=== PATIENT | male | born 1950 | race Caucasian/White ===

== ENCOUNTER → 2017-06-08 15:58 | Outpatient (CLI) | payer MEDICARE, OTHER, SELFPAY ==
[2017-06-08 17:13] LABS: Anion Gap 9 (5-15); BUN 46 mg/dL (7-18); BUN/Creat Ratio 21.8 RATIO (10-20); Calcium,Total 8.8 mg/dL (8.5-10.1); Chloride 110 mmol/L (98-107); Creatinine, Serum 2.11 mg/dL (0.70-1.30); EST Glomerular Filtration Rate 33 mL/min (>60); Est Glom Filt Rate - Afr Amer 40 mL/min (>60); Glucose 95 mg/dL (74-106); Potassium 5.2 mmol/L (3.5-5.1); Sodium Level 141 mmol/L (136-145)
== END ==
PROVIDERS: Family Provider Internal Medicine; PCP Internal Medicine; Visit Provider Internal Medicine Nephrology
DX: N18.3 Chronic kidney disease, stage 3 (moderate) (principal)
CPT/HCPCS: 36415; 80048

== ENCOUNTER → 2017-06-14 10:50 | Outpatient (CLI) | payer MEDICARE, OTHER, SELFPAY ==
[2017-06-14 12:52] LABS: Anion Gap 6 (5-15); BUN 35 mg/dL (7-18); BUN/Creat Ratio 16.4 RATIO (10-20); Chloride 105 mmol/L (98-107); Cholesterol 157 mg/dL (200); Creatinine, Serum 2.14 mg/dL (0.70-1.30); EST Glomerular Filtration Rate 33 mL/min (>60); Est Glom Filt Rate - Afr Amer 40 mL/min (>60); Glucose 94 mg/dL (74-106); High Density Lipoprotein 38 mg/dL; Potassium 4.6 mmol/L (3.5-5.1); Sodium Level 138 mmol/L (136-145); Thyroid Stim Hormone (TSH) 4.97 uIU/mL (0.358-3.74); Triglycerides 249 mg/dL; Very Low Density Lipoprotein 50 mg/dL (5-40)
== END ==
PROVIDERS: Family Provider Internal Medicine; PCP Internal Medicine; Visit Provider Internal Medicine
DX: I11.9 Hypertensive heart disease without heart failure (principal); R94.6 Abnormal results of thyroid function studies
CPT/HCPCS: 36415; 80048; 80061; 84443

== ENCOUNTER → 2017-07-04 10:41 | Outpatient (CLI) | payer MEDICARE, OTHER, SELFPAY ==
[2017-07-04 11:57] LABS: PSA,Total- Diagnostic 3.77 ng/mL (0.0-4.0)
== END ==
PROVIDERS: Family Provider Internal Medicine; PCP Internal Medicine; Visit Provider Urology
DX: C61 Malignant neoplasm of prostate (principal)
CPT/HCPCS: 36415; 84153

== ENCOUNTER → 2017-08-19 16:20 | Outpatient (CLI) | payer MEDICARE, OTHER, SELFPAY ==
[2017-08-19 17:28] LABS: Hematocrit 37.4 % (40-54); Hemoglobin 12.8 g/dl (13.0-16.5); Mean Corp Hgb Conc 34.2 g/gl (32-36); Mean Corpuscular Volume 93.5 fL (80-94); Mean Platelet Vol. 10.6 fl (6.2-12.0); Platelet Count 219 K/mm3 (150-450); RBC Distribution Width CV 12.8 % (11.6-14.6); RBC Distribution Width SD 42.3 fl (35.1-43.9); White Blood Count 7.9 K/mm3 (4.4-11.0)
[2017-08-19 17:32] LABS: Scan Indicated on CBC? Y/N NO
[2017-08-19 17:36] LABS: Albumin, Serum 3.8 g/dL (3.2-5.0); BUN 46 mg/dL (7-18); BUN/Creat Ratio 19.1 RATIO (10-20); Calcium,Total 8.5 mg/dL (8.5-10.1); Chloride 108 mmol/L (98-107); Creatinine, Serum 2.41 mg/dL (0.70-1.30); EST Glomerular Filtration Rate 29 mL/min (>60); Est Glom Filt Rate - Afr Amer 35 mL/min (>60); Glucose 94 mg/dL (74-106); Potassium 4.7 mmol/L (3.5-5.1); Sodium Level 138 mmol/L (136-145)
[2017-08-19 17:44] LABS: Protein, Urine (Random) 75.9 mg/dL (<11.9); Protein:Creat Ratio 1698 mg/g CRE (0-200)
[2017-08-19 17:46] LABS: Vitamin D,25 Hydroxy 47.6 ng/mL (29.95-100.01)
[2017-08-19 17:53] LABS: PTHIN 112.6 pg/mL (18.4-80.1)
== END ==
PROVIDERS: Family Provider Internal Medicine; PCP Internal Medicine; Visit Provider Internal Medicine Nephrology
DX: N18.3 Chronic kidney disease, stage 3 (moderate) (principal)
CPT/HCPCS: 36415; 80069; 82306; 82570; 83970; 84156; 85027

== ENCOUNTER → 2017-12-01 10:52 | Outpatient (CLI) | payer MEDICARE, OTHER, SELFPAY ==
[2017-12-01 12:34] LABS: Hemoglobin A1c 5.7 % (4.2-6.3)
[2017-12-01 12:55] LABS: ALB/GLOB Ratio 1.1 RATIO (0.9-2.4); AST(SGOT) 20 U/L (15-37); Alanine Aminotransfer ALT/SGPT 38 U/L (16-61); Albumin, Serum 3.7 g/dL (3.2-5.0); Alkaline Phosphatase 77 U/L (45-117); Anion Gap 12 (5-15); BUN 46 mg/dL (7-18); BUN/Creat Ratio 18.5 RATIO (10-20); Chloride 110 mmol/L (98-107); Cholesterol 126 mg/dL (200); Creatinine, Serum 2.48 mg/dL (0.70-1.30); EST Glomerular Filtration Rate 28 mL/min (>60); Est Glom Filt Rate - Afr Amer 33 mL/min (>60); Globulin 3.3 g/dL (2.2-4.2); Glucose 93 mg/dL (74-106); High Density Lipoprotein 32 mg/dL; Potassium 4.7 mmol/L (3.5-5.1); Sodium Level 142 mmol/L (136-145); Thyroid Stim Hormone (TSH) 0.01 uIU/mL (0.358-3.74); Triglycerides 209 mg/dL; Very Low Density Lipoprotein 42 mg/dL (5-40)
== END ==
PROVIDERS: Family Provider Internal Medicine; PCP Internal Medicine; Visit Provider Internal Medicine
DX: I11.9 Hypertensive heart disease without heart failure (principal); E78.00 Pure hypercholesterolemia, unspecified; R73.01 Impaired fasting glucose; E03.9 Hypothyroidism, unspecified
CPT/HCPCS: 36415; 80053; 80061; 83036; 84443

== ENCOUNTER → 2017-12-21 16:03 | Outpatient (CLI) | payer MEDICARE, OTHER, SELFPAY ==
[2017-12-21 17:58] LABS: Anion Gap 8 (5-15); BUN 42 mg/dL (7-18); BUN/Creat Ratio 14.7 RATIO (10-20); Calcium,Total 8.9 mg/dL (8.5-10.1); Chloride 108 mmol/L (98-107); Creatinine, Serum 2.85 mg/dL (0.70-1.30); EST Glomerular Filtration Rate 24 mL/min (>60); Est Glom Filt Rate - Afr Amer 29 mL/min (>60); Glucose 124 mg/dL (74-106); Potassium 5.2 mmol/L (3.5-5.1); Sodium Level 138 mmol/L (136-145)
== END ==
PROVIDERS: Family Provider Internal Medicine; PCP Internal Medicine; Visit Provider Internal Medicine Nephrology
DX: N18.3 Chronic kidney disease, stage 3 (moderate) (principal)
CPT/HCPCS: 36415; 80048

== ENCOUNTER → 2018-01-07 11:31 | Outpatient (CLI) | payer MEDICARE, OTHER, SELFPAY ==
[2018-01-07 12:31] LABS: PSA,Total- Diagnostic 4.41 ng/mL (0.0-4.0)
== END ==
PROVIDERS: Family Provider Internal Medicine; PCP Internal Medicine; Visit Provider Urology
DX: R97.20 Elevated prostate specific antigen [PSA] (principal)
CPT/HCPCS: 36415; 84153

== ENCOUNTER → 2018-01-27 07:44 | Outpatient (CLI) | payer MEDICARE, OTHER, SELFPAY ==
[2018-01-27 10:10] LABS: Anion Gap 11 (5-15); BUN 47 mg/dL (7-18); BUN/Creat Ratio 16.2 RATIO (10-20); Calcium,Total 9.4 mg/dL (8.5-10.1); Chloride 108 mmol/L (98-107); EST Glomerular Filtration Rate 23 mL/min (>60); Est Glom Filt Rate - Afr Amer 28 mL/min (>60); Glucose 152 mg/dL (74-106); Potassium 4.9 mmol/L (3.5-5.1); Sodium Level 140 mmol/L (136-145)
== END ==
PROVIDERS: Family Provider Internal Medicine; PCP Internal Medicine; Referring Provider Internal Medicine Nephrology; Visit Provider Internal Medicine Nephrology
DX: N18.4 Chronic kidney disease, stage 4 (severe) (principal)
CPT/HCPCS: 36415; 80048

== ENCOUNTER 2018-02-01 22:37 | Emergency (ER) | payer MEDICARE, OTHER, SELFPAY ==
[2018-02-01 22:38] VITALS: BP 143/83; PULSE 70; RESP 18; TEMP 36.8; O2SAT 99; BMI 30.2
--- NOTE | 2018-02-01 23:00 | ED.DCSUM_ITS ---
- ER Visit Summary Date of Service: 02/01/18 Chief Complaint: Chemical exposure to eyes History of Present Illness: The patient is a 68 M who presents 6 hours after chemical exposure to the eyes. Patient was using [employer] to clean the siding on his house. It is a caustic substance and he was using it in a pressure hose. It splashed off the house and into his eyes. Patient flushed his eyes for about 5 minutes. He is still having pain and redness in his eyes. He also got it on the skin around his face but is having no complaints at that time. He wears glasses but no contacts. Patient has history of bilateral cataract surgery. He denies any current vision changes, blurry vision, double v ision, or any other complaints other than the eye pain and redness. Physical Examination: Patient is well-nourished and well-developed sitting in bed with the lights on. Patient has diffuse conjunctival injection bilaterally and increased lacrimation. Periorbital region shows no erythema, lesions, tenderness. Pupils are equal round and reactive to light. No clouding of the corneas. Extraocular movement is intact without pain. PH of the eyes is 7.2. Visual acuity is 20/40 OD, 20/40 OS, 20/50 OU Test Results: [] Emergency Department Course and Treatment: Tetracaine was instilled to both eyes, with relief of patient's pain. Patient's eyes were irrigated copiously with sterile saline, 1 L each eye. Patient had diffuse uptake of floor seen on bilateral corneas. There was no evidence of ulceration, Ashley sign, dendritic lesions. Patient was placed on erythromycin antibiotic ointment and instructed to follow-up tomorrow with his eye doctor for another evaluation. Patient agreed and will return if any worsening of his condition. Treatment Plan: [] Disposition: [] Impression: Bilateral chemical conjunctivitis, bilateral corneal injury secondary to chemical exposure This note was generated with [facility] dictation software. It may contain incorrect words, spelling, and punctuation that were not noted in review of the chart prior to signing ED Disposition - Plan for ED Patient: Disposition: Home or Assisted Living Chief Complaint: Eye Problem Instructions: ED Eye Injury Corneal Abrasion, ED Chemical Conjunctivitis Referrals: Toño Gottlieb MD [STAFF PHYSICIAN] - 1 Day for another exam Fast,Angie, DO [Primary Care Provider] - Additional Instructions: Your eyes show some damage from the chemical you got in it. Use the antibiotic ointment as prescribed. Follow-up with your eye doctor tomorrow for another evaluation. Use [id number] pain medication as needed for pain. You were given a few of the numbing eyedrops to use for severe pain. If your pain becomes severely worse or your vision becomes blurry or changes in any way, return immediately to the emergency department for another evaluation. If you have any worsening of your condition or any new concerning symptoms, please return immediately to the emergency department for another evaluation.
--- NOTE | 2018-02-01 23:43 | ED.DEP ---
ED Disposition - Plan for ED Patient: Disposition: Home or Assisted Living Chief Complaint: Eye Problem Instructions: ED Eye Injury Corneal Abrasion, ED Chemical Conjunctivitis Referrals: Angie Ivan DO [Primary Care Provider] - Toño Gottlieb MD [STAFF PHYSICIAN] - 1 Day for another exam Additional Instructions: Your eyes show some damage from the chemical you got in it. Use the antibiotic ointment as prescribed. Follow-up with your eye doctor tomorrow for another evaluation. Use [id number] pain medication as needed for pain. You were given a few of the numbing eyedrops to use for severe pain. If your pain becomes severely worse or your vision becomes blurry or changes in any way, return immediately to the emergency department for another evaluation. If you have any worsening of your condition or any new concerning symptoms, please return immediately to the emergency department for another evaluation.
--- NOTE | 2018-02-01 23:46 | DCINST.ED_ITS ---
ED Disposition - Plan for ED Patient: Disposition: Home or Assisted Living Chief Complaint: Eye Problem Instructions: ED Eye Injury Corneal Abrasion, ED Chemical Conjunctivitis Referrals: Angie Ivan DO [Primary Care Provider] - Toño Gottlieb MD [STAFF PHYSICIAN] - 1 Day for another exam Additional Instructions: Your eyes show some damage from the chemical you got in it. Use the antibiotic ointment as prescribed. Follow-up with your eye doctor tomorrow for another evaluation. Use hsbe-yhy-nitvbvm pain medication as needed for pain. You were given a few of the numbing eyedrops to use for severe pain. If your pain becomes severely worse or your vision becomes blurry or changes in any way, return immediately to the emergency department for another evaluation. If you have any worsening of your condition or any new concerning symptoms, please return immediately to the emergency department for another evaluation.
[2018-02-01 23:57] VITALS: BP 138/89; PULSE 92; RESP 16; O2SAT 98
[2018-02-02 00:04] VITALS: BP 138/89; PULSE 92; RESP 16; O2SAT 98
[2018-02-02] MEDS: Tetracaine 0.5% Ophthalmic Bottle 1 DRP EACH EYE (00:05)
[2018-02-02] MEDS: Fluorescein 1 MG STRIP 1 STRIP EACH EYE (00:05)
[2018-02-02] MEDS: Erythromycin Base 1 OPTH.TUBE 1 APPLIC EACH EYE (00:06)
--- NOTE | 2018-02-02 00:06 | ED.RN ---
MEDICATIONS GIVEN BY DR. RODRIGUEZ PRIOR TO SCANNING.
== END 2018-02-02 00:07 | disposition home or self-care (01) ==
PROVIDERS: Emergency Provider Emergency Medicine; Family Provider Internal Medicine; PCP Internal Medicine
DX: H10.213 Acute toxic conjunctivitis, bilateral (principal); S05.8X2A Other injuries of left eye and orbit, initial encounter; S05.8X1A Other injuries of right eye and orbit, initial encounter; X58.XXXA Exposure to other specified factors, initial encounter; Y93.9 Activity, unspecified; Y92.9 Unspecified place or not applicable
CPT/HCPCS: 99284; J7030

== ENCOUNTER → 2018-03-09 09:04 | Outpatient (CLI) | payer MEDICARE, OTHER, SELFPAY ==
[2018-03-09 10:56] LABS: Vitamin D,25 Hydroxy 55.2 ng/mL (29.95-100.01)
[2018-03-09 11:12] LABS: ALB/GLOB Ratio 1.1 RATIO (0.9-2.4); AST(SGOT) 22 U/L (15-37); Alanine Aminotransfer ALT/SGPT 36 U/L (16-61); Albumin, Serum 3.5 g/dL (3.2-5.0); Alkaline Phosphatase 70 U/L (45-117); Anion Gap 11 (5-15); BUN 49 mg/dL (7-18); BUN/Creat Ratio 18.4 RATIO (10-20); Chloride 109 mmol/L (98-107); Cholesterol 142 mg/dL (200); Creatinine, Serum 2.66 mg/dL (0.70-1.30); EST Glomerular Filtration Rate 25 mL/min (>60); Est Glom Filt Rate - Afr Amer 31 mL/min (>60); Globulin 3.3 g/dL (2.2-4.2); Glucose 91 mg/dL (74-106); High Density Lipoprotein 35 mg/dL; Potassium 5.2 mmol/L (3.5-5.1); Protein, Total 6.8 g/dL (6.4-8.2); Sodium Level 140 mmol/L (136-145); Thyroid Stim Hormone (TSH) 0.04 uIU/mL (0.358-3.74); Triglycerides 284 mg/dL; Very Low Density Lipoprotein 57 mg/dL (5-40)
== END ==
PROVIDERS: Family Provider Internal Medicine; PCP Internal Medicine; Referring Provider Internal Medicine; Visit Provider Internal Medicine
DX: E78.00 Pure hypercholesterolemia, unspecified (principal); E55.9 Vitamin D deficiency, unspecified; Q61.2 Polycystic kidney, adult type; R73.01 Impaired fasting glucose; E03.9 Hypothyroidism, unspecified
CPT/HCPCS: 36415; 80053; 80061; 82306; 83036; 84443

== ENCOUNTER → 2018-03-24 10:44 | Outpatient (CLI) | payer MEDICARE, OTHER, SELFPAY ==
[2018-03-24 12:15] LABS: Anion Gap 8 (5-15); BUN 45 mg/dL (7-18); Calcium,Total 8.8 mg/dL (8.5-10.1); Chloride 109 mmol/L (98-107); Creatinine, Serum 2.64 mg/dL (0.70-1.30); EST Glomerular Filtration Rate 26 mL/min (>60); Est Glom Filt Rate - Afr Amer 31 mL/min (>60); Glucose 61 mg/dL (74-106); Potassium 4.6 mmol/L (3.5-5.1); Sodium Level 138 mmol/L (136-145)
== END ==
PROVIDERS: Family Provider Internal Medicine; PCP Internal Medicine; Referring Provider Internal Medicine; Visit Provider Internal Medicine
DX: E87.5 Hyperkalemia (principal)
CPT/HCPCS: 36415; 80048

== ENCOUNTER → 2018-06-13 10:34 | Outpatient (CLI) | payer MEDICARE, OTHER, SELFPAY ==
[2018-04-06 13:11] VITALS: BMI 31.0
[2018-06-13 11:04] LABS: Absolute Lymphocyte Count 1.47 X10^3/ul (0.83-4.51); Absolute Neutrophil Count 3.9 X10^3/uL (2.0-7.7); Basophil# 0.04 X10^3/uL; Basophil% 0.6 % (0-1); Eosinophil# 0.22 X10^3/uL; Eosinophils% 3.4 % (0-5); Hematocrit 40.3 % (40-54); Hemoglobin 13.3 g/dl (13.0-16.5); Lymphocyte # 1.47 X10^3/ul (4.0); Mean Corpuscular Volume 96.9 fL (80-94); Mean Platelet Vol. 10.4 fl (6.2-12.0); Monocyte# 0.74 X10^3/uL; Monocyte% 11.6 % (0-10); Neutrophil # 3.91 X10^3/uL (2.7-7.7); Neutrophil % 61.4 % (47-70); Platelet Count 214 K/mm3 (150-450); RBC Distribution Width CV 11.7 % (11.6-14.6); RBC Distribution Width SD 40.3 fl (35.1-43.9); Red Blood Count 4.16 M/mm3 (4.6-6.2); White Blood Count 6.4 K/mm3 (4.4-11.0)
[2018-06-13 11:09] LABS: POSITIVE COUNT NO; POSITIVE DIFFERENTIAL NO; POSITIVE MORPHOLOGY NO
[2018-06-13 11:32] LABS: 24 Hour Urine Protein 1528.3 mg/24HR (<150 MG/24HR); 24HR. UA Prot. Total Volume 2900 mL; Urine Protein (24 Hour) 52.7 mg/dL (<11.9)
[2018-06-13 11:33] LABS: Creat.Clear Total Volume 2900 mL; Creatinine Clearance 29 ml/min (100-200); Creatinine Serum Creat 2.3 mg/dL (0.8-1.3); Creatinine Urine 32.9 mg/dL (NO RANGE EST.); EST Glomerular Filtration Rate 30 mL/min (>60); Est Glom Filt Rate - Afr Amer 36 mL/min (>60)
[2018-06-13 11:41] LABS: ALB/GLOB Ratio 1.1 RATIO (0.9-2.4); AST(SGOT) 29 U/L (15-37); Alanine Aminotransfer ALT/SGPT 42 U/L (16-61); Albumin, Serum 3.6 g/dL (3.2-5.0); Alkaline Phosphatase 79 U/L (45-117); Anion Gap 10 (5-15); BUN 33 mg/dL (7-18); BUN/Creat Ratio 14.2 RATIO (10-20); Calcium,Total 8.6 mg/dL (8.5-10.1); Chloride 110 mmol/L (98-107); Cholesterol 145 mg/dL (200); Creatinine, Serum 2.32 mg/dL (0.70-1.30); EST Glomerular Filtration Rate 30 mL/min (>60); Est Glom Filt Rate - Afr Amer 36 mL/min (>60); Globulin 3.3 g/dL (2.2-4.2); Glucose 88 mg/dL (74-106); High Density Lipoprotein 33 mg/dL; Potassium 4.6 mmol/L (3.5-5.1); Protein, Total 6.9 g/dL (6.4-8.2); Sodium Level 139 mmol/L (136-145); Thyroid Stim Hormone (TSH) 1.51 uIU/mL (0.358-3.74); Triglycerides 236 mg/dL; Very Low Density Lipoprotein 47 mg/dL (5-40)
[2018-06-13 11:43] LABS: Hemoglobin A1c 6.1 % (4.2-6.3)
== END ==
PROVIDERS: Family Provider Internal Medicine; PCP Internal Medicine; Referring Provider Internal Medicine; Visit Provider Internal Medicine
DX: R73.01 Impaired fasting glucose (principal); E03.9 Hypothyroidism, unspecified; N18.4 Chronic kidney disease, stage 4 (severe); E78.00 Pure hypercholesterolemia, unspecified
CPT/HCPCS: 36415; 80053; 80061; 82575; 83036; 84156; 84443; 85025

== ENCOUNTER → 2018-06-23 15:13 | Outpatient (CLI) | payer MEDICARE, OTHER, SELFPAY ==
[2018-04-06 13:11] VITALS: BMI 31.0
--- NOTE | 2018-06-23 15:16 | CT_ITS ---
STUDY: CT ABDOMEN AND PELVIS WITHOUT CONTRAST REASON FOR EXAM: Male, 68 years old. Right flank pain. History of prostate carcinoma. RADIATION DOSAGE (If Supplied By Facility): CTDIvol = ( 14.14 ) mGy, DLP = ( 693.70 ) mGycm TECHNIQUE: Transaxial images were obtained from the dome of the diaphragm to the symphysis pubis without oral contrast, and without intravenous contrast. Sagittal and coronal images were reconstructed. Individualized dose optimization techniques were used for this CT. COMPARISON: Comparison is made with prior study dated June 22, 2015. FINDINGS: Minimal increased markings at the lung bases suggestive of scarring. The visualized portions of the heart are within normal limits. Once again, multiple cysts are seen scattered throughout the liver. These are essentially unchanged. Mild hepatomegaly. Normal gallbladder and extrahepatic biliary system. Normal spleen. Normal pancreas. Normal bilateral adrenal glands. There is enlargement of both kidneys. Innumerable cysts are seen in both kidneys. No significant renal tissue is seen suggestive of multicystic kidney disease. Tiny calcifications are seen in the left kidney suggestive of a renal cystic calcification. Several cysts in the lower pole of the left kidney are hyperdense suggestive of proteinaceous material. There has been essentially no change. Normal visualized stomach. Normal small intestine. There are multiple colonic diverticula consistent with diverticulosis. The appendix is visualized and appears normal. There is diffuse atherosclerotic calcification of the abdominal aorta, without a demonstrated aneurysm. Normal inferior vena cava. Normal retroperitoneum. Normal urinary bladder. There is enlargement of the prostate gland. The prostate measures 4.1 cm x 5.2 cm. Small bilateral renal hernias containing fat. Degenerative changes in the lower lumbar spine. CT/Abdomen/Pelvis without Cont IMPRESSION: Findings in keeping with polycystic kidney disease. Multiple hepatic cysts. These are unchanged. Sigmoid diverticulosis without evidence of acute diverticulitis. Electronically Signed: Noel Cornejo MD at 15:57 EST , Service support ,
[2018-06-23 16:07] LABS: ALB/GLOB Ratio 1.3 RATIO (0.9-2.4); AST(SGOT) 26 U/L (15-37); Alanine Aminotransfer ALT/SGPT 34 U/L (16-61); Albumin, Serum 3.7 g/dL (3.2-5.0); Alkaline Phosphatase 82 U/L (45-117); Anion Gap 9 (5-15); BUN 48 mg/dL (7-18); BUN/Creat Ratio 17.8 RATIO (10-20); Calcium,Total 8.8 mg/dL (8.5-10.1); Chloride 109 mmol/L (98-107); EST Glomerular Filtration Rate 25 mL/min (>60); Est Glom Filt Rate - Afr Amer 30 mL/min (>60); Globulin 2.9 g/dL (2.2-4.2); Glucose 131 mg/dL (74-106); Potassium 4.7 mmol/L (3.5-5.1); Protein, Total 6.6 g/dL (6.4-8.2); Sodium Level 138 mmol/L (136-145)
[2018-06-23 16:09] LABS: Absolute Lymphocyte Count 1.44 X10^3/ul (0.83-4.51); Absolute Neutrophil Count 5.5 X10^3/uL (2.0-7.7); Basophil# 0.03 X10^3/uL; Basophil% 0.4 % (0-1); Eosinophils% 2.5 % (0-5); Hematocrit 38.4 % (40-54); Hemoglobin 12.5 g/dl (13.0-16.5); Lymphocyte # 1.44 X10^3/ul (4.0); Lymphocyte % 18.2 % (19-41); Mean Corp Hgb Conc 32.6 g/gl (32-36); Mean Corpuscular Hgb 31.3 pg (27.0-32.0); Mean Platelet Vol. 10.8 fl (6.2-12.0); Monocyte# 0.71 X10^3/uL; Neutrophil # 5.53 X10^3/uL (2.7-7.7); Neutrophil % 69.8 % (47-70); Platelet Count 214 K/mm3 (150-450); RBC Distribution Width SD 41.8 fl (35.1-43.9); White Blood Count 7.9 K/mm3 (4.4-11.0)
[2018-06-23 16:10] LABS: POSITIVE COUNT NO; POSITIVE DIFFERENTIAL NO; POSITIVE MORPHOLOGY NO
== END ==
PROVIDERS: Family Provider Internal Medicine; PCP Internal Medicine; Referring Provider Internal Medicine; Visit Provider Internal Medicine
DX: R10.9 Unspecified abdominal pain (principal)
CPT/HCPCS: 74176; 80053; 85025

== ENCOUNTER 2018-07-10 15:21 | Outpatient (RCR) | payer MEDICARE, OTHER, SELFPAY ==
[2018-04-06 13:11] VITALS: BMI 31.0
== END 2018-07-30 23:59 ==
LOC: NS 15:21
PROVIDERS: Family Provider Internal Medicine; PCP Internal Medicine; Visit Provider Internal Medicine
DX: N18.4 Chronic kidney disease, stage 4 (severe) (principal); Z71.3 Dietary counseling and surveillance
CPT/HCPCS: 97802

== ENCOUNTER → 2018-07-10 16:59 | Outpatient (CLI) | payer MEDICARE, OTHER, SELFPAY ==
[2018-04-06 13:11] VITALS: BMI 31.0
[2018-07-14 10:44] LABS: PSA,Total- Diagnostic 4.88 ng/mL (0.0-4.0)
== END ==
PROVIDERS: Family Provider Internal Medicine; PCP Internal Medicine; Referring Provider Urology; Visit Provider Urology
DX: C61 Malignant neoplasm of prostate (principal); R97.20 Elevated prostate specific antigen [PSA]
CPT/HCPCS: 36415; 84153; G0103

== ENCOUNTER → 2018-07-28 10:40 | Outpatient (CLI) | payer MEDICARE, OTHER, SELFPAY ==
[2018-04-06 13:11] VITALS: BMI 31.0
[2018-07-28 12:36] LABS: Absolute Lymphocyte Count 1.73 X10^3/ul (0.83-4.51); Absolute Neutrophil Count 3.4 X10^3/uL (2.0-7.7); Basophil# 0.03 X10^3/uL; Basophil% 0.5 % (0-1); Eosinophil# 0.24 X10^3/uL; Eosinophils% 3.9 % (0-5); Hematocrit 36.7 % (40-54); Hemoglobin 12.2 g/dl (13.0-16.5); Lymphocyte # 1.73 X10^3/ul (4.0); Lymphocyte % 28.3 % (19-41); Mean Corp Hgb Conc 33.2 g/gl (32-36); Mean Corpuscular Hgb 31.3 pg (27.0-32.0); Mean Corpuscular Volume 94.1 fL (80-94); Mean Platelet Vol. 10.7 fl (6.2-12.0); Monocyte# 0.73 X10^3/uL; Monocyte% 11.9 % (0-10); Neutrophil # 3.37 X10^3/uL (2.7-7.7); Neutrophil % 55.2 % (47-70); POSITIVE COUNT NO; POSITIVE DIFFERENTIAL NO; POSITIVE MORPHOLOGY NO; Platelet Count 203 K/mm3 (150-450); RBC Distribution Width CV 12.4 % (11.6-14.6); RBC Distribution Width SD 41.8 fl (35.1-43.9); White Blood Count 6.1 K/mm3 (4.4-11.0)
[2018-07-28 12:46] LABS: Protein, Urine (Random) 80.5 mg/dL (<11.9); Protein:Creat Ratio 1963 mg/g CRE (0-200)
[2018-07-28 13:14] LABS: Vitamin D,25 Hydroxy 64.4 ng/mL (29.95-100.01)
[2018-07-28 13:16] LABS: PTHIN 49.6 pg/mL (18.4-80.1)
[2018-07-28 13:17] LABS: Albumin, Serum 3.8 g/dL (3.2-5.0); BUN 45 mg/dL (7-18); BUN/Creat Ratio 16.7 RATIO (10-20); Calcium,Total 8.8 mg/dL (8.5-10.1); Chloride 109 mmol/L (98-107); EST Glomerular Filtration Rate 25 mL/min (>60); Est Glom Filt Rate - Afr Amer 30 mL/min (>60); Glucose 85 mg/dL (74-106); Phosphorus 3.8 mg/dL (2.5-4.9); Potassium 4.8 mmol/L (3.5-5.1); Sodium Level 138 mmol/L (136-145)
== END ==
PROVIDERS: Family Provider Internal Medicine; PCP Internal Medicine; Referring Provider Internal Medicine Nephrology; Visit Provider Internal Medicine Nephrology
DX: N18.3 Chronic kidney disease, stage 3 (moderate) (principal)
CPT/HCPCS: 36415; 80069; 82306; 82570; 83970; 84156; 85025

== ENCOUNTER → 2018-08-07 | Outpatient (CLI) | payer MEDICARE, OTHER, SELFPAY ==
[2018-04-06 13:11] VITALS: BMI 31.0
--- NOTE | 2018-08-07 09:52 | RAD_ITS ---
STUDY: X-RAY CHEST REASON FOR EXAM: Male, 68 years old. Cough. TECHNIQUE: PA and lateral views of the chest. COMPARISON: Comparison is made with prior study dated February 15, 2017. FINDINGS: The lungs are clear and expanded. Hyperinflation. There is no demonstrated pleural abnormality. Sternal cerclage wires are present from a prior sternotomy. Normal mediastinum and emery. Normal visualized pulmonary arteries. Normal visualized aortic arch and descending thoracic aorta. Normal visualized thoracic spine. Normal visualized ribs, clavicles, and shoulders. There is no demonstrated abnormality of the visualized soft tissue structures of the upper abdomen. RAD/Chest PA and Lateral IMPRESSION: Normal x-ray examination of the chest. Electronically Signed: Noel Cornejo, at 10:27 EDT , Service support ,
== END | disposition home or self-care (01) ==
LOC: HPRAD 09:49
PROVIDERS: Family Provider Internal Medicine; PCP Internal Medicine; Referring Provider Nurse Practitioner Gerontology; Visit Provider Nurse Practitioner Gerontology
DX: R05 Cough (principal)
CPT/HCPCS: 71046

== ENCOUNTER 2018-08-15 14:51 | Outpatient (RCR) | payer MEDICARE, OTHER, SELFPAY ==
[2018-04-06 13:11] VITALS: BMI 31.0
== END 2018-08-29 23:59 ==
LOC: NS 14:51
PROVIDERS: Family Provider Internal Medicine; PCP Internal Medicine; Visit Provider Internal Medicine
DX: N18.4 Chronic kidney disease, stage 4 (severe) (principal)
CPT/HCPCS: 97803

== ENCOUNTER 2018-09-19 13:02 | Outpatient (RCR) | payer MEDICARE, OTHER, SELFPAY ==
[2018-04-06 13:11] VITALS: BMI 31.0
== END 2018-09-29 23:59 ==
LOC: NS 13:02
PROVIDERS: Family Provider Internal Medicine; PCP Internal Medicine; Visit Provider Internal Medicine
DX: N18.4 Chronic kidney disease, stage 4 (severe) (principal); Z71.3 Dietary counseling and surveillance
CPT/HCPCS: 97803

== ENCOUNTER 2018-10-11 01:21 | Emergency (ER) | payer MEDICARE, OTHER, SELFPAY ==
[2018-04-06 13:11] VITALS: BMI 31.0
[2018-10-11] VITALS (8 sets, daily range): BP systolic 124–145; BP diastolic 72–85; PULSE 89–95; RESP 15–23; TEMP 36.2–37; O2SAT 94–96; BMI 30.8
--- NOTE | 2018-10-11 01:39 | EKG12_ITS ---
Test Reason : SOB Blood Pressure : / mmHG Vent. Rate : 093 BPM Atrial Rate : 093 BPM P-R Int : 144 ms QRS Dur : 104 ms QT Int : 354 ms P-R-T Axes : 005 -06 036 degrees QTc Int : 440 ms Normal sinus rhythm Normal ECG Confirmed by KASEY NORMAN, ANNALEE ([id number]), marketing editor CHRISTOPH LEON ([id number]) on 10/13/2018 9:06:40 AM Referred By: MARILYN Confirmed By:ANNALEE PARKS MD
--- NOTE | 2018-10-11 01:39 | RAD_ITS ---
HISTORY: INCREASING SOB, COUGH, CONGESTION EXAMINATION/TECHNIQUE: XR Chest 2 Views: COMPARISON: None FINDINGS: EKG leads in place. No significant change. Normal heart size. No vascular congestion, pleural effusion, or acute pulmonary infiltration. No pneumothorax. Previous median sternotomy. RAD/Chest PA and Lateral IMPRESSION: 1. No acute cardiopulmonary disease. No significant interval change. 2. Previous median sternotomy. at 0231 Reported and signed by: Ang Luciano MD Electronically Signed: Ang Luciano, at 2:30 EDT Tel , Service support ,
[2018-10-11] MEDS: Ipratropium/Albuterol Sulfate 3 ML AMPUL.NEB INHALATION (01:42)
[2018-10-11 01:57] LABS: Absolute Lymphocyte Count 1.22 X10^3/ul (0.83-4.51); Absolute Neutrophil Count 7.6 X10^3/uL (2.0-7.7); Basophil# 0.03 X10^3/uL; Basophil% 0.3 % (0-1); Eosinophil# 0.36 X10^3/uL; Eosinophils% 3.5 % (0-5); Hemoglobin 12.3 g/dl (13.0-16.5); Lymphocyte # 1.22 X10^3/ul (4.0); Lymphocyte % 11.8 % (19-41); Mean Corp Hgb Conc 34.2 g/gl (32-36); Mean Corpuscular Hgb 32.2 pg (27.0-32.0); Mean Corpuscular Volume 94.2 fL (80-94); Mean Platelet Vol. 10.5 fl (6.2-12.0); Monocyte# 1.09 X10^3/uL; Monocyte% 10.6 % (0-10); Neutrophil # 7.61 X10^3/uL (2.7-7.7); Neutrophil % 73.6 % (47-70); Platelet Count 209 K/mm3 (150-450); RBC Distribution Width CV 12.4 % (11.6-14.6); RBC Distribution Width SD 41.9 fl (35.1-43.9); Red Blood Count 3.82 M/mm3 (4.6-6.2); White Blood Count 10.3 K/mm3 (4.4-11.0)
[2018-10-11 01:58] LABS: POSITIVE COUNT NO; POSITIVE DIFFERENTIAL NO; POSITIVE MORPHOLOGY NO
[2018-10-11] MEDS: 0.9% Normal Saline 1,000 ML 150 ML IV (02:06)
[2018-10-11 02:09] LABS: Anion Gap 7 (5-15); BUN 50 mg/dL (7-18); BUN/Creat Ratio 18.3 RATIO (10-20); Calcium,Total 8.7 mg/dL (8.5-10.1); Chloride 107 mmol/L (98-107); Creatinine, Serum 2.73 mg/dL (0.70-1.30); EST Glomerular Filtration Rate 25 mL/min (>60); Est Glom Filt Rate - Afr Amer 30 mL/min (>60); Estimated Creatinine Clearance 24.71 ml/min; Glucose 111 mg/dL (74-106); Potassium 4.4 mmol/L (3.5-5.1); Sodium Level 134 mmol/L (136-145)
[2018-10-11] MEDS: Albuterol 2.5 MG/3 ML VIAL.NEB. INHALATION (03:05)
--- NOTE | 2018-10-11 03:53 | ED.VISSUMM ---
- ER Visit Summary Date of Service: 10/11/18 Chief Complaint: Short of breath, cough, congestion History of Present Illness: The patient is a 68 M with a 2-day history of sore throat, cough with mucus congestion. He states he feels the mucus gets caught in his throat as he coughs. He denies chills. He has been using Mucinex today without much improvement. Patient denies history of asthma or COPD. He does have sleep apnea and uses a CPAP machine. Physical Examination: Vital signs unremarkable. Patient sitting upright at the side of the bed. He is in no acute distress. Head and neck examination unremarkable. Heart is regular rate and rhythm. Lung sounds with very mild expiratory wheeze. He has mild rales noted of the left base. Abdomen is soft nontender. Test Results: EKG is sinus at 93 with no acute ischemia. Two-view chest x-ray reveals no acute disease. CBC was normal white count. Hemoglobin is 12.3. Chemistry studies significant for BUN of 50 and creatinine 2.73. This is consistent with his prior values. Emergency Department Course and Treatment: Patient received a DuoNeb treatment. On repeat evaluation O2 sat was 89% on room air, but with deep breath as I listen to his lungs his sat increased to 95%. Patient does have improved air movement and does feel better after the DuoNeb treatment. He is given an additional albuterol. He is ambulated in the hallway on room air. O2 sat ranges between 90 to 95%. Patient be given albuterol inhaler for home along with Zithromax for bronchitis. Treatment Plan: [] Disposition: Discharge Impression: Bronchitis This note was generated with [employer] dictation software. It may contain incorrect words, spelling, and punctuation that were not noted in review of the chart prior to signing ED Disposition - Plan for ED Patient: Disposition: Home or Assisted Living Instructions: ED Upper Resp Infec Abx Tx Prescriptions: Albuterol Inhaler [Ventolin Hfa] 1 - 2 puff INHALATION Q4H PRN PRN #1 inhaler PRN Reason: Wheezing Azithromycin [Zithromax] 250 mg PO DAILY #4 tablet Referrals: Angie Ivan DO [Primary Care Provider] - 1 Week
[2018-10-11] MEDS: Azithromycin 250 MG Tablet 500 MG PO (04:16)
== END 2018-10-11 04:24 | disposition home or self-care (01) ==
PROVIDERS: Emergency Provider Emergency Medicine; Family Provider Internal Medicine; PCP Internal Medicine
DX: J40 Bronchitis, not specified as acute or chronic (principal); G47.30 Sleep apnea, unspecified; K21.9 Gastro-esophageal reflux disease without esophagitis; I12.9 Hypertensive chronic kidney disease with stage 1 through stage 4 chronic kidney disease, or unspecified chronic kidney disease; N18.9 Chronic kidney disease, unspecified; Z85.46 Personal history of malignant neoplasm of prostate; Z86.73 Personal history of transient ischemic attack (TIA), and cerebral infarction without residual deficits
CPT/HCPCS: 71046; 80048; 85025; 93005; 94640; 96360; 96361; 99285; J7030; A4216

== ENCOUNTER → 2018-12-06 15:49 | Outpatient (CLI) | payer MEDICARE, OTHER, SELFPAY ==
[2018-10-11 01:22] VITALS: BMI 30.8
[2018-12-06 17:30] LABS: Hematocrit 33.5 % (40-54); Hemoglobin 11.2 g/dL (13.0-16.5); Mean Corp Hgb Conc 33.4 g/dL (32-36); Mean Corpuscular Hgb 32.3 pg (27.0-32.0); Mean Corpuscular Volume 96.5 fL (80-94); Mean Platelet Vol. 11.1 fl (6.2-12.0); Platelet Count 188 K/mm3 (150-450); RBC Distribution Width CV 12.2 % (11.6-14.6); RBC Distribution Width SD 42.5 fl (35.1-43.9); Red Blood Count 3.47 M/mm3 (4.6-6.2); White Blood Count 6.7 K/mm3 (4.4-11.0)
[2018-12-06 17:37] LABS: Albumin, Serum 3.4 g/dL (3.2-5.0); BUN 38 mg/dL (7-18); BUN/Creat Ratio 15.3 RATIO (10-20); Calcium,Total 8.4 mg/dL (8.5-10.1); Chloride 111 mmol/L (98-107); Creatinine, Serum 2.49 mg/dL (0.70-1.30); EST Glomerular Filtration Rate 27 mL/min (>60); Est Glom Filt Rate - Afr Amer 33 mL/min (>60); Glucose 89 mg/dL (74-106); Phosphorus 2.9 mg/dL (2.5-4.9); Potassium 4.9 mmol/L (3.5-5.1); Sodium Level 141 mmol/L (136-145)
[2018-12-06 17:50] LABS: PTHIN 120.8 pg/mL (18.4-80.1); Vitamin D,25 Hydroxy 52.3 ng/mL (29.95-100.01)
[2018-12-06 18:26] LABS: Microalbumin:Creatinine Ratio 949.8 mg/g CRE (<30 mg/g CRE)
== END ==
PROVIDERS: Family Provider Internal Medicine; PCP Internal Medicine; Referring Provider Internal Medicine Nephrology; Visit Provider Internal Medicine Nephrology
DX: N25.81 Secondary hyperparathyroidism of renal origin (principal); R80.9 Proteinuria, unspecified; N18.4 Chronic kidney disease, stage 4 (severe)
CPT/HCPCS: 36415; 80069; 82043; 82306; 82570; 83735; 83970; 85027

== ENCOUNTER → 2018-12-26 | Outpatient (CLI) | payer MEDICARE, OTHER, SELFPAY ==
[2018-10-11 01:22] VITALS: BMI 30.8
[2018-12-26 12:15] LABS: Absolute Lymphocyte Count 1.38 X10^3/uL (0.83-4.51); Absolute Neutrophil Count 4.2 X10^3/uL (2.0-7.7); Basophil# 0.06 X10^3/uL; Basophil% 0.9 % (0-1); Eosinophil# 0.18 X10^3/uL; Eosinophils% 2.7 % (0-5); Hematocrit 37.8 % (40-54); Hemoglobin 12.5 g/dL (13.0-16.5); Lymphocyte # 1.38 X10^3/ul (4.0); Lymphocyte % 20.8 % (19-41); Mean Corp Hgb Conc 33.1 g/dL (32-36); Mean Corpuscular Hgb 31.7 pg (27.0-32.0); Mean Corpuscular Volume 95.9 fL (80-94); Mean Platelet Vol. 10.5 fl (6.2-12.0); Monocyte# 0.75 X10^3/uL; Monocyte% 11.3 % (0-10); NRBC Flagged by Analyzer 0 % (0-5); Neutrophil # 4.24 X10^3/uL (2.7-7.7); Platelet Count 219 K/mm3 (150-450); RBC Distribution Width SD 42.2 fl (35.1-43.9); Red Blood Count 3.94 M/mm3 (4.6-6.2); White Blood Count 6.6 K/mm3 (4.4-11.0)
[2018-12-26 12:51] LABS: ALB/GLOB Ratio 1.2 RATIO (0.9-2.4); AST(SGOT) 19 U/L (15-37); Alanine Aminotransfer ALT/SGPT 30 U/L (16-61); Albumin, Serum 3.7 g/dL (3.2-5.0); Alkaline Phosphatase 73 U/L (45-117); Anion Gap 7 (5-15); BUN 50 mg/dL (7-18); BUN/Creat Ratio 19.6 RATIO (10-20); Calcium,Total 9.2 mg/dL (8.5-10.1); Chloride 111 mmol/L (98-107); Cholesterol 135 mg/dL (200); Creatinine, Serum 2.55 mg/dL (0.70-1.30); EST Glomerular Filtration Rate 27 mL/min (>60); Est Glom Filt Rate - Afr Amer 32 mL/min (>60); Globulin 3.2 g/dL (2.2-4.2); Glucose 93 mg/dL (74-106); Hemoglobin A1c 5.7 % (4.2-6.3); High Density Lipoprotein 34 mg/dL; Potassium 4.6 mmol/L (3.5-5.1); Protein, Total 6.9 g/dL (6.4-8.2); Sodium Level 138 mmol/L (136-145); Triglycerides 208 mg/dL; Very Low Density Lipoprotein 42 mg/dL (5-40)
== END | disposition home or self-care (01) ==
LOC: MTLAB 10:05
PROVIDERS: Family Provider Internal Medicine; PCP Internal Medicine; Referring Provider Internal Medicine; Visit Provider Internal Medicine
DX: I11.9 Hypertensive heart disease without heart failure (principal); E78.00 Pure hypercholesterolemia, unspecified; R73.01 Impaired fasting glucose
CPT/HCPCS: 36415; 80053; 80061; 83036; 85025

== ENCOUNTER → 2019-01-02 | Outpatient (CLI) | payer MEDICARE, OTHER, SELFPAY ==
[2018-10-11 01:22] VITALS: BMI 30.8
--- NOTE | 2019-01-02 09:12 | RAD_ITS ---
STUDY: X-RAY - RIGHT SHOULDER REASON FOR EXAM: Male, 69 years old. Right arm stiffness TECHNIQUE: 4 view(s) of the shoulder. COMPARISON: None. FINDINGS: There is no evidence of fracture or dislocation. There are mild degenerative changes noted. There are no radiodense foreign bodies. RAD/Shoulder min 2 Views IMPRESSION: No fracture or dislocation in the right shoulder. Mild degenerative change. Electronically Signed: Rashawn Morse, at 18:49 EDT Tel , Service support ,
--- NOTE | 2019-01-02 09:12 | RAD_ITS ---
STUDY: X-RAY - CERVICAL SPINE REASON FOR EXAM: Male, 69 years old. Neck and arm pain TECHNIQUE: 6 view(s) of the cervical spine were obtained. COMPARISON: None FINDINGS: There is no evidence of fracture or dislocation in the cervical spine. The dens is intact. The vertebral body heights are well-maintained. There are moderate degenerative changes in the mid to lower cervical spine with disc space narrowing and osteophytes at C4/C5, C5/C6 and C6/C7. The prevertebral soft tissues are unremarkable. There is no radiodense foreign body. RAD/Cerv Spine 4 or 5 Views IMPRESSION: No fracture or dislocation in the cervical spine. Moderate degenerative changes in the mid to lower cervical spine. Electronically Signed: Rashawn Morse, at 17:46 EDT Tel , Service support ,
== END | disposition home or self-care (01) ==
LOC: HPRAD 09:06
PROVIDERS: Family Provider Internal Medicine; PCP Internal Medicine; Referring Provider Internal Medicine; Visit Provider Internal Medicine
DX: M54.12 Radiculopathy, cervical region (principal)
CPT/HCPCS: 72050; 73030

== ENCOUNTER → 2019-01-04 | Outpatient (CLI) | payer MEDICARE, OTHER, SELFPAY ==
[2018-10-11 01:22] VITALS: BMI 30.8
[2019-01-04 17:59] LABS: PSA,Total- Diagnostic 5.14 ng/mL (0.0-4.0)
== END | disposition home or self-care (01) ==
LOC: MTLAB 16:38
PROVIDERS: Family Provider Internal Medicine; PCP Internal Medicine; Referring Provider Urology; Visit Provider Urology
DX: R97.20 Elevated prostate specific antigen [PSA] (principal)
CPT/HCPCS: 36415; 84153

== ENCOUNTER → 2019-01-25 | Outpatient (CLI) | payer MEDICARE, OTHER, SELFPAY ==
[2018-10-11 01:22] VITALS: BMI 30.8
--- NOTE | 2019-01-25 08:00 | PROSBIL_PTH ---
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 Juan Hernandez MD : 1950 BED: DIS: 01/25/2019 SPEC #: [id number] RECD: 01/25/19 17:18 STATUS: ISABEL REJanuary #: [id number] NICHELLE: 01/25/19 08:[address]: Juan Hernandez DEPT: SURGICAL PATHOLOGY RECD BY: Jamshid Davis ENTERED: 01/26/19 09:12 SP TYPE: PROST BX JAMIE DR: Dr. Angie Ivan DO Tissues: A - PROSTATE RIGHT B - PROSTATE RIGHT C - PROSTATE RIGHT D - PROSTATE LEFT E - PROSTATE LEFT F - PROSTATE LEFT Procedures: PROSTATE BX HEADER OPERATION: Prostate biopsy PRE-OP DIAGNOSIS: Elevated PSA TISSUE SUBMITTED: A - Right apex, B - Right mid, C - Right base, D - Left apex, E - Left mid, F - Left base MICROSCOPIC DIAGNOSIS A. Right prostate, apex, core biopsy: Prostatic tissue, negative for malignancy. B. Right prostate, mid, core biopsy: Focal high-grade prostatic intraepithelial neoplasia (HGPIN). C. Right prostate, base, core biopsy: Prostatic tissue, negative for malignancy. D. Left prostate, apex, core biopsy: Predominantly prostatic stromal tissue, negative for malignancy. E. Left prostate, mid, core biopsy: Prostatic adenocarcinoma: [place] grade: 3+3=6 Number of cores involved: 1/2 Proportion of tissue involved: ~15-20% Perineural invasion: Suspected. Greatest tumor length: 0.2 cm Focal high-grade prostatic intraepithelial neoplasia (HGPIN). F. Left prostate, base, core biopsy: Focal minimal high-grade prostatic intraepithelial neoplasia (HGPIN). SJ:jodie 01/29/19 COMMENT Please make reference to previous specimen ([id number]) right prostate, apex, mid and base and left prostate, mid and base core biopsy with diagnosis of focal high-grade prostatic intraepithelial neoplasia and left prostate, apex with diagnosis with prostatic adenocarcinoma. Case has been reviewed in consultation with Dr. Quintanilla who concurs with the above diagnosis. IDC:AM MICROSCOPIC DESCRIPTION Slides are reviewed. GROSS DESCRIPTION A - Received is one container designated prostate, right apex. The specimen consists of two elongated fragments of light norman-white soft tissue each measuring 0.8 cm in length and 0.1 cm in diameter. The specimen is totally submitted in one cassette. B - Received is one container designated prostate, right mid. The specimen consists of two elongated fragments of light norman-white soft tissue each measuring 1 cm in length and 0.1 cm in diameter. The specimen is totally submitted in one cassette. C - Received is one container designated prostate, right base. The specimen consists of two elongated fragments of light norman-white soft tissue each measuring 0.8 cm in length and 0.1 cm in diameter. The specimen is totally submitted in one cassette. D - Received is one container designated prostate, left apex. The specimen consists of two elongated fragments of light norman-white soft tissue each measuring 0.5 cm in length and 0.1 cm in diameter. The specimen is totally submitted in one cassette. E - Received is one container designated prostate, left mid. The specimen consists of two elongated fragments of light norman-white soft tissue each measuring 0.8 cm in length and 0.1 cm in diameter. The specimen is totally submitted in one cassette. F - Received is one container designated prostate, left base. The specimen consists of two elongated fragments of light norman-white soft tissue each measuring 0.8 cm in length and 0.1 cm in diameter. The specimen is totally submitted in one cassette. / AM:jodie 01/26/19 TC:0 CPT: G0146 ADDENDUM ADDENDUM ADDENDUM ADDENDUM ADDENDUM ADDENDUM ADDENDUM ADDENDUM 02/22/2019 13:18 ADDENDUM 02/22/2019 13:18 ADDENDUM 02/22/2019 13:18 ADDENDUM 02/22/2019 13:18 ADDENDUM 02/22/2019 13:18 An order for Oncotype testing was received from Dr. Hernandez. This necessitated case review, block and slide selection by pathologist at [facility]. Genomic Prostate Score = 67 Results of the complete Oncotype testing ([facility] report) are viewable in EMR under: Reports - Pathology - Lab Pathology Report, Scanned.
== END | disposition home or self-care (01) ==
LOC: LABSPEC 01-26 08:21
PROVIDERS: Family Provider Internal Medicine; PCP Internal Medicine; Referring Provider Urology; Visit Provider Urology
DX: R97.20 Elevated prostate specific antigen [PSA] (principal)
CPT/HCPCS: 88305; G0416

== ENCOUNTER → 2019-02-01 | Outpatient (CLI) | payer MEDICARE, OTHER, SELFPAY ==
[2018-10-11 01:22] VITALS: BMI 30.8
--- NOTE | 2019-02-01 18:03 | MRI_ITS ---
STUDY: MRA OF THE HEAD WITHOUT CONTRAST REASON FOR EXAM: Male, 69 years old. Polycystic kidney disease possible aneurysm TECHNIQUE: 3-D [id number] (TOF) imaging was performed with MIPs. The study was performed unenhanced. COMPARISON: None. FINDINGS: Normal bilateral petrous carotid arteries. Normal right cavernous carotid artery with a normal supraclinoid bifurcation. Normal left cavernous carotid artery with a normal supraclinoid bifurcation. Normal right A1 segments of the anterior cerebral artery. Normal left A1 segments of the anterior cerebral artery. Normal intact anterior communicating artery (ACOM). Normal bilateral A2 segments of the anterior cerebral arteries. Normal right M1 and M2 segments of the middle cerebral arteries, with a normal M1 bifurcation. Normal left M1 and M2 segments of the middle cerebral arteries, with a normal M1 bifurcation. Normal right posterior communicating artery (PCOM). Normal left posterior communicating artery (PCOM). Normal bilateral vertebral arteries. Normal basilar artery with a normal basilar bifurcation. The visualized bilateral superior cerebellar (SCA) arteries are normal. Normal bilateral P1, P2 and visualized P3 segments of the posterior cerebral arteries. There is no demonstrated aneurysm of the [place]. There is no major vessel occlusion or hemodynamically significant stenosis. There is no demonstrated abnormality of the visualized brain. MRI/MRA Head ONLY without Contrast IMPRESSION: Normal MRA of the head Electronically Signed: Jeremiah Hoffman MD at 18:53 EDT , Service support ,
== END | disposition home or self-care (01) ==
LOC: MRI 17:40
PROVIDERS: Family Provider Internal Medicine; PCP Internal Medicine; Referring Provider Internal Medicine; Visit Provider Internal Medicine
DX: Q61.3 Polycystic kidney, unspecified (principal); M54.12 Radiculopathy, cervical region
CPT/HCPCS: 70544; 97110

== ENCOUNTER 2019-03-01 11:30 | Outpatient (RCR) | payer MEDICARE, OTHER, SELFPAY ==
[2018-10-11 01:22] VITALS: BMI 30.8
--- NOTE | 2019-01-23 10:48 | HP.PTEVAL ---
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 Date of Evaluation: 01/23/19 Physical Therapist: Nacho Capellan, [place], OCS, CSCS - Visit Plan Frequency: 3x /Week Duration: 2-4 Weeks Plan: 2-3x/week for x2-4 weeks: 1. cervical Aditi ROM L rotation adn ret/ext with manual as needed. 2. manual to mechanical traction. 3. postural focus and strength of posture and neck and R RC. 4. may use STM and MH if needed. - Subjective Findings: x rays of neck and has DDD. Has neck pain and R shoulder pain. Feels strong but it hurts. Pain has been there a month and started insidiously. Worsening adn mentioned it to doctor at visit. Pain is most of time to constant and is 7/10. Sitting or lying can make it worse. This was not there 6 months ago. Sleep is interrupted and needs tylenol some nights. Is retired. Enjoys going to [employer] and this does nto bother him. R arm weak with lifting. No numbness or tingling. Activities pretty normal. Dressing adn bathroom are normal. Spends day working in yard. which doesn't bother him. Sitting makes him worse. Neckk doesn't move like it used to and feels like it is kinked. - Pain neck adn R shoulder Pain Intensity (Out of 10): 6 Pain Intensity Range: 5, 8 - Objective c/s AROM 50 rotation with Rtightness, 60 R rotation, 45 ext with R sided discomfort. UE AROM WNL adn symmetrical. reflexes 2/3 bi and tri. Sensation UE WNL to gross light touch. Strength UE 4/5 bi, tri, shoulder er, ir, abd, flexion with out myotomal differences or asymmetries. - HK, - neer, - ext erotation lag test. + c/s compression R. repeated motions. Protrusion, causes fatigue in neck, W ext adn L rotation. repeated retraction x 20: slight discomfort during, B after, no change ROM. repeated ret /ext: x10: PDM, comfortabe afterwards, NE ROM(slight better ext). repeated L rotation: PDM, - Goals Goal 1:: Full cervical ROM without pain and 90% decrease in neck pain to 1/10 at worst. Goal Time Frame: 2-4 Weeks Goal 2:: No R shoulder pain with ext rotation resisted. Goal Time Frame: 2-4 Weeks Goal 3:: Patient score <10% on neck oswestry Goal Time Frame: 2-4 Weeks Goal 4:: I approp HEP to minimize future problems. Goal Time Frame: 2-4 Weeks - Rehabilitation Potential Physical Therapy Diagnosis: cervical radiculopathy Rehabilitation Potential: Fair - Anticipated Interventions Patient/Client Instruction: Educate patient on: Condition, Plan of Care For the Purpose of:: To decrease pain, To increase ROM, To improve muscle performance and motor function, To improve ability of physical actions for home/community/work/leisure Therapeutic Exercise to Include: Strength training, Postural training, Passive ROM, Active ROM, Aditi Exercises For the Purpose of:: To decrease pain, To increase ROM, To increase tolerance to activity/condition/position, To improve ability of physical actions for home/community/work/leisure Manual Therapy Techniques to Include: Soft tissue mobilization For the Purpose of:: To decrease pain Thermo therapy (hot pack): Yes Intermittent cervical traction: Yes For the Purpose of:: To decrease pain, To increase ROM Thank you for the opportunity to evaluate your patient. For Medicare and Medicare HMO plans, please review the plan of care and approve it. It will need to be FAXED BACK to us at [phone] for Medicare purposes. For Medicare only, by signing this I certify the plan of care. Please let me know if there are questions or concerns regarding this plan of care. Physician Signature: Date:
--- NOTE | 2019-02-13 13:23 | HP.PTREVAL_ITS ---
Angie Ivan, DO, It has been my pleasure to treat ARBEN PORTER over the last 6 visits for cervical radiculopathy. Please see the progress note below for an update on the physical therapy plan of care! Subjective: Seems to be getting better. Less pain. Turning head better L roation with less pain. Pt feels like he needs a little more therapy. Still has L neck pain turning to the right. Nothing scheduled with doctor soon. Sleep is OK. Objective/Function: 68 L rotation with contra discomfort adn 70 degrees R rotati on. ext is 60 degrees with some mild discomfort. IMPROVING AND ON THE RIGHT TRACK. Plan Plan: Continue 2x/week for 2 weeks with ex progression for shoulder adn postural strength and mechanical traction. Goals Goal 1:: Full cervical ROM without pain and 90% decrease in neck pain to 1/10 at worst. Goal Time Frame: 2-4 Weeks Goal Progress: Progressing Goal 2:: No R shoulder pain with ext rotation resisted. Goal Time Frame: 2-4 Weeks Goal Progress: Goal Met Goal 3:: Patient score <10% on neck oswestry Goal Time Frame: 2-4 Weeks Goal Progress: Progressing Goal 4:: I approp HEP to minimize future problems. Goal Time Frame: 2-4 Weeks Goal Progress: Goal Met Anticipated Interventions Patient/Client Instruction: Educate patient on: Condition, Plan of Care For the Purpose of:: To decrease pain, To increase ROM, To improve muscle performance and motor function, To improve ability of physical actions for home/community/work/leisure Therapeutic Exercise to Include: Strength training, Postural training, Passive ROM, Active ROM, Laurie Exercises For the Purpose of:: To decrease pain, To increase ROM, To increase tolerance to activity/condition/position, To improve ability of physical actions for home/community/work/leisure Manual Therapy Techniques to Include: Soft tissue mobilization For the Purpose of:: To decrease pain Thermo therapy (hot pack): Yes Intermittent cervical traction: Yes For the Purpose of:: To decrease pain, To increase ROM Please do not hesitate to contact me at [phone] by phone or if you have questions or concerns regarding this new plan of care! Sincerely, Nacho Capellan, DPT, OCS, CSCS
--- NOTE | 2019-03-01 11:56 | HP.PTDCSUM ---
HP - PT D/C Summary It has been my pleasure to treat ARBEN PORTER under orders from Angie Ivan DO for the diagnosis of cervical radiculopathy for a total of 10 visit(s). Discharge Date: 03/01/19 Please see the following information for a summary of their discharge status. - Subjective Subjective: Forgot about earlier appointment. Doing well, no pain in a number of days only somem morning stiffness . Some soreness when weather changes but much better overall. - Pain neck adn R shoulder Pain Intensity (Out of 10): 0 - Overall Improvement % Improvement: 80 - Objective Objective/Function: 75 B c/s rotation with only slight transient end range pinching to the left. 60 ext without pain. Decent posture without cues today. Full strength 4+ in UE without myotomal abnormalities. - Goals Goal 1:: Full cervical ROM without pain and 90% decrease in neck pain to 1/10 at worst. Goal Progress: Progressing Goal 2:: No R shoulder pain with ext rotation resisted. Goal Progress: Goal Met Goal 3:: Patient score <10% on neck oswestry Goal Progress: Goal Met Goal 4:: I approp HEP to minimize future problems. Goal Progress: Goal Met - Plan Plan: d/c to HEP - D/C Information Discharge Comments: Will continue via HEP and contact doctor if pain returns. F/U with doctor in April otherwise. If there are questions or concerns regarding this patient's physical therapy, please feel free to call me at [phone]. Thank you for the referral of this patient. Sincerely, Nacho Capellan, DPT, OCS, CSCS
== END 2019-03-01 19:00 | disposition home or self-care (01) ==
LOC: PT 11:30
PROVIDERS: Family Provider Internal Medicine; PCP Internal Medicine; Visit Provider Internal Medicine
DX: M54.12 Radiculopathy, cervical region (principal)
CPT/HCPCS: 97012; 97110; 97162; 97530

== ENCOUNTER 2019-03-31 15:50 | Inpatient (IN) | payer MEDICARE, OTHER, SELFPAY ==
[2018-10-11 01:22] VITALS: BMI 30.8
[2019-03-12 15:05] VITALS: BMI 32.4
[2019-03-20 08:28] VITALS: BP 143/81; PULSE 72; RESP 16; TEMP 36.8; O2SAT 94; BMI 31.4
[2019-03-20 09:36] LABS: Hematocrit 34.7 % (40-54); Hemoglobin 11.6 g/dL (13.0-16.5); Mean Corp Hgb Conc 33.4 g/dL (32-36); Mean Corpuscular Hgb 32.2 pg (27.0-32.0); Mean Corpuscular Volume 96.4 fL (80-94); Mean Platelet Vol. 10.5 fl (6.2-12.0); Platelet Count 200 K/mm3 (150-450); RBC Distribution Width CV 12.3 % (11.6-14.6); RBC Distribution Width SD 43.5 fl (35.1-43.9); White Blood Count 6.3 K/mm3 (4.4-11.0)
[2019-03-20 10:02] LABS: Anion Gap 6 (5-15); BUN 56 mg/dL (7-18); BUN/Creat Ratio 20.9 RATIO (10-20); Chloride 113 mmol/L (98-107); Creatinine, Serum 2.68 mg/dL (0.70-1.30); EST Glomerular Filtration Rate 25 mL/min (>60); Est Glom Filt Rate - Afr Amer 30 mL/min (>60); Estimated Creatinine Clearance 24.81 ml/min; Glucose 92 mg/dL (74-106); Sodium Level 139 mmol/L (136-145); Thyroid Stim Hormone (TSH) 1.43 uIU/mL (0.358-3.74)
[2019-03-30] VITALS (14 sets, daily range): BP systolic 87–154; BP diastolic 52–85; PULSE 60–87; RESP 15–18; TEMP 36.2–36.9; O2SAT 92–98; BMI 31.4
--- NOTE | 2019-03-30 | IMM_PTH ---
PATIENT: ARBEN PORTER LOC: [facility] U#:[id number] AGE/SX: 69/M ROOM: [facility] RE03/31/[address]: Dr. Juan Hernandez MD : 1950 BED: 1 DIS: 04/01/2019 SPEC #: [id number] RECD: 04/03/19 12:09 STATUS: SOUGeorgina REQ #: [id number] NICHELLE: 03/30/19 00:[address]: Juan Hernandez DEPT: IMMUNOHISTOCHEMISTRY RECD BY: Rosa M Sheridan ENTERED: 04/03/19 12:10 SP TYPE: IMMUNO OTHR DR: Dr. Angie Ivan, DO Tissues: D - Prostate, NOS Procedures: 34BE12 (add) P40 (add) PSAP (add) 34BE12 (initial) PHYSICIAN & INSTITUTION [place] [id number] SPECIMEN INFORMATION: Tissue Source: D - Prostate Clinical Info: Elevated PSA, malignant neoplasm Specimen Number: [id number] D17 & D19 CPT code: 21120, 43589 x5 METHODOLOGY: Deparaffinized sections of prefer/formalin-fixed tissue or PAP/DQ stained slides are incubated with monoclonal/polyclonal antibodies/oligonucleotide probes. Localization is made via biotin free immunoperoxidase method. Appropriate controls are performed and reacted as expected. Results on target cell population are indicated in the following table: RESULTS: ANTIBODY / CLONE RESULT Block D17 PSAP (PASE/4LJ) positive 34BE12 (34BE12) negative P40 (BC28) negative Block D19 PSAP (PASE/4LJ) positive 34BE12 (34BE12) negative P40 (BC28) negative These tests were developed and their performance characteristics determined by [facility]. They may not have been cleared or approved by the U.S. Food and Drug Administration. The FDA has determined that such clearance or approval is not necessary. The above immunohistochemical/dualISH markers are ordered and reviewed by the Pathologist. INTERPRETATION: Robinson Prostate, radical prostatectomy: Consistent with focus of adenocarcinoma. AM:jodie 04/04/19
--- NOTE | 2019-03-30 | PROST_PTH ---
PATIENT: ARBEN PORTER LOC: [facility]3 U#:[id number] AGE/SX: 69/M ROOM: [facility] RE[place]/31/[address]: Dr. Juan Hernandez MD : 1950 BED: 1 DIS: 04/01/2019 SPEC #: [id number] RECD: 03/30/19 13:03 STATUS: ISABLE REJanuary #: [id number] NICHELLE: 03/30/19 00:[address]: Juan Hernandez DEPT: SURGICAL PATHOLOGY RECD BY: Grey Prasad ENTERED: 03/30/19 13:05 SP TYPE: PROSTATE OTHR DR: Dr. Angie Ivan, DO Tissues: A - Adipose tissue B - Lymph node of pelvis, NOS C - Lymph node of pelvis, NOS D - Prostate, NOS E - Prostate, NOS Procedures: Surgery Specimen Level IV Surgery Specimen Level V HEADER OPERATION: Laparoscopic robotic radical prostatectomy PRE-OP DIAGNOSIS: Elevated PSA and malignant neoplasm of prostate TISSUE SUBMITTED: A - Fat over prostate, B - Left lymph node, C - Right lymph node, D - Prostate, E?- Right posterior lateral margin of prostate MICROSCOPIC DIAGNOSIS A. Fat over prostate, excision: Benign mature adipose tissue One out of one lymph node, negative for carcinoma. B. Left pelvic lymph node, regional lymphadenectomy: One out of one lymph node negative for carcinoma. C. Right pelvic lymph nodes, regional lymphadenectomy: Two out of two lymph nodes negative for carcinoma. D. Prostate, radical prostatectomy: Adenocarcinoma. See comment. E. Right posterior lateral margin of prostate, biopsy: Benign fibrovascular tissue. No evidence of malignancy. AM:jodie 04/03/19 COMMENT PROSTATE CANCER (RADICAL) SUMMARY: (Specimen D) Procedure: Radical Prostatectomy Prostate Size: Weight: 61 gm Size: 5 x 4 x 4 cm Histologic type: Adenocarcinoma Histologic grade: Group 2 ([place] score 3+4=7) Percent of Pattern 4: 30% Intraductal Carcinoma: Not identified Tumor Quantitation: 1.5 x 1 x 0.5 cm Extraprostatic Extension: Not identified Urinary Bladder Neck Invasion: Not identified Seminal Vesicle Invasion: Not identified Lymphovascular Invasion: Not identified Perineural Invasion: Present, focal Margins: Free of carcinoma Regional Lymph Nodes: See specimens A, B & C Number of lymph nodes involved by carcinoma: 0 Total Number of Lymph Nodes Examined: 4 Treatment Effect: Unknown Additional Pathologic Findings: Atypical hyperplasia (high-grade prostatic intraepithelial neoplasia), benign nodular hyperplasia. PATHOLOGIC STAGE: T2 N0 Mx The above summary is in compliance with [employer] [place] [employer] (CAP) Cancer Protocols Checklist and [place] Joint Committee on Cancer (AJCC), Staging Manual, 8th Ed. D. Immunohistochemistry ([id number]) supports the above diagnosis. Reference is made to the patient's left prostate, mid, needle core biopsy ([id number]) in which prostatic adenocarcinoma, Rafal grade 6 (3+3) was identified. Case has been reviewed in consultation with Dr. Zimmerman who concurs with the above diagnosis. IDC:SJ MICROSCOPIC DESCRIPTION Slides are reviewed. GROSS DESCRIPTION A - Received in fixative is one container labeled with the patient's name and designated fat over prostate. The specimen consists of an irregular piece of yellow adipose tissue measuring 5 x 3.5 x 0.5 cm. No mass lesion is identified. The entire specimen is submitted in three cassettes. / :rg 03/30/19 B - Received in fixative is one container labeled with the patient's name and designated left lymph node of prostate. The specimen consists of a piece of yellow adipose tissue measuring 2.8 x 1 x 0.8 cm. The specimen is bisected and submitted entirely in one cassette. / :rg 03/30/19 C - Received in fixative is one container labeled with the patient's name and designated right lymph node of prostate. The specimen consists of a piece of yellow adipose tissue measuring 2.5 x 2 x 0.5 cm. The entire specimen is submitted in one cassette. / :rg 03/30/19 D - Received in fixative is one container labeled with the patient's name and designated prostate. The specimen consists of a radical prostatectomy specimen consisting of prostate with bilateral seminal vesicles and vas deferens. The specimen weighs 61 gm. The prostate measures 4 cm craniocaudally, 5 cm transversely and 4 cm anterior-posteriorly. The right seminal vesicle measures 3 x 1.5 x 1 cm and right vas deferens measures 3.5 cm in length and 0.6 cm in diameter. The left seminal vesicle measures 3 x 1.5 x 1 cm and left vas deferens measures 3 cm in length and 0.5 cm in diameter. The prostate is inked as follows: anterior surface - yellow, posterior surface - black, right lateral surface - blue, left lateral surface - green. Bilateral seminal vesicles and vas deferens are inked as follows: posterior surface - black, anterior surface right seminal vesicle and vas deferens - blue, anterior surface left seminal vesicle and vas deferens - green. Sections of the prostate reveal norman-white lesions with brownish cut surfaces. No other mass lesion is identified. [place] [employer] sections are submitted in 20 cassettes as follows: 1 - right seminal vesicle, 2 - left seminal vesicle, 3 - apical, distal urethral margin, enface, 4 - bladder base margin, enface, 5 - most basal portion of the prostate, 6-10 - apical portion prostate, 11-14 - middle portion prostate, 15-20 - basal portion prostate. / KYRA:jodie 04/02/19 E - Received in fixative is one container labeled with the patient's name and designated right posterior lateral margin of prostate. The specimen consists of a piece of norman-pink soft tissue measuring 0.5 x 0.3 x 0.1 cm. The specimen is totally submitted in one cassette. / KYRA:jodie 03/30/19 TC:0 CPT: 21076 x3, 60070 x2
[2019-03-30] MEDS: Lactated Ringers 1,000 ML 100 ML IV ×2 (06:36→07:08)
[2019-03-30] MEDS: Cefazolin 2 GM in 0.9% Normal Saline 100 ML IV (07:27)
--- NOTE | 2019-03-30 07:29 | PCM.DC.URO ---
Discharge Diet: Light diet - advance as tolerated Discharge Activity: May not drive while taking narcotic pain medications., May Shower Return to work on:: 05/04/19 May shower in (days): 1 Call your doctor if your incision/area has: Continuous Slow Oozing, Sudden Increased Bleeding, Increased Pain/ Swelling, Increased Redness, Foul Smelling Discharge, Swelling at the incision site Call your doctor if you observe: Fever of 101 or Higher, Inability to have a bowel movement, Uncontrolled pain Suture Line Care: Avoid Pulling/Pushing, Avoid Pinching/Bending Catheter: Lainez to leg bag Drain: [place] Instructions: Radical Prostatectomy Allergies/Adverse Reactions: Allergies cashew nut Allergy (Intermediate, Verified 03/20/19 08:19) itching Medications to take at Discharge Amlodipine [Norvasc] 5 mg PO BID 06/22/15 Omeprazole [Prilosec] 40 mg PO DAILY 06/22/15 aspirin 81 mg tablet,delayed release 81 mg PO DAILY 04/06/18 hcilvnvt-ydh-peaud acid 300 mcg-lycopene 600 mcg-lutein 300 mcg tablet 1 tab PO DAILY 04/06/18 olmesartan 40 mg tablet 40 mg PO DAILY 04/06/18 duloxetine 30 mg capsule,delayed release 30 mg PO DAILY 03/12/19 hydralazine 50 mg tablet 50 mg PO TID 03/12/19 levothyroxine 100 mcg capsule 100 mcg PO DAILY 03/12/19 rosuvastatin 5 mg tablet 5 mg PO DAILY 03/12/19 spironolactone 50 mg tablet 50 mg PO DAILY 03/12/19 Cholecalciferol (Vitamin D3) [Vitamin D3] 2,000 unit PO BID 03/20/19 Co Q10 200 [Co Q-10] 100 mg PO DAILY 03/20/19 Fluticasone 0.05% [Flonase Nasal [place]] 2 spray NASAL DAILY 03/20/19 Melatonin 10 mg PO QHS 03/20/19 Pramipexole Di-HCl [Pramipexole Dihydrochloride] 0.25 mg PO DAILY 03/20/19 Psyllium Husk [Fiber] 0.52 gm PO DAILY 03/20/19 Ciprofloxacin [Cipro] 500 mg PO BID #14 tab 03/30/19 Docusate Sodium [Colace] 100 mg PO BID #20 cap 03/30/19 Hydrocodone/Acetaminophen [[place] 5-325 Tablet] 1 ea PO Q4H PRN PRN 5 Days tab 03/30/19 The following prescriptions were given: Ciprofloxacin [Cipro] 500 mg PO BID #14 tab Prescription Printed Docusate Sodium [Colace] 100 mg PO BID #20 cap Prescription Printed Hydrocodone/Acetaminophen [[place] 5-325 Tablet] 1 ea PO Q4H PRN PRN 5 Days tab PRN Reason: Pain Score 1-10/10 Prescription Printed Primary Care Physician: Angie Ivan DO [Primary Care Provider] - Test Results: Test results from this visit will be discussed in further detail at your follow-up appointment, if applicable. Please Follow Up With: Juan Hernandez MD When: please call to make an appointment- 10 days Proposed Discharge Date: 03/31/19
[2019-03-30] MEDS: Bupivacaine Mpf 0.5% 30 ML VIAL (11:17)
--- NOTE | 2019-03-30 11:24 | PCM.OPRPT ---
Report of Operation Date of Procedure: 03/30/19 Pre-Operative Diagnosis: Prostate cancer Post-Operative Diagnosis: Same Surgery/Procedure Performed:: Robotic assisted laparoscopic radical prostatectomy and bilateral lymph node dissection Description of Surgical Findings:: 69-year-old male was taken back to the operating room at the smooth induction of anesthesia he was placed in dorsolithotomy position the penis and testicles were prepped and draped in usual fashion he was position for a robotic prostatectomy, the abdomen was shaved prepped and draped in usual sterile fashion, I used a lidocaine to infiltrate the the abdomen and made a small incision in the abdomen advanced the Veress needle into the peritoneal cavity and filled the peritoneal cavity with CO2 gas and then placed the camera trocar the right arm trocar and the 2 left trochars for the robot the automobile mechanic assistant trocar and air seal port with Dr. quinonez I first mobilized the sigmoid colon and then I was able to retract the side of the pelvis patient was fairly obese I then dissected behind the bladder into the deep pelvis opening of the peritoneum over the seminal vesicles and vas deferens I dissected out the right vas deferens I then dissected dissected out the left vas deferens I then pulled out the pelvis we then incised the lateral ligaments and then drop the bladder transected to the medial and middle ligaments and then pulled the bladder on traction and then created the space of Retzius I then went to the pelvic lymph node dissection on the left side dissected out the left pelvic lymph nodes using clips as I dissected it the trimmer operator three knife nerve was identified and spared I then went to the left side and performed the lymph node dissection in the left pelvic lymph nodes of the course the boundaries were the same as the right side which was the trimmer operator three knife nerve the lateral pelvic sidewall and the note of [place] we then went to the prostate we incised the prostate fascia dissected this free off the prostate dissected up to the apex dissected the apex and dorsal vein complex place a stitch in the dorsal vein complex then came back between the junction of the bladder and the prostate dissected down between the bladder and the prostate down to the catheter deflated the balloon pulled the catheter back up and then dissected between the prostate and the bladder until we the bladder off the prostate and all the muscle from the bladder was off the prostate I then incised the fascia of the prostate sweeping the neurovascular bundles of the right side then came to the pedicle on the right side with clips and then swept the neurovascular bundle off the posterior aspect of the prostate on the right side the few sticky sticky points as the neurovascular bundle was coming off but it is very nice sparing on the right side I then went to the left side again incised the endopelvic fascia over the prostate and the left side dissected down onto the prostatic fascia and then swept the neurovascular bundle off the left side all the way up to the apex coming back to the pedicle and then we transected to the pedicle with clips and then swept more the neurovascular bundle all the way up to the apex and the left side. We then dissected and transected through the dorsal vein complex dissected to the urethra circumferentially and then transected between the urethra and the prostate the prostate but in the proximal Endo Catch bag I then performed the anastomosis between the bladder neck and the ureter using V lock stitches with a running stitch of the V lock starting the 6 o'clock position working our way to the 12 o'clock position in a meticulous tight fashion at the anastomosis with a catheter and irrigated the bladder there was no leakage potentially sees in the in the balloon and pulled back on traction the catheter we then closed our Magdaleno Carey we then closed our air seal port with a Magdaleno Carey stitch we extracted the prostate we closed the extraction site with interrupted 0 Vicryls we did 3 [id number] stitches and then we closed all incisions with subcuticular stitches patient anesthetic is currently being reversed very minimal blood loss all the instruments were accounted for specimen with the prostate, fat of the prostate, lymph nodes. When spoke to the family afterwards. Type of Anesthesia:: General Drains: crowley - Admit VTE Documentation VTE Present on Admission: No VTE Mechan Device Prophylaxis: SCD's
[2019-03-30] MEDS: 0.9% Normal Saline 1,000 ML 100 ML IV (12:03)
[2019-03-30 12:40] LABS: Hematocrit 32.5 % (40-54); Hemoglobin 10.7 g/dL (13.0-16.5); Mean Corp Hgb Conc 32.9 g/dL (32-36); Mean Corpuscular Hgb 31.8 pg (27.0-32.0); Mean Corpuscular Volume 96.7 fL (80-94); Mean Platelet Vol. 10.4 fl (6.2-12.0); Platelet Count 202 K/mm3 (150-450); RBC Distribution Width CV 12.2 % (11.6-14.6); RBC Distribution Width SD 43.3 fl (35.1-43.9); Red Blood Count 3.36 M/mm3 (4.6-6.2); White Blood Count 15.7 K/mm3 (4.4-11.0)
[2019-03-30 12:49] LABS: Anion Gap 10 (5-15); BUN 36 mg/dL (7-18); BUN/Creat Ratio 12.5 RATIO (10-20); Calcium,Total 7.9 mg/dL (8.5-10.1); Chloride 111 mmol/L (98-107); Creatinine, Serum 2.87 mg/dL (0.70-1.30); EST Glomerular Filtration Rate 23 mL/min (>60); Est Glom Filt Rate - Afr Amer 28 mL/min (>60); Estimated Creatinine Clearance 23.17 ml/min; Glucose 166 mg/dL (74-106); Potassium 4.1 mmol/L (3.5-5.1); Sodium Level 141 mmol/L (136-145)
[2019-03-30] MEDS: 0.45% Normal Saline 1,000 ML 125 ML IV ×2 (13:53→21:45)
[2019-03-30] MEDS: Ketorolac 15 MG/ML Vial IV ×2 (14:08→20:06)
[2019-03-30] MEDS: Ciprofloxacin 500 MG Tablet PO ×2 (16:02→22:41)
[2019-03-30] MEDS: hydrALAZINE 50 MG Tablet PO ×2 (16:02→22:40)
[2019-03-30] MEDS: Magnesium Hydroxide 30 ML UDC 15 ML PO (16:02)
[2019-03-30] MEDS: Docusate Sodium 100 MG Capsule PO ×2 (16:02→22:41)
[2019-03-30] MEDS: amLODIPine 5 MG Tablet PO (22:40)
[2019-03-30] MEDS: MELATONIN 10 MG TABLET PO (22:41)
[2019-03-31] VITALS (14 sets, daily range): BP systolic 105–142; BP diastolic 56–78; PULSE 60–69; RESP 15–18; TEMP 36.6–37; O2SAT 84–96
[2019-03-31] MEDS: Acetaminophen 500 MG Tablet PO (00:20)
--- NOTE | 2019-03-31 01:01 | NURSING ---
CONTINUOUS PULSE OX ALARMING AT 81% ON RA. ASSESSED PT AND DENIES C/O SOB. PLACED ON 2L N/C PER PROTOCOL PT REPORTS HE WEARS CPAP @ [facility]. WILL CONTINUE TO MONITOR
[2019-03-31] MEDS: Ketorolac 15 MG/ML Vial IV ×2 (02:11→08:59)
[2019-03-31] MEDS: 0.45% Normal Saline 1,000 ML 125 ML IV (05:53)
[2019-03-31] MEDS: Enoxaparin 30 MG/0.3 ML Syringe SC (05:59)
[2019-03-31] MEDS: Levothyroxine 100 MCG Tablet PO (05:59)
[2019-03-31] MEDS: hydrALAZINE 50 MG Tablet PO ×3 (05:59→21:14)
[2019-03-31 06:46] LABS: Hematocrit 24.9 % (40-54); Hemoglobin 8.3 g/dL (13.0-16.5); Mean Corp Hgb Conc 33.3 g/dL (32-36); Mean Corpuscular Hgb 32.2 pg (27.0-32.0); Mean Corpuscular Volume 96.5 fL (80-94); Mean Platelet Vol. 10.5 fl (6.2-12.0); Platelet Count 160 K/mm3 (150-450); RBC Distribution Width CV 12.2 % (11.6-14.6); RBC Distribution Width SD 42.8 fl (35.1-43.9); Red Blood Count 2.58 M/mm3 (4.6-6.2); White Blood Count 14.1 K/mm3 (4.4-11.0)
[2019-03-31 07:06] LABS: Anion Gap 10 (5-15); BUN 40 mg/dL (7-18); BUN/Creat Ratio 14.3 RATIO (10-20); Calcium,Total 7.4 mg/dL (8.5-10.1); Chloride 108 mmol/L (98-107); Creatinine, Serum 2.79 mg/dL (0.70-1.30); EST Glomerular Filtration Rate 24 mL/min (>60); Est Glom Filt Rate - Afr Amer 29 mL/min (>60); Estimated Creatinine Clearance 23.84 ml/min; Glucose 126 mg/dL (74-106); Potassium 4.1 mmol/L (3.5-5.1); Sodium Level 138 mmol/L (136-145)
[2019-03-31] MEDS: Multivitamins,Ther W-Minerals Tablet 1 TABLET PO (08:59)
[2019-03-31] MEDS: Losartan Potassium 100 MG Tablet PO (09:02)
[2019-03-31] MEDS: Ciprofloxacin 500 MG Tablet PO ×2 (09:02→21:14)
[2019-03-31] MEDS: Pantoprazole Sodium 20 MG Tablet PO (09:02)
[2019-03-31] MEDS: Docusate Sodium 100 MG Capsule PO ×2 (09:03→21:14)
[2019-03-31] MEDS: DULoxetine Hcl 30 MG Capsule PO (09:03)
[2019-03-31] MEDS: Spironolactone 50 MG Tablet PO (09:03)
[2019-03-31] MEDS: Fluticasone 0.05% 1 SPRAY NASAL.SRY 2 SPRAY NASAL (09:03)
[2019-03-31] MEDS: amLODIPine 5 MG Tablet PO ×2 (09:04→21:14)
[2019-03-31] MEDS: Magnesium Hydroxide 30 ML UDC 15 ML PO (09:12)
--- NOTE | 2019-03-31 10:05 | PN_ITS ---
Subjective: Status post radical prostatectomy, abdomen soft slightly distended this morning but is comfortable states he is passing gas his hemoglobin is down to 8.3, down from his PACU level. - Physical Exam Vitals/I&O's: Vital Signs Temp Pulse Resp BP Pulse Ox 98.1 F 66 18 105/58 L 94 03/31/19 09:20 03/31/19 09:20 03/31/19 09:20 03/31/19 09:20 03/31/19 09:20 Oxygen Flow Rate (L/min) 2 Oxygen Delivery Method Room Air Weight: 93.7 kg Body Mass Index (BMI) 31.4 Intake and Output for Last 24 Hours 03/29/19 03/30/19 03/31/19 23:59 23:59 23:59 Intake Total 3376.66 / 3876.66 1700 / 1700 Output Total 350 / 800 1200 / 1200 Balance 3026.66 / 3076.66 500 / 500 General: Alert, Oriented x3, Cooperative HEENT: Atraumatic, PERRLA, EOMI, Normocephalic Neck: Supple, No JVD, Negative Carotid Bruits Lungs: Clear to auscultation, Normal air movement Cardiovascular: Regular rate, No murmurs Abdomen: Bowel Sounds Present, Soft, Non Tender Extremities: No edema, Capillary Refill Less than 3 Seconds Skin: No rashes, No breakdown Musculoskeletal: No Tenderness to Palpation of Joints or Extremities Neurological: Cranial nerves II-XII grossly intact Psych/Mental Status: Normal Affect, Appropriate Laboratory Results 03/30/19 12:20: WBC 15.7 H, RBC 3.36 L, Hgb 10.7 L, Hct 32.5 L, MCV 96.7 H, MCH 31.8, MCHC 32.9, RDW Std Deviation 43.3, RDW Coeff of David 12.2, Plt Count 202, MPV 10.4 03/30/19 12:20: Sodium 141, Potassium 4.1, Chloride 111 H, Carbon Dioxide 20.0 L , Anion Gap 10, BUN 36 H, Creatinine 2.87 H, Estim Creat Clear Calc 23.17, Est GFR (MDRD) Af Amer 28 L, Est GFR (MDRD) Non-Af 23 L, BUN/Creatinine Ratio 12.5, Glucose 166 H, Calcium 7.9 L 03/31/19 06:16: WBC 14.1 H, RBC 2.58 L, Hgb 8.3 L, Hct 24.9 L, MCV 96.5 H, MCH 32.2 H, MCHC 33.3, RDW Std Deviation 42.8, RDW Coeff of David 12.2, Plt Count 160, MPV 10.5 03/31/19 06:16: Sodium 138, Potassium 4.1, Chloride 108 H, Carbon Dioxide 20.0 L , Anion Gap 10, BUN 40 H, Creatinine 2.79 H, Estim Creat Clear Calc 23.84, Est GFR (MDRD) Af Amer 29 L, Est GFR (MDRD) Non-Af 24 L, BUN/Creatinine Ratio 14.3, Glucose 126 H, Calcium 7.4 L Current Medications Acetaminophen (Tylenol) 500 mg PO Q4H PRN PRN PRN Reason: Pain Score 1-10/10 /Headache Last Admin: 03/31/19 00:20 Dose: 500 mg Documented by: Amlodipine Besylate (Norvasc) 5 mg PO BID [facility] Last Admin: 03/31/19 09:04 Dose: 5 mg Documented by: Belladonna Alkaloids/Opium (B & O) 60 mg RECTAL Q6H PRN PRN PRN Reason: Spasm Cholecalciferol (Vitamin D) 2,000 unit PO BID [facility] Last Admin: 03/31/19 09:02 Dose: 2,000 unit Documented by: Ciprofloxacin HCl (Cipro) 500 mg PO BID [facility] Last Admin: 03/31/19 09:02 Dose: 500 mg Documented by: Docusate Sodium (Colace) 100 mg PO BID [facility] Last Admin: 03/31/19 09:03 Dose: 100 mg Documented by: Duloxetine HCl (Cymbalta) 30 mg PO DAILY [facility] Last Admin: 03/31/19 09:03 Dose: 30 mg Documented by: Enoxaparin Sodium (Lovenox) 30 mg SC DAILY@0600 [facility] Last Admin: 03/31/19 05:59 Dose: 30 mg Documented by: Fluticasone Propionate (Flonase Nasal [place]) 2 spray NASAL DAILY [facility] Last Admin: 03/31/19 09:03 Dose: 2 spray Documented by: Hydralazine HCl (Apresoline) 50 mg PO TID [facility] Last Admin: 03/31/19 05:59 Dose: 50 mg Documented by: Sodium Chloride () 1,000 mls @ 125 mls/hr IV .Q8H [facility] Last Admin: 03/31/19 05:53 Dose: 125 mls/hr Documented by: Sodium Chloride () 1,000 mls @ 100 mls/hr IV .Q10H [facility] Last Admin: 03/31/19 01:24 Dose: Not Given Documented by: Ketorolac Tromethamine (Toradol) 15 mg IV Q6H [facility] Stop: 04/04/19 20:01 Last Admin: 03/31/19 08:59 Dose: 15 mg Documented by: Levothyroxine Sodium (Synthroid) 100 mcg PO DAILY@0600 [facility] Last Admin: 03/31/19 05:59 Dose: 100 mcg Documented by: Losartan Potassium (Cozaar) 100 mg PO DAILY [facility] Last Admin: 03/31/19 09:02 Dose: 100 mg Documented by: Magnesium Hydroxide (Milk Of Magnesia) 15 ml PO DAILY [facility] Last Admin: 03/31/19 09:12 Dose: 15 ml Documented by: Melatonin (Melatonin) 10 mg PO QHS [facility] Last Admin: 03/30/19 22:41 Dose: 10 mg Documented by: Metoclopramide HCl (Reglan) 10 mg IV Q8H PRN PRN PRN Reason: Nausea/vomiting Multivitamins/Minerals (Multivitamin With Minerals) 1 tablet PO DAILY@0800 [facility] Last Admin: 03/31/19 08:59 Dose: 1 tablet Documented by: Nutritional Formula (Lactose Free) (Ensure Enlive) 120 ml PO 4X/DAY [facility] Last Admin: 03/31/19 09:18 Dose: Not Given Documented by: Ondansetron HCl (Zofran) 4 mg IV Q6H PRN PRN PRN Reason: Nausea Oxycodone HCl (Oxyir) 5 mg PO Q4H PRN PRN PRN Reason: Pain Score 1-10/10 Pantoprazole Sodium (Protonix) 20 mg PO DAILY [facility] Last Admin: 03/31/19 09:02 Dose: 20 mg Documented by: Sodium Chloride () 10 - 40 ml IV UD PRN PRN Reason: SALINE FLUSH Spironolactone (Aldactone) 50 mg PO DAILY [facility] Last Admin: 03/31/19 09:03 Dose: 50 mg Documented by: Tolterodine Tartrate (Detrol La) 4 mg PO DAILY PRN PRN PRN Reason: Spasms Medical Necessity - Tobacco Use Smoking Status: Former smoker Tobacco Use: Non-smoker Assessment/Plan All Active Problems (Last Reviewed 03/12/19 @ 15:35 by STACEY Magana) Status post patent foramen ovale closure (Resolved ~1999) 69-year-old male status post radical prostatectomy hemoglobin little bit low this morning abdomen slightly distended but now nausea vomiting will maintain on a liquid diet for now.
[2019-03-31] MEDS: 0.45% Normal Saline 1,000 ML 50 ML IV (17:23)
[2019-03-31] MEDS: MELATONIN 10 MG TABLET PO (21:14)
[2019-04-01] MEDS: Acetaminophen 500 MG Tablet PO (03:14)
[2019-04-01 03:18] VITALS: BP 120/68; PULSE 68; RESP 16; TEMP 36.6; O2SAT 94
[2019-04-01] MEDS: Levothyroxine 100 MCG Tablet PO (05:10)
[2019-04-01 05:11] VITALS: PULSE 65
[2019-04-01] MEDS: hydrALAZINE 50 MG Tablet PO (05:11)
[2019-04-01 06:19] LABS: Hematocrit 27.8 % (40-54); Hemoglobin 9.2 g/dL (13.0-16.5); Mean Corp Hgb Conc 33.1 g/dL (32-36); Mean Corpuscular Hgb 31.9 pg (27.0-32.0); Mean Corpuscular Volume 96.5 fL (80-94); Mean Platelet Vol. 10.7 fl (6.2-12.0); Platelet Count 183 K/mm3 (150-450); RBC Distribution Width CV 12.1 % (11.6-14.6); RBC Distribution Width SD 42.2 fl (35.1-43.9); Red Blood Count 2.88 M/mm3 (4.6-6.2); White Blood Count 10.9 K/mm3 (4.4-11.0)
[2019-04-01 06:45] LABS: Anion Gap 6 (5-15); BUN 33 mg/dL (7-18); BUN/Creat Ratio 12.4 RATIO (10-20); Calcium,Total 8.1 mg/dL (8.5-10.1); Chloride 113 mmol/L (98-107); Creatinine, Serum 2.66 mg/dL (0.70-1.30); EST Glomerular Filtration Rate 25 mL/min (>60); Est Glom Filt Rate - Afr Amer 31 mL/min (>60); Glucose 83 mg/dL (74-106); Potassium 4.5 mmol/L (3.5-5.1); Sodium Level 141 mmol/L (136-145)
[2019-04-01 09:05] VITALS: BP 129/68; PULSE 80; RESP 16; TEMP 36.9; O2SAT 95
[2019-04-01] MEDS: DULoxetine Hcl 30 MG Capsule PO (09:14)
[2019-04-01] MEDS: amLODIPine 5 MG Tablet PO (09:14)
[2019-04-01] MEDS: Ciprofloxacin 500 MG Tablet PO (09:14)
[2019-04-01] MEDS: Multivitamins,Ther W-Minerals Tablet 1 TABLET PO (09:14)
[2019-04-01] MEDS: Spironolactone 50 MG Tablet PO (09:14)
[2019-04-01] MEDS: Pantoprazole Sodium 20 MG Tablet PO (09:14)
[2019-04-01] MEDS: Docusate Sodium 100 MG Capsule PO (09:14)
[2019-04-01] MEDS: Losartan Potassium 100 MG Tablet PO (09:14)
[2019-04-01] MEDS: Fluticasone 0.05% 1 SPRAY NASAL.SRY 2 SPRAY NASAL (09:16)
--- NOTE | 2019-04-01 09:16 | PN_ITS ---
Subjective: Postop day #2 status post radical prostatectomy, patient is doing well, tolerating regular diet, passing gas, had bowel movement, hemoglobin is stable. - Physical Exam Vitals/I&O's: Vital Signs Temp Pulse Resp BP Pulse Ox 98.4 F 80 16 129/68 H 95 04/01/19 09:05 04/01/19 09:05 04/01/19 09:05 04/01/19 09:05 04/01/19 09:05 Oxygen Flow Rate (L/min) 2 Oxygen Delivery Method Room Air Weight: 93.7 kg Body Mass Index (BMI) 31.4 Intake and Output for Last 24 Hours 03/30/19 03/31/19 04/01/19 23:59 23:59 23:59 Intake Total 3376.66 / 3876.66 3737.50 / 3737.50 1200 / 1200 Output Total 350 / 800 3000 / 3000 4350 / 4350 Balance 3026.66 / 3076.66 737.50 / 737.50 -3150 / -3150 General: Alert, Oriented x3, Cooperative HEENT: Atraumatic, PERRLA, EOMI, Normocephalic Neck: Supple, No JVD, Negative Carotid Bruits Lungs: Clear to auscultation, Normal air movement Cardiovascular: Regular rate, No murmurs Abdomen: Bowel Sounds Present, Soft, Non Tender Extremities: No edema, Capillary Refill Less than 3 Seconds Skin: No rashes, No breakdown Musculoskeletal: No Tenderness to Palpation of Joints or Extremities Neurological: Cranial nerves II-XII grossly intact Psych/Mental Status: Normal Affect, Appropriate Laboratory Results 04/01/19 05:30: WBC 10.9, RBC 2.88 L, Hgb 9.2 L, Hct 27.8 L, MCV 96.5 H, MCH 31.9, MCHC 33.1, RDW Std Deviation 42.2, RDW Coeff of David 12.1, Plt Count 183, MPV 10.7 04/01/19 05:30: Sodium 141, Potassium 4.5, Chloride 113 H, Carbon Dioxide 22.0, Anion Gap 6, BUN 33 H, Creatinine 2.66 H, Estim Creat Clear Calc 25.00, Est GFR (MDRD) Af Amer 31 L, Est GFR (MDRD) Non-Af 25 L, BUN/Creatinine Ratio 12.4, Glucose 83, Calcium 8.1 L Current Medications Acetaminophen (Tylenol) 500 mg PO Q4H PRN PRN PRN Reason: Pain Score 1-1010 /Headache Last Admin: 04/01/19 03:14 Dose: 500 mg Documented by: Amlodipine Besylate (Norvasc) 5 mg PO BID [facility] Last Admin: 03/31/19 21:14 Dose: 5 mg Documented by: Cholecalciferol (Vitamin D) 2,000 unit PO BID [facility] Last Admin: 03/31/19 21:15 Dose: 2,000 unit Documented by: Ciprofloxacin HCl (Cipro) 500 mg PO BID [facility] Last Admin: 03/31/19 21:14 Dose: 500 mg Documented by: Docusate Sodium (Colace) 100 mg PO BID [facility] Last Admin: 03/31/19 21:14 Dose: 100 mg Documented by: Duloxetine HCl (Cymbalta) 30 mg PO DAILY [facility] Last Admin: 03/31/19 09:03 Dose: 30 mg Documented by: Fluticasone Propionate (Flonase Nasal [place]) 2 spray NASAL DAILY [facility] Last Admin: 03/31/19 09:03 Dose: 2 spray Documented by: Hydralazine HCl (Apresoline) 50 mg PO TID [facility] Last Admin: 04/01/19 05:11 Dose: 50 mg Documented by: Sodium Chloride () 1,000 mls @ 50 mls/hr IV .Q20H [facility] Last Admin: 03/31/19 17:23 Dose: 50 mls/hr Documented by: Levothyroxine Sodium (Synthroid) 100 mcg PO DAILY@0600 [facility] Last Admin: 04/01/19 05:10 Dose: 100 mcg Documented by: Losartan Potassium (Cozaar) 100 mg PO DAILY [facility] Last Admin: 03/31/19 09:02 Dose: 100 mg Documented by: Magnesium Hydroxide (Milk Of Magnesia) 15 ml PO DAILY [facility] Last Admin: 03/31/19 09:12 Dose: 15 ml Documented by: Melatonin (Melatonin) 10 mg PO QHS [facility] Last Admin: 03/31/19 21:14 Dose: 10 mg Documented by: Metoclopramide HCl (Reglan) 10 mg IV Q8H PRN PRN PRN Reason: Nausea/vomiting Multivitamins/Minerals (Multivitamin With Minerals) 1 tablet PO DAILY@0800 [facility] Last Admin: 03/31/19 08:59 Dose: 1 tablet Documented by: Ondansetron HCl (Zofran) 4 mg IV Q6H PRN PRN PRN Reason: Nausea Oxycodone HCl (Oxyir) 5 mg PO Q4H PRN PRN PRN Reason: Pain Score 1-10/10 Pantoprazole Sodium (Protonix) 20 mg PO DAILY [facility] Last Admin: 03/31/19 09:02 Dose: 20 mg Documented by: Sodium Chloride () 10 - 40 ml IV UD PRN PRN Reason: SALINE FLUSH Spironolactone (Aldactone) 50 mg PO DAILY [facility] Last Admin: 03/31/19 09:03 Dose: 50 mg Documented by: Tolterodine Tartrate (Detrol La) 4 mg PO DAILY PRN PRN PRN Reason: Spasms Medical Necessity - Tobacco Use Smoking Status: Former smoker Tobacco Use: Non-smoker Assessment/Plan All Active Problems (Last Reviewed 03/12/19 @ 15:35 by STACEY Magana) Status post patent foramen ovale closure (Resolved ~1999) Plan is to discharge patient home today with a catheter he will follow-up in 10 days to get the catheter out.
[2019-04-01] MEDS: Magnesium Hydroxide 30 ML UDC 15 ML PO (09:18)
--- NOTE | 2019-04-01 11:45 | NURSING ---
INSTRUCTIONS/DEMONSTRATION GIVEN ON CHANGING TO LEG BAG & BACK TO LONG BAG FOR HOME USE.
== END 2019-04-01 11:45 | disposition home or self-care (01) | DRG 707 ==
LOC: MS3 15:57 → SDC 04-01 22:42 → MS3 04-01 22:45
PROVIDERS: Admitting Provider Urology; Family Provider Internal Medicine; PCP Internal Medicine; Referring Provider Urology; Visit Provider Urology
PROC: 0VT04ZZ Resection of Prostate, Percutaneous Endoscopic Approach (ICD-10-PCS; CPT 55866; principal; 2019-03-30 07:10)
DX: C61 Malignant neoplasm of prostate (principal); R71.0 Precipitous drop in hematocrit; Z79.82 Long term (current) use of aspirin; Z79.02 Long term (current) use of antithrombotics/antiplatelets; Z79.899 Other long term (current) drug therapy; I11.9 Hypertensive heart disease without heart failure; F32.9 Major depressive disorder, single episode, unspecified; Z86.718 Personal history of other venous thrombosis and embolism; Z87.891 Personal history of nicotine dependence; Z86.73 Personal history of transient ischemic attack (TIA), and cerebral infarction without residual deficits; G25.81 Restless legs syndrome; K21.9 Gastro-esophageal reflux disease without esophagitis; E78.00 Pure hypercholesterolemia, unspecified; E06.9 Thyroiditis, unspecified
CPT/HCPCS: 36415; 80048; 84443; 85027; 86850; 86900; 86901; 88304; 88305; 88307; 88309; 88341; 88342; 97802; 99251; J7030; J7120; G0463; J2405

== ENCOUNTER → 2019-04-04 09:36 | Outpatient (CLI) | payer MEDICARE, OTHER, SELFPAY ==
[2019-03-30 13:48] VITALS: BMI 31.4
[2019-04-04 12:38] LABS: Hematocrit 30.1 % (40-54); Hemoglobin 9.9 g/dL (13.0-16.5); Mean Corp Hgb Conc 32.9 g/dL (32-36); Mean Corpuscular Hgb 32.2 pg (27.0-32.0); Platelet Count 223 K/mm3 (150-450); RBC Distribution Width CV 12.4 % (11.6-14.6); RBC Distribution Width SD 44.4 fl (35.1-43.9); Red Blood Count 3.07 M/mm3 (4.6-6.2); White Blood Count 8.7 K/mm3 (4.4-11.0)
[2019-04-04 13:00] LABS: PTHIN 65.3 pg/mL (18.4-80.1)
[2019-04-04 13:03] LABS: Albumin, Serum 3.3 g/dL (3.2-5.0); BUN 38 mg/dL (7-18); BUN/Creat Ratio 13.4 RATIO (10-20); Calcium,Total 9.5 mg/dL (8.5-10.1); Chloride 108 mmol/L (98-107); Creatinine, Serum 2.83 mg/dL (0.70-1.30); EST Glomerular Filtration Rate 24 mL/min (>60); Est Glom Filt Rate - Afr Amer 29 mL/min (>60); Glucose 97 mg/dL (74-106); Phosphorus 3.7 mg/dL (2.5-4.9); Potassium 4.5 mmol/L (3.5-5.1); Sodium Level 139 mmol/L (136-145)
[2019-04-04 13:05] LABS: Vitamin D,25 Hydroxy 72.4 ng/mL (29.95-100.01)
[2019-04-04 13:42] LABS: Microalbumin:Creatinine Ratio 863.9 mg/g CRE (<30 mg/g CRE)
[2019-04-05 16:30] LABS: Magnesium 2.1 mg/dL (1.6-2.6)
== END ==
PROVIDERS: Family Provider Internal Medicine; PCP Internal Medicine; Referring Provider Internal Medicine Nephrology; Visit Provider Internal Medicine Nephrology
DX: N25.81 Secondary hyperparathyroidism of renal origin (principal); R80.9 Proteinuria, unspecified; N18.4 Chronic kidney disease, stage 4 (severe); D63.1 Anemia in chronic kidney disease
CPT/HCPCS: 36415; 80069; 82043; 82306; 82570; 83735; 83970; 85027

== ENCOUNTER → 2019-04-14 07:02 | Outpatient (CLI) | payer MEDICARE, OTHER, SELFPAY ==
[2019-03-30 13:48] VITALS: BMI 31.4
[2019-04-14 07:06] LABS: Red Blood Count 3.19 M/mm3 (4.6-6.2); White Blood Count 7.9 K/mm3 (4.4-11.0)
[2019-04-14 07:07] LABS: Hematocrit 30.6 % (40-54); Hemoglobin 10.1 g/dL (13.0-16.5); Lymphocyte % 21.1 % (19-41); Mean Corpuscular Hgb 31.7 pg (27.0-32.0); Mean Corpuscular Volume 95.9 fL (80-94); Mean Platelet Vol. 9.6 fl (6.2-12.0); Monocyte% 9.2 % (0-10); Neutrophil % 61.9 % (47-70); POSITIVE COUNT NO; POSITIVE DIFFERENTIAL NO; POSITIVE MORPHOLOGY NO; Platelet Count 275 K/mm3 (150-450); RBC Distribution Width CV 11.8 % (11.6-14.6); RBC Distribution Width SD 41.5 fl (35.1-43.9)
[2019-04-14 07:08] LABS: Absolute Lymphocyte Count 1.67 X10^3/uL (0.83-4.51); Absolute Neutrophil Count 4.9 X10^3/uL (2.0-7.7); Basophil# 0.06 X10^3/uL; Basophil% 0.8 % (0-1); Eosinophil# 0.53 X10^3/uL; Eosinophils% 6.7 % (0-5); Lymphocyte # 1.67 X10^3/ul (4.0); Monocyte# 0.73 X10^3/uL; Neutrophil # 4.92 X10^3/uL (2.7-7.7)
[2019-04-14 07:42] LABS: ALB/GLOB Ratio 1.1 RATIO (0.9-2.4); AST(SGOT) 17 U/L (15-37); Alanine Aminotransfer ALT/SGPT 26 U/L (16-61); Albumin, Serum 3.5 g/dL (3.2-5.0); Alkaline Phosphatase 76 U/L (45-117); Anion Gap 6 (5-15); BUN 44 mg/dL (7-18); BUN/Creat Ratio 14.3 RATIO (10-20); Calcium,Total 8.1 mg/dL (8.5-10.1); Chloride 113 mmol/L (98-107); Cholesterol 110 mg/dL (200); Creatinine, Serum 3.08 mg/dL (0.70-1.30); EST Glomerular Filtration Rate 21 mL/min (>60); Est Glom Filt Rate - Afr Amer 26 mL/min (>60); Globulin 3.3 g/dL (2.2-4.2); Glucose 92 mg/dL (74-106); High Density Lipoprotein 35 mg/dL; Potassium 4.3 mmol/L (3.5-5.1); Protein, Total 6.8 g/dL (6.4-8.2); Sodium Level 140 mmol/L (136-145); Triglycerides 111 mg/dL; Very Low Density Lipoprotein 22 mg/dL (5-40)
[2019-04-14 09:46] LABS: Hemoglobin A1c 5.6 % (4.2-6.3)
== END ==
PROVIDERS: Family Provider Internal Medicine; PCP Internal Medicine; Visit Provider Internal Medicine
DX: R73.01 Impaired fasting glucose (principal); E78.00 Pure hypercholesterolemia, unspecified
CPT/HCPCS: 36415; 80053; 80061; 83036; 85025

== ENCOUNTER → 2019-06-15 15:08 | Outpatient (CLI) | payer MEDICARE, OTHER, SELFPAY ==
[2019-05-04 10:24] VITALS: BMI 31.4
--- NOTE | 2019-06-15 15:15 | RAD_ITS ---
STUDY: X-RAY - RIGHT SHOULDER REASON FOR EXAM: Male, 69 years old. FELL TODAY, LANDED ON SHOULDER TECHNIQUE: 4 view(s) of the shoulder. COMPARISON: None. FINDINGS: Normal glenohumeral articulation. Normal acromioclavicular joint. Normal acromion. Normal humeral head and visualized proximal humerus. The soft tissue structures are unremarkable. Normal visualized pulmonary apex. RAD/Shoulder min 2 Views IMPRESSION: Normal x-ray examination of the shoulder. Electronically Signed: Noel Cornejo, at 15:39 EST , Service support ,
== END ==
PROVIDERS: PCP Internal Medicine; Referring Provider Internal Medicine; Visit Provider Internal Medicine
DX: M25.511 Pain in right shoulder (principal)
CPT/HCPCS: 73030

== ENCOUNTER 2019-06-16 11:30 | Emergency (ER) | payer MEDICARE, OTHER, SELFPAY ==
[2019-05-04 10:24] VITALS: BMI 31.4
[2019-06-16 11:31] VITALS: BP 138/83; PULSE 67; RESP 16; TEMP 36.6; O2SAT 98; BMI 31.0
--- NOTE | 2019-06-16 11:49 | ED.VIS.GEN ---
History of Present Illness Chief Complaint: Upper Extremity Injury Informant: Patient Onset: Month(s) Context: Sudden Onset Timing: Continuous Quality: Pain Location: Right shoulder region Current Severity: Mild Maximum Severity: Moderate Worsened by: Movement Relieved by: Nothing Associated Symptoms: None Narrative: Patient is a 69-year-old [id number] male presents with shoulder pain is had for months. He had an outpatient x-ray that was performed yesterday which reveals no acute process. There is arthritic changes noted. He denies paresthesia, anesthesia medics. He denies cardiac respiratory symptoms. He has not noted a rash. Prior similar symptoms: Yes Recent Illness/Hospitalization: No - Past Medical History (1) Essential hypertension Status: Chronic (2) Hyperlipidemia Status: Chronic (3) Polycystic kidney disease Status: Chronic (4) Status post patent foramen ovale closure Status: Resolved Past Medical History - Allergies and Home Meds Allergies/Adverse Reactions: Allergies cashew nut Allergy (Intermediate, Verified 06/16/19 11:32) itching Primary Care Physician: Angie Ivan DO [Primary Care Provider] - Prior records reviewed: Yes Surgical History: noncontributory Lives: Alone Smoking Status: Former smoker Alcohol: None Drugs: None Review of Systems General: Denies: Chills, Fever, Malaise Musculoskeletal: Reports: Extremity Pain. Denies: Myalgias, Arthralgias, Neck pain, Back pain, Swelling Skin: Denies: Rash, Wounds Neurological: Denies: Weakness, Parasthesia, Numbness Hematologic: Denies: Easy bruising, Easy bleeding Physical Exam Vital Signs/Narrative: Vital Signs Temp Pulse Resp BP Pulse Ox 06/16/19 11:31 97.8 F 67 16 138/83 H 98 Inital Vital Signs reviewed: Yes General: Well nourished, Well developed, Obese Head: Normocephalic, Atraumatic Eyes: Perrl ENT: Moist mucous membranes, No rhinorrhea Neck: Supple, Nontender, No lymphadenopathy, No JVD Cardiovascular: Regular rate, Regular rhythm Respiratory: No distress Extremities: No edema, Tenderness, - - Pain the patient over the proximal humerus. There is no pain the patient over the clavicle or AC joint. Axillary, median, radial and ulnar function intact. Abduction past 90 degrees causes him extreme discomfort.. Negative for: Nontender Skin: Normal color, No rash Neurological: Alert, Oriented x3, Cranial nerves II-XII grossly intact, Normal Strength, Normal Sensation Psychological: Depressed Diagnostic/Tx/Re-eval - Medical Decision Making X-rays that were obtained yesterday were reviewed. Agree with radiologist interpretation. Based on physical exam patient has impingement syndrome. Since he has history of chronic renal disease NSAIDs are contraindicated. He was treated with prednisone since he does not have history of diabetes. Patient was asked what his expectations of me are. He replied he wants the pain gone. Patient was told with pain for months it is unrealistic to expect that the pain will be alleviated prior to him leaving. He was placed on prednisone. He was informed that this will take 24 to 48 hours for improvement. And has taken hydrocodone with Tylenol. He reports no improvement. ED Disposition - Plan for ED Patient: Disposition: Home or Assisted Living Diagnosis: Internal impingement of right shoulder Instructions: Shoulder Impingement Syndrome Prescriptions: Prednisone [Deltasone] 40 mg PO DAILY #10 tab Prescription Printed Referrals: Moncho,Nagie, DO [Primary Care Provider] - 1 Week if not improving
[2019-06-16 11:53] VITALS: RESP 16
[2019-06-16] MEDS: predniSONE 20 MG Tablet 60 MG PO (12:11)
[2019-06-16 12:12] VITALS: RESP 16
== END 2019-06-16 12:12 | disposition home or self-care (01) ==
LOC: ED 12:00
PROVIDERS: Emergency Provider Emergency Medicine; PCP Internal Medicine
DX: M75.41 Impingement syndrome of right shoulder (principal); Z87.891 Personal history of nicotine dependence; E66.9 Obesity, unspecified
CPT/HCPCS: 99283

== ENCOUNTER → 2019-07-06 15:08 | Outpatient (CLI) | payer MEDICARE, OTHER, SELFPAY ==
[2019-06-16 11:31] VITALS: BMI 31.0
[2019-07-06 17:39] LABS: PSA,Total- Diagnostic < 0.01 ng/mL (0.0-4.0)
== END ==
PROVIDERS: PCP Internal Medicine; Referring Provider Urology; Visit Provider Urology
DX: Z48.816 Encounter for surgical aftercare following surgery on the genitourinary system (principal); C61 Malignant neoplasm of prostate
CPT/HCPCS: 36415; 84153

== ENCOUNTER → 2019-07-12 09:12 | Outpatient (CLI) | payer MEDICARE, OTHER, SELFPAY ==
[2019-06-16 11:31] VITALS: BMI 31.0
[2019-07-12 10:09] LABS: Absolute Lymphocyte Count 1.23 X10^3/uL (0.83-4.51); Absolute Neutrophil Count 3.5 X10^3/uL (2.0-7.7); Basophil# 0.05 X10^3/uL; Basophil% 0.8 % (0-1); Eosinophil# 0.36 X10^3/uL; Hematocrit 34.2 % (40-54); Lymphocyte # 1.23 X10^3/ul (4.0); Lymphocyte % 20.5 % (19-41); Mean Corp Hgb Conc 32.2 g/dL (32-36); Mean Corpuscular Hgb 30.1 pg (27.0-32.0); Mean Corpuscular Volume 93.7 fL (80-94); Mean Platelet Vol. 10.4 fl (6.2-12.0); Monocyte# 0.79 X10^3/uL; Monocyte% 13.2 % (0-10); NRBC Flagged by Analyzer 0 % (0-5); Neutrophil # 3.54 X10^3/uL (2.7-7.7); Neutrophil % 59.2 % (47-70); Platelet Count 271 K/mm3 (150-450); RBC Distribution Width CV 12.1 % (11.6-14.6); RBC Distribution Width SD 41.4 fl (35.1-43.9); Red Blood Count 3.65 M/mm3 (4.6-6.2)
[2019-07-12 10:23] LABS: ALB/GLOB Ratio 1.1 RATIO (0.9-2.4); AST(SGOT) 20 U/L (15-37); Alanine Aminotransfer ALT/SGPT 27 U/L (16-61); Albumin, Serum 3.6 g/dL (3.2-5.0); Alkaline Phosphatase 75 U/L (45-117); Anion Gap 10 (5-15); BUN 56 mg/dL (7-18); BUN/Creat Ratio 18.3 RATIO (10-20); Chloride 109 mmol/L (98-107); Cholesterol 130 mg/dL (200); Creatinine, Serum 3.06 mg/dL (0.70-1.30); EST Glomerular Filtration Rate 22 mL/min (>60); Est Glom Filt Rate - Afr Amer 26 mL/min (>60); Globulin 3.3 g/dL (2.2-4.2); Glucose 92 mg/dL (74-106); Hemoglobin A1c 6.2 % (4.2-6.3); High Density Lipoprotein 35 mg/dL; Potassium 4.7 mmol/L (3.5-5.1); Protein, Total 6.9 g/dL (6.4-8.2); Sodium Level 140 mmol/L (136-145); Triglycerides 166 mg/dL; Very Low Density Lipoprotein 33 mg/dL (5-40)
[2019-07-12 10:41] LABS: Microalbumin:Creatinine Ratio 753.1 mg/g CRE (<30 mg/g CRE)
== END ==
PROVIDERS: PCP Internal Medicine; Referring Provider Internal Medicine; Visit Provider Internal Medicine
DX: E78.00 Pure hypercholesterolemia, unspecified (principal); R73.01 Impaired fasting glucose
CPT/HCPCS: 36415; 80053; 80061; 82043; 82570; 83036; 85025

== ENCOUNTER → 2019-08-08 12:00 | Outpatient (CLI) | payer MEDICARE, OTHER, SELFPAY ==
[2019-08-08 15:25] LABS: Hematocrit 30.9 % (40-54); Hemoglobin 10.2 g/dL (13.0-16.5); Mean Corpuscular Hgb 31.4 pg (27.0-32.0); Mean Corpuscular Volume 95.1 fL (80-94); Mean Platelet Vol. 11.3 fl (6.2-12.0); Platelet Count 191 K/mm3 (150-450); RBC Distribution Width CV 12.4 % (11.6-14.6); RBC Distribution Width SD 43.3 fl (35.1-43.9); Red Blood Count 3.25 M/mm3 (4.6-6.2); White Blood Count 7.3 K/mm3 (4.4-11.0)
[2019-08-08 15:36] LABS: PTHIN 42.6 pg/mL (18.4-80.1)
[2019-08-08 15:40] LABS: Vitamin D,25 Hydroxy 61.5 ng/mL
[2019-08-08 15:45] LABS: Albumin, Serum 3.6 g/dL (3.2-5.0); BUN 59 mg/dL (7-18); BUN/Creat Ratio 20.8 RATIO (10-20); Chloride 112 mmol/L (98-107); Creatinine, Serum 2.83 mg/dL (0.70-1.30); EST Glomerular Filtration Rate 24 mL/min (>60); Est Glom Filt Rate - Afr Amer 29 mL/min (>60); Glucose 120 mg/dL (74-106); Magnesium 1.8 mg/dL (1.6-2.6); Phosphorus 2.9 mg/dL (2.5-4.9); Potassium 5.2 mmol/L (3.5-5.1); Sodium Level 136 mmol/L (136-145)
[2019-08-08 21:10] LABS: Microalbumin:Creatinine Ratio 658.1 mg/g CRE (<30 mg/g CRE)
== END ==
PROVIDERS: PCP Internal Medicine; Referring Provider Internal Medicine Nephrology; Visit Provider Internal Medicine Nephrology
DX: N25.81 Secondary hyperparathyroidism of renal origin (principal); R80.9 Proteinuria, unspecified; N18.4 Chronic kidney disease, stage 4 (severe); D64.9 Anemia, unspecified
CPT/HCPCS: 36415; 80069; 82043; 82306; 82570; 83735; 83970; 85027

== ENCOUNTER → 2019-11-02 15:40 | Outpatient (CLI) | payer MEDICARE, OTHER, SELFPAY ==
[2019-11-02 16:32] LABS: PSA,Total- Diagnostic < 0.01 ng/mL (0.0-4.0)
== END ==
PROVIDERS: PCP Internal Medicine; Referring Provider Urology; Visit Provider Urology
DX: C61 Malignant neoplasm of prostate (principal)
CPT/HCPCS: 36415; 84153; G0103

== ENCOUNTER → 2019-11-30 13:31 | Outpatient (CLI) | payer MEDICARE, OTHER, SELFPAY ==
[2019-11-30 15:13] LABS: Hematocrit 29.9 % (40-54); Hemoglobin 9.7 g/dL (13.0-16.5); Mean Corp Hgb Conc 32.4 g/dL (32-36); Mean Corpuscular Hgb 32.1 pg (27.0-32.0); Mean Platelet Vol. 10.8 fl (6.2-12.0); Platelet Count 216 K/mm3 (150-450); RBC Distribution Width CV 12.4 % (11.6-14.6); RBC Distribution Width SD 44.7 fl (35.1-43.9); Red Blood Count 3.02 M/mm3 (4.6-6.2); White Blood Count 7.1 K/mm3 (4.4-11.0)
[2019-11-30 15:55] LABS: Albumin, Serum 3.5 g/dL (3.2-5.0); BUN 69 mg/dL (7-18); BUN/Creat Ratio 22.3 RATIO (10-20); Calcium,Total 8.6 mg/dL (8.5-10.1); Chloride 110 mmol/L (98-107); EST Glomerular Filtration Rate 21 mL/min (>60); Est Glom Filt Rate - Afr Amer 26 mL/min (>60); Glucose 98 mg/dL (74-106); Microalbumin:Creatinine Ratio 464.1 mg/g CRE (<30 mg/g CRE); Phosphorus 3.5 mg/dL (2.5-4.9); Sodium Level 136 mmol/L (136-145)
== END ==
PROVIDERS: PCP Internal Medicine; Referring Provider Internal Medicine Nephrology; Visit Provider Internal Medicine Nephrology
DX: N25.81 Secondary hyperparathyroidism of renal origin (principal); R80.9 Proteinuria, unspecified; N18.4 Chronic kidney disease, stage 4 (severe); D64.9 Anemia, unspecified
CPT/HCPCS: 36415; 80069; 82043; 82306; 82570; 83735; 83970; 85027

== ENCOUNTER → 2019-12-31 16:28 | Outpatient (CLI) | payer MEDICARE, OTHER, SELFPAY ==
[2019-12-31 18:25] LABS: Hematocrit 31.8 % (40-54); Hemoglobin 10.6 g/dL (13.0-16.5); Mean Corp Hgb Conc 33.3 g/dL (32-36); Mean Corpuscular Hgb 32.5 pg (27.0-32.0); Mean Corpuscular Volume 97.5 fL (80-94); Mean Platelet Vol. 10.8 fl (6.2-12.0); Platelet Count 216 K/mm3 (150-450); RBC Distribution Width CV 11.9 % (11.6-14.6); RBC Distribution Width SD 42.5 fl (35.1-43.9); Red Blood Count 3.26 M/mm3 (4.6-6.2); White Blood Count 7.2 K/mm3 (4.4-11.0)
[2019-12-31 18:44] LABS: Vitamin B12 1122 pg/mL (211-911)
[2019-12-31 20:06] LABS: Albumin, Serum 3.8 g/dL (3.2-5.0); BUN 51 mg/dL (7-18); BUN/Creat Ratio 16.1 RATIO (10-20); Calcium,Total 9.2 mg/dL (8.5-10.1); Chloride 107 mmol/L (98-107); Creatinine, Serum 3.17 mg/dL (0.70-1.30); EST Glomerular Filtration Rate 21 mL/min (>60); Est Glom Filt Rate - Afr Amer 25 mL/min (>60); Ferritin 68 ng/mL (26-388); Glucose 95 mg/dL (74-106); Iron 78 ug/dL (65-175); Iron Binding Capacity,Total 303 ug/dL (250-450); PERCENT IRON SATURATION 25.7 % (15.0-55.0); Phosphorus 3.9 mg/dL (2.5-4.9); Potassium 5.6 mmol/L (3.5-5.1); Sodium Level 135 mmol/L (136-145)
== END ==
PROVIDERS: PCP Internal Medicine; Referring Provider Internal Medicine Nephrology; Visit Provider Internal Medicine Nephrology
DX: N18.4 Chronic kidney disease, stage 4 (severe) (principal); D64.9 Anemia, unspecified
CPT/HCPCS: 36415; 80069; 82607; 82728; 82746; 83540; 83550; 85027

== ENCOUNTER → 2020-01-27 10:02 | Outpatient (CLI) | payer MEDICARE, OTHER, SELFPAY ==
[2020-01-27 10:14] LABS: Absolute Lymphocyte Count 1.47 X10^3/uL (0.83-4.51); Basophil# 0.04 X10^3/uL; Basophil% 0.4 % (0-1); Eosinophil# 0.14 X10^3/uL; Eosinophils% 1.5 % (0-5); Hematocrit 31.5 % (40-54); Hemoglobin 10.3 g/dL (13.0-16.5); Lymphocyte # 1.47 X10^3/ul (4.0); Lymphocyte % 15.2 % (19-41); Mean Corp Hgb Conc 32.7 g/dL (32-36); Mean Corpuscular Hgb 31.8 pg (27.0-32.0); Mean Corpuscular Volume 97.2 fL (80-94); Mean Platelet Vol. 9.4 fl (6.2-12.0); Monocyte# 0.98 X10^3/uL; Monocyte% 10.2 % (0-10); NRBC Flagged by Analyzer 0 % (0-5); Neutrophil # 6.99 X10^3/uL (2.7-7.7); Neutrophil % 72.4 % (47-70); Platelet Count 212 K/mm3 (150-450); RBC Distribution Width CV 12.2 % (11.6-14.6); Red Blood Count 3.24 M/mm3 (4.6-6.2); White Blood Count 9.7 K/mm3 (4.4-11.0)
[2020-01-27 10:59] LABS: ALB/GLOB Ratio 1.2 RATIO (0.9-2.4); AST(SGOT) 14 U/L (15-37); Alanine Aminotransfer ALT/SGPT 26 U/L (16-61); Albumin, Serum 3.6 g/dL (3.2-5.0); Alkaline Phosphatase 57 U/L (45-117); Anion Gap 4 (5-15); BUN 62 mg/dL (7-18); BUN/Creat Ratio 20.9 RATIO (10-20); Chloride 114 mmol/L (98-107); Cholesterol 115 mg/dL (200); Creatinine, Serum 2.97 mg/dL (0.70-1.30); EST Glomerular Filtration Rate 22 mL/min (>60); Est Glom Filt Rate - Afr Amer 27 mL/min (>60); Globulin 3.1 g/dL (2.2-4.2); Glucose 93 mg/dL (74-106); High Density Lipoprotein 37 mg/dL; Potassium 5.5 mmol/L (3.5-5.1); Protein, Total 6.7 g/dL (6.4-8.2); Sodium Level 139 mmol/L (136-145); Thyroid Stim Hormone (TSH) 1.27 uIU/mL (0.358-3.74); Triglycerides 108 mg/dL; Very Low Density Lipoprotein 22 mg/dL (5-40)
[2020-01-28 08:43] LABS: Vitamin B12 1111 pg/mL (211-911)
== END ==
PROVIDERS: PCP Internal Medicine; Visit Provider Internal Medicine
DX: E78.00 Pure hypercholesterolemia, unspecified (principal); R73.01 Impaired fasting glucose; E03.9 Hypothyroidism, unspecified; R41.3 Other amnesia; I11.9 Hypertensive heart disease without heart failure
CPT/HCPCS: 36415; 80053; 80061; 82607; 83036; 84443; 85025

== ENCOUNTER → 2020-04-28 12:45 | Outpatient (CLI) | payer MEDICARE, OTHER, SELFPAY ==
--- NOTE | 2020-04-28 13:15 | RAD_ITS ---
STUDY: X-RAY CHEST REASON FOR EXAM: Male, 70 years old. COUGH DEVELOPED AFTER SHOULDER SURGERY ON 04/17/20. PATIENT UNABLE TO LIFT RIGHT ARM DUE TO RECENT SURGERY. HISTORY OF HIGH BLOOD PRESSURE. TECHNIQUE: Frontal and lateral views of the chest. COMPARISON: None. FINDINGS: The lungs are clear and expanded. There is no demonstrated pleural abnormality. Normal size heart. Normal mediastinum and emery. Normal visualized pulmonary arteries. Normal visualized aortic arch and descending thoracic aorta. Normal visualized thoracic spine. There is degenerative osteoarthritis of the bilateral shoulders. There is no demonstrated abnormality of the visualized soft tissue structures of the upper abdomen. RAD/Chest PA and Lateral IMPRESSION: Degenerative changes, as described above. No demonstrated acute cardiopulmonary process. Electronically Signed: Daquan Wiggins, at 13:55 EST Tel , Service support ,
== END ==
PROVIDERS: PCP Internal Medicine; Referring Provider Nurse Practitioner; Visit Provider Nurse Practitioner
DX: R05 Cough (principal)
CPT/HCPCS: 71046

== ENCOUNTER → 2020-04-29 10:32 | Outpatient (CLI) | payer MEDICARE, OTHER, SELFPAY ==
[2020-04-29 10:48] LABS: Absolute Lymphocyte Count 1.51 X10^3/uL (0.83-4.51); Absolute Neutrophil Count 7.3 X10^3/uL (2.0-7.7); Basophil# 0.08 X10^3/uL; Basophil% 0.8 % (0-1); Eosinophil# 0.38 X10^3/uL; Eosinophils% 3.7 % (0-5); Lymphocyte # 1.51 X10^3/ul (4.0); Lymphocyte % 14.6 % (19-41); Mean Corp Hgb Conc 33.3 g/dL (32-36); Mean Corpuscular Hgb 31.8 pg (27.0-32.0); Mean Corpuscular Volume 95.4 fL (80-94); Monocyte% 9.7 % (0-10); NRBC Flagged by Analyzer 0 % (0-5); Neutrophil # 7.34 X10^3/uL (2.7-7.7); Neutrophil % 70.7 % (47-70); Platelet Count 285 K/mm3 (150-450); RBC Distribution Width CV 11.9 % (11.6-14.6); Red Blood Count 3.46 M/mm3 (4.6-6.2); White Blood Count 10.4 K/mm3 (4.4-11.0)
[2020-04-29 10:57] LABS: ALB/GLOB Ratio 1.2 RATIO (0.9-2.4); AST(SGOT) 33 U/L (15-37); Alanine Aminotransfer ALT/SGPT 59 U/L (16-61); Albumin, Serum 3.5 g/dL (3.2-5.0); Alkaline Phosphatase 80 U/L (45-117); Anion Gap 7 (5-15); BUN 49 mg/dL (7-18); BUN/Creat Ratio 15.5 RATIO (10-20); Calcium,Total 8.9 mg/dL (8.5-10.1); Chloride 107 mmol/L (98-107); Creatinine, Serum 3.16 mg/dL (0.70-1.30); EST Glomerular Filtration Rate 21 mL/min (>60); Est Glom Filt Rate - Afr Amer 25 mL/min (>60); Glucose 141 mg/dL (74-106); Potassium 3.6 mmol/L (3.5-5.1); Protein, Total 6.5 g/dL (6.4-8.2); Sodium Level 138 mmol/L (136-145)
== END ==
PROVIDERS: PCP Internal Medicine; Referring Provider Nurse Practitioner; Visit Provider Nurse Practitioner
DX: R05 Cough (principal)
CPT/HCPCS: 80053; 85025

== ENCOUNTER → 2020-05-07 09:02 | Outpatient (CLI) | payer MEDICARE, OTHER, SELFPAY ==
[2020-05-05 10:43] VITALS: BMI 32.1
[2020-05-07 10:43] LABS: PSA,Total- Diagnostic < 0.01 ng/mL (0.0-4.0)
[2020-05-07 11:05] LABS: PTHIN 82.4 pg/mL (18.4-80.1)
[2020-05-07 11:06] LABS: Vitamin B12 1236 pg/mL (211-911)
[2020-05-07 11:23] LABS: Albumin, Serum 3.4 g/dL (3.2-5.0); BUN 61 mg/dL (7-18); BUN/Creat Ratio 19.6 RATIO (10-20); Calcium,Total 9.3 mg/dL (8.5-10.1); Chloride 104 mmol/L (98-107); Creatinine, Serum 3.12 mg/dL (0.70-1.30); EST Glomerular Filtration Rate 21 mL/min (>60); Est Glom Filt Rate - Afr Amer 26 mL/min (>60); Ferritin 87 ng/mL (26-388); Glucose 164 mg/dL (74-106); Iron 73 ug/dL (65-175); Iron Binding Capacity,Total 307 ug/dL (250-450); Magnesium 1.9 mg/dL (1.6-2.6); PERCENT IRON SATURATION 23.8 % (15.0-55.0); Phosphorus 4.3 mg/dL (2.5-4.9); Potassium 3.6 mmol/L (3.5-5.1); Sodium Level 135 mmol/L (136-145)
[2020-05-07 11:31] LABS: Hematocrit 31.2 % (40-54); Hemoglobin 10.2 g/dL (13.0-16.5); Mean Corp Hgb Conc 32.7 g/dL (32-36); Mean Corpuscular Hgb 30.5 pg (27.0-32.0); Mean Corpuscular Volume 93.4 fL (80-94); Mean Platelet Vol. 10.3 fl (6.2-12.0); Platelet Count 336 K/mm3 (150-450); RBC Distribution Width CV 11.5 % (11.6-14.6); RBC Distribution Width SD 38.7 fl (35.1-43.9); Red Blood Count 3.34 M/mm3 (4.6-6.2); White Blood Count 6.3 K/mm3 (4.4-11.0)
[2020-05-07 13:43] LABS: Microalbumin:Creatinine Ratio 1332.7 mg/g CRE (<30 mg/g CRE)
== END ==
PROVIDERS: Urology; PCP Internal Medicine; Referring Provider Internal Medicine Nephrology; Visit Provider Internal Medicine Nephrology
DX: N25.81 Secondary hyperparathyroidism of renal origin (principal); D64.9 Anemia, unspecified; N18.4 Chronic kidney disease, stage 4 (severe); R80.9 Proteinuria, unspecified; C61 Malignant neoplasm of prostate
CPT/HCPCS: 36415; 80069; 82043; 82306; 82570; 82607; 82728; 82746; 83540; 83550; 83735; 83970; 84153; 85027

== ENCOUNTER → 2020-08-05 09:03 | Outpatient (CLI) | payer MEDICARE, OTHER, SELFPAY ==
[2020-05-05 10:43] VITALS: BMI 32.1
[2020-08-05 10:05] LABS: Absolute Lymphocyte Count 1.38 X10^3/uL (0.83-4.51); Absolute Neutrophil Count 4.3 X10^3/uL (2.0-7.7); Basophil# 0.05 X10^3/uL; Basophil% 0.7 % (0-1); Eosinophil# 0.29 X10^3/uL; Eosinophils% 4.3 % (0-5); Hematocrit 32.4 % (40-54); Hemoglobin 10.6 g/dL (13.0-16.5); Lymphocyte # 1.38 X10^3/ul (4.0); Lymphocyte % 20.5 % (19-41); Mean Corp Hgb Conc 32.7 g/dL (32-36); Mean Corpuscular Hgb 31.2 pg (27.0-32.0); Mean Corpuscular Volume 95.3 fL (80-94); Mean Platelet Vol. 10.4 fl (6.2-12.0); Monocyte# 0.73 X10^3/uL; Monocyte% 10.8 % (0-10); NRBC Flagged by Analyzer 0 % (0-5); Neutrophil # 4.27 X10^3/uL (2.7-7.7); Neutrophil % 63.4 % (47-70); Platelet Count 292 K/mm3 (150-450); RBC Distribution Width CV 12.3 % (11.6-14.6); RBC Distribution Width SD 43.3 fl (35.1-43.9); White Blood Count 6.7 K/mm3 (4.4-11.0)
[2020-08-05 10:43] LABS: Hemoglobin A1c 5.6 % (3.8-5.6)
[2020-08-05 10:56] LABS: ALB/GLOB Ratio 0.9 RATIO (0.9-2.4); AST(SGOT) 15 U/L (15-37); Alanine Aminotransfer ALT/SGPT 26 U/L (16-61); Albumin, Serum 3.3 g/dL (3.2-5.0); Alkaline Phosphatase 78 U/L (45-117); Anion Gap 8 (5-15); BUN 58 mg/dL (7-18); BUN/Creat Ratio 17.2 RATIO (10-20); Chloride 110 mmol/L (98-107); Cholesterol 95 mg/dL (200); Creatinine, Serum 3.37 mg/dL (0.70-1.30); EST Glomerular Filtration Rate 19 mL/min (>60); Est Glom Filt Rate - Afr Amer 23 mL/min (>60); Globulin 3.6 g/dL (2.2-4.2); Glucose 85 mg/dL (74-106); High Density Lipoprotein 31 mg/dL; Potassium 3.8 mmol/L (3.5-5.1); Protein, Total 6.9 g/dL (6.4-8.2); Sodium Level 139 mmol/L (136-145); Thyroid Stim Hormone (TSH) 2.81 uIU/mL (0.358-3.74); Triglycerides 133 mg/dL; Very Low Density Lipoprotein 27 mg/dL (5-40)
== END ==
PROVIDERS: PCP Internal Medicine; Referring Provider Internal Medicine; Visit Provider Internal Medicine
DX: R73.01 Impaired fasting glucose (principal); E03.9 Hypothyroidism, unspecified; E78.00 Pure hypercholesterolemia, unspecified
CPT/HCPCS: 36415; 80053; 80061; 83036; 84443; 85025

== ENCOUNTER → 2020-09-04 07:19 | Outpatient (CLI) | payer MEDICARE, OTHER, SELFPAY ==
[2020-05-05 10:43] VITALS: BMI 32.1
--- NOTE | 2020-09-04 07:24 | MRI_ITS ---
STUDY: MRI BRAIN WITHOUT CONTRAST REASON FOR EXAM: Male, 70 years old. VERTIGO TECHNIQUE: Standardized multiplanar fat and water weighted pulse sequences were obtained. COMPARISON: MRI brain with and without contrast 09/25/2016. FINDINGS: Normal size of the ventricles and extra-axial spaces for the patient''s age. Normal white matter tracts of the supratentorial brain. Normal bilateral basal ganglia. Normal thalami. There is no extra-axial fluid accumulation. Normal flow voids within the major intracranial circulation suggesting patency by spin echo criteria. Normal sella turcica, pituitary gland, infundibular stalk, optic chiasm and hypothalamus. Normal tectal plate and pineal gland. Normal midbrain, mariya and medulla. Normal cerebellum. Normal basal cisterns. Normal bilateral temporal bones. Normal bilateral internal auditory canals. No demonstrated orbital abnormality, within the constraints of a routine brain study. Normal visualized paranasal sinuses. Normal calvarium and skull base. Normal visualized soft tissue structures. Normal visualized upper cervical spine. MRI/Brain without Contrast IMPRESSION: Normal unenhanced MRI of the brain and unchanged when compared to 09/25/2016. Electronically Signed: Scott Ledesma MD at 11:36 EDT , Service support ,
== END ==
PROVIDERS: PCP Internal Medicine; Referring Provider Internal Medicine; Visit Provider Internal Medicine
DX: R42 Dizziness and giddiness (principal)
CPT/HCPCS: 70551

== ENCOUNTER → 2020-09-06 12:30 | Outpatient (CLI) | payer MEDICARE, OTHER, SELFPAY ==
[2020-05-05 10:43] VITALS: BMI 32.1
[2020-09-06 12:46] LABS: Hematocrit 34.8 % (40-54); Hemoglobin 11.2 g/dL (13.0-16.5); Mean Corp Hgb Conc 32.2 g/dL (32-36); Mean Corpuscular Hgb 30.8 pg (27.0-32.0); Mean Corpuscular Volume 95.6 fL (80-94); Mean Platelet Vol. 10.1 fl (6.2-12.0); Platelet Count 254 K/mm3 (150-450); RBC Distribution Width CV 12.2 % (11.6-14.6); RBC Distribution Width SD 43.4 fl (35.1-43.9); Red Blood Count 3.64 M/mm3 (4.6-6.2); White Blood Count 5.9 K/mm3 (4.4-11.0)
[2020-09-06 13:05] LABS: Albumin, Serum 3.6 g/dL (3.2-5.0); BUN 47 mg/dL (7-18); BUN/Creat Ratio 16.3 RATIO (10-20); Calcium,Total 9.3 mg/dL (8.5-10.1); Chloride 109 mmol/L (98-107); Creatinine, Serum 2.89 mg/dL (0.70-1.30); EST Glomerular Filtration Rate 23 mL/min (>60); Est Glom Filt Rate - Afr Amer 28 mL/min (>60); Glucose 92 mg/dL (74-106); Phosphorus 3.8 mg/dL (2.5-4.9); Potassium 4.2 mmol/L (3.5-5.1); Sodium Level 139 mmol/L (136-145)
[2020-09-08 08:01] LABS: PTHIN 72.2 pg/mL (18.4-80.1)
[2020-09-08 08:04] LABS: Vitamin D,25 Hydroxy 71.6 ng/mL
== END ==
PROVIDERS: PCP Internal Medicine; Visit Provider Internal Medicine Nephrology
DX: N25.81 Secondary hyperparathyroidism of renal origin (principal); R80.9 Proteinuria, unspecified; N18.4 Chronic kidney disease, stage 4 (severe); D64.9 Anemia, unspecified
CPT/HCPCS: 36415; 80069; 82043; 82306; 82570; 83735; 83970; 85027

== ENCOUNTER → 2020-10-02 10:04 | Outpatient (CLI) | payer MEDICARE, OTHER, SELFPAY ==
[2020-05-05 10:43] VITALS: BMI 32.1
--- NOTE | 2020-10-02 10:06 | CDU_ITS ---
Reason For Study: bruit Rt. Velocities/BP Lt. Velocities/BP Prox CCA 118.3/24.9 cm/sec. Prox CCA 86.7/19.2 cm/sec. Mid CCA 79.0/16.3 cm/sec. Mid CCA 96.5/25.3 cm/sec. Dist CCA 80.2/18.8 cm/sec. Dist CCA 75.7/13.0 cm/sec. Prox ICA 126.6/44.4 cm/sec. Prox ICA 67.6/16.6 cm/sec. Mid ICA 96.7/32.1 cm/sec. Mid ICA 59.1/12.8 cm/sec. Dist ICA 86.2/31.4 cm/sec. Dist ICA 63.9/28.9 cm/sec. Rt. ICA/CCA = 1.6. Lt. ICA/CCA = .7. Prox ECA 94.9/13.9 cm/sec. Prox ECA 58.8/7.5 cm/sec. Rt. Vert. 44.6/17.1 cm/sec. Lt. Vert. 46.9/17.6 cm/sec. Right Extracranial There is homogeneous, smooth atherosclerotic plaque noted in the right common carotid artery. There is heterogeneous, irregular atherosclerotic plaque noted in the right internal carotid artery. There is heterogeneous, irregular atherosclerotic plaque noted in the right external carotid artery. Antegrade flow is noted in the right vertebral artery. Left Extracranial There is intimal thickening but no significant atherosclerotic plaque noted in the left common carotid artery. There is heterogeneous, irregular atherosclerotic plaque noted in the left internal carotid artery. There is heterogeneous, irregular atherosclerotic plaque noted in the left external carotid artery. Antegrade flow is noted in the left vertebral artery. Procedure Carotid Duplex [id number]. This is a Carotid Duplex examination using B-mode, color flow and specral Doppler. The exam was diagnostic. Exam performed in department. VL/Carotid Duplex Ultrasound Interpretation Summary Mild (<50%) stenosis right extracranial internal carotid. Mild (<50%) stenosis left extracranial internal carotid. Flow within the vertebral arteries is antegrade bilaterally. Ordering Physician: Angie Ivan Performed By: Travon Dias RVT
== END ==
PROVIDERS: PCP Internal Medicine; Referring Provider Internal Medicine; Visit Provider Internal Medicine
DX: R09.89 Other specified symptoms and signs involving the circulatory and respiratory systems (principal)
CPT/HCPCS: 93880

== ENCOUNTER → 2020-11-20 16:38 | Outpatient (CLI) | payer MEDICARE, OTHER, SELFPAY ==
[2020-05-05 10:43] VITALS: BMI 32.1
[2020-11-20 18:14] LABS: PSA,Total- Diagnostic < 0.01 ng/mL (0.0-4.0)
== END ==
PROVIDERS: PCP Internal Medicine; Referring Provider Internal Medicine; Visit Provider Internal Medicine
DX: C61 Malignant neoplasm of prostate (principal)
CPT/HCPCS: 36415; 84153

== ENCOUNTER → 2020-12-16 09:42 | Outpatient (CLI) | payer MEDICARE, OTHER, SELFPAY ==
[2020-05-05 10:43] VITALS: BMI 32.1
[2020-12-16 12:06] LABS: Absolute Lymphocyte Count 1.21 X10^3/uL (0.83-4.51); Absolute Neutrophil Count 4.2 X10^3/uL (2.0-7.7); Basophil# 0.06 X10^3/uL; Basophil% 0.9 % (0-1); Eosinophils% 4.6 % (0-5); Lymphocyte # 1.21 X10^3/ul (0.83-4.51); Lymphocyte % 18.6 % (19-41); Mean Corp Hgb Conc 33.3 g/dL (32-36); Mean Corpuscular Hgb 31.3 pg (27.0-32.0); Mean Corpuscular Volume 93.8 fL (80-94); Mean Platelet Vol. 10.8 fl (6.2-12.0); Monocyte# 0.75 X10^3/uL; Monocyte% 11.5 % (0-10); NRBC Flagged by Analyzer 0 % (0-5); Neutrophil # 4.18 X10^3/uL (2.7-7.7); Neutrophil % 64.1 % (47-70); Platelet Count 237 K/mm3 (150-450); RBC Distribution Width CV 12.5 % (11.6-14.6); RBC Distribution Width SD 43.4 fl (35.1-43.9); Red Blood Count 3.52 M/mm3 (4.6-6.2); White Blood Count 6.5 K/mm3 (4.4-11.0)
[2020-12-16 12:36] LABS: ALB/GLOB Ratio 1.1 RATIO (0.9-2.4); AST(SGOT) 19 U/L (15-37); Alanine Aminotransfer ALT/SGPT 27 U/L (16-61); Albumin, Serum 3.5 g/dL (3.2-5.0); Alkaline Phosphatase 77 U/L (45-117); Anion Gap 9 (5-15); BUN 56 mg/dL (7-18); BUN/Creat Ratio 16.8 RATIO (10-20); Calcium,Total 8.8 mg/dL (8.5-10.1); Chloride 109 mmol/L (98-107); Cholesterol 116 mg/dL (200); Creatinine, Serum 3.34 mg/dL (0.70-1.30); EST Glomerular Filtration Rate 19 mL/min (>60); Est Glom Filt Rate - Afr Amer 24 mL/min (>60); Globulin 3.1 g/dL (2.2-4.2); Glucose 84 mg/dL (74-106); High Density Lipoprotein 37 mg/dL; PSA,Total - Annual Screen < 0.01 ng/mL (0.00-4.00); Potassium 4.2 mmol/L (3.5-5.1); Protein, Total 6.6 g/dL (6.4-8.2); Sodium Level 140 mmol/L (136-145); Triglycerides 133 mg/dL; Very Low Density Lipoprotein 27 mg/dL (5-40)
[2020-12-16 12:41] LABS: Hemoglobin A1c 5.8 % (3.8-5.6)
== END ==
PROVIDERS: PCP Internal Medicine; Referring Provider Internal Medicine; Visit Provider Internal Medicine
DX: C61 Malignant neoplasm of prostate (principal); E78.00 Pure hypercholesterolemia, unspecified; R73.01 Impaired fasting glucose; Z12.5 Encounter for screening for malignant neoplasm of prostate
CPT/HCPCS: 36415; 80053; 80061; 83036; 84153; 85025; G0103

== ENCOUNTER → 2021-01-09 11:05 | Outpatient (CLI) | payer MEDICARE, OTHER, SELFPAY ==
[2021-01-09 15:41] LABS: Hematocrit 34.3 % (40-54); Hemoglobin 11.2 g/dL (13.0-16.5); Mean Corp Hgb Conc 32.7 g/dL (32-36); Mean Corpuscular Hgb 31.7 pg (27.0-32.0); Mean Corpuscular Volume 97.2 fL (80-94); Mean Platelet Vol. 11.5 fl (6.2-12.0); Platelet Count 196 K/mm3 (150-450); RBC Distribution Width CV 12.5 % (11.6-14.6); RBC Distribution Width SD 44.6 fl (35.1-43.9); Red Blood Count 3.53 M/mm3 (4.6-6.2); White Blood Count 5.9 K/mm3 (4.4-11.0)
[2021-01-09 16:14] LABS: Protein, Urine (Random) 63.3 mg/dL (<11.9); Protein:Creat Ratio 3058 mg/g CRE (0-200)
[2021-01-09 17:05] LABS: Albumin, Serum 3.4 g/dL (3.2-5.0); BUN 49 mg/dL (7-18); BUN/Creat Ratio 14.5 RATIO (10-20); Calcium,Total 9.2 mg/dL (8.5-10.1); Chloride 105 mmol/L (98-107); Creatinine, Serum 3.38 mg/dL (0.70-1.30); EST Glomerular Filtration Rate 19 mL/min (>60); Est Glom Filt Rate - Afr Amer 23 mL/min (>60); Glucose 76 mg/dL (74-106); Magnesium 2.2 mg/dL (1.6-2.6); Phosphorus 3.8 mg/dL (2.5-4.9); Potassium 4.4 mmol/L (3.5-5.1); Sodium Level 136 mmol/L (136-145)
[2021-01-09 17:12] LABS: Vitamin D,25 Hydroxy 64.8 ng/mL
[2021-01-12 08:01] LABS: PTHIN 72.5 pg/mL (18.4-80.1)
== END ==
PROVIDERS: PCP Internal Medicine; Referring Provider Internal Medicine Nephrology; Visit Provider Internal Medicine Nephrology
DX: N25.81 Secondary hyperparathyroidism of renal origin (principal); R80.9 Proteinuria, unspecified; N18.4 Chronic kidney disease, stage 4 (severe); D64.9 Anemia, unspecified
CPT/HCPCS: 36415; 80069; 82306; 82570; 83735; 83970; 84156; 85027

== ENCOUNTER → 2021-04-02 10:37 | Outpatient (CLI) | payer MEDICARE, OTHER, SELFPAY ==
[2021-04-02 12:11] LABS: Absolute Lymphocyte Count 1.19 X10^3/uL (0.83-4.51); Absolute Neutrophil Count 4.2 X10^3/uL (2.0-7.7); Basophil# 0.04 X10^3/uL; Basophil% 0.6 % (0-1); Eosinophil# 0.22 X10^3/uL; Eosinophils% 3.5 % (0-5); Hematocrit 31.8 % (40-54); Hemoglobin 10.5 g/dL (13.0-16.5); Lymphocyte # 1.19 X10^3/ul (0.83-4.51); Lymphocyte % 18.8 % (19-41); Mean Corpuscular Hgb 31.1 pg (27.0-32.0); Mean Corpuscular Volume 94.1 fL (80-94); Mean Platelet Vol. 10.7 fl (6.2-12.0); Monocyte# 0.68 X10^3/uL; Monocyte% 10.7 % (0-10); NRBC Flagged by Analyzer 0 % (0-5); Neutrophil # 4.19 X10^3/uL (2.7-7.7); Neutrophil % 66.1 % (47-70); Platelet Count 217 K/mm3 (150-450); RBC Distribution Width CV 12.7 % (11.6-14.6); RBC Distribution Width SD 43.8 fl (35.1-43.9); Red Blood Count 3.38 M/mm3 (4.6-6.2); White Blood Count 6.3 K/mm3 (4.4-11.0)
[2021-04-02 13:01] LABS: AST(SGOT) 22 U/L (15-37); Alanine Aminotransfer ALT/SGPT 23 U/L (16-61); Albumin, Serum 3.3 g/dL (3.2-5.0); Alkaline Phosphatase 69 U/L (45-117); Anion Gap 8 (5-15); BUN 51 mg/dL (7-18); BUN/Creat Ratio 15.3 RATIO (10-20); Calcium,Total 8.9 mg/dL (8.5-10.1); Chloride 110 mmol/L (98-107); Cholesterol 135 mg/dL (200); Creatinine, Serum 3.33 mg/dL (0.70-1.30); EST Glomerular Filtration Rate 20 mL/min (>60); Est Glom Filt Rate - Afr Amer 24 mL/min (>60); Globulin 3.2 g/dL (2.2-4.2); Glucose 96 mg/dL (74-106); High Density Lipoprotein 37 mg/dL; Potassium 3.9 mmol/L (3.5-5.1); Protein, Total 6.5 g/dL (6.4-8.2); Sodium Level 141 mmol/L (136-145); Triglycerides 173 mg/dL; Very Low Density Lipoprotein 35 mg/dL (5-40)
[2021-04-02 13:10] LABS: Hemoglobin A1c 5.6 % (3.8-5.6)
== END ==
PROVIDERS: PCP Internal Medicine; Referring Provider Internal Medicine; Visit Provider Internal Medicine
DX: I11.9 Hypertensive heart disease without heart failure (principal); D64.9 Anemia, unspecified; E78.00 Pure hypercholesterolemia, unspecified; R73.09 Other abnormal glucose
CPT/HCPCS: 36415; 80053; 80061; 83036; 85025

== ENCOUNTER 2021-05-07 12:07 | Outpatient (CLI) | payer MEDICARE, OTHER, SELFPAY ==
[2021-05-07 15:19] LABS: Hematocrit 31.3 % (40-54); Hemoglobin 10.4 g/dL (13.0-16.5); Mean Corp Hgb Conc 33.2 g/dL (32-36); Mean Corpuscular Hgb 31.1 pg (27.0-32.0); Mean Corpuscular Volume 93.7 fL (80-94); Mean Platelet Vol. 10.5 fl (6.2-12.0); Platelet Count 228 K/mm3 (150-450); RBC Distribution Width CV 12.6 % (11.6-14.6); Red Blood Count 3.34 M/mm3 (4.6-6.2); White Blood Count 7.8 K/mm3 (4.4-11.0)
[2021-05-07 15:33] LABS: Vitamin D,25 Hydroxy 75.8 ng/mL
[2021-05-07 15:36] LABS: Albumin, Serum 3.2 g/dL (3.2-5.0); BUN 48 mg/dL (7-18); BUN/Creat Ratio 15.7 RATIO (10-20); Calcium,Total 8.8 mg/dL (8.5-10.1); Chloride 112 mmol/L (98-107); Creatinine, Serum 3.05 mg/dL (0.70-1.30); EST Glomerular Filtration Rate 22 mL/min (>60); Est Glom Filt Rate - Afr Amer 26 mL/min (>60); Glucose 95 mg/dL (74-106); Magnesium 1.9 mg/dL (1.6-2.6); Phosphorus 3.3 mg/dL (2.5-4.9); Potassium 3.9 mmol/L (3.5-5.1); Sodium Level 141 mmol/L (136-145)
[2021-05-07 16:24] LABS: Microalbumin:Creatinine Ratio 2676.8 mg/g CRE (<30 mg/g CRE)
== END 2021-05-07 23:59 | disposition short-term general hospital (02) ==
LOC: MTLAB 12:08
PROVIDERS: PCP Internal Medicine; Referring Provider Internal Medicine Nephrology; Visit Provider Internal Medicine Nephrology
DX: N25.81 Secondary hyperparathyroidism of renal origin (principal); N18.4 Chronic kidney disease, stage 4 (severe); R80.9 Proteinuria, unspecified; D64.9 Anemia, unspecified
CPT/HCPCS: 36415; 80069; 82043; 82306; 82570; 83735; 83970; 85027

== ENCOUNTER 2021-05-11 11:31 | Outpatient (CLI) | payer MEDICARE, OTHER, SELFPAY ==
--- NOTE | 2021-05-11 11:38 | ECHOD_ITS ---
Reason For Study: Murmur Procedure This was a 2D Doppler, Color Flow transthoracic echocardiogram. The exam was of adequate technical quality. Exam performed in department. Left Ventricle Normal LV size. Mild concentric left ventricular hypertrophy. Left ventricular systolic function is normal. The estimated ejection fraction is 65 %. No evidence for diastolic dysfunction. No regional wall motion abnormalities noted. Right Ventricle Normal RV size. Normal systolic function. Atria The left atrium is mildly enlarged. Normal right atrium. No doppler evidence for ASD. Mitral Valve There is no mitral annular calcification. Normal mitral valve. Trivial mitral valve insufficiency. Tricuspid Valve Normal tricuspid valve. Mild (1+) tricuspid valve insufficiency. Right ventricular systolic pressure estimated to be 25 mmHg. Aortic Valve Trisinus/trileaflet aortic valve. Normal aortic valve. Pulmonic Valve The pulmonic valve is not well visualized. Mild (1+) pulmonic valve insufficiency. Great Vessels Normal sized aortic root. Pericardium/Pleural No pericardial effusion. MMode/2D Measurements & Calculations LVIDd: 4.9 cm IVSd: 1.3 cm Ao root diam: 3.2 cm LVIDs: 2.9 cm LVPWd: 1.3 cm RVDd: 4.6 cm FS: 40.9 % LAV(MOD-bp): 53.1 ml LVAd ap4: 31.4 cm2 SV(MOD-sp4): 69.3 ml LAV(MOD-bp) Indexed: 26.7 ml/m2 LVLd ap4: 8.3 cm LAV(MOD-sp2): 47.1 ml EDV(MOD-sp4): 101.0 ml LAV(MOD-sp4): 58.2 ml EDV(sp4-el): 101.3 ml LVAs ap4: 14.9 cm2 LVLs ap4: 6.2 cm ESV(MOD-sp4): 31.7 ml ESV(sp4-el): 30.5 ml EF(MOD-sp4): 68.6 % EF(sp4-el): 69.9 % SV(sp4-el): 70.7 ml LA A4 area: 20.6 cm2 LA dimension(2D): 4.3 cm RA A4 area: 16.8 cm2 Doppler Measurements & Calculations MV E max mark: 52.7 cm/sec Lat Peak E' Mark: 8.9 cm/sec Med Peak E' Mark: 6.4 cm/sec MV A max mark: 57.5 cm/sec E/E' lat: 5.9 E/E' med: 8.2 MV E/A: 0.92 Ao V2 max: 128.3 cm/sec LV V1 max: 102.8 cm/sec PA V2 max: 103.0 cm/sec Ao max P.6 mmHg LV V1 max P.2 mmHg Ao V2 mean: 90.7 cm/sec Ao mean P.6 mmHg Ao V2 VTI: 27.7 cm PI end-d mark: 109.8 cm/sec TR max mark: 236.0 cm/sec TR max P.3 mmHg ECHO/Echo Complete Interpretation Summary Left ventricular systolic function is normal. The estimated ejection fraction is 65 %. Mild concentric left ventricular hypertrophy. The left atrium is mildly enlarged. Trivial mitral valve insufficiency. Mild (1+) tricuspid valve insufficiency. Mild (1+) pulmonic valve insufficiency. Right ventricular systolic pressure estimated to be 25 mmHg. No evidence for diastolic dysfunction. Ordering Physician: Hugo Aguayo Referring Physician: Angie Ivan Performed By: Carlita Grimes, GERRY, RVT
== END 2021-05-11 23:59 | disposition short-term general hospital (02) ==
LOC: CVS 11:36
PROVIDERS: PCP Internal Medicine; Referring Provider Internal Medicine Cardiovascular Disease; Visit Provider Internal Medicine Cardiovascular Disease
DX: I38 Endocarditis, valve unspecified (principal)
CPT/HCPCS: 93306

== ENCOUNTER 2021-05-25 11:54 | Outpatient (CLI) | payer MEDICARE, OTHER, SELFPAY ==
[2021-05-25 15:28] LABS: PSA,Total- Diagnostic 0.01 ng/mL (0.0-4.0)
== END 2021-05-25 23:59 | disposition short-term general hospital (02) ==
LOC: MTLAB 11:55
PROVIDERS: PCP Internal Medicine; Referring Provider Urology; Visit Provider Urology
DX: C61 Malignant neoplasm of prostate (principal)
CPT/HCPCS: 36415; 84153

== ENCOUNTER 2021-07-15 08:53 | Outpatient (CLI) | payer MEDICARE, OTHER, SELFPAY ==
[2021-07-15 10:16] LABS: Absolute Lymphocyte Count 1.28 X10^3/uL (0.83-4.51); Absolute Neutrophil Count 3.2 X10^3/uL (2.0-7.7); Basophil# 0.07 X10^3/uL; Basophil% 1.2 % (0-1); Eosinophil# 0.41 X10^3/uL; Eosinophils% 7.2 % (0-5); Hematocrit 31.1 % (40-54); Hemoglobin 10.3 g/dL (13.0-16.5); Lymphocyte # 1.28 X10^3/ul (0.83-4.51); Lymphocyte % 22.4 % (19-41); Mean Corp Hgb Conc 33.1 g/dL (32-36); Mean Corpuscular Hgb 31.8 pg (27.0-32.0); Mean Platelet Vol. 10.5 fl (6.2-12.0); Monocyte% 12.3 % (0-10); NRBC Flagged by Analyzer 0 % (0-5); Neutrophil # 3.24 X10^3/uL (2.7-7.7); Neutrophil % 56.7 % (47-70); Platelet Count 216 K/mm3 (150-450); RBC Distribution Width CV 12.5 % (11.6-14.6); RBC Distribution Width SD 44.4 fl (35.1-43.9); Red Blood Count 3.24 M/mm3 (4.6-6.2); White Blood Count 5.7 K/mm3 (4.4-11.0)
[2021-07-15 10:32] LABS: Hemoglobin A1c 5.6 % (3.8-5.6)
[2021-07-15 10:51] LABS: Vitamin D,25 Hydroxy 72.8 ng/mL
[2021-07-15 11:06] LABS: ALB/GLOB Ratio 1.2 RATIO (0.9-2.4); AST(SGOT) 23 U/L (15-37); Alanine Aminotransfer ALT/SGPT 27 U/L (16-61); Albumin, Serum 3.5 g/dL (3.2-5.0); Alkaline Phosphatase 74 U/L (45-117); Anion Gap 8 (5-15); BUN 59 mg/dL (7-18); BUN/Creat Ratio 15.8 RATIO (10-20); Chloride 110 mmol/L (98-107); Cholesterol 124 mg/dL (200); Creatinine, Serum 3.73 mg/dL (0.70-1.30); EST Glomerular Filtration Rate 17 mL/min (>60); Est Glom Filt Rate - Afr Amer 21 mL/min (>60); Glucose 92 mg/dL (74-106); High Density Lipoprotein 38 mg/dL; Potassium 4.1 mmol/L (3.5-5.1); Protein, Total 6.5 g/dL (6.4-8.2); Sodium Level 140 mmol/L (136-145); Thyroid Stim Hormone (TSH) 1.96 uIU/mL (0.358-3.74); Triglycerides 99 mg/dL; Very Low Density Lipoprotein 20 mg/dL (5-40)
== END 2021-07-15 23:59 | disposition home or self-care (01) ==
LOC: MTLAB 08:54
PROVIDERS: PCP Internal Medicine; Referring Provider Internal Medicine; Visit Provider Internal Medicine
DX: R73.01 Impaired fasting glucose (principal); N18.4 Chronic kidney disease, stage 4 (severe); E78.00 Pure hypercholesterolemia, unspecified; E55.9 Vitamin D deficiency, unspecified
CPT/HCPCS: 36415; 80053; 80061; 82306; 83036; 84443; 85025

== ENCOUNTER → 2021-08-27 | Outpatient (CLI) | payer MEDICARE, OTHER, SELFPAY ==
[2021-08-27 12:15] LABS: Hematocrit 32.1 % (40-54); Hemoglobin 10.8 g/dL (13.0-16.5); Mean Corp Hgb Conc 33.6 g/dL (32-36); Mean Corpuscular Hgb 31.8 pg (27.0-32.0); Mean Corpuscular Volume 94.4 fL (80-94); Platelet Count 235 K/mm3 (150-450); RBC Distribution Width CV 12.5 % (11.6-14.6); RBC Distribution Width SD 43.7 fl (35.1-43.9); White Blood Count 13.2 K/mm3 (4.4-11.0)
[2021-08-27 12:51] LABS: Albumin, Serum 3.4 g/dL (3.2-5.0); BUN 52 mg/dL (7-18); BUN/Creat Ratio 14.4 RATIO (10-20); Calcium,Total 8.9 mg/dL (8.5-10.1); Chloride 108 mmol/L (98-107); Creatinine, Serum 3.62 mg/dL (0.70-1.30); EST Glomerular Filtration Rate 18 mL/min (>60); Est Glom Filt Rate - Afr Amer 21 mL/min (>60); Glucose 111 mg/dL (74-106); Magnesium 1.6 mg/dL (1.6-2.6); Potassium 3.5 mmol/L (3.5-5.1); Sodium Level 136 mmol/L (136-145)
[2021-08-27 12:59] LABS: Vitamin D,25 Hydroxy 74.5 ng/mL
[2021-08-27 13:12] LABS: PTHIN 148.4 pg/mL (18.4-80.1)
== END | disposition home or self-care (01) ==
LOC: MTLAB 09:25
PROVIDERS: PCP Internal Medicine; Referring Provider Internal Medicine Nephrology; Visit Provider Internal Medicine Nephrology
DX: N25.81 Secondary hyperparathyroidism of renal origin (principal); N18.4 Chronic kidney disease, stage 4 (severe); R80.9 Proteinuria, unspecified; D64.9 Anemia, unspecified
CPT/HCPCS: 36415; 80069; 82043; 82306; 82570; 83735; 83970; 85027

== ENCOUNTER → 2021-08-28 | Outpatient (CLI) | payer MEDICARE, OTHER, SELFPAY ==
--- NOTE | 2021-08-28 11:37 | CT_ITS ---
STUDY: CT ABDOMEN AND PELVIS WITHOUT CONTRAST REASON FOR EXAM: Male, 71 years old. ABD PAIN -- RULE OUT DIVERTICULITIS AND ISCHEMIC COLITIS. RADIATION DOSAGE (If Supplied By Facility): CTDIvol = ( 13.51 ) mGy, DLP = ( 675.11 ) mGycm TECHNIQUE: Transaxial images were obtained from the dome of the diaphragm to the symphysis pubis without oral contrast, and without intravenous contrast. Sagittal and coronal images were reconstructed. Individualized dose optimization techniques were used for this CT. COMPARISON: None. FINDINGS: The visualized lung bases are unremarkable. The visualized portions of the heart are within normal limits. There is hepatomegaly with diffuse hepatic enlargement. Multiple hepatic cysts are once again seen. Normal gallbladder and extrahepatic biliary system. Normal spleen. Normal pancreas. Normal bilateral adrenal glands. Once again, there is diffuse enlargement of both kidneys. An abnormal cysts are seen in both kidneys. Findings are in keeping with the polycystic kidney disease. Tiny calcifications are seen in the left kidney suggestive of a calcification of the renal cysts or proteinaceous materials within the renal cysts. The largest is in the anterior aspect of the left kidney. This measures 4.2 cm x 4.2 cm. This has increased in size as compared to prior study. Neoplastic compression cannot be excluded. Normal visualized stomach. Normal small intestine. There are multiple colonic diverticula consistent with diverticulosis. The appendix is visualized and appears normal. There is diffuse atherosclerotic calcification of the abdominal aorta, without a demonstrated aneurysm. Normal inferior vena cava. Normal retroperitoneum. Diffuse bladder wall thickening. Normal abdominal wall. Normal osseous structures. CT/Abdomen/Pelvis without Cont IMPRESSION: Diffuse sigmoid diverticulosis without evidence of diverticulitis. Polycystic kidney and hepatic cystic disease. 4.2 cm x 4.2 cm hyperdense cystic structure seen in the anterior aspect of the left kidney. Correlation with ultrasound is recommended for further evaluation possibly rule out a neoplastic conversion. Electronically Signed: Noel Cornejo MD at 14:38 EDT ,
[2021-08-28 13:49] LABS: Absolute Lymphocyte Count 1.02 X10^3/uL (0.83-4.51); Absolute Neutrophil Count 8.1 X10^3/uL (2.0-7.7); Basophil# 0.03 X10^3/uL; Basophil% 0.3 % (0-1); Eosinophil# 0.28 X10^3/uL; Eosinophils% 2.7 % (0-5); Hematocrit 28.8 % (40-54); Hemoglobin 9.3 g/dL (13.0-16.5); Lymphocyte # 1.02 X10^3/ul (0.83-4.51); Lymphocyte % 9.8 % (19-41); Mean Corp Hgb Conc 32.3 g/dL (32-36); Mean Corpuscular Hgb 31.2 pg (27.0-32.0); Mean Corpuscular Volume 96.6 fL (80-94); Mean Platelet Vol. 10.9 fl (6.2-12.0); Monocyte# 1.02 X10^3/uL; Monocyte% 9.8 % (0-10); NRBC Flagged by Analyzer 0 % (0-5); Neutrophil # 8.05 X10^3/uL (2.7-7.7); Neutrophil % 77.1 % (47-70); Platelet Count 214 K/mm3 (150-450); RBC Distribution Width CV 12.9 % (11.6-14.6); RBC Distribution Width SD 45.8 fl (35.1-43.9); Red Blood Count 2.98 M/mm3 (4.6-6.2); White Blood Count 10.4 K/mm3 (4.4-11.0)
[2021-08-28 13:59] LABS: Erythrocyte Sedimentation Rate 39 mm/hr (0-20)
[2021-08-28 14:04] LABS: AST(SGOT) 14 U/L (15-37); Alanine Aminotransfer ALT/SGPT 18 U/L (16-61); Alkaline Phosphatase 73 U/L (45-117); Anion Gap 10 (5-15); BUN 65 mg/dL (7-18); BUN/Creat Ratio 15.2 RATIO (10-20); Calcium,Total 8.7 mg/dL (8.5-10.1); Chloride 108 mmol/L (98-107); Creatinine, Serum 4.27 mg/dL (0.70-1.30); EST Glomerular Filtration Rate 15 mL/min (>60); Est Glom Filt Rate - Afr Amer 18 mL/min (>60); Globulin 2.9 g/dL (2.2-4.2); Glucose 141 mg/dL (74-106); Potassium 3.7 mmol/L (3.5-5.1); Protein, Total 5.9 g/dL (6.4-8.2); Sodium Level 138 mmol/L (136-145)
== END | disposition home or self-care (01) ==
LOC: CT 11:35
PROVIDERS: PCP Internal Medicine; Referring Provider Internal Medicine; Visit Provider Internal Medicine
DX: R10.9 Unspecified abdominal pain (principal)
CPT/HCPCS: 74176; 80053; 85025; 85652

== ENCOUNTER → 2021-09-05 | Outpatient (CLI) | payer MEDICARE, OTHER, SELFPAY ==
--- NOTE | 2021-09-05 09:30 | US_ITS ---
EXAM: Ultrasound abdomen, limited, left upper quadrant. HISTORY: ABN CT LT KIDNEY COMPARISON: CT from August 28, [address] a CT from June 23, 2018. LIMITATIONS: None. FINDINGS: Multiple cysts are identified throughout the left kidney. In the midportion of the left kidney at the anterior aspect, a lesion measuring 5.3 cm in diameter is identified corresponding to the focus identified on the most recent CT. The sonographic appearance of the lesion is inconsistent with a simple cyst. There is internal echogenicity concerning for a solid component. A smaller cystic component is also identified within the lesion. Thin septations are suspected with punctate calcification. The lesion is new since the older CT from June 23, 2018. 6 mm focal calcification in the left kidney could represent a nonobstructing stone or cyst wall calcification. No hydronephrosis of the left kidney. The right kidney is not imaged. The spleen is normal in size. US/Abdomen Limited IMPRESSION: 5.3 cm complex lesion in the left kidney corresponds to the abnormality identified on the most recent CT. The lesion is inconsistent with a simple cyst. Renal cell carcinoma is not excluded. Electronically Signed: Brando Meneses MD at 4:48 EDT ,
== END | disposition home or self-care (01) ==
LOC: US 09:26
PROVIDERS: PCP Internal Medicine; Referring Provider Internal Medicine; Visit Provider Internal Medicine
DX: R93.89 Abnormal findings on diagnostic imaging of other specified body structures (principal)
CPT/HCPCS: 76705

== ENCOUNTER → 2021-09-22 | Outpatient (CLI) | payer MEDICARE, OTHER, SELFPAY ==
--- NOTE | 2021-09-22 06:36 | MRI_ITS ---
EXAM: MR ABDOMEN WITHOUT INTRAVENOUS CONTRAST CLINICAL INDICATION: RENAL CYST, hx polycystic kidney disease TECHNIQUE: Multiplanar and multisequence MR images of the abdomen without intravenous contrast. This report was created using [employer] report generation technology. COMPARISON: 08/28/2021 CT abdomen and pelvis FINDINGS: LOWER THORAX: Unremarkable. No pleural effusion. LIVER: Multiple hepatic cysts are identified. GALLBLADDER AND BILE DUCTS: 18 mm gallstone noted. No gallbladder distention or wall edema. No intra- or extrahepatic biliary ductal dilation. PANCREAS: Incompletely visualized. No focal cystic mass. SPLEEN: Unremarkable. Normal size without focal cystic or solid mass. ADRENALS: Incompletely visualized. KIDNEYS AND URETERS: Marked enlargement of both kidneys related to polycystic renal disease. Several cysts within both kidneys demonstrate increased T1 signal intensity and T2 shading suggesting the presence of hemorrhage, L of the cysts. No discrete evidence of a solid renal mass. Normal renal size and position. INTRAPERITONEAL SPACE: Unremarkable. No ascites or other fluid collection. No free air. VASCULATURE: Unremarkable. Abdominal aorta is non-dilated. LYMPH NODES: No enlarged lymph nodes. MRI/Abdomen without Contrast IMPRESSION: 1. Polycystic renal disease. Several complex renal cysts likely related to hemorrhage and/or proteinaceous material. 2. Polycystic changes of the liver. 3. Cholelithiasis. Electronically Signed: Castillo Gabriel MD at 16:34 EDT ,
== END | disposition home or self-care (01) ==
LOC: MRI 06:33
PROVIDERS: PCP Internal Medicine; Referring Provider Urology; Visit Provider Urology
DX: N28.1 Cyst of kidney, acquired (principal)
CPT/HCPCS: 74181

== ENCOUNTER → 2021-10-01 | Outpatient (CLI) | payer MEDICARE, OTHER, SELFPAY ==
[2021-10-01 11:58] LABS: PSA,Total- Diagnostic < 0.01 ng/mL (0.0-4.0)
== END | disposition home or self-care (01) ==
PROVIDERS: PCP Internal Medicine; Referring Provider Registered Nurse; Visit Provider Registered Nurse
DX: R97.20 Elevated prostate specific antigen [PSA] (principal)
CPT/HCPCS: 36415; 84153

== ENCOUNTER → 2021-10-31 | Outpatient (CLI) | payer MEDICARE, OTHER, SELFPAY ==
[2021-10-31 13:29] LABS: Hematocrit 28.6 % (40-54); Hemoglobin 9.3 g/dL (13.0-16.5); Mean Corp Hgb Conc 32.5 g/dL (32-36); Mean Corpuscular Hgb 31.8 pg (27.0-32.0); Mean Corpuscular Volume 97.9 fL (80-94); Mean Platelet Vol. 9.8 fl (6.2-12.0); Platelet Count 193 K/mm3 (150-450); RBC Distribution Width CV 12.3 % (11.6-14.6); RBC Distribution Width SD 44.5 fl (35.1-43.9); Red Blood Count 2.92 M/mm3 (4.6-6.2); White Blood Count 5.8 K/mm3 (4.4-11.0)
[2021-10-31 14:02] LABS: Microalbumin:Creatinine Ratio 1885.1 mg/g CRE (<30 mg/g CRE); Protein, Urine (Random) 215.8 mg/dL (<11.9); Protein:Creat Ratio 2480 mg/g CRE (0-200)
[2021-10-31 14:16] LABS: Albumin, Serum 3.3 g/dL (3.2-5.0); BUN 59 mg/dL (7-18); BUN/Creat Ratio 15.9 RATIO (10-20); Calcium,Total 8.6 mg/dL (8.5-10.1); Chloride 113 mmol/L (98-107); Creatinine, Serum 3.72 mg/dL (0.70-1.30); EST Glomerular Filtration Rate 17 mL/min (>60); Est Glom Filt Rate - Afr Amer 21 mL/min (>60); Glucose 120 mg/dL (74-106); Magnesium 1.7 mg/dL (1.6-2.6); Phosphorus 3.7 mg/dL (2.5-4.9); Sodium Level 142 mmol/L (136-145)
[2021-11-02 08:06] LABS: PTHIN 95.7 pg/mL (18.4-80.1)
== END | disposition home or self-care (01) ==
PROVIDERS: PCP Internal Medicine; Referring Provider Internal Medicine Nephrology; Visit Provider Internal Medicine Nephrology
DX: R80.9 Proteinuria, unspecified (principal); N18.4 Chronic kidney disease, stage 4 (severe); N25.81 Secondary hyperparathyroidism of renal origin; D64.9 Anemia, unspecified
CPT/HCPCS: 36415; 80069; 82043; 82306; 82570; 83735; 83970; 84156; 85027

== ENCOUNTER 2021-12-08 21:40 | Emergency (ER) | payer MEDICARE, OTHER, SELFPAY ==
[2021-12-08 21:41] VITALS: BP 146/77; PULSE 72; RESP 15; TEMP 36.2; O2SAT 97; BMI 28.8
[2021-12-08 21:48] VITALS: TEMP 37; O2SAT 94
--- NOTE | 2021-12-08 21:55 | CT_ITS ---
EXAM: CT HEAD WITHOUT INTRAVENOUS CONTRAST CLINICAL INDICATION: head trauma TECHNIQUE: Multiple axial images were obtained of the head without intravenous contrast. CTDIvol = ( 44.99 ) mGy, DLP = ( 796.11 ) mGycm This CT exam was performed using one or more of the following dose reduction techniques: automated exposure control, adjustment of the mA and/or kV according to patient size, and/or use of iterative reconstruction technique. This report was created using [employer] report generation technology. COMPARISON: None. FINDINGS: BRAIN AND EXTRA-AXIAL SPACES: Diffuse parenchymal atrophy. No intra- or extra-axial hemorrhage. No evidence of acute infarct. No intracranial mass or mass effect. There is preservation of the chiang/white matter interface. Posterior fossa structures are unremarkable. No hydrocephalus. Basal cisterns are patent. BONES/JOINTS: Unremarkable. No discrete lytic or blastic abnormalities. SINUSES: Unremarkable as visualized. Clear. MASTOID AIR CELLS: Unremarkable. Clear. ORBITS: Visualized globes, extraocular muscles, optic nerves and retrobulbar fat appear unremarkable. CT/Brain/Head without Contrast IMPRESSION: No acute intracranial pathology. Electronically Signed: Ronak Haji MD at 22:41 EDT ,
--- NOTE | 2021-12-08 21:57 | EDS_ITS ---
HPI HPI - Fall History of Present Illness Chief Complaint: Fall Detail of Chief Complaint: Left scalp laceration and right knee injury. Informant: patient and spouse/S.O. Occured/Mechanism Occurred: Today and Hours Usually ambulates: Without assistance Pain/Injury Pain Location: head and lower extremity Quality of Pain: Dull and Aching Current Severity: Mild Maximum Severity: Mild Associated Symptoms Associated Symptoms: Negative for Parasthesias, Weakness, Loss of function, Inability to ambulate, Loss of consciousness or Amnesia Narrative Narrative: 71-year-old male history of hypertension, TIA, CKD and valvular heart disease. He is on Plavix due to a TIA. He and his son were bringing a safe down the steps in his home. The safe got away from him pushed him down the steps when he got to the bottom he fell and hit his head against a exercise bike causing a laceration. He denies any LOC. He denies any neck, back or chest or abdominal pain. He does have mild discomfort to his right knee also. Tetanus Immunization: <5 years Prior similar symptoms: No Recent Illness/Hospitalization: No PFSH PFS Medical History Essential hypertension Hyperlipidemia Malignant neoplasm of prostate Polycystic kidney disease Valvular heart disease Home Medications amlodipine 5 mg tablet 5 mg PO BID 06/22/15 [History Last Taken 03/30/19 04:30 5 MG] omeprazole 40 mg capsule,delayed release 40 mg PO DAILY 06/22/15 [History Last Taken Unknown] aspirin 81 mg tablet,delayed release (Adult Low Dose Aspirin) 81 mg PO DAILY 04/06/18 [History Last Taken Unknown] nddtcypn-yhs-lsxen acid 300 mcg-lycopene 600 mcg-lutein 300 mcg tablet (Centrum Silver Men) 1 tab PO DAILY 04/06/18 [History Last Taken Unknown] olmesartan 40 mg tablet 40 mg PO DAILY 04/06/18 [History Last Taken 03/30/19 04:30 40 MG] duloxetine 30 mg capsule,delayed release 30 mg PO DAILY 03/12/19 [History Last Taken Unknown] hydralazine 50 mg tablet 50 mg PO TID 03/12/19 [History Last Taken 03/30/19 04:30 50 MG] levothyroxine 100 mcg capsule 100 mcg PO DAILY 03/12/19 [History Last Taken 03/30/19 04:30 100 MCG] rosuvastatin 5 mg tablet 5 mg PO DAILY 03/12/19 [History Last Taken Unknown] spironolactone 50 mg tablet 50 mg PO DAILY 03/12/19 [History Last Taken Unknown] cholecalciferol (vitamin D3) 50 mcg (2,000 unit) capsule 2,000 unit PO BID 03/20/19 [History Last Taken Unknown] fluticasone propionate 50 mcg/actuation nasal spray,suspension 2 spray NASAL DAILY 03/20/19 [History Last Taken Unknown] melatonin 10 mg capsule 10 mg PO QHS 03/20/19 [History Last Taken Unknown] pramipexole 0.25 mg tablet 0.25 mg PO DAILY 03/20/19 [History Last Taken Unknown] psyllium husk 0.52 gram capsule 0.52 g PO DAILY 03/20/19 [History Last Taken Unknown] clopidogrel 75 mg tablet 75 mg PO DAILY 05/04/19 [History Last Taken Unknown] Allergy/AdvReac Type Severity Reaction Status Date / Time cashew nut Allergy Intermediate itching Verified 12/08/21 21:57 Family History Father , age 83 Cancer Surgical History History of back surgery History of carpal tunnel release of both wrists History of ear, nose, and throat (ENT) surgery History of repair of right rotator cuff History of shoulder surgery Status post patent foramen ovale closure (~1999) Status post trigger finger release Social History Smoking Status: Former smoker how long ago did patient quit smokin years ago alcohol intake: never caffeine: No ROS ROS ED ROS Narrative Denies recent illness. Review of Systems ROS Unobtainable: Denies due to encephalopathy Constitutional Constitutional ED: Denies chills Eyes Eyes: Denies blurry vision ENT ENT ED: Denies ear pain Cardiovascular Cardiovascular: Denies chest pain Respiratory/Chest Respiratory/Chest: Denies cough Gastrointestinal Gastrointestinal: Denies abdominal pain Genitourinary Genitourinary ED: Denies dysuria Musculoskeletal Musculoskeletal: Denies arthralgias Integumentary Denies abscess Neurologic Neurologic: Denies headache(s) Psychiatric Psychiatric: Denies anxiety Endocrine Endocrinology: Denies polydipsia Hematologic/Lymphatic Hematologic/Lymphatic: Denies easy bleeding Allergic/Immunologic Allergic/Immunologic ED: Denies mouth swelling EXAM Physical Exam Narrative Exam Narrative: 69-year-old male no acute distress. Vital signs stable afebrile. H EENT exam left posterior scalp is about 1 to 2 inch laceration. Blood at the site. Pupils round reactive light. No facial trauma. C-spine nontender. Trachea midline. Normal range of motion. Back and spine nontender. Lungs are clear. Heart regular rhythm. Chest wall nontender. Ribs nontender. Abdomen soft nontender. Pelvic girdle intact. Moving all 4 extremities. He has an abrasion to his right knee. It is tender medially. But he has no effusion. He has normal flexion-extension of both hips knees ankles and feet. Normal strength. Upper extremities are nontender with full range of motion and normal ticket speculator strength. Neurologically is awake and alert with no focal motor deficits. Const Vital Signs: 12/08/21 21:41 12/08/21 21:48 12/08/21 21:58 Temperature 97.2 F L 98.6 F 98.3 F Temperature Source Temporal Oral Pulse Rate 72 66 Respiratory Rate 15 18 Respiratory Effort Normal Non-Labored Respiratory Depth Normal Respiratory Pattern Normal Blood Pressure 146/77 H 136/76 H Blood Pressure Mean 100 96 Pulse Ox 97 94 95 Oxygen Delivery Method Room Air Room Air Room Air Positive well nourished and well developed; Negative for obese, cachectic, contractures or unkempt General Appearance ED: well developed and NAD; Negative for unkempt, cachectic or contractures Nutritional Appearance: Negative for cachectic or obese HEENT Reports normocephalic HEENT Narrative: Left posterior scalp laceration 1 to 2 inches in length. trauma and tenderness; Negative for atraumatic Eyes PERRL and EOMs intact bilaterally General Eye ED: Negative for pale conjunctiva or scleral icterus Neck full ROM, no lymphadenopathy and supple General: Negative for tenderness Chest Wall inspection of chest normal and palpation of chest normal Chest: Negative for other Resp normal respiratory effort, no retractions and clear to auscultation bilaterally Effort and Inspection: Negative for pain with movement Auscultation: Negative for rales, rhonchi or wheezes Cardio regular rate, regular rhythm, S1 normal heart sound, S2 normal heart sound and no murmurs Bruits: Negative for other GI non-tender, non-distended and no masses Inspection: Negative for abdominal distention Auscultation: normoactive bowel sounds Palpation: soft; Negative for guarding Back/Spine no CVA tenderness General Back: Negative for CVA tenderness Cervical Spine: Negative for cervical spine tenderness Thoracic Spine / Upper Back: ROM limited Lumbar Spine / Lower Back: Negative for lumbar spinal tenderness Neuro oriented x3, CN's II-XII intact bilaterally, moves all extremities and no focal motor deficits Martinez Coma Scale: document GCS findings Spontaneous Obeys Commands Oriented 15 Sensorium / Orientation: alert, oriented to person, oriented to place and oriented to time; Negative for orientation impaired, confused, lethargic or stuporous Motor Exam: strength 5/5 throughout Psych mental status grossly normal Appearance: Negative for unkempt Attitude: No agitated Mood & Affect: Negative for depressed or anxious Skin General Skin Exam: Negative for other Lesions: no lesions Rashes: no rashes Trauma: Negative for abrasion MDM MDM MDM Narrative Medical decision making narrative: 71-year-old male who injured his scalp laceration on Plavix. Also a right knee injury. X-ray of the knee and CAT scan of his brain to be obtained. The scalp laceration to be cleaned. Let applied. Most likely need suture repaired. His tetanus is up-to-date and just had one very recently. Radiography Diagnostic Testing: Clinical Impression(s) from Imaging Studies Brain CT 12/08/21 21:55 IMPRESSION: No acute intracranial pathology. Electronically Signed: Ronak Haji MD at 22:41 EDT Reading [facility] Tel , Service support , Knee X-Ray 12/08/21 22:25 IMPRESSION: 1. Prepatellar soft tissue swelling. 2. No acute or healing fracture or malalignment. Electronically Signed: oRnak Haji MD at 22:52 EDT , Right knee x-ray, 4 views, interpreted myself. Shows no acute abnormality. No fracture. No dislocation. No significant effusion. CAT scan of brain showed no acute abnormality as read by the radiologist and reviewed by me. Procedures Lacerations Scalp laceration: Length: 1.97 in Depth: Sub Q Shape: Linear Prep: Shure-Clens Laceration repair: Irrigated, Lidocaine with epi, Local and Skin sutures Number of Sutures/Aide: 5 Suture Information: Ethilon, Simple and 4-0 Comment: Left posterior scalp laceration. About 5 cm in length. Local anesthetized lidocaine with epinephrine. Cleaned with Shdayna-Clens. Washed and irrigated with saline. Explored. Involve the skin and subcu tissue. No step- off. Closed using 5 simple interrupted 4-0 Ethilon sutures. Proper hemostasis and wound closure is obtained. Patient tolerated procedure well. Discharge Plan Triage Chief Complaint: Fall ED Provider: Devang Ureña Dx/Rx/DC Orders Clinical Impression: Head injury, Laceration of scalp, Contusion of knee, right Instructions: ED Contusion, Lower Extremity, ED Head Injury (Adult), ED Laceration: All Closures Prescriptions: No Action aspirin [Adult Low Dose Aspirin] 81 mg tablet,delayed release (DR/EC) 81 mg PO DAILY fbhzfjnh-fyf-ncrhd acid 300 mcg-lycopene 600 mcg-lutein 300 mcg tablet 300-600-300 mcg tablet 1 tab PO DAILY olmesartan 40 mg tablet 40 mg PO DAILY clopidogrel 75 mg tablet 75 mg PO DAILY duloxetine 30 mg capsule,delayed release(DR/EC) 30 mg PO DAILY hydralazine 50 mg tablet 50 mg PO TID levothyroxine 100 mcg capsule 100 mcg capsule 100 mcg PO DAILY rosuvastatin 5 mg tablet 5 mg PO DAILY spironolactone 50 mg tablet 50 mg PO DAILY amlodipine 5 MG tablet 5 mg PO BID omeprazole 40 MG capsule 40 mg PO DAILY pramipexole 0.25 MG tablet 0.25 mg PO DAILY fluticasone propionate 1 SPRAY spray,suspension 2 spray NASAL DAILY psyllium husk 0.52 GM capsule 0.52 g PO DAILY cholecalciferol (vitamin D3) 2,000 UNIT capsule 2,000 unit PO BID melatonin 10 MG capsule 10 mg PO QHS Primary Care Provider: Angie Ivan Referrals: Angie Ivan, [Primary Care Provider] - 10 Day for suture removal Activity Restrictions/Additional Instructions: Ice to scalp. Keep the laceration clean. May shower. Carefully and gently dry it. Stitches out in 10 days. Tylenol for pain. Your knee should significantly improved over the next week if not have it reevaluated. Return if severe headache, vomiting or not acting himself. Hold your Plavix for the next 2 days. Then may restart normally. Disposition Disposition: Home, Self Care
[2021-12-08 21:58] VITALS: BP 136/76; PULSE 66; RESP 18; TEMP 36.8; O2SAT 95
[2021-12-08] MEDS: Lidocaine/Epi/Tetracaine 50 ML 1 APPLIC TOPICAL (22:08)
[2021-12-08] MEDS: Lidocaine 1% /Epi 1:100 (20ml) 20 ML Vial 10 ML INFILT (22:17)
--- NOTE | 2021-12-08 22:25 | RAD_ITS ---
EXAM: XR RIGHT KNEE, 3 VIEWS CLINICAL INDICATION: injury TECHNIQUE: Three views of the right knee. This report was created using [employer] report generation technology. COMPARISON: None. FINDINGS: BONES/JOINTS: 8 mm calcific density projects adjacent to the cortex of the lateral femoral condyle. Joint spaces are maintained. No acute or healing fracture or malalignment. No significant joint effusion. SOFT TISSUES: Soft tissue swelling in the prepatellar region. No radiopaque foreign body. RAD/Knee 4 or More Views IMPRESSION: 1. Prepatellar soft tissue swelling. 2. No acute or healing fracture or malalignment. Electronically Signed: Ronak Haji MD at 22:52 EDT ,
[2021-12-08 23:04] VITALS: BP 132/74; PULSE 68; RESP 16; O2SAT 97
== END 2021-12-08 23:05 | disposition home or self-care (01) ==
LOC: ED 22:21
PROVIDERS: Emergency Provider Emergency Medicine; PCP Internal Medicine; Visit Provider Emergency Medicine
DX: S01.01XA Laceration without foreign body of scalp, initial encounter (principal); S80.01XA Contusion of right knee, initial encounter; I12.9 Hypertensive chronic kidney disease with stage 1 through stage 4 chronic kidney disease, or unspecified chronic kidney disease; N18.9 Chronic kidney disease, unspecified; E78.5 Hyperlipidemia, unspecified; Z87.891 Personal history of nicotine dependence; Z79.82 Long term (current) use of aspirin; Z79.899 Other long term (current) drug therapy; Z86.73 Personal history of transient ischemic attack (TIA), and cerebral infarction without residual deficits; V19.3XXA Pedal cyclist (driver) (passenger) injured in unspecified nontraffic accident, initial encounter
CPT/HCPCS: 12001; 70450; 73564; 99283

== ENCOUNTER 2021-12-15 16:59 | Emergency (ER) | payer MEDICARE, OTHER, SELFPAY ==
[2021-12-15 17:00] VITALS: BP 142/116; PULSE 85; RESP 16; TEMP 36.4; O2SAT 100; BMI 28.5
--- NOTE | 2021-12-15 17:52 | RAD_ITS ---
STUDY: X-RAY - RIGHT KNEE REASON FOR EXAM: Male, 71 years old. Injury/Pain TECHNIQUE: 4 view(s) of the knee. COMPARISON: 12/08/2021 FINDINGS: Normal visualized distal femur. Normal visualized proximal tibia and fibula. Normal proximal tibiofibular articulation. Mildly narrowed medial femorotibial compartment. Normal lateral femorotibial compartment. Normal patellofemoral articulation. Periarticular calcification lateral to the lateral femoral condyle possibly due to old injury.. Prior prepatellar soft tissue swelling has resolved. RAD/Knee 4 or More Views IMPRESSION: No evidence for acute fracture or subluxation without significant change since previous exam Electronically Signed: Jeremiah Hoffman MD at 18:31 EDT Reading Location ID and State: [facility] / [place] , Service support ,
[2021-12-15] MEDS: HYDROcodone Bitartrate/Apap 5/325 Tablet PO (18:04)
--- NOTE | 2021-12-15 18:28 | EDS_ITS ---
HPI History of Present Illness Chief Complaint: Lower Extremity Injury Informant: patient Narrative Narrative: Patient is a 71-year-old male with history of polycystic kidney disease and valvular heart disease on Plavix presenting with right knee injury. Patient had an injury a week ago where he fell down a flight of stairs. He had a knee x-ray at that time as well as sutures to his left scalp. He had been recovering well from that and has some residual bruising when today he ran into a truck with his knee. He states he did not hit that hard but had immediate pain and swelling of the medial aspect of his right knee. He had a hard time walking since. He came in for further evaluation and management. No associated numbness or tingling. No other injuries reported. No other complaints at this time. [facility] Medical History Essential hypertension Hyperlipidemia Malignant neoplasm of prostate Polycystic kidney disease Valvular heart disease Home Medications amlodipine 5 mg tablet 5 mg PO BID 06/22/15 [History Last Taken 03/30/19 04:30 5 MG] omeprazole 40 mg capsule,delayed release 40 mg PO DAILY 06/22/15 [History Last Taken Unknown] aspirin 81 mg tablet,delayed release (Adult Low Dose Aspirin) 81 mg PO DAILY 04/06/18 [History Last Taken Unknown] saxwfmha-ush-kydel acid 300 mcg-lycopene 600 mcg-lutein 300 mcg tablet (Centrum Silver Men) 1 tab PO DAILY 04/06/18 [History Last Taken Unknown] olmesartan 40 mg tablet 40 mg PO DAILY 04/06/18 [History Last Taken 03/30/19 04:30 40 MG] duloxetine 30 mg capsule,delayed release 30 mg PO DAILY 03/12/19 [History Last Taken Unknown] hydralazine 50 mg tablet 50 mg PO TID 03/12/19 [History Last Taken 03/30/19 04:30 50 MG] levothyroxine 100 mcg capsule 100 mcg PO DAILY 03/12/19 [History Last Taken 03/30/19 04:30 100 MCG] rosuvastatin 5 mg tablet 5 mg PO DAILY 03/12/19 [History Last Taken Unknown] spironolactone 50 mg tablet 50 mg PO DAILY 03/12/19 [History Last Taken Unknown] cholecalciferol (vitamin D3) 50 mcg (2,000 unit) capsule 2,000 unit PO BID 03/20/19 [History Last Taken Unknown] fluticasone propionate 50 mcg/actuation nasal spray,suspension 2 spray NASAL DAILY 03/20/19 [History Last Taken Unknown] melatonin 10 mg capsule 10 mg PO QHS 03/20/19 [History Last Taken Unknown] pramipexole 0.25 mg tablet 0.25 mg PO DAILY 03/20/19 [History Last Taken Unknown] psyllium husk 0.52 gram capsule 0.52 g PO DAILY 03/20/19 [History Last Taken Unknown] clopidogrel 75 mg tablet 75 mg PO DAILY 05/04/19 [History Last Taken Unknown] hydrocodone-acetaminophen 5-325mg 5mg-325mg 1 tab PO Q6H PRN pain 3 days #12 tabs 12/15/21 [Rx Last Taken Unknown] Allergy/AdvReac Type Severity Reaction Status Date / Time cashew nut Allergy Intermediate itching Verified 12/15/21 17:02 Family History Father , age 83 Cancer Surgical History History of back surgery History of carpal tunnel release of both wrists History of ear, nose, and throat (ENT) surgery History of repair of right rotator cuff History of shoulder surgery Status post patent foramen ovale closure (~1999) Status post trigger finger release Social History Smoking Status: Former smoker how long ago did patient quit smokin years ago alcohol intake: never caffeine: No ROS ROS ED Constitutional Constitutional ED: Denies chills or fever(s) Eyes Eyes: Denies change in vision ENT ENT ED: Denies rhinorrhea or sore throat Cardiovascular Cardiovascular: Denies chest pain Respiratory/Chest Respiratory/Chest: Denies cough or dyspnea Gastrointestinal Gastrointestinal: Denies abdominal pain or nausea Genitourinary Genitourinary ED: Denies dysuria or hematuria Musculoskeletal Musculoskeletal: Reports other Details: right knee pain Integumentary Reports other Details: bruising to right posterior leg ; Denies Abrasions Neurologic Neurologic: Denies paresthesias or weakness Psychiatric Psychiatric: Denies anxiety Hematologic/Lymphatic Hematologic/Lymphatic: Reports easy bruising EXAM Physical Exam Const Vital Signs: 12/15/21 17:00 12/15/21 19:27 Temperature 97.6 F L Temperature Source Temporal Pulse Rate 85 72 Respiratory Rate 16 15 Blood Pressure 142/116 H 154/99 H Blood Pressure Mean 124 Pulse Ox 100 95 Oxygen Delivery Method Room Air Positive well nourished and well developed General Appearance ED: well developed and NAD HEENT Reports moist mucous membranes normocephalic and atraumatic Eyes PERRL Neck full ROM and supple Chest Wall inspection of chest normal Resp normal respiratory effort and clear to auscultation bilaterally Cardio regular rate and regular rhythm Cardio Narrative: 2+ DP pulses GI non-tender and non-distended Back/Spine Back/Spine Narrative: normal ROM Extremity Extremity Narrative: Decreased range of motion of the right knee secondary to pain. Normal range of motion of the hips and ankles. Swelling of the right medial knee. No joint effusion appreciated. Patient able to raise a straight leg off the bed. Patella is in normal position. General Extremety ED: Yes weight-bearing difficulty General Extremity: weight-bearing difficulty Neuro oriented x3, moves all extremities and no sensory deficits noted Motor Exam: strength 5/5 throughout Skin no wounds Skin Narrative: Healing ecchymosis of the right medial/posterior thigh and right popliteal fossa consistent with patient's injury week ago. Well approximated laceration of the left scalp with sutures in place. No secondary signs of infection appreciated. MDM MDM MDM Narrative Medical decision making narrative: Patient evaluated for injury to his right knee. Patient hit a truck while walking. He had injured his leg a week before when he fell down stairs. Patient has associated contusion and soft tissue swelling. He is tender to palpation. No obvious signs of patella or quadricep tendon rupture. No joint effusion or concern for hemarthrosis at this time. X-ray does not show any acute fracture as interpreted by myself as well as radiology. Spencer wrap is placed and patient is given [place] for pain control. He is on Plavix for history of TIA and is counseled to hold his Plavix for a couple days until the swelling/bruising improves. He verbalizes agreement understand this plan. He is given outpatient follow-up with orthopedics. He states he has a walker to use at home as needed. Patient is counseled on signs and symptoms requiring return to the emergency room. Radiography X-Ray: Read by ED Physician, Read by Radiologist, No Fracture and Normal Bony Alignment Diagnostic Testing: Clinical Impression(s) from Imaging Studies Knee X-Ray 12/15/21 17:52 IMPRESSION: No evidence for acute fracture or subluxation without significant change since previous exam Electronically Signed: Jeremiah Hoffman MD at 18:31 EDT Reading Location ID and State: [address] [place] [address] , Service support , Discharge Plan Triage Chief Complaint: Lower Extremity Injury ED Provider: Lidia Frank Dx/Rx/DC Orders Clinical Impression: Traumatic hematoma of right knee, Contusion of knee, right, Encounter for removal of sutures Instructions: ED Contusion, Lower Extremity, Sutr or Stap Removal Prescriptions: New hydrocodone-acetaminophen 5-325 mg tablet 1 tab PO Q6H PRN (Reason: pain) 3 Days Qty: 12 0RF No Action aspirin [Adult Low Dose Aspirin] 81 mg tablet,delayed release (DR/EC) 81 mg PO DAILY wxbkvkip-wcg-omztu acid 300 mcg-lycopene 600 mcg-lutein 300 mcg tablet 300-600-300 mcg tablet 1 tab PO DAILY olmesartan 40 mg tablet 40 mg PO DAILY clopidogrel 75 mg tablet 75 mg PO DAILY duloxetine 30 mg capsule,delayed release(DR/EC) 30 mg PO DAILY hydralazine 50 mg tablet 50 mg PO TID levothyroxine 100 mcg capsule 100 mcg capsule 100 mcg PO DAILY rosuvastatin 5 mg tablet 5 mg PO DAILY spironolactone 50 mg tablet 50 mg PO DAILY amlodipine 5 MG tablet 5 mg PO BID omeprazole 40 MG capsule 40 mg PO DAILY pramipexole 0.25 MG tablet 0.25 mg PO DAILY fluticasone propionate 1 SPRAY spray,suspension 2 spray NASAL DAILY psyllium husk 0.52 GM capsule 0.52 g PO DAILY cholecalciferol (vitamin D3) 2,000 UNIT capsule 2,000 unit PO BID melatonin 10 MG capsule 10 mg PO QHS Primary Care Provider: Angie Ivan Referrals: Angie Ivan DO [Primary Care Provider] - Hieu Hernandez DO [Med Staff - Active Staff] - 1 Week if not improving Activity Restrictions/Additional Instructions: Hold her Plavix for the next 2 to 3 days to help limit bleeding. Keep the spencer wrap on is much as possible to limit swelling. Elevate your leg as tolerated. Use walker as needed. Return to the emergency room with any worsening symptoms or concerns. Disposition Disposition: Home, Self Care Discharge Date/Time: 12/15/21 19:38
[2021-12-15 19:27] VITALS: BP 154/99; PULSE 72; RESP 15; O2SAT 95
== END 2021-12-15 19:38 | disposition home or self-care (01) ==
PROVIDERS: Emergency Provider Emergency Medicine; PCP Internal Medicine; Visit Provider Emergency Medicine
DX: S80.01XA Contusion of right knee, initial encounter (principal); I10 Essential (primary) hypertension; E78.5 Hyperlipidemia, unspecified; Q61.3 Polycystic kidney, unspecified; I38 Endocarditis, valve unspecified; Z87.891 Personal history of nicotine dependence; Z48.02 Encounter for removal of sutures; Z79.899 Other long term (current) drug therapy; Z79.82 Long term (current) use of aspirin; W22.09XA Striking against other stationary object, initial encounter
CPT/HCPCS: 73564; 99284

== ENCOUNTER → 2022-03-04 | Outpatient (CLI) | payer MEDICARE, OTHER, SELFPAY ==
[2022-03-04 13:20] LABS: PSA,Total - Annual Screen < 0.01 ng/mL (0.00-4.00)
== END | disposition home or self-care (01) ==
LOC: MTLAB 09:45
PROVIDERS: PCP Internal Medicine; Referring Provider Urology; Visit Provider Urology
DX: Z12.5 Encounter for screening for malignant neoplasm of prostate (principal)
CPT/HCPCS: 36415; 84153; G0103

== ENCOUNTER → 2022-03-13 | Outpatient (CLI) | payer MEDICARE, OTHER, SELFPAY ==
[2022-03-13 09:33] LABS: Absolute Lymphocyte Count 1.54 X10^3/uL (0.83-4.51); Absolute Neutrophil Count 3.9 X10^3/uL (2.0-7.7); Basophil# 0.05 X10^3/uL; Basophil% 0.8 % (0-1); Eosinophils% 4.5 % (0-5); Hematocrit 30.8 % (40-54); Lymphocyte # 1.54 X10^3/ul (0.83-4.51); Lymphocyte % 23.2 % (19-41); Mean Corp Hgb Conc 32.5 g/dL (32-36); Mean Corpuscular Hgb 31.7 pg (27.0-32.0); Mean Corpuscular Volume 97.8 fL (80-94); Mean Platelet Vol. 10.2 fl (6.2-12.0); Monocyte# 0.83 X10^3/uL; Monocyte% 12.5 % (0-10); NRBC Flagged by Analyzer 0 % (0-5); Neutrophil % 58.7 % (47-70); Platelet Count 203 K/mm3 (150-450); RBC Distribution Width CV 12.6 % (11.6-14.6); RBC Distribution Width SD 45.1 fl (35.1-43.9); Red Blood Count 3.15 M/mm3 (4.6-6.2); White Blood Count 6.6 K/mm3 (4.4-11.0)
[2022-03-13 10:07] LABS: Hemoglobin A1c 5.3 % (3.8-5.6)
[2022-03-13 10:13] LABS: ALB/GLOB Ratio 1.2 RATIO (0.9-2.4); AST(SGOT) 20 U/L (15-37); Alanine Aminotransfer ALT/SGPT 22 U/L (16-61); Albumin, Serum 3.7 g/dL (3.2-5.0); Alkaline Phosphatase 64 U/L (45-117); Anion Gap 8 (5-15); BUN 62 mg/dL (7-18); BUN/Creat Ratio 15.5 RATIO (10-20); Calcium,Total 8.8 mg/dL (8.5-10.1); Chloride 108 mmol/L (98-107); Cholesterol 121 mg/dL (200); Creatinine, Serum 4.01 mg/dL (0.70-1.30); EST Glomerular Filtration Rate 16 mL/min (>60); Est Glom Filt Rate - Afr Amer 19 mL/min (>60); Globulin 3.1 g/dL (2.2-4.2); Glucose 89 mg/dL (74-106); High Density Lipoprotein 40 mg/dL; Potassium 3.9 mmol/L (3.5-5.1); Protein, Total 6.8 g/dL (6.4-8.2); Sodium Level 139 mmol/L (136-145); Thyroid Stim Hormone (TSH) 2.79 uIU/mL (0.358-3.74); Triglycerides 127 mg/dL; Very Low Density Lipoprotein 25 mg/dL (5-40)
== END | disposition home or self-care (01) ==
LOC: LAB 08:50
PROVIDERS: PCP Internal Medicine; Visit Provider Internal Medicine
DX: R73.01 Impaired fasting glucose (principal); E03.9 Hypothyroidism, unspecified; I11.9 Hypertensive heart disease without heart failure
CPT/HCPCS: 36415; 80053; 80061; 83036; 84443; 85025

== ENCOUNTER → 2022-03-16 | Outpatient (CLI) | payer MEDICARE, OTHER, SELFPAY ==
[2022-03-16 15:19] LABS: Hematocrit 30.8 % (40-54); Mean Corp Hgb Conc 32.5 g/dL (32-36); Mean Corpuscular Hgb 31.9 pg (27.0-32.0); Mean Corpuscular Volume 98.4 fL (80-94); Mean Platelet Vol. 10.5 fl (6.2-12.0); Platelet Count 216 K/mm3 (150-450); RBC Distribution Width CV 12.7 % (11.6-14.6); RBC Distribution Width SD 45.5 fl (35.1-43.9); Red Blood Count 3.13 M/mm3 (4.6-6.2); White Blood Count 5.7 K/mm3 (4.4-11.0)
[2022-03-16 15:44] LABS: Albumin, Serum 3.7 g/dL (3.2-5.0); BUN 68 mg/dL (7-18); BUN/Creat Ratio 15.6 RATIO (10-20); Chloride 108 mmol/L (98-107); Creatinine, Serum 4.35 mg/dL (0.70-1.30); EST Glomerular Filtration Rate 14 mL/min (>60); Est Glom Filt Rate - Afr Amer 17 mL/min (>60); Glucose 88 mg/dL (74-106); Magnesium 2.4 mg/dL (1.6-2.6); Phosphorus 4.6 mg/dL (2.5-4.9); Potassium 4.1 mmol/L (3.5-5.1); Sodium Level 138 mmol/L (136-145)
[2022-03-16 15:57] LABS: Vitamin D,25 Hydroxy 75.5 ng/mL
[2022-03-16 16:19] LABS: Microalbumin:Creatinine Ratio 2355.2 mg/g CRE (<30 mg/g CRE); Protein, Urine (Random) 111.8 mg/dL (<11.9); Protein:Creat Ratio 3055 mg/g CRE (0-200)
[2022-03-17 07:58] LABS: PTHIN 156.6 pg/mL (18.4-80.1)
== END | disposition home or self-care (01) ==
LOC: MTLAB 11:52
PROVIDERS: PCP Internal Medicine; Referring Provider Internal Medicine Nephrology; Visit Provider Internal Medicine Nephrology
DX: R80.9 Proteinuria, unspecified (principal); N18.4 Chronic kidney disease, stage 4 (severe); N25.81 Secondary hyperparathyroidism of renal origin; D64.9 Anemia, unspecified
CPT/HCPCS: 36415; 80069; 82043; 82306; 82570; 83735; 83970; 84156; 85027

== ENCOUNTER → 2022-04-06 | Outpatient (CLI) | payer MEDICARE, OTHER, SELFPAY ==
--- NOTE | 2022-04-06 14:54 | CDU_ITS ---
Reason For Study: CAROTID STENOSIS Rt. Velocities/BP Lt. Velocities/BP Prox CCA 89.7/9.5 cm/sec. Prox CCA 143.6/21.2 cm/sec. Mid CCA 88.6/17.1 cm/sec. Mid CCA 73.6/14.6 cm/sec. Dist CCA 79.8/19.3 cm/sec. Dist CCA 66.2/17.1 cm/sec. Prox ICA 70.2/18.6 cm/sec. Prox ICA 82.1/19.5 cm/sec. Mid ICA 69.0/19.6 cm/sec. Mid ICA 67.4/19.5 cm/sec. Dist ICA 109.4/30.9 cm/sec. Dist ICA 49.0/22.0 cm/sec. Rt. ICA/CCA = 109.4/88.6=1.2. Lt. ICA/CCA = 82.1/73.6=1.1. Prox ECA 75.4/7.3 cm/sec. Prox ECA 116.7/18.1 cm/sec. Rt. Vert. 51.1/14.5 cm/sec. Lt. Vert. 73.6/28.1 cm/sec. Right Extracranial There is homogeneous, smooth atherosclerotic plaque noted in the right common carotid artery. There is intimal thickening but no significant atherosclerotic plaque noted in the right internal carotid artery. The tortuous nature of the right internal carotid artery may result in flow velocities overestimating the degree of stenosis. There is intimal thickening but no significant atherosclerotic plaque noted in the right external carotid artery. Antegrade flow is noted in the right vertebral artery. Left Extracranial There is homogeneous, smooth atherosclerotic plaque noted in the left common carotid artery. There is intimal thickening but no significant atherosclerotic plaque noted in the left internal carotid artery. The left internal carotid artery is not well visualized. There is intimal thickening but no significant atherosclerotic plaque noted in the left external carotid artery. Antegrade flow is noted in the left vertebral artery. Procedure Carotid Duplex 13736. This is a Carotid Duplex examination using B-mode, color flow and specral Doppler. The study was technically difficult. Exam performed in department. VL/Carotid Duplex Ultrasound Interpretation Summary Normal right extracranial internal carotid. Normal left extracranial internal carotid. Patent and antegrade vertebrals bilaterally. Ordering Physician: Angie Ivan Referring Physician: Angie Ivan Performed By: Mitzi Dennison, GERRY, RVT
[2022-04-06 17:58] LABS: PSA,Total- Diagnostic 0.01 ng/mL (0.0-4.0)
== END | disposition home or self-care (01) ==
PROVIDERS: PCP Internal Medicine; Referring Provider Internal Medicine; Visit Provider Internal Medicine
DX: I65.23 Occlusion and stenosis of bilateral carotid arteries (principal); C61 Malignant neoplasm of prostate
CPT/HCPCS: 36415; 84153; 93880

== ENCOUNTER → 2022-06-29 | Outpatient (CLI) | payer MEDICARE, OTHER, SELFPAY ==
[2022-06-29 12:24] LABS: Absolute Lymphocyte Count 1.74 X10^3/uL (0.83-4.51); Absolute Neutrophil Count 4.1 X10^3/uL (2.0-7.7); Basophil# 0.07 X10^3/uL; Eosinophil# 0.48 X10^3/uL; Eosinophils% 6.7 % (0-5); Hematocrit 29.3 % (40-54); Hemoglobin 9.9 g/dL (13.0-16.5); Lymphocyte # 1.74 X10^3/ul (0.83-4.51); Lymphocyte % 24.2 % (19-41); Mean Corp Hgb Conc 33.8 g/dL (32-36); Mean Corpuscular Hgb 32.7 pg (27.0-32.0); Mean Corpuscular Volume 96.7 fL (80-94); Mean Platelet Vol. 10.2 fl (6.2-12.0); Monocyte# 0.76 X10^3/uL; Monocyte% 10.6 % (0-10); NRBC Flagged by Analyzer 0 % (0-5); Neutrophil # 4.13 X10^3/uL (2.7-7.7); Neutrophil % 57.2 % (47-70); Platelet Count 233 K/mm3 (150-450); RBC Distribution Width CV 12.4 % (11.6-14.6); RBC Distribution Width SD 43.8 fl (35.1-43.9); Red Blood Count 3.03 M/mm3 (4.6-6.2); White Blood Count 7.2 K/mm3 (4.4-11.0)
[2022-06-29 12:47] LABS: Vitamin D,25 Hydroxy 71.9 ng/mL
[2022-06-29 13:26] LABS: ALB/GLOB Ratio 1.2 RATIO (0.9-2.4); AST(SGOT) 23 U/L (15-37); Alanine Aminotransfer ALT/SGPT 24 U/L (16-61); Albumin, Serum 3.6 g/dL (3.2-5.0); Alkaline Phosphatase 68 U/L (45-117); Anion Gap 9 (5-15); BUN 68 mg/dL (7-18); BUN/Creat Ratio 16.4 RATIO (10-20); Calcium,Total 9.2 mg/dL (8.5-10.1); Chloride 113 mmol/L (98-107); Cholesterol 106 mg/dL (200); Creatinine, Serum 4.15 mg/dL (0.70-1.30); EST Glomerular Filtration Rate 15 mL/min (>60); Est Glom Filt Rate - Afr Amer 18 mL/min (>60); Glucose 92 mg/dL (74-106); High Density Lipoprotein 36 mg/dL; Potassium 3.7 mmol/L (3.5-5.1); Protein, Total 6.6 g/dL (6.4-8.2); Sodium Level 141 mmol/L (136-145); Thyroid Stim Hormone (TSH) 2.06 uIU/mL (0.358-3.74); Triglycerides 110 mg/dL; Very Low Density Lipoprotein 22 mg/dL (5-40)
[2022-06-29 13:48] LABS: Hemoglobin A1c 5.2 % (3.8-5.6)
== END | disposition home or self-care (01) ==
LOC: MTLAB 09:47
PROVIDERS: PCP Internal Medicine; Referring Provider Internal Medicine; Visit Provider Internal Medicine
DX: I11.9 Hypertensive heart disease without heart failure (principal); N18.4 Chronic kidney disease, stage 4 (severe); E78.00 Pure hypercholesterolemia, unspecified; E55.9 Vitamin D deficiency, unspecified; Q61.2 Polycystic kidney, adult type; E03.9 Hypothyroidism, unspecified; R73.01 Impaired fasting glucose
CPT/HCPCS: 36415; 80053; 80061; 82306; 83036; 84443; 85025

== ENCOUNTER → 2022-07-21 | Outpatient (CLI) | payer MEDICARE, OTHER, SELFPAY ==
[2022-07-21 15:39] LABS: Hematocrit 30.5 % (40-54); Hemoglobin 9.8 g/dL (13.0-16.5); Mean Corp Hgb Conc 32.1 g/dL (32-36); Mean Corpuscular Hgb 32.5 pg (27.0-32.0); Mean Platelet Vol. 10.4 fl (6.2-12.0); Platelet Count 205 K/mm3 (150-450); RBC Distribution Width CV 12.7 % (11.6-14.6); RBC Distribution Width SD 47.1 fl (35.1-43.9); Red Blood Count 3.02 M/mm3 (4.6-6.2); White Blood Count 5.6 K/mm3 (4.4-11.0)
[2022-07-21 16:16] LABS: Albumin, Serum 3.7 g/dL (3.2-5.0); BUN 61 mg/dL (7-18); BUN/Creat Ratio 15.1 RATIO (10-20); Calcium,Total 8.9 mg/dL (8.5-10.1); Chloride 111 mmol/L (98-107); Creatinine, Serum 4.04 mg/dL (0.70-1.30); EST Glomerular Filtration Rate 16 mL/min (>60); Est Glom Filt Rate - Afr Amer 19 mL/min (>60); Glucose 113 mg/dL (74-106); Magnesium 2.1 mg/dL (1.6-2.6); Phosphorus 3.7 mg/dL (2.5-4.9); Potassium 3.8 mmol/L (3.5-5.1); Sodium Level 141 mmol/L (136-145)
[2022-07-22 08:15] LABS: PTHIN 163.9 pg/mL (18.4-80.1)
== END | disposition home or self-care (01) ==
LOC: MTLAB 13:38
PROVIDERS: PCP Internal Medicine; Referring Provider Internal Medicine Nephrology; Visit Provider Internal Medicine Nephrology
DX: N18.4 Chronic kidney disease, stage 4 (severe) (principal); N25.81 Secondary hyperparathyroidism of renal origin; D64.9 Anemia, unspecified
CPT/HCPCS: 36415; 80069; 82043; 82306; 82570; 83735; 83970; 85027

== ENCOUNTER → 2022-09-28 | Outpatient (CLI) | payer MEDICARE, OTHER, SELFPAY ==
--- NOTE | 2022-09-28 05:59 | CT_ITS ---
EXAM: CT ABDOMEN AND PELVIS WITHOUT INTRAVENOUS CONTRAST CLINICAL INDICATION: PRE KIDNEY TRANSPLANT PRE KIDNEY TRANSPLANT TECHNIQUE: Helically acquired images were obtained of the abdomen and pelvis without intravenous contrast. This CT exam was performed using one or more of the following dose reduction techniques: automated exposure control, adjustment of the mA and/or kV according to patient size, and/or use of iterative reconstruction technique. RADIATION DOSE: CTDIvol = 13.06 mGy, DLP = 646.23 mGy-cm COMPARISON: CT scan abdomen and pelvis 08/28/2021. FINDINGS: LOWER THORAX: Unremarkable. Lung bases are clear. No cardiomegaly. No significant pericardial effusion. ABDOMEN: LIVER: There are numerous simple appearing cysts in the liver, for which no further evaluation is advised. This is probably related to polycystic kidney disease. GALLBLADDER AND BILE DUCTS: Unremarkable. No calcified gallstones. No gallbladder distention or wall edema. No intra- or extrahepatic biliary ductal dilation. PANCREAS: Unremarkable. No focal cystic mass. SPLEEN: Unremarkable. Normal size without focal cystic or solid mass. ADRENALS: Unremarkable. No nodules. KIDNEYS AND URETERS: There are innumerable renal cysts bilaterally, many of which are simple in appearance and some of which are hyperdense. No further imaging evaluation of the cysts is necessary. The cysts replace much of the renal parenchyma and findings are consistent with polycystic kidney disease. There are no visualized obstructive urinary calculi or hydronephrosis. STOMACH AND BOWEL: There are colonic diverticula. There is no evidence for acute diverticulitis. No stomach or bowel distention. PELVIS: APPENDIX: The appendix is seen on axial images 110-119. There is no evidence for acute appendicitis. BLADDER: There is apparent mild mural thickening of the urinary bladder which may be an artifact of limited distention. REPRODUCTIVE: Unremarkable as visualized. No mass. ABDOMEN and PELVIS: INTRAPERITONEAL SPACE: Unremarkable. No ascites or other fluid collection. No free air. BONES/JOINTS: There are multilevel degenerative changes in the visualized spine. No suspicious lytic or blastic abnormality. SOFT TISSUES: There is a small umbilical hernia, which contains fat. VASCULATURE: There is atherosclerotic calcification of the abdominal aorta. Abdominal aorta is non-dilated. LYMPH NODES: Unremarkable. No enlarged lymph nodes. CT/Abdomen/Pelvis without Cont IMPRESSION: 1. Polycystic kidney disease. There are associated liver cysts. 2. Colonic diverticulosis without evidence for acute diverticulitis. 3. Atherosclerosis. 4. Apparent mild mural thickening of the urinary bladder and artifact of limited distention. Cystitis is not excluded. Electronically Signed: Gary Patel MD at 6:39 EDT Reading Location ID and State: [facility] / [place] , Service support ,
== END | disposition home or self-care (01) ==
LOC: CT 05:52
PROVIDERS: PCP Internal Medicine
DX: Z01.818 Encounter for other preprocedural examination (principal); N18.6 End stage renal disease
CPT/HCPCS: 74176

== ENCOUNTER → 2022-10-05 | Outpatient (CLI) | payer MEDICARE, OTHER, SELFPAY ==
[2022-10-05 12:56] LABS: PSA,Total- Diagnostic < 0.01 ng/mL (0.0-4.0)
== END | disposition home or self-care (01) ==
LOC: MTLAB 10:09
PROVIDERS: PCP Internal Medicine; Referring Provider Urology; Visit Provider Urology
DX: C61 Malignant neoplasm of prostate (principal)
CPT/HCPCS: 36415; 84153

== ENCOUNTER → 2022-10-06 | Outpatient (CLI) | payer MEDICARE, OTHER, SELFPAY ==
--- NOTE | 2022-10-06 06:01 | ECHOCS_ITS ---
Reason For Study: Pre Kidney Transplant List Eval Procedure This was a 2D Doppler, Color Flow transthoracic echocardiogram. The study was technically difficult. Contrast injection was performed. Left Ventricle Normal LV size. Left ventricular systolic function is normal. The estimated ejection fraction is 70 %. Stage 1 diastolic dysfunction. No regional wall motion abnormalities noted. Right Ventricle Normal RV size. Normal systolic function. Atria Normal left atrium. Normal right atrium. Bubble contrast study negative for right to left interatrial shunt. Intact atrial septum. Mitral Valve Normal mitral valve. Tricuspid Valve Normal tricuspid valve. Mild tricuspid valve insufficiency. Pulmonary artery systolic pressure is 30 mmHg. Aortic Valve Trisinus/trileaflet aortic valve. Pulmonic Valve Normal pulmonic valve. Great Vessels Normal aortic root. The pulmonary artery is normal size. Normal inferior vena cava. Pericardium/Pleural No pericardial effusion. Medication 22 gauge I.V. with prn adaptor inserted into right arm. Diluted definity 1.5ml given slow IV push to enhance endocardial definition. Performed a rapid injection of agitated mix of 9 cc saline and 1cc air to assess for atrial septal defect. MMode/2D Measurements & Calculations LVIDd: 6.2 cm IVSd: 1.1 cm Ao root diam: 3.3 cm LVIDs: 3.2 cm LVPWd: 0.94 cm LA dimension: 4.7 cm RVDd: 4.1 cm FS: 48.0 % LAV(MOD-bp): 62.2 ml LVAd ap4: 36.9 cm2 SV(MOD-sp4): 87.7 ml LAV(MOD-bp) Indexed: 31.4 ml/m2 LVLd ap4: 9.3 cm LAV(MOD-sp2): 59.5 ml EDV(MOD-sp4): 119.2 ml LAV(MOD-sp4): 63.0 ml EDV(sp4-el): 124.2 ml LVAs ap4: 16.7 cm2 LVLs ap4: 7.5 cm ESV(MOD-sp4): 31.4 ml ESV(sp4-el): 31.3 ml EF(MOD-sp4): 73.6 % EF(sp4-el): 74.8 % SV(sp4-el): 93.0 ml LA A4 area: 21.0 cm2 RA A4 area: 19.9 cm2 Time Measurements MV dec time: 0.19 sec Doppler Measurements & Calculations MV E max mark: 63.1 cm/sec Lat Peak E' Mark: 9.3 cm/sec Med Peak E' Mark: 7.2 cm/sec MV A max mark: 73.4 cm/sec E/E' lat: 6.8 E/E' med: 8.8 MV E/A: 0.86 MV V2 max: 81.7 cm/sec MV P1/2t max mark: 73.6 cm/sec Ao V2 max: 112.7 cm/sec MV max P.7 mmHg MV P1/2t: 66.7 msec Ao max P.1 mmHg MV V2 mean: 50.1 cm/sec Ao V2 mean: 80.2 cm/sec MV mean P.2 mmHg MV dec slope: 323.3 cm/sec2 Ao mean P.9 mmHg MV V2 VTI: 20.2 cm MVA(P1/2t): 3.3 cm2 Ao V2 VTI: 28.1 cm AV (velocity ratio): 0.81 LV V1 max: 93.7 cm/sec PA V2 max: 106.5 cm/sec TR max mark: 250.6 cm/sec LV V1 max P.5 mmHg PA V2 mean: 71.8 cm/sec TR max P.1 mmHg LV V1 mean P.2 mmHg LV V1 mean: 70.3 cm/sec LV V1 VTI: 22.7 cm ECHO/Echo Complete W/ Contrast Interpretation Summary Normal LV size. Left ventricular systolic function is normal. The estimated ejection fraction is 70 %. Stage 1 diastolic dysfunction. Bubble contrast study negative for right to left interatrial shunt. Intact atrial septum Contrast injection was performed. Ordering Physician: KHOA RUEDA Referring Physician: Angie Ivan Performed By: Harinder Young RCS
--- NOTE | 2022-10-06 16:25 | STRESSREP_ITS ---
Stress Test Report Exercise myocardial perfusion stress test. 72-year-old man for preop kidney transplant evaluation Stress protocol: Resting EKG demonstrates normal sinus rhythm with a rate of 82 bpm resting blood pressure is 146/86 mmHg. The patient exercised according to the regular Tevin protocol for a total duration of 6 minutes and 30 seconds attaining a maximum heart rate of 125 bpm which was 85% of maximum predicted heart rate; the maximum workload was 8.5 metabolic equivalents. At rest there were no ST or T wave changes noted to suggest ischemia and at peak exercise upsloping ST changes only were noted which did not meet the criteria for ischemia. No clinical angina was noted the test was terminated due to the target heart rate being achie mukund/fatigue. The peak blood pressure was 190/60 mmHg. Rate-pressure product was 21,600. Myocardial perfusion protocol. 11.9 mCi of technetium 99m sestamibi was injected at rest. The patient exerci sed according to regular Tevin protocol for total duration of 6 minutes and 30 seconds and at peak exercise 34.1 mCi of technetium 99m sestamibi was injected stress images were obtained stress and rest images were reconstructed in comparing the short axis vertical long and horizontal long axis. Gated images were also obtained. Perfusion SPECT analysis: Review of the stress images demonstrate normal uptake of tracer noted in all areas of the myocardium. The resting images similarly demonstrate normal uptake of tracer noted in all areas of the myocardium. No areas of reversibility are noted to suggest ischemia no previous infarct was noted. Gated SPECT analysis: The gated ejection fraction is 63%. Conclusion: Normal exercise myocardial perfusion stress test at a moderate workload Preserved ejection fraction.
== END | disposition home or self-care (01) ==
PROVIDERS: PCP Internal Medicine
DX: Z01.810 Encounter for preprocedural cardiovascular examination (principal)
CPT/HCPCS: 78452; 93017; 93306; A9500; Q9957; A4216; C8929

== ENCOUNTER → 2022-12-09 | Outpatient (CLI) | payer MEDICARE, OTHER, SELFPAY ==
[2022-12-09 15:21] LABS: Hemoglobin 8.8 g/dL (13.0-16.5); Mean Corp Hgb Conc 31.4 g/dL (32-36); Mean Corpuscular Hgb 31.7 pg (27.0-32.0); Mean Corpuscular Volume 100.7 fL (80-94); Mean Platelet Vol. 10.5 fl (6.2-12.0); Platelet Count 207 K/mm3 (150-450); RBC Distribution Width CV 12.4 % (11.6-14.6); Red Blood Count 2.78 M/mm3 (4.6-6.2); White Blood Count 6.1 K/mm3 (4.4-11.0)
[2022-12-09 16:01] LABS: Vitamin B12 1090 pg/mL (211-911); Vitamin D,25 Hydroxy 76.1 ng/mL
[2022-12-09 16:30] LABS: Albumin, Serum 3.3 g/dL (3.2-5.0); BUN 61 mg/dL (7-18); BUN/Creat Ratio 14.2 RATIO (10-20); Calcium,Total 8.7 mg/dL (8.5-10.1); Chloride 111 mmol/L (98-107); Creatinine, Serum 4.31 mg/dL (0.70-1.30); EST Glomerular Filtration Rate 14 mL/min (>60); Est Glom Filt Rate - Afr Amer 17 mL/min (>60); Ferritin 68 ng/mL (26-388); Glucose 157 mg/dL (74-106); Iron 94 ug/dL (65-175); Iron Binding Capacity,Total 300 ug/dL (250-450); Magnesium 2.1 mg/dL (1.6-2.6); PERCENT IRON SATURATION 31.3 % (15.0-55.0); Phosphorus 3.9 mg/dL (2.5-4.9); Potassium 4.4 mmol/L (3.5-5.1); Sodium Level 139 mmol/L (136-145)
[2022-12-10 10:31] LABS: PTHIN 149.8 pg/mL (18.4-80.1)
== END | disposition home or self-care (01) ==
LOC: MTLAB 13:57
PROVIDERS: PCP Internal Medicine; Visit Provider Internal Medicine Nephrology
DX: N18.4 Chronic kidney disease, stage 4 (severe) (principal); D64.9 Anemia, unspecified
CPT/HCPCS: 36415; 80069; 82043; 82306; 82570; 82607; 82728; 82746; 83540; 83550; 83735; 83970; 85027

== ENCOUNTER → 2023-01-12 | Outpatient (CLI) | payer MEDICARE, OTHER, SELFPAY ==
[2023-01-12 17:32] LABS: Hemoglobin 8.3 g/dL (13.0-16.5); Mean Corp Hgb Conc 31.9 g/dL (32-36); Mean Corpuscular Hgb 31.8 pg (27.0-32.0); Mean Corpuscular Volume 99.6 fL (80-94); Mean Platelet Vol. 10.1 fl (6.2-12.0); Platelet Count 205 K/mm3 (150-450); RBC Distribution Width CV 12.4 % (11.6-14.6); RBC Distribution Width SD 45.2 fl (35.1-43.9); Red Blood Count 2.61 M/mm3 (4.6-6.2)
[2023-01-12 17:58] LABS: Albumin, Serum 3.5 g/dL (3.2-5.0); BUN 70 mg/dL (7-18); Calcium,Total 8.6 mg/dL (8.5-10.1); Chloride 111 mmol/L (98-107); Creatinine, Serum 4.99 mg/dL (0.70-1.30); EST Glomerular Filtration Rate 12 mL/min (>60); Est Glom Filt Rate - Afr Amer 15 mL/min (>60); Glucose 134 mg/dL (74-106); Phosphorus 4.4 mg/dL (2.5-4.9); Potassium 4.4 mmol/L (3.5-5.1); Sodium Level 138 mmol/L (136-145)
[2023-01-12 18:03] LABS: PTHIN 190.3 pg/mL (18.4-80.1)
[2023-01-12 18:06] LABS: Vitamin D,25 Hydroxy 67.8 ng/mL
[2023-01-12 18:20] LABS: Protein, Urine (Random) 192.3 mg/dL (<11.9); Protein:Creat Ratio 3981 mg/g CRE (0-200)
== END | disposition home or self-care (01) ==
PROVIDERS: PCP Internal Medicine; Referring Provider Internal Medicine Nephrology; Visit Provider Internal Medicine Nephrology
DX: D64.9 Anemia, unspecified (principal); N18.4 Chronic kidney disease, stage 4 (severe); N25.81 Secondary hyperparathyroidism of renal origin
CPT/HCPCS: 36415; 80069; 82306; 82570; 83970; 84156; 85027

== ENCOUNTER → 2023-02-01 | Outpatient (CLI) | payer MEDICARE, OTHER, SELFPAY ==
[2023-02-01 18:18] LABS: PSA,Total- Diagnostic < 0.01 ng/mL (0.0-4.0)
== END | disposition home or self-care (01) ==
LOC: MTLAB 15:03
PROVIDERS: PCP Internal Medicine; Referring Provider Nurse Practitioner; Visit Provider Nurse Practitioner
DX: C61 Malignant neoplasm of prostate (principal)
CPT/HCPCS: 36415; 84153

== ENCOUNTER → 2023-02-02 | Outpatient (CLI) | payer MEDICARE, OTHER, SELFPAY ==
[2023-02-02 16:55] LABS: Hepatitis B Surface Antibody Non-Reactive
== END | disposition home or self-care (01) ==
LOC: MTLAB 11:40
PROVIDERS: PCP Internal Medicine; Referring Provider Internal Medicine Nephrology; Visit Provider Internal Medicine Nephrology
DX: N18.4 Chronic kidney disease, stage 4 (severe) (principal)
CPT/HCPCS: 36415; 86706

== ENCOUNTER → 2023-02-17 | Outpatient (CLI) | payer MEDICARE, OTHER, SELFPAY | END | disposition home or self-care (01) | LOC: SL 10:54 | PROVIDERS: PCP Internal Medicine; Visit Provider Nurse Practitioner Acute Care | DX: Z46.89 Encounter for fitting and adjustment of other specified devices (principal) ==

== ENCOUNTER → 2023-03-08 | Outpatient (CLI) | payer MEDICARE, OTHER, SELFPAY ==
[2023-03-08 10:03] LABS: Absolute Lymphocyte Count 1.56 X10^3/uL (0.83-4.51); Absolute Neutrophil Count 3.4 X10^3/uL (2.0-7.7); Basophil# 0.06 X10^3/uL; Eosinophil# 0.52 X10^3/uL; Eosinophils% 8.4 % (0-5); Hematocrit 28.4 % (40-54); Hemoglobin 9.3 g/dL (13.0-16.5); Lymphocyte # 1.56 X10^3/ul (0.83-4.51); Lymphocyte % 25.1 % (19-41); Mean Corp Hgb Conc 32.7 g/dL (32-36); Mean Corpuscular Hgb 32.1 pg (27.0-32.0); Mean Corpuscular Volume 97.9 fL (80-94); Mean Platelet Vol. 9.9 fl (6.2-12.0); Monocyte# 0.63 X10^3/uL; Monocyte% 10.1 % (0-10); NRBC Flagged by Analyzer 0 % (0-5); Neutrophil # 3.44 X10^3/uL (2.7-7.7); Neutrophil % 55.2 % (47-70); Platelet Count 220 K/mm3 (150-450); RBC Distribution Width CV 12.6 % (11.6-14.6); RBC Distribution Width SD 45.3 fl (35.1-43.9); White Blood Count 6.2 K/mm3 (4.4-11.0)
[2023-03-08 10:13] LABS: PTHIN 161.4 pg/mL (18.4-80.1)
[2023-03-08 11:08] LABS: Protein, Urine (Random) 137.8 mg/dL (<11.9); Protein:Creat Ratio 3542 mg/g CRE (0-200)
[2023-03-08 11:13] LABS: ALB/GLOB Ratio 1.1 RATIO (0.9-2.4); AST(SGOT) 15 U/L (15-37); Alanine Aminotransfer ALT/SGPT 22 U/L (16-61); Albumin, Serum 3.4 g/dL (3.2-5.0); Alkaline Phosphatase 63 U/L (45-117); Anion Gap 11 (5-15); BUN 70 mg/dL (7-18); BUN/Creat Ratio 14.4 RATIO (10-20); Calcium,Total 8.6 mg/dL (8.5-10.1); Chloride 112 mmol/L (98-107); Cholesterol 111 mg/dL (200); Creatinine, Serum 4.87 mg/dL (0.70-1.30); EST Glomerular Filtration Rate 13 mL/min (>60); Est Glom Filt Rate - Afr Amer 15 mL/min (>60); Globulin 3.2 g/dL (2.2-4.2); Glucose 93 mg/dL (74-106); High Density Lipoprotein 44 mg/dL; Phosphorus 4.4 mg/dL (2.5-4.9); Potassium 4.1 mmol/L (3.5-5.1); Protein, Total 6.6 g/dL (6.4-8.2); Sodium Level 141 mmol/L (136-145); Triglycerides 76 mg/dL; Very Low Density Lipoprotein 15 mg/dL (5-40)
[2023-03-08 11:49] LABS: Hemoglobin A1c 5.1 % (3.8-5.6)
--- NOTE | 2023-03-08 13:47 | RAD_ITS ---
HISTORY: Left buttock pain and back pain. TECHNIQUE: XR Spine Lumbar Min 4 Views. COMPARISON: CT 09/28/2022. FINDINGS: VERTEBRAE: Vertebral body heights preserved. Degenerative changes of the posterior elements. ALIGNMENT: No significant anterior or posterior subluxation. Mild levoscoliosis. INTERVERTEBRAL DISCS: Degenerative endplate changes at multiple levels with mild intervertebral disc space narrowing particularly at L4-5. RAD/L/S Spine Min 4 Views IMPRESSION: No acute fracture or dislocation identified in the lumbar spine. Mild scoliosis and degenerative change. Electronically Signed: Terese Katz MD at 8:39 EST ,
--- NOTE | 2023-03-08 13:47 | RAD_ITS ---
HISTORY: left with weight bearing, left buttock pain. TECHNIQUE: XR Hip Unilateral with Pelvis when performed; 2-3 Views. COMPARISON: CT 09/28/2022. FINDINGS: OSSEOUS STRUCTURES: No acute displaced fracture identified. Note that overlapping bowel shadows may obscure osseous detail. Mineralization unremarkable. JOINT SPACES: No dislocation. Mild degenerative changes of the hips. SOFT TISSUES: Chronic small ossifications at the greater trochanter. RAD/HIP, UNI W/ Pelvis 2-3 Views IMPRESSION: No acute displaced fracture or dislocation identified. Electronically Signed: Terese Katz MD at 8:38 EST ,
== END | disposition home or self-care (01) ==
LOC: LAB.FUTURE 07:43 → MTLAB 07:44
PROVIDERS: PCP Internal Medicine; Referring Provider Internal Medicine Nephrology; Visit Provider Internal Medicine Nephrology
DX: D64.9 Anemia, unspecified (principal); N18.4 Chronic kidney disease, stage 4 (severe); N25.81 Secondary hyperparathyroidism of renal origin; R73.01 Impaired fasting glucose; I11.9 Hypertensive heart disease without heart failure; E03.9 Hypothyroidism, unspecified; E78.00 Pure hypercholesterolemia, unspecified
CPT/HCPCS: 36415; 72110; 73502; 80053; 80061; 82306; 82570; 83036; 83970; 84100; 84156; 84443; 85025

== ENCOUNTER → 2023-06-01 | Outpatient (CLI) | payer MEDICARE, OTHER, SELFPAY ==
--- NOTE | 2023-06-01 13:41 | RAD_ITS ---
EXAM: XR ABDOMEN, 1 VIEW CLINICAL INDICATION: End stage renal disease TECHNIQUE: Frontal supine view of the abdomen/pelvis. COMPARISON: No relevant prior studies available. FINDINGS: LOWER THORAX: No acute pathology. GASTROINTESTINAL TRACT: Unremarkable. Non-obstructive. No bowel or stomach distention. ORGANS: Unremarkable as visualized. No organomegaly. No abnormal calcifications. BONES/JOINTS: No acute pathology. SOFT TISSUES: No acute pathology. TUBES, LINES AND DEVICES: There is a peritoneal dialysis catheter overlying the left pelvis. RAD/Abdomen Single View IMPRESSION: No acute findings. Electronically Signed: Main Ferris MD at 20:27 EST ,
[2023-06-01 15:35] LABS: Absolute Lymphocyte Count 0.99 X10^3/uL (0.83-4.51); Absolute Neutrophil Count 6.2 X10^3/uL (2.0-7.7); Basophil# 0.05 X10^3/uL; Basophil% 0.6 % (0-1); Eosinophil# 0.51 X10^3/uL; Eosinophils% 6.1 % (0-5); Hematocrit 25.8 % (40-54); Hemoglobin 8.4 g/dL (13.0-16.5); Lymphocyte # 0.99 X10^3/ul (0.83-4.51); Lymphocyte % 11.8 % (19-41); Mean Corp Hgb Conc 32.6 g/dL (32-36); Mean Corpuscular Hgb 32.4 pg (27.0-32.0); Mean Corpuscular Volume 99.6 fL (80-94); Mean Platelet Vol. 10.3 fl (6.2-12.0); Monocyte% 8.3 % (0-10); NRBC Flagged by Analyzer 0 % (0-5); Neutrophil # 6.15 X10^3/uL (2.7-7.7); Platelet Count 216 K/mm3 (150-450); RBC Distribution Width CV 12.3 % (11.6-14.6); RBC Distribution Width SD 45.2 fl (35.1-43.9); Red Blood Count 2.59 M/mm3 (4.6-6.2); White Blood Count 8.4 K/mm3 (4.4-11.0)
[2023-06-01 15:51] LABS: Hemoglobin A1c 4.9 % (3.8-5.6)
[2023-06-01 16:04] LABS: ALB/GLOB Ratio 1.2 RATIO (0.9-2.4); AST(SGOT) 18 U/L (15-37); Alanine Aminotransfer ALT/SGPT 23 U/L (16-61); Albumin, Serum 3.4 g/dL (3.2-5.0); Alkaline Phosphatase 66 U/L (45-117); Anion Gap 4 (5-15); BUN 79 mg/dL (7-18); BUN/Creat Ratio 15.2 RATIO (10-20); Calcium,Total 8.7 mg/dL (8.5-10.1); Chloride 112 mmol/L (98-107); Creatinine, Serum 5.19 mg/dL (0.70-1.30); EST Glomerular Filtration Rate 12 mL/min (>60); Est Glom Filt Rate - Afr Amer 14 mL/min (>60); Globulin 2.9 g/dL (2.2-4.2); Glucose 105 mg/dL (74-106); PSA,Total- Diagnostic 0.01 ng/mL (0.0-4.0); Potassium 4.2 mmol/L (3.5-5.1); Protein, Total 6.3 g/dL (6.4-8.2); Sodium Level 137 mmol/L (136-145); Thyroid Stim Hormone (TSH) 3.15 uIU/mL (0.358-3.74)
== END | disposition home or self-care (01) ==
PROVIDERS: PCP Internal Medicine; Referring Provider Internal Medicine Nephrology; Visit Provider Internal Medicine Nephrology
DX: R73.01 Impaired fasting glucose (principal); N18.6 End stage renal disease; C61 Malignant neoplasm of prostate; D64.9 Anemia, unspecified
CPT/HCPCS: 36415; 74018; 80053; 82306; 83036; 84153; 84443; 85025

== ENCOUNTER 2023-06-24 18:12 | Emergency (ER) | payer MEDICARE, OTHER, SELFPAY ==
[2023-06-24 18:13] VITALS: BP 169/97; PULSE 114; RESP 20; TEMP 37.2; O2SAT 92; BMI 27.8
--- NOTE | 2023-06-24 19:45 | RAD_ITS ---
STUDY: X-RAY - ABDOMEN/PELVIS REASON FOR EXAM: Male, 73 years old. ABD PAIN, CONSTIPATION TECHNIQUE: AP supine and upright views of the abdomen and pelvis. COMPARISON: 06/01/2023 FINDINGS: Peritoneal dialysis catheter coiled in the pelvis. There is an unremarkable bowel gas pattern. There is no demonstrated free abdominal air. The visualized liver, spleen and kidneys are grossly normal in size and morphology. Normal soft tissue structures. Mild levoscoliosis lumbar spine. RAD/Abd Decub and/or Erect(Portabl IMPRESSION: 1. Peritoneal dialysis catheter coiled in the pelvis. 2. No bowel obstruction or pneumoperitoneum. Electronically Signed: Monty Lockhart MD at 20:21 EST ,
[2023-06-24 20:24] VITALS: BP 164/91; PULSE 103; RESP 16; O2SAT 96
--- NOTE | 2023-06-24 20:38 | CT_ITS ---
STUDY: CT ABDOMEN AND PELVIS WITHOUT CONTRAST REASON FOR EXAM: Male, 73 years old. abd pain. 1 week post op peritoneal dialysis cath RADIATION DOSAGE (If Supplied By Facility): CTDIvol = ( 12.42 ) mGy, DLP = ( 679.32 ) mGycm TECHNIQUE: Transaxial images were obtained from the dome of the diaphragm to the symphysis pubis without oral contrast, and without intravenous contrast. Sagittal and coronal images were reconstructed. Individualized dose optimization techniques were used for this CT. COMPARISON: 09/28/2022 FINDINGS: The visualized lung bases are unremarkable. The visualized portions of the heart are within normal limits. No change in multiple hepatic cysts. Normal gallbladder and extrahepatic biliary system. Normal spleen. Normal pancreas. Normal bilateral adrenal glands. Enlarged kidneys with innumerable cysts of varying sizes and no normal parenchyma consistent with autosomal dominant polycystic kidney disease. Normal visualized stomach. Normal small intestine. There are multiple colonic diverticula consistent with diverticulosis. The appendix is visualized and appears normal. There is diffuse atherosclerotic calcification of the abdominal aorta, without a demonstrated aneurysm. Normal inferior vena cava. Normal retroperitoneum. Normal urinary bladder. Peritoneal dialysis catheter in the pelvis with no loculated fluid collection to suggest pseudocyst. Normal abdominal wall. Mild levoscoliosis lumbar spine with degenerative disc disease. CT/Abdomen/Pelvis without Cont IMPRESSION: 1. Known autosomal dominant polycystic kidney disease. 2. Sigmoid diverticulosis without diverticulitis. 3. Peritoneal dialysis catheter coiled in the pelvis without pseudocyst. Electronically Signed: Monty Lockhart MD at 21:39 EST ,
[2023-06-24 20:52] LABS: Bacteria 0 SEEN /hpf (None Seen); Mucous, Urine 0 SEEN /hpf (<or=2+); White Blood Cells 0 SEEN /hpf (0-5)
[2023-06-24 20:57] LABS: Absolute Lymphocyte Count 0.83 X10^3/uL (0.83-4.51); Absolute Neutrophil Count 11.6 X10^3/uL (2.0-7.7); Basophil# 0.04 X10^3/uL; Basophil% 0.3 % (0-1); Eosinophil# 0.11 X10^3/uL; Eosinophils% 0.8 % (0-5); Hematocrit 26.7 % (40-54); Hemoglobin 8.8 g/dL (13.0-16.5); Lymphocyte # 0.83 X10^3/ul (0.83-4.51); Lymphocyte % 6.1 % (19-41); Mean Corpuscular Hgb 32.5 pg (27.0-32.0); Mean Corpuscular Volume 98.5 fL (80-94); Mean Platelet Vol. 10.4 fl (6.2-12.0); Monocyte# 1.05 X10^3/uL; Monocyte% 7.7 % (0-10); NRBC Flagged by Analyzer 0 % (0-5); Neutrophil # 11.59 X10^3/uL (2.7-7.7); Neutrophil % 84.4 % (47-70); Platelet Count 199 K/mm3 (150-450); RBC Distribution Width CV 12.5 % (11.6-14.6); RBC Distribution Width SD 44.8 fl (35.1-43.9); Red Blood Count 2.71 M/mm3 (4.6-6.2); White Blood Count 13.7 K/mm3 (4.4-11.0)
[2023-06-24 21:04] LABS: Color, Urine Yellow (Yellow); Glucose, Dipstick 50 mg/dl (Normal); Ketone-Dipstick Negative (Negative); Leukocyte Esterase-Dipstick Negative /ul (Negative); Nitrite-Dipstick Negative (Negative); Occult Blood-Urine 25 /ul (Negative); Protein-Dipstick 500 mg/dl (Negative); Urine Bilirubin Dipstick Negative (Negative); Urine Clarity Clear (Clear); Urine Urobilinogen Normal (Normal); Urine pH 6.5 (5.0 - 8.0)
--- NOTE | 2023-06-24 21:08 | EDS_ITS ---
HPI <Josie Guzman RN - Last Filed: 06/24/23 23:26> History of Present Illness Chief Complaint: Constipation Informant: patient Onset/Context/Timing Onset: Days (3) Context: Gradual Onset Timing: Continuous Quality: Cramping Location: Lower abdomen Current Severity: 10/10 Maximum Severity: 10/10 Worsened by: Nothing Relieved by: Nothing Associated Symptoms Associated Symptoms: Decreased urination Narrative Narrative: Patient with past medical history significant for polycystic kidney disease with recent revision of peritoneal dialysis catheter on 06/16/2023 at [facility] presented to the ED today with complaints of constipation for the past 3 days. Patient reports did have a small bowel movement today in which his stool was hard. Patient had peritoneal dialysis catheter placed 04/2023. Catheter was never used as it was unable to be flushed. He had this revised on 06/16/2023. Today he reports being febrile at 100 degrees for which he did not take any meds at home. He reports lower abdominal pain, bloating, and decreased urine output. He reports taking lactulose today without relief of symptoms. Patient reports his abdominal cramping is 10/10. Last dose of Tylenol was yesterday at 2300. He reports he has not been drinking much water due to the decreased urine output. Prior similar symptoms: No Recent Illness/Hospitalization: Yes PFSH <Josie Guzman RN - Last Filed: 06/24/23 23:26> [facility] Medical History Essential hypertension Hyperlipidemia Malignant neoplasm of prostate Polycystic kidney disease Valvular heart disease Home Medications amlodipine 5 mg tablet 5 mg PO BID 06/22/15 [History Last Taken 03/30/19 04:30 5 MG] omeprazole 40 mg capsule,delayed release 40 mg PO DAILY 06/22/15 [History Last Taken Unknown] [id number] 300 mcg-K 60 mcg-lycop 600 mcg-lutein 300 mcg tablet (Centrum Silver Men) 1 tab PO DAILY 04/06/18 [History Last Taken Unknown] olmesartan 40 mg tablet 40 mg PO DAILY 04/06/18 [History Last Taken 03/30/19 04:30 40 MG] duloxetine 30 mg capsule,delayed release 30 mg PO DAILY 03/12/19 [History Last Taken Unknown] hydralazine 50 mg tablet 50 mg PO TID 03/12/19 [History Last Taken 03/30/19 04:30 50 MG] levothyroxine 100 mcg capsule 100 mcg PO DAILY 03/12/19 [History Last Taken 03/30/19 04:30 100 MCG] rosuvastatin 5 mg tablet 5 mg PO DAILY 03/12/19 [History Last Taken Unknown] cholecalciferol (vitamin D3) 50 mcg (2,000 unit) capsule 2,000 unit PO BID 03/20/19 [History Last Taken Unknown] fluticasone propionate 50 mcg/actuation nasal spray,suspension 2 spray NASAL DAILY 03/20/19 [History Last Taken Unknown] pramipexole 0.25 mg tablet 0.25 mg PO DAILY 03/20/19 [History Last Taken Unknown] clopidogrel 75 mg tablet 75 mg PO DAILY 05/04/19 [History Last Taken Unknown] hydrocodone-acetaminophen 5-325mg 5mg-325mg 1 tab PO Q6H PRN pain 3 days #12 tabs 12/15/21 [Rx Last Taken Unknown] donepezil 5 mg tablet 5 mg PO DAILY 06/21/22 [History Last Taken Unknown] furosemide 40 mg tablet 40 mg PO DAILY 06/21/22 [History Last Taken Unknown] trazodone 50 mg tablet 50 mg PO DAILY 06/21/22 [History Last Taken Unknown] turmeric root extract 500 mg capsule 500 mg PO DAILY 06/21/22 [History Last Taken Unknown] Lactobacillus acidophilus (Acidophilus capsule) 10,000 mmu cells PO DAILY 02/08/23 [History Last Taken Unknown] hydrochlorothiazide 25 mg tablet 50 mg PO BID 02/08/23 [History Last Taken Unknown] Allergy/AdvReac Type Severity Reaction Status Date / Time cashew nut Allergy Intermediate itching Verified 06/24/23 18:15 Family History Father , age 83 Cancer Surgical History History of back surgery History of carpal tunnel release of both wrists History of ear, nose, and throat (ENT) surgery History of repair of right rotator cuff History of shoulder surgery Status post patent foramen ovale closure (~1999) Status post trigger finger release Social History Smoking Status: Former smoker how long ago did patient quit smoking: back in the alcohol intake: never caffeine: No ROS <Josie Guzman RN - Last Filed: 06/24/23 23:26> ROS ED Constitutional Constitutional ED: Reports fever(s); Denies chills or sweats Cardiovascular Cardiovascular: Denies chest pain or palpitations Respiratory/Chest Respiratory/Chest: Denies cough, dyspnea or dyspnea on exertion Gastrointestinal Gastrointestinal: Reports abdominal pain and constipation; Denies nausea or vomiting Genitourinary Genitourinary ED: Reports other Details: Decreased urine output ; Denies dysuria, hematuria or urinary frequency Musculoskeletal Musculoskeletal: Denies arthralgias, back pain or myalgias Neurologic Neurologic: Denies headache(s), paresthesias or weakness Psychiatric Psychiatric: Denies anxiety or depression Hematologic/Lymphatic Hematologic/Lymphatic: Reports systems reviewed and no addt'l complaints, except as documented EXAM <Josie Guzman RN - Last Filed: 06/24/23 23:26> Physical Exam Narrative Exam Narrative: Patient appears stated age is 73 years old. Appears in mild distress. Const Vital Signs: 06/24/23 18:13 06/24/23 20:24 06/24/23 22:00 Temperature 98.9 F Temperature Source Temporal Pulse Rate 114 H 103 H Respiratory Rate 20 H 16 16 Blood Pressure 169/97 H 164/91 H 162/97 H Blood Pressure Mean 121 115 118 Pulse Ox 92 96 94 Oxygen Delivery Method Room Air Room Air Room Air 06/24/23 23:27 Temperature 98 F Temperature Source Pulse Rate 66 Respiratory Rate 14 Blood Pressure 136/74 H Blood Pressure Mean 94 Pulse Ox 98 Oxygen Delivery Method Positive well nourished and well developed General Appearance ED: well developed and NAD HEENT Reports moist mucous membranes Eyes PERRL and EOMs intact bilaterally Chest Wall inspection of chest normal and palpation of chest normal Resp normal respiratory effort and clear to auscultation bilaterally Auscultation: Negative for rales, rhonchi or wheezes Cardio regular rate, regular rhythm, S1 normal heart sound and S2 normal heart sound GI GI Narrative: Abdomen distended, tenderness to lower abdomen. Inspection: abdominal distention Palpation: tender LLQ, RLQ and suprapubic Extremity normal to inspection General Extremety ED: Negative for edema or tenderness General Extremity: Negative for edema Neuro oriented x3 Sensorium / Orientation: alert Motor Exam: strength 5/5 throughout Psych mental status grossly normal Skin no rashes or lesions noted, no wounds and skin turgor normal <Dr. Kendra Tijerina MD - Last Filed: 06/25/23 00:57> Physical Exam Const Vital Signs: 06/24/23 18:13 06/24/23 20:24 06/24/23 22:00 Temperature 98.9 F Temperature Source Temporal Pulse Rate 114 H 103 H Respiratory Rate 20 H 16 16 Blood Pressure 169/97 H 164/91 H 162/97 H Blood Pressure Mean 121 115 118 Pulse Ox 92 96 94 Oxygen Delivery Method Room Air Room Air Room Air 06/24/23 23:27 Temperature 98 F Temperature Source Pulse Rate 66 Respiratory Rate 14 Blood Pressure 136/74 H Blood Pressure Mean 94 Pulse Ox 98 Oxygen Delivery Method MDM <Josie Guzman RN - Last Filed: 06/24/23 23:26> MDM MDM Narrative Medical decision making narrative: IV line initiated. Labwork obtained to evaluate for leukocytosis, anemia, and electrolyte derangement. KUB ordered to evaluate for constipation. CT abdomen/pelvis ordered to evaluate for bowel obstruction, bowel perforation, diverticulitis, or colitis. UA ordered due to patient with decreased urine output. History & Record Review Discussion w/independent historian: Patient and Family Lab Data Attestation: I reviewed the patient's lab results. Labs: Laboratory Results - last 24 hr 06/24/23 20:43 WBC 13.7 H RBC 2.71 L Hgb 8.8 L Hct 26.7 L MCV 98.5 H MCH 32.5 H MCHC 33.0 RDW Std Deviation 44.8 H RDW Coeff of David 12.5 Plt Count 199 MPV 10.4 Immature Gran % (Auto) 0.700 Neut % (Auto) 84.4 H Lymph % (Auto) 6.1 L [place] % (Auto) 7.7 Eos % (Auto) 0.8 Baso % (Auto) 0.3 Absolute Neuts (auto) 11.6 H Absolute Lymphs (auto) 0.83 Nucleated RBC % 0 Sodium 140 Potassium 4.5 Chloride 112 H Carbon Dioxide 19.0 L Anion Gap 9 BUN 66 H Creatinine 5.18 H Estim Creat Clear Calc 13.14 Est GFR (MDRD) Af Amer 14 L Est GFR (MDRD) Non-Af 12 L BUN/Creatinine Ratio 12.7 Glucose 121 H Calcium 8.8 Total Bilirubin 0.40 AST 22 ALT 12 L Alkaline Phosphatase 73 Total Protein 6.5 Albumin 3.3 Globulin 3.2 Albumin/Globulin Ratio 1.0 Urine Color Yellow Urine Clarity Clear Urine pH 6.5 Ur Specific [place] 1.010 Urine Protein 500 H Urine Glucose (UA) 50 H Urine Ketones Negative Urine Occult Blood 25 H Urine Nitrite Negative Urine Bilirubin Negative Urine Urobilinogen Normal Ur Leukocyte Esterase Negative Urine RBC 0-5 SEEN Urine WBC 0 SEEN Ur Squamous Epith Cells 0-5 SEEN Urine Bacteria 0 SEEN Hyaline Casts 0-5 SEEN Urine Mucus 0 SEEN Radiography Diagnostic Testing: Clinical Impression(s) from Imaging Studies Abdomen X-Ray 06/24/23 19:45 IMPRESSION: 1. Peritoneal dialysis catheter coiled in the pelvis. 2. No bowel obstruction or pneumoperitoneum. Electronically Signed: Monty Lockhart MD at 20:21 EST Reading Location ID and State: [place] / [employer] , Service support , Abdomen/Pelvis CT 06/24/23 20:38 IMPRESSION: 1. Known autosomal dominant polycystic kidney disease. 2. Sigmoid diverticulosis without diverticulitis. 3. Peritoneal dialysis catheter coiled in the pelvis without pseudocyst. Electronically Signed: Monty Lockhart MD at 21:39 EST Reading Location ID and State: [place] / [employer] , Service support , KUB reviewed. Radiologist reading shows peritoneal dialysis catheter coiled in the pelvis. No bowel obstruction or pneumoperitoneum. CT of the abdomen and pelvis reviewed. Radiologist reading shows polycystic kidney disease, sigmoid diverticulosis without diverticulitis, and peritoneal dialysis catheter coiled in the pelvis. Differential Diagnosis Abdominal Pain: Bowel obstruction and UTI Management Discussion w/another healthcare provider: Other (Dr. Tijerina, ED provider) Treatment and Re-Evaluation :: Lab and imaging results reviewed. CBC shows slightly elevated white blood cell count at 13.7, hemoglobin 8.8 which is consistent with the patient's baseline. Chemistries show slightly elevated chloride at 112, BUN at 66, creatinine at 5.18 which was 5.19 in 05/2023, GFR low at 12, and glucose elevated at 121. UA shows protein elevated at 500, glucose in her urine at 50, and blood noted to be in the urine as well. KUB reviewed. Radiologist reading shows peritoneal dialysis catheter coiled in the pelvis. No bowel obstruction or pneumoperitoneum. CT of the abdomen and pelvis reviewed. Radiologist reading shows polycystic kidney disease, sigmoid diverticulosis without diverticulitis, and peritoneal dialysis catheter coiled in the pelvis. Lab and imaging results reviewed with patient and family. Patient received a soapsuds enema with moderate amount of results. Patient reports decreased abdominal pain and cramping after soapsuds enema. He does continue with postop abdominal discomfort. Patient reports he has MiraLAX at home to use if needed. Patient to be discharged home. Plan discussed with patient and patient agreeable. <Dr. Kendra Tijerina MD - Last Filed: 06/25/23 00:57> [facility] Lab Data Labs: Laboratory Results - last 24 hr 06/24/23 20:43 WBC 13.7 H RBC 2.71 L Hgb 8.8 L Hct 26.7 L MCV 98.5 H MCH 32.5 H MCHC 33.0 RDW Std Deviation 44.8 H RDW Coeff of David 12.5 Plt Count 199 MPV 10.4 Immature Gran % (Auto) 0.700 Neut % (Auto) 84.4 H Lymph % (Auto) 6.1 L [place] % (Auto) 7.7 Eos % (Auto) 0.8 Baso % (Auto) 0.3 Absolute Neuts (auto) 11.6 H Absolute Lymphs (auto) 0.83 Nucleated RBC % 0 Sodium 140 Potassium 4.5 Chloride 112 H Carbon Dioxide 19.0 L Anion Gap 9 BUN 66 H Creatinine 5.18 H Estim Creat Clear Calc 13.14 Est GFR (MDRD) Af Amer 14 L Est GFR (MDRD) Non-Af 12 L BUN/Creatinine Ratio 12.7 Glucose 121 H Calcium 8.8 Total Bilirubin 0.40 AST 22 ALT 12 L Alkaline Phosphatase 73 Total Protein 6.5 Albumin 3.3 Globulin 3.2 Albumin/Globulin Ratio 1.0 Urine Color Yellow Urine Clarity Clear Urine pH 6.5 Ur Specific [place] 1.010 Urine Protein 500 H Urine Glucose (UA) 50 H Urine Ketones Negative Urine Occult Blood 25 H Urine Nitrite Negative Urine Bilirubin Negative Urine Urobilinogen Normal Ur Leukocyte Esterase Negative Urine RBC 0-5 SEEN Urine WBC 0 SEEN Ur Squamous Epith Cells 0-5 SEEN Urine Bacteria 0 SEEN Hyaline Casts 0-5 SEEN Urine Mucus 0 SEEN Radiography Diagnostic Testing: Clinical Impression(s) from Imaging Studies Abdomen X-Ray 06/24/23 19:45 IMPRESSION: 1. Peritoneal dialysis catheter coiled in the pelvis. 2. No bowel obstruction or pneumoperitoneum. Electronically Signed: Monty Lockhart MD at 20:21 EST Reading Location ID and State: [id number] / [employer] , Service support , Abdomen/Pelvis CT 06/24/23 20:38 IMPRESSION: 1. Known autosomal dominant polycystic kidney disease. 2. Sigmoid diverticulosis without diverticulitis. 3. Peritoneal dialysis catheter coiled in the pelvis without pseudocyst. Electronically Signed: Monty Lockhart MD at 21:39 EST Reading Location ID and State: [employer] / [employer] , Service support , Treatment and Re-Evaluation :: Lab and imaging results reviewed. CBC shows slightly elevated white blood cell count at 13.7, hemoglobin 8.8 which is consistent with the patient's baseline. Chemistries show slightly elevated chloride at 112, BUN at 66, creatinine at 5.18 which was 5.19 in 05/2023, GFR low at 12, and glucose elevated at 121. UA shows protein elevated at 500, glucose in her urine at 50, and blood noted to be in the urine as well. KUB reviewed. Radiologist reading shows peritoneal dialysis catheter coiled in the pelvis. No bowel obstruction or pneumoperitoneum. CT of the abdomen and pelvis reviewed. Radiologist reading shows polycystic kidney disease, sigmoid diverticulosis without diverticulitis, and peritoneal dialysis catheter coiled in the pelvis. Lab and imaging results reviewed with patient and family. Patient received a soapsuds enema with moderate amount of results. Patient reports decreased abdominal pain and cramping after soapsuds enema. He does continue with postop abdominal discomfort. Patient reports he has MiraLAX at home to use if needed. Patient to be discharged home. Plan discussed with patient and patient agreeable. Patient seen and evaluated with [employer] student. I personally interviewed and examined the patient. I was involved in all aspects of patient's orders, interpretation of results, and treatment. Patient presents secondary to concerns for constipation. He has a history of polycystic kidney disease and had surgery last week for revision of his peritoneal dialysis catheter. He reports lower abdominal pain with constipation. He was able to pass a small amount of hard stool earlier today but otherwise states it has been for 5 days since has been able to go. He tried lactulose without improvement. He does report a single elevated temperature to 100. Patient sitting upright in bed no acute distress. Nontoxic-appearing. Head and neck examination unremarkable. Heart is tachycardic and regular. Lung sounds are clear. Abdomen is soft with appropriate, postoperative tenderness over the lower ab domen. No guarding or rebound. Exam is not consistent with spontaneous bacterial peritonitis. Catheter site is clean. IV line established. Labwork obtained to evaluate for leukocytosis, anemia, and electrolyte derangement. CT scan of the abdomen and pelvis obtained to evaluate for potential abscess or bowel obstruction. Abdominal x-ray is obtained per nursing protocol prior to my initial evaluation were reviewed. This reveals nonspecific bowel gas pattern per my interpretation. White count is 13.7 with 84% neutrophils. Hemoglobin is 8.8. This is consistent with his prior values given his chronic renal disease. Chemistry studies reveal a BUN of 66 and a creatinine of 5.18. Potassium is normal at 4.5. LFTs are unremarkable. Urinalysis reveals no evidence of acute infection. CT scan of the abdomen and pelvis reveals polycystic kidney disease with peritoneal dialysis catheter coiled in the pelvis. No significant acute abnormalities. Once CT is confirmed to not show any obvious post op infection or obstruction, soapsuds enema is performed. He has moderate results. On repeat exam he does feel improved. He has MiraLAX and lactulose at home that he can use if he continues to feel constipated, however does feel improved at this time. Discharge Plan Triage Chief Complaint: Constipation ED Provider: Kendra Tijerina Dx/Rx/DC Orders Clinical Impression: Polycystic kidney disease, Postoperative abdominal pain, Constipation Instructions: ED Constipation (Adult) Prescriptions: No Action [id number] acid 300 mcg-lycopene 600 mcg-lutein 300 mcg tablet 300-600-300 mcg tablet 1 tab PO DAILY olmesartan 40 mg tablet 40 mg PO DAILY clopidogrel 75 mg tablet 75 mg PO DAILY duloxetine 30 mg capsule,delayed release(DR/EC) 30 mg PO DAILY hydralazine 50 mg tablet 50 mg PO TID levothyroxine 100 mcg capsule 100 mcg capsule 100 mcg PO DAILY rosuvastatin 5 mg tablet 5 mg PO DAILY turmeric root extract 500 mg capsule 500 mg PO DAILY furosemide 40 mg tablet 40 mg PO DAILY donepezil 5 mg tablet 5 mg PO DAILY trazodone 50 mg tablet 50 mg PO DAILY hydrochlorothiazide 25 mg tablet 50 mg PO BID Acidophilus Capsule 10,000 mmu cells PO DAILY amlodipine 5 MG tablet 5 mg PO BID omeprazole 40 MG capsule 40 mg PO DAILY pramipexole 0.25 MG tablet 0.25 mg PO DAILY fluticasone propionate 1 SPRAY spray,suspension 2 spray NASAL DAILY cholecalciferol (vitamin D3) 2,000 UNIT capsule 2,000 unit PO BID hydrocodone-acetaminophen 5-325 mg tablet 1 tab PO Q6H PRN (Reason: pain) 3 Days Qty: 12 0RF Primary Care Provider: Angie Ivan Referrals: Angie Ivan DO [Primary Care Provider] - Activity Restrictions/Additional Instructions: Your lab work, KUB, and CT of abdomen/pelvis is normal. Take MiraLAX as needed. Follow-up with Dr. Ivan in 3 to 5 days if not improved. Return to ED with worsening or concerning symptoms. Disposition Disposition: Home, Self Care Discharge Date/Time: 06/24/23 23:28
[2023-06-24 21:17] LABS: Hyaline Cast 0-5 SEEN /lpf (0-5); Red Blood Cells-Urine 0-5 SEEN /hpf (0-5); Squamous Epithelial Cells - UA 0-5 SEEN /hpf (0-5)
[2023-06-24 21:20] LABS: AST(SGOT) 22 U/L (15-37); Alanine Aminotransfer ALT/SGPT 12 U/L (16-61); Albumin, Serum 3.3 g/dL (3.2-5.0); Alkaline Phosphatase 73 U/L (45-117); Anion Gap 9 (5-15); BUN 66 mg/dL (7-18); BUN/Creat Ratio 12.7 RATIO (10-20); Calcium,Total 8.8 mg/dL (8.5-10.1); Chloride 112 mmol/L (98-107); Creatinine, Serum 5.18 mg/dL (0.70-1.30); EST Glomerular Filtration Rate 12 mL/min (>60); Est Glom Filt Rate - Afr Amer 14 mL/min (>60); Estimated Creatinine Clearance 13.14 ml/min; Globulin 3.2 g/dL (2.2-4.2); Glucose 121 mg/dL (74-106); Potassium 4.5 mmol/L (3.5-5.1); Protein, Total 6.5 g/dL (6.4-8.2); Sodium Level 140 mmol/L (136-145)
[2023-06-24 22:00] VITALS: BP 162/97; RESP 16; O2SAT 94
[2023-06-24 23:27] VITALS: BP 136/74; PULSE 66; RESP 14; TEMP 36.6; O2SAT 98
== END 2023-06-24 23:28 | disposition home or self-care (01) ==
PROVIDERS: Emergency Provider Emergency Medicine; PCP Internal Medicine; Visit Provider Emergency Medicine
DX: Q61.3 Polycystic kidney, unspecified (principal); K59.00 Constipation, unspecified; R10.9 Unspecified abdominal pain; Z87.891 Personal history of nicotine dependence
CPT/HCPCS: 99285; 74019; 74176; 80053; 81001; 85025

== ENCOUNTER 2023-06-27 09:33 | Inpatient (IN) | payer MEDICARE, OTHER, SELFPAY ==
[2023-06-27] VITALS (13 sets, daily range): BP systolic 91–154; BP diastolic 50–82; PULSE 89–121; RESP 16–27; TEMP 36.6–38.4; O2SAT 88–98; BMI 28.9; BMI 27.0
--- NOTE | 2023-06-27 09:44 | ED.RN ---
pts ; [place] [phone]
--- NOTE | 2023-06-27 09:44 | ED.RN ---
pt placed on 2L NC; pt 88% on 2L, increased to 3L. Pt is on room air at baseline. ED provider notified
--- NOTE | 2023-06-27 09:57 | NURSING ---
NO POA OR LW
[2023-06-27] MEDS: Ondansetron 4 MG/2 ML Vial IV (10:12)
[2023-06-27] MEDS: Morphine 4 MG/ML Syringe IV ×3 (10:12→21:07)
[2023-06-27 10:14] LABS: Absolute Neutrophil Count 3.9 X10^3/uL (2.0-7.7); Basophil# 0.03 X10^3/uL; Basophil% 0.5 % (0-1); Eosinophil# 0.24 X10^3/uL; Eosinophils% 3.6 % (0-5); Hematocrit 27.2 % (40-54); Hemoglobin 8.6 g/dL (13.0-16.5); Lymphocyte % 25.8 % (19-41); Mean Corp Hgb Conc 31.6 g/dL (32-36); Mean Corpuscular Hgb 32.1 pg (27.0-32.0); Mean Corpuscular Volume 101.5 fL (80-94); Mean Platelet Vol. 10.6 fl (6.2-12.0); Monocyte# 0.68 X10^3/uL; Monocyte% 10.3 % (0-10); NRBC Flagged by Analyzer 0 % (0-5); Neutrophil # 3.92 X10^3/uL (2.7-7.7); Neutrophil % 59.5 % (47-70); Platelet Count 237 K/mm3 (150-450); RBC Distribution Width CV 12.5 % (11.6-14.6); RBC Distribution Width SD 46.8 fl (35.1-43.9); Red Blood Count 2.68 M/mm3 (4.6-6.2); White Blood Count 6.6 K/mm3 (4.4-11.0)
--- NOTE | 2023-06-27 10:26 | EDS_ITS ---
HPI HPI - GI History of Present Illness Chief Complaint: Abd Pain Informant: patient Abdominal Pain/Flank Pain Onset: Today Context: Sudden Onset Timing: Continuous Quality: Aching Location: Diffuse Worsened by: Nothing Relieved by: Nothing Nausea/Vomiting/Emesis GI Symptom: Positive for Nausea; Negative for Vomiting Onset: Today Diarrhea/Melena/Hematochezia GI Symptom: Negative for Diarrhea, Melena or Hematochezia Associated Symptoms Associated Symptoms: Positive for Frequency; Negative for Dysuria or Hematuria Narrative Narrative: Patient presents with abdominal pain that began today. Patient states it began rather suddenly. Patient states it started when they tried to infuse fluid through his peritoneal dialysis catheter. Patient describes his pain as aching. Patient states it is diffuse across his entire abdomen. Patient states it is constant. Patient states nothing makes it worse and nothing makes it better. Patient admits to some nausea but denies any vomiting. Patient denies any diarrhea, melena, or hematochezia. Patient admits to some urinary frequency. [facility] Medical History Essential hypertension Hyperlipidemia Malignant neoplasm of prostate Polycystic kidney disease Valvular heart disease Home Medications amlodipine 5 mg tablet 5 mg PO BID 06/22/15 [History Last Taken 03/30/19 04:30 5 MG] omeprazole 40 mg capsule,delayed release 40 mg PO DAILY 06/22/15 [History Last Taken Unknown] [id number]-[id number] 300 mcg-K 60 mcg-lycop 600 mcg-lutein 300 mcg tablet (Centrum Silver Men) 1 tab PO DAILY 04/06/18 [History Last Taken Unknown] olmesartan 40 mg tablet 40 mg PO DAILY 04/06/18 [History Last Taken 03/30/19 04:30 40 MG] duloxetine 30 mg capsule,delayed release 30 mg PO DAILY 03/12/19 [History Last Taken Unknown] hydralazine 50 mg tablet 50 mg PO TID 03/12/19 [History Last Taken 03/30/19 04:30 50 MG] levothyroxine 100 mcg capsule 100 mcg PO DAILY 03/12/19 [History Last Taken 03/30/19 04:30 100 MCG] cholecalciferol (vitamin D3) 50 mcg (2,000 unit) capsule 2,000 unit PO BID 03/20/19 [History Last Taken Unknown] fluticasone propionate 50 mcg/actuation nasal spray,suspension 2 spray NASAL DAILY 03/20/19 [History Last Taken Unknown] pramipexole 0.25 mg tablet 0.25 mg PO DAILY 03/20/19 [History Last Taken Unknown] clopidogrel 75 mg tablet 75 mg PO DAILY 05/04/19 [History Last Taken Unknown] donepezil 5 mg tablet 5 mg PO DAILY 06/21/22 [History Last Taken Unknown] furosemide 40 mg tablet 40 mg PO DAILY 06/21/22 [History Last Taken Unknown] trazodone 50 mg tablet 50 mg PO DAILY 06/21/22 [History Last Taken Unknown] turmeric root extract 500 mg capsule 500 mg PO DAILY 06/21/22 [History Last Taken Unknown] hydrochlorothiazide 25 mg tablet 50 mg PO BID 02/08/23 [History Last Taken Unknown] Allergy/AdvReac Type Severity Reaction Status Date / Time cashew nut Allergy Intermediate itching Verified 06/24/23 18:15 Family History Father , age 83 Cancer Surgical History History of back surgery History of carpal tunnel release of both wrists History of ear, nose, and throat (ENT) surgery History of repair of right rotator cuff History of shoulder surgery Status post patent foramen ovale closure (~1999) Status post trigger finger release Social History Smoking Status: Former smoker how long ago did patient quit smoking: back in the alcohol intake: never caffeine: No ROS ROS ED Constitutional Constitutional ED: Reports chills; Denies fever(s) Eyes Eyes: Denies blurry vision or change in vision ENT ENT ED: Denies rhinorrhea or sore throat Cardiovascular Cardiovascular: Denies chest pain or palpitations Respiratory/Chest Respiratory/Chest: Denies cough or dyspnea Gastrointestinal Gastrointestinal: Reports abdominal pain and nausea; Denies diarrhea, melena or vomiting Genitourinary Genitourinary ED: Reports urinary frequency; Denies dysuria or hematuria Musculoskeletal Musculoskeletal: Denies back pain or neck pain Integumentary Denies abscess or rash Neurologic Neurologic: Denies headache(s) or weakness Allergic/Immunologic Allergic/Immunologic ED: Denies mouth swelling or urticaria EXAM Physical Exam Const Vital Signs: 06/27/23 09:35 06/27/23 10:33 06/27/23 10:40 Temperature 97.9 F 98.4 F 98.4 F Temperature Source Oral Oral Oral Pulse Rate 89 119 H 121 H Respiratory Rate 21 H 25 H 27 H Blood Pressure 91/55 L 115/50 L 115/50 L Blood Pressure Mean 67 71 71 Pulse Ox 93 93 88 Oxygen Delivery Method Nasal Cannula Nasal Cannula Room Air Oxygen Flow Rate (L/min) 2 3 06/27/23 11:59 Temperature 99.0 F Temperature Source Oral Pulse Rate 117 H Respiratory Rate 20 H Blood Pressure 111/64 Blood Pressure Mean 79 Pulse Ox 93 Oxygen Delivery Method Nasal Cannula Oxygen Flow Rate (L/min) 3 Positive well nourished and well developed General Appearance ED: well developed and NAD HEENT Reports moist mucous membranes Neck supple and no JVD Resp normal respiratory effort and clear to auscultation bilaterally Cardio regular rate and regular rhythm GI Inspection: abdominal distention Palpation: tender epigastric, LLQ, RLQ, LUQ, RUQ, periumbilical and suprapubic, guarding and rebound tenderness present Extremity full ROM Neuro CN's II-XII intact bilaterally, moves all extremities and no sensory deficits noted Sensorium / Orientation: alert Motor Exam: strength 5/5 throughout Psych mental status grossly normal and thought process normal Skin no wounds MDM MDM MDM Narrative Medical decision making narrative: Differential diagnosis includes bowel obstruction, perforation, peritonitis, urinary tract infection, pyelonephritis, pancreatitis, and gastroenteritis. CBC will be obtained to assess for leukocytosis and anemia. Comprehensive metabolic profile will be obtained to assess for hepatic function, renal function, and electrolyte abnormality. Lipase will be obtained to assess for pancreatitis. Urinalysis will be obtained to assess for urinary tract infection and hematuria. CT scan of the abdomen pelvis will be obtained to assess for bowel obstruction and perforation. Serum lactate will be obtained to assess for sepsis. Blood cultures will be obtained to assess for sepsis. Lab Data Attestation: I reviewed the patient's lab results. Lab results narrative: CBC was reviewed. There is anemia with hemoglobin 8.6 and hematocrit 27.2. This is consistent with prior results. Comprehensive metabolic profile was reviewed. BUN was 72 and creatinine was 6.03. These are slightly increased from previous results. Lipase was reviewed and was normal at 63. Lactate was reviewed and was normal at 1.5. PT was INR and PTT were reviewed. Pro time was 16.0 and INR is 1.3. PTT was within normal limits. Labs: Laboratory Results - last 24 hr 06/27/23 06/27/23 09:28 10:49 WBC 6.6 RBC 2.68 L Hgb 8.6 L Hct 27.2 L MCV 101.5 H MCH 32.1 H MCHC 31.6 L RDW Std Deviation 46.8 H RDW Coeff of David 12.5 Plt Count 237 MPV 10.6 Immature Gran % (Auto) 0.300 Neut % (Auto) 59.5 Lymph % (Auto) 25.8 [place] % (Auto) 10.3 H Eos % (Auto) 3.6 Baso % (Auto) 0.5 Absolute Neuts (auto) 3.9 Absolute Lymphs (auto) 1.70 Nucleated RBC % 0 PT 16.0 H INR 1.3 APTT 31.1 Sodium 140 Potassium 3.9 Chloride 111 H Carbon Dioxide 20.0 L Anion Gap 9 BUN 72 H Creatinine 6.03 H Estim Creat Clear Calc 11.49 Est GFR (MDRD) Af Amer 12 L Est GFR (MDRD) Non-Af 10 L BUN/Creatinine Ratio 11.9 Glucose 135 H Lactic Acid 1.5 Calcium 9.1 Total Bilirubin 0.30 AST 15 ALT 10 L Alkaline Phosphatase 67 Total Protein 6.2 L Albumin 2.8 L Globulin 3.4 Albumin/Globulin Ratio 0.8 L Lipase 63 Radiography Diagnostic Testing: Clinical Impression(s) from Imaging Studies Abdomen CT 06/27/23 11:30 IMPRESSION: Once again, there is evidence of polycystic kidney disease. Stable hepatic cysts. Findings in keeping with the acute sigmoid diverticulitis with increased markings in the surrounding peritoneal fat. The tip of the peritoneal dialysis catheter is in the left-sided the pelvis. Small amount of perihepatic fluid. Minimal right pleural effusion. Electronically Signed: Noel Cornejo MD at 12:08 EST , CT scan of the abdomen and pelvis was obtained. There is evidence of polycystic kidney disease. There is diverticulitis. The tip of the peritoneal catheter is in the left side of the pelvis. There is a small amount of perihepatic fluid. There is a small right pleural effusion. This was interpreted by the radiologist and was also independently reviewed by myself. Management Discussion w/another healthcare provider: Hospitalist and Medical Social Consultant Treatment and Re-Evaluation :: Patient was given morphine and Zofran initially. Patient had minimal relief with this. Patient was given a dose of Dilaudid. On reevaluation, patient was still markedly tender in his abdomen. There is some voluntary guarding. There is no rebound. Patient was given a dose of Cipro and Flagyl here. Case was discussed with the hospitalist. He will admit the patient to his service. Case was also discussed with Dr. Wilson from nephrology. Patient understood and was agreeable with the plan. All questions were answered. Discharge Plan Triage Chief Complaint: Abd Pain ED Provider: Nacho Pfeiffer Dx/Rx/DC Orders Clinical Impression: Polycystic kidney disease, Acute diverticulitis, Chronic kidney disease Prescriptions: No Action [id number]-[id number] acid 300 mcg-lycopene 600 mcg-lutein 300 mcg tablet 300-600-300 mcg tablet 1 tab PO DAILY olmesartan 40 mg tablet 40 mg PO DAILY clopidogrel 75 mg tablet 75 mg PO DAILY duloxetine 30 mg capsule,delayed release(DR/EC) 30 mg PO DAILY hydralazine 50 mg tablet 50 mg PO TID levothyroxine 100 mcg capsule 100 mcg capsule 100 mcg PO DAILY turmeric root extract 500 mg capsule 500 mg PO DAILY furosemide 40 mg tablet 40 mg PO DAILY donepezil 5 mg tablet 5 mg PO DAILY trazodone 50 mg tablet 50 mg PO DAILY hydrochlorothiazide 25 mg tablet 50 mg PO BID amlodipine 5 MG tablet 5 mg PO BID omeprazole 40 MG capsule 40 mg PO DAILY pramipexole 0.25 MG tablet 0.25 mg PO DAILY fluticasone propionate 1 SPRAY spray,suspension 2 spray NASAL DAILY cholecalciferol (vitamin D3) 2,000 UNIT capsule 2,000 unit PO BID Primary Care Provider: Angie Ivan Referrals: Angie Ivan DO [Primary Care Provider] - Disposition Disposition: Acute Care Hospital [facility]
[2023-06-27 10:31] LABS: ALB/GLOB Ratio 0.8 RATIO (0.9-2.4); AST(SGOT) 15 U/L (15-37); Alanine Aminotransfer ALT/SGPT 10 U/L (16-61); Albumin, Serum 2.8 g/dL (3.2-5.0); Alkaline Phosphatase 67 U/L (45-117); Anion Gap 9 (5-15); BUN 72 mg/dL (7-18); BUN/Creat Ratio 11.9 RATIO (10-20); Calcium,Total 9.1 mg/dL (8.5-10.1); Chloride 111 mmol/L (98-107); Creatinine, Serum 6.03 mg/dL (0.70-1.30); EST Glomerular Filtration Rate 10 mL/min (>60); Est Glom Filt Rate - Afr Amer 12 mL/min (>60); Estimated Creatinine Clearance 11.49 ml/min; Globulin 3.4 g/dL (2.2-4.2); Glucose 135 mg/dL (74-106); Lipase 63 U/L (13-75); Potassium 3.9 mmol/L (3.5-5.1); Protein, Total 6.2 g/dL (6.4-8.2); Sodium Level 140 mmol/L (136-145)
--- NOTE | 2023-06-27 11:04 | ED.RN ---
THIS RN TALKED WITH . IS NOT ABLE TO DRIVE. WILL FIND A RIDE
[2023-06-27 11:12] LABS: International Normalized Ratio 1.3; Partial Thromboplast Time 31.1 Seconds (24.1-36.2)
[2023-06-27 11:28] LABS: Lactic Acid 1.5 mmol/L (0.4-1.9)
--- NOTE | 2023-06-27 11:30 | CT_ITS ---
STUDY: CT ABDOMEN AND PELVIS WITHOUT CONTRAST REASON FOR EXAM: Male, 73 years old. Abdominal pain RADIATION DOSAGE (If Supplied By Facility): CTDIvol = ( 10.67 ) mGy, DLP = ( 618.76 ) mGycm TECHNIQUE: Transaxial images were obtained from the dome of the diaphragm to the symphysis pubis without oral contrast, and without intravenous contrast. Sagittal and coronal images were reconstructed. Individualized dose optimization techniques were used for this CT. COMPARISON: Comparison is made with prior study dated June 24, 2023. FINDINGS: Atelectasis and/or infiltrates at the lung bases. This has progressed as compared to prior study. Coronary artery calcification. Stable multiple hepatic cysts. Small amount of perihepatic fluid. Normal gallbladder and extrahepatic biliary system. Normal spleen. Normal pancreas. Normal bilateral adrenal glands. Multiple bilateral renal cysts in keeping with polycystic kidney disease. Normal visualized stomach. Normal small intestine. There is diverticulosis, with thickening of the colon wall, and pericolonic inflammation changes consistent with acute diverticulitis. The appendix is visualized and appears normal. There is atherosclerotic calcification of the abdominal aorta and its major visceral branches, without a demonstrated aneurysm. Normal inferior vena cava. Normal retroperitoneum. Normal urinary bladder. The tip of the peritoneal dialysis catheter is seen in the left lower quadrant. Normal abdominal wall. There are mild degenerative changes of the visualized lumbar spine. CT/Abdomen/Pel W ORAL Cont Only IMPRESSION: Once again, there is evidence of polycystic kidney disease. Stable hepatic cysts. Findings in keeping with the acute sigmoid diverticulitis with increased markings in the surrounding peritoneal fat. The tip of the peritoneal dialysis catheter is in the left-sided the pelvis. Small amount of perihepatic fluid. Minimal right pleural effusion. Electronically Signed: Noel Cornejo MD at 12:08 EST ,
[2023-06-27] MEDS: HYDROmorphone 1 MG/ML Syringe 0.5 MG IV (11:40)
[2023-06-27] MEDS: Ciprofloxacin 400 MG/200 ML BAG 200 MG IV (13:59)
--- NOTE | 2023-06-27 14:14 | NURSING ---
MED SURG TERELETSKY ACUTE DIVERTICULITIS, ABD PAIN, CHRONIC KIDNEY DISEASE
--- NOTE | 2023-06-27 15:09 | PCM.HP.STD ---
HPI - General General Date of Admission: 06/27/23 Date of Service: 06/27/23 Chief Complaint: Left lower quadrant abdominal pain HPI Narrative ARBEN PORTER, is a 73 M who presents to the emergency room at [facility] with complaints of left lower quadrant abdominal pain over the last couple of days. 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 Patient has a history of polycystic kidney disease. Patient states he was diagnosed as having diverticulosis recently, patient had a CT of the abdomen and pelvis performed on 06/2323 which showed diverticulosis without diverticulitis. It appears he was seen on that date in the emergency room and treated for constipation. Workup in the emergency room included a CBC which showed a normal white blood cell count at 6.6, hemoglobin was 8.6, chemistry profile was abnormal for a BUN of 72 and a creatinine of 6.03, CT of the abdomen with oral contrast only showed findings in keeping with acute sigmoid diverticulitis with increased markings in the surrounding peritoneal fat. Patient will be admitted to [place] [address] for acute diverticulitis, the emergency room gave him Flagyl and Cipro, I have elected to stop those medications and just give him Zosyn. Patient will need a tunneled dialysis catheter inserted for future dialysis, I talked to About them about this and she will see the patient. I also talked with his diesel locomotive engineer Dr. Wilson. [facility] Medical History (Updated 06/27/23 @ 15:[address] Sandra Malloy MD) Essential hypertension Hyperlipidemia Malignant neoplasm of prostate Polycystic kidney disease TIA (transient ischemic attack) Valvular heart disease Home Medications amlodipine 5 mg tablet 5 mg PO BID 06/22/15 [History Last Taken 03/30/19 04:30 5 MG] omeprazole 40 mg capsule,delayed release 40 mg PO DAILY 06/22/15 [History Last Taken Unknown] [id number]-zu-drerr 300 mcg-K 60 mcg-lycop 600 mcg-lutein 300 mcg tablet (Centrum Silver Men) 1 tab PO DAILY 04/06/18 [History Last Taken Unknown] olmesartan 40 mg tablet 40 mg PO DAILY 04/06/18 [History Last Taken 03/30/19 04:30 40 MG] duloxetine 30 mg capsule,delayed release 30 mg PO DAILY 03/12/19 [History Last Taken Unknown] hydralazine 50 mg tablet 50 mg PO TID 03/12/19 [History Last Taken 03/30/19 04:30 50 MG] levothyroxine 100 mcg capsule 100 mcg PO DAILY 03/12/19 [History Last Taken 03/30/19 04:30 100 MCG] cholecalciferol (vitamin D3) 50 mcg (2,000 unit) capsule 2,000 unit PO BID 03/20/19 [History Last Taken Unknown] fluticasone propionate 50 mcg/actuation nasal spray,suspension 2 spray NASAL DAILY 03/20/19 [History Last Taken Unknown] pramipexole 0.25 mg tablet 0.25 mg PO DAILY 03/20/19 [History Last Taken Unknown] clopidogrel 75 mg tablet 75 mg PO DAILY 05/04/19 [History Last Taken Unknown] donepezil 5 mg tablet 5 mg PO DAILY 06/21/22 [History Last Taken Unknown] furosemide 40 mg tablet 40 mg PO DAILY 06/21/22 [History Last Taken Unknown] trazodone 50 mg tablet 50 mg PO DAILY 06/21/22 [History Last Taken Unknown] turmeric root extract 500 mg capsule 500 mg PO DAILY 06/21/22 [History Last Taken Unknown] hydrochlorothiazide 25 mg tablet 50 mg PO BID 02/08/23 [History Last Taken Unknown] Allergy/AdvReac Type Severity Reaction Status Date / Time cashew nut Allergy Intermediate itching Verified 06/24/23 18:15 Family History Father , age 83 Cancer Surgical History History of back surgery History of carpal tunnel release of both wrists History of ear, nose, and throat (ENT) surgery History of repair of right rotator cuff History of shoulder surgery Status post patent foramen ovale closure (~1999) Status post trigger finger release Social History Smoking Status: Former smoker how long ago did patient quit smoking: back in the alcohol intake: never caffeine: No ROS Constitutional Constitutional: Denies anorexia, change in weight, chills, fatigue, fever(s), malaise, night sweats or weakness Eyes Eyes: Denies blurry vision, change in vision, discharge from eye(s) or eye pain Cardiovascular Cardiovascular: Denies chest pain, claudication, edema or palpitations Respiratory/Chest Respiratory/Chest: Denies cough, hemoptysis, shortness of breath at rest or shortness of breath with exertion Gastrointestinal Gastrointestinal: Reports abdominal pain; Denies constipation, diarrhea, hematemesis, hematochezia, melena, nausea or vomiting Genitourinary Genitourinary: Denies dysuria, hematuria, urinary frequency, urinary hesitancy, urinary incontinence or urinary urgency Musculoskeletal Musculoskeletal: Denies back pain, joint pain, joint stiffness, joint swelling, myalgias or neck pain Neurologic Neurologic: Denies abnormal gait, abnormal speech, dizziness, focal weakness, headache(s), loss of vision, numbness, other visual disturbances, paresthesias, syncope or tingling Psychiatric Psychiatric: Denies anxiety, cognitive impairment, depression, irritability, mood swings or suicidal ideation Endocrine Endocrinology: Denies change in body appearance, cold intolerance, excessive sweating, heat intolerance, polydipsia or polyuria Hematologic/Lymphatic Hematologic/Lymphatic: Denies none, anemia, easy bleeding, easy bruising or lymphadenopathy Allergic/Immunologic Allergic/Immunologic: Denies rhinitis, urticaria, eczemia or asthma Vital Signs Vital Signs Vital Signs: 06/27/23 09:35 06/27/23 10:33 06/27/23 10:40 Temperature 97.9 F 98.4 F 98.4 F Temperature Source Oral Oral Oral Pulse Rate 89 119 H 121 H Respiratory Rate 21 H 25 H 27 H Blood Pressure 91/55 L 115/50 L 115/50 L Blood Pressure Mean 67 71 71 Pulse Ox 93 93 88 Oxygen Delivery Method Nasal Cannula Nasal Cannula Room Air Oxygen Flow Rate (L/min) 2 3 06/27/23 11:59 06/27/23 14:16 Temperature 99.0 F 98.4 F Temperature Source Oral Temporal Pulse Rate 117 H 111 H Respiratory Rate 20 H 20 H Blood Pressure 111/64 130/78 H Blood Pressure Mean 79 95 Pulse Ox 93 98 Oxygen Delivery Method Nasal Cannula Nasal Cannula Oxygen Flow Rate (L/min) 3 Weight Weight: 86.3 kg Body Mass Index (BMI) 28.9 Physical Exam Const alert, oriented x3, no apparent distress and average body habitus General Appearance: cooperative, well kempt and well developed Orientation / Consciousness: awake, oriented to person, oriented to place and oriented to time HEENT normocephalic, head/scalp atraumatic, hearing grossly normal bilaterally and moist oral mucous membranes Eyes PERRL, EOMs intact bilaterally and conjunctivae normal Neck supple, no JVD, thyroid normal and no carotid bruits General: trachea midline Resp normal respiratory effort, no retractions, no use of accessory muscles and clear to auscultation bilaterally Auscultation: Negative for rales, rhonchi or wheezes Cardio regular rate, regular rhythm, S1 normal heart sound, S2 normal heart sound, no murmurs, no rub and no gallops GI normal to inspection, nondistended, normoactive bowel sounds and non-distended GI Narrative: Patient has left mid and left lower quadrant abdominal tenderness to palpation, there was no rebound abdominal tenderness noted, bowel sounds present all 4 quadrants Extremity no clubbing, cyanosis or edema Skin no rashes or lesions noted General Skin Exam: no breakdown Neuro oriented x3, CN's II-XII intact bilaterally, no focal motor deficits and no sensory deficits noted Sensorium / Orientation: awake and alert Speech: speech normal Psych affect normal Results Lab / Micro Data 06/27/23 09:28 06/27/23 09:28 Labs: Laboratory Results - last 24 hr 06/27/23 09:28: WBC 6.6, RBC 2.68 L, Hgb 8.6 L, Hct 27.2 L, MCV 101.5 H, MCH 32.1 H, MCHC 31.6 L, RDW Std Deviation 46.8 H, RDW Coeff of David 12.5, Plt Count 237, MPV 10.6, Immature Gran % (Auto) 0.300, Neut % (Auto) 59.5, Lymph % (Auto) 25.8, [place] % (Auto) 10.3 H, Eos % (Auto) 3.6, Baso % (Auto) 0.5, Absolute Neuts (auto) 3.9, Absolute Lymphs (auto) 1.70, Nucleated RBC % 0, Sodium 140, Potassium 3.9, Chloride 111 H, Carbon Dioxide 20.0 L, Anion Gap 9, BUN 72 H, Creatinine 6.03 H, Estim Creat Clear Calc 11.49, Est GFR (MDRD) Af Amer 12 L, Est GFR (MDRD) Non-Af 10 L, BUN/Creatinine Ratio 11.9, Glucose 135 H, Calcium 9.1, Total Bilirubin 0.30, AST 15, ALT 10 L, Alkaline Phosphatase 67, Total Protein 6.2 L, Albumin 2.8 L, Globulin 3.4, Albumin/Globulin Ratio 0.8 L, Lipase 63 06/27/23 10:49: PT 16.0 H, INR 1.3, APTT 31.1, Lactic Acid 1.5 Imaging Radiology Impression Abdomen CT 06/27/23 11:30 IMPRESSION: Once again, there is evidence of polycystic kidney disease. Stable hepatic cysts. Findings in keeping with the acute sigmoid diverticulitis with increased markings in the surrounding peritoneal fat. The tip of the peritoneal dialysis catheter is in the left-sided the pelvis. Small amount of perihepatic fluid. Minimal right pleural effusion. Electronically Signed: Noel Cornejo MD at 12:08 EST , Assessment & Plan Assessment/Plan (1) Acute diverticulitis: PLAN: Plan 1. Acute diverticulitis-patient will be admitted to [place] [address] and placed on IV Zosyn, labs will be monitored, patient will be placed on a clear liquid diet #2 end-stage renal disease not currently on dialysis-patient will need insertion of a tunneled dialysis catheter, his peritoneal dialysis catheter will not be able to be used at this time, I have consulted general surgery and they will see the patient. Patient will be seen by nephrology during this admission. #3 anemia of chronic renal disease-labs will be monitored #4 hypertension-patient will remain on his current medications #5 history of TIAs-patient states that he was placed on Plavix by his PCP due to history of TIAs, this will be held at the request of general surgery. #6 possible dementia-patient states that he was placed on Aricept by his PCP for memory issues -patient's current dose is only 5 mg at bedtime, I have elected to leave this dosage as is. Total clinical time spent by myself addressing patient's medical issues, reviewing all of his data, and collaborating with patient's care team: 55 minutes Charges/Coding Visit Charges Inpatient E&M: 66002 Init Hosp L2
--- NOTE | 2023-06-27 15:09 | EX.PCM.CON.S ---
Assessment & Plan Assessment/Plan (1) Chronic kidney disease: (2) Acute diverticulitis: (3) Status post peritoneal dialysis: PLAN: Plan Will plan to place right IJ possible left tunneled dialysis catheter for dialysis as patient is unable to flush his peritoneal dialysis catheter without pain. Discussed the procedure including the risk but not limited to of infection, bleeding, malfunction of the catheter, clot of the catheter. Patient did take his Plavix this morning. Will hold patient's Plavix. Patient does understand he may have a little more oozing with the procedure due to the Plavix. With the current acute diverticulitis we will not plan to remove the peritoneal dialysis catheter currently. Will continue IV antibiotics for this. Sandra Malloy M.D. Pager: [phone] [facility] [address] [place] [address], [facility], [address] [place] [address] Office: [phone] HPI Consult Data Date of Consult: 06/28/23 HPI Narrative HPI Narrative: ARBEN PORTER, is a 73 M who presents to the ER due to abdominal pain as well as unable to use/flush peritoneal dialysis catheter. Patient had peritoneal dialysis catheter at [facility] by Dr. Cherry in April and had to have it cleaned out about 2 weeks ago. Patient has never used this. Patient states he also may have had diverticulitis in March. CT abdomen pelvis is consistent with acute diverticulitis at the ER today. Patient is on Plavix due to having a history of a PFO which was closed previously with open heart surgery. Hospitalist asked see patient for a total dialysis catheter as he is unable to use the peritoneal dialysis catheter currently and patient states he may not want to use in the future as he is already had issues and never refused it. [facility] Medical History (Updated 06/27/23 @ 21:32 by Jayce Bernstein) Anxiety CPAP (continuous positive airway pressure) dependence Depression Dialysis patient DVT (deep venous thrombosis) Essential hypertension GI bleed Hyperlipidemia Kidney disease Malignant neoplasm of prostate Polycystic kidney disease TIA (transient ischemic attack) Valvular heart disease Home Medications amlodipine 5 mg tablet 5 mg PO BID blood pressure 06/22/15 [History Last Taken 03/30/19 04:30 5 MG] omeprazole 40 mg capsule,delayed release 40 mg PO DAILY gerd 02/21/16 [History Last Taken Unknown] [id number] 300 mcg-K 60 mcg-lycop 600 mcg-lutein 300 mcg tablet (Centrum Silver Men) 1 tab PO DAILY multivitamin 04/06/18 [History Last Taken 06/27/23] olmesartan 40 mg tablet 40 mg PO DAILY 04/06/18 [History Last Taken 03/30/19 04:30 40 MG] duloxetine 30 mg capsule,delayed release 30 mg PO DAILY mood 03/12/19 [History Last Taken Unknown] hydralazine 50 mg tablet 50 mg PO TID blood pressure 03/12/19 [History Last Taken 06/27/23 08:18] levothyroxine 100 mcg capsule 100 mcg PO DAILY thyroid 03/12/19 [History Last Taken 06/27/23 08:19] cholecalciferol (vitamin D3) 50 mcg (2,000 unit) capsule 2,000 unit PO BID supplement 03/20/19 [History Last Taken 06/27/23 08:00] fluticasone propionate 50 mcg/actuation nasal spray,suspension 2 spray NASAL DAILY nasal congestion 03/20/19 [History Last Taken 06/26/23 22:17] pramipexole 0.25 mg tablet 0.25 mg PO DAILY restless legs 03/20/19 [History Last Taken Unknown] clopidogrel 75 mg tablet 75 mg PO DAILY blood thinner 05/04/19 [History Last Taken Unknown] donepezil 5 mg tablet 5 mg PO DAILY mood 06/21/22 [History Last Taken Unknown] furosemide 40 mg tablet 40 mg PO DAILY diuretic 06/21/22 [History Last Taken Unknown] trazodone 50 mg tablet 50 mg PO DAILY sleep 06/21/22 [History Last Taken 06/26/23] turmeric root extract 500 mg capsule 500 mg PO DAILY 06/21/22 [History Last Taken Unknown] hydrochlorothiazide 25 mg tablet 50 mg PO BID wqater pill 02/08/23 [History Last Taken Unknown] Allergy/AdvReac Type Severity Reaction Status Date / Time cashew nut Allergy Intermediate itching Verified 06/24/23 18:15 Family History Father , age 83 Cancer Surgical History History of back surgery History of carpal tunnel release of both wrists History of ear, nose, and throat (ENT) surgery History of repair of right rotator cuff History of shoulder surgery Status post patent foramen ovale closure (~1999) Status post trigger finger release Social History Smoking Status: Former smoker how long ago did patient quit smoking: back in the alcohol intake: never caffeine: No ROS Constitutional Constitutional: Reports anorexia Eyes Eyes: Denies loss of central vision ENT HEENT: Denies dysphagia Cardiovascular Cardiovascular: Denies chest pain Respiratory/Chest Respiratory/Chest: Denies productive cough Gastrointestinal Gastrointestinal: Reports abdominal pain, bloating and nausea; Denies hematemesis Genitourinary Genitourinary: Denies dysuria Musculoskeletal Musculoskeletal: Denies joint swelling Integumentary Integumentary: Denies jaundice Neurologic Neurologic: Denies focal weakness Psychiatric Psychiatric: Denies depression Endocrine Endocrinology: Denies palpitations Physical Exam Const alert, oriented x3 and no apparent distress HEENT normocephalic and head/scalp atraumatic Neck supple Chest Chest Narrative: Palpation of bilateral upper chest normal Resp normal respiratory effort Cardio regular rate GI soft to palpation; Negative for non-distended GI Narrative: Peritoneal dialysis catheter in place/dressed. Previous laparoscopic incisions healing well. Palpation: tender LLQ; Negative for guarding Extremity no clubbing, cyanosis or edema Neuro CN's II-XII intact bilaterally Psych mental status grossly normal Lab / Micro Data 06/28/23 07:00 06/28/23 07:00 Labs: Laboratory Results - last 24 hr 06/27/23 09:28: WBC 6.6, RBC 2.68 L, Hgb 8.6 L, Hct 27.2 L, MCV 101.5 H, MCH 32.1 H, MCHC 31.6 L, RDW Std Deviation 46.8 H, RDW Coeff of David 12.5, Plt Count 237, MPV 10.6, Immature Gran % (Auto) 0.300, Neut % (Auto) 59.5, Lymph % (Auto) 25.8, [place] % (Auto) 10.3 H, Eos % (Auto) 3.6, Baso % (Auto) 0.5, Absolute Neuts (auto) 3.9, Absolute Lymphs (auto) 1.70, Nucleated RBC % 0, Sodium 140, Potassium 3.9, Chloride 111 H, Carbon Dioxide 20.0 L, Anion Gap 9, BUN 72 H, Creatinine 6.03 H, Estim Creat Clear Calc 11.49, Est GFR (MDRD) Af Amer 12 L, Est GFR (MDRD) Non-Af 10 L, BUN/Creatinine Ratio 11.9, Glucose 135 H, Calcium 9.1, Total Bilirubin 0.30, AST 15, ALT 10 L, Alkaline Phosphatase 67, Total Protein 6.2 L, Albumin 2.8 L, Globulin 3.4, Albumin/Globulin Ratio 0.8 L, Lipase 63 06/27/23 10:49: PT 16.0 H, INR 1.3, APTT 31.1, Lactic Acid 1.5 Imaging Radiology Impression Abdomen CT 06/27/23 11:30 IMPRESSION: Once again, there is evidence of polycystic kidney disease. Stable hepatic cysts. Findings in keeping with the acute sigmoid diverticulitis with increased markings in the surrounding peritoneal fat. The tip of the peritoneal dialysis catheter is in the left-sided the pelvis. Small amount of perihepatic fluid. Minimal right pleural effusion. Electronically Signed: Noel Cornejo MD at 12:08 EST , Charges/Coding Visit Charges Inpatient E&M: 89182 Init Hosp L3
[2023-06-27] MEDS: metroNIDAZOLE 500 MG/100 ML BAG 100 MG IV (15:14)
[2023-06-27] MEDS: Acetaminophen 325 MG Tablet 650 MG PO (17:04)
[2023-06-27] MEDS: 0.9% Saline Lock 10 ML Syringe IV (17:04)
[2023-06-27] MEDS: hydrALAZINE 50 MG Tablet PO (21:00)
[2023-06-27] MEDS: Heparin Injection (Vial) 5,000 UNIT/ML VIAL 5000 UNIT SC (21:00)
[2023-06-27] MEDS: Piperacil/Tazobactam 3.375 GM in 0.9% Normal Saline (50mL MB+) 50 ML IV (21:00)
[2023-06-27] MEDS: amLODIPine 5 MG Tablet PO (21:00)
[2023-06-27] MEDS: Temazepam 15 MG Capsule PO (21:09)
--- NOTE | 2023-06-27 22:10 | CPS ---
Patient set up on his home unit. 3L bleed in added to maintain saturations.
[2023-06-28] VITALS (24 sets, daily range): BP systolic 66–140; BP diastolic 57–90; PULSE 76–129; RESP 12–18; TEMP 36.7–38.8; O2SAT 91–96; BMI 27.0; BMI 26.9
[2023-06-28] MEDS: Levothyroxine 100 MCG Tablet PO (05:02)
[2023-06-28] MEDS: hydrALAZINE 50 MG Tablet PO ×2 (05:02→20:19)
[2023-06-28 05:16] LABS: Bacteria 0 SEEN /hpf (None Seen); Mucous, Urine 0 SEEN /hpf (<or=2+); Red Blood Cells-Urine 0 SEEN /hpf (0-5); Squamous Epithelial Cells - UA 0 SEEN /hpf (0-5); White Blood Cells 0 SEEN /hpf (0-5)
[2023-06-28 05:17] LABS: Color, Urine Yellow (Yellow); Glucose, Dipstick 50 mg/dl (Normal); Ketone-Dipstick Negative (Negative); Leukocyte Esterase-Dipstick Negative /ul (Negative); Nitrite-Dipstick Negative (Negative); Occult Blood-Urine 10 /ul (Negative); Protein-Dipstick 500 mg/dl (Negative); Urine Bilirubin Dipstick Negative (Negative); Urine Clarity Clear (Clear); Urine Urobilinogen Normal (Normal); Urine pH 6.5 (5.0 - 8.0)
--- NOTE | 2023-06-28 05:55 | EKG12_ITS ---
Test Reason : AM EKG Blood Pressure : / mmHG Vent. Rate : 092 BPM Atrial Rate : 092 BPM P-R Int : 160 ms QRS Dur : 096 ms QT Int : 352 ms P-R-T Axes : -07 -09 020 degrees QTc Int : 435 ms Normal sinus rhythm Nonspecific T wave abnormality Abnormal ECG When compared with ECG of 11-OCT-2018 02:01, Nonspecific T wave abnormality, worse in Lateral leads Confirmed by BLAKE NORMAN, MARITZA ([id number]), film editor LUPILLO BEAVER ([id number]) on 07/04/2023 2:12:27 PM Referred By: SARAY Confirmed By:ERMA LOZANO MD
[2023-06-28 07:23] LABS: Absolute Lymphocyte Count 0.89 X10^3/uL (0.83-4.51); Basophil# 0.04 X10^3/uL; Basophil% 0.3 % (0-1); Eosinophil# 0.08 X10^3/uL; Eosinophils% 0.7 % (0-5); Hematocrit 23.8 % (40-54); Hemoglobin 7.6 g/dL (13.0-16.5); Lymphocyte # 0.89 X10^3/ul (0.83-4.51); Lymphocyte % 7.4 % (19-41); Mean Corp Hgb Conc 31.9 g/dL (32-36); Mean Corpuscular Hgb 31.9 pg (27.0-32.0); Mean Platelet Vol. 10.6 fl (6.2-12.0); Monocyte# 0.89 X10^3/uL; Monocyte% 7.4 % (0-10); NRBC Flagged by Analyzer 0 % (0-5); Neutrophil % 83.8 % (47-70); Platelet Count 211 K/mm3 (150-450); RBC Distribution Width CV 12.4 % (11.6-14.6); RBC Distribution Width SD 45.1 fl (35.1-43.9); Red Blood Count 2.38 M/mm3 (4.6-6.2)
[2023-06-28 07:50] LABS: Anion Gap 7 (5-15); BUN 70 mg/dL (7-18); BUN/Creat Ratio 11.6 RATIO (10-20); Calcium,Total 8.7 mg/dL (8.5-10.1); Chloride 111 mmol/L (98-107); Creatinine, Serum 6.04 mg/dL (0.70-1.30); EST Glomerular Filtration Rate 10 mL/min (>60); Est Glom Filt Rate - Afr Amer 12 mL/min (>60); Estimated Creatinine Clearance 10.38 ml/min; Glucose 96 mg/dL (74-106); Potassium 4.4 mmol/L (3.5-5.1); Sodium Level 138 mmol/L (136-145)
[2023-06-28] MEDS: amLODIPine 5 MG Tablet PO ×2 (08:54→20:19)
[2023-06-28] MEDS: Donepezil HCl 5 MG Tablet PO (08:54)
[2023-06-28] MEDS: Pramipexole Di-HCl 0.25 MG Tablet PO (08:55)
[2023-06-28] MEDS: Losartan Potassium 100 MG Tablet PO (11:09)
--- NOTE | 2023-06-28 11:10 | CASEMGMT ---
Addendum entered by Jasmyn Boateng 06/28/23 11:57: Kristi calls this RN CM and states that the pt is set up for a chair time. Kristi states that the pt will be seen on , , and Saturdays with an arrival time of 1115. Kristi states they will update the pt about this. This RN CM will also discuss this with the pt once he returns from surgery. Original Note: RN RADHA Assessment Face to Face with patient for initial transition planning/care coordination assessment. RN CM introduced self and role at [facility], pt voices understanding. Pt is A&Ox4 and is resting comfortably in bed and is calm. Care providers, pharmacy, and demographics verified. Admitting dx: Acute Diverticulitis, ABD Pain LACE Strata: 3 PCP: Angie Ivan Specialists: Pt states he sees a Edging Machine Feeder in [place]. Pt states he sees a PACKAGE LINE RELIEF OPERATOR for cardiology in [place]. Pt could not recall the names of these specialist Preferred Pharmacy: [facility] Insurance: [facility], AARP Prescription Benefit: Yes LNOK: Lilia Regan (W) Living Arrangements: Pt lives with his in a single story home with a BM with HR with 2 steps to enter with HR. ADLs/IADLs: Ind Transportation: Pt drives, states his friend will drive me home. DME: Pt denies wearing additional oxygen at home. Pt given a verbal list of local in network DME providers and pt chose [facility] for potential home O2. Pt states he has a walk in shower with GB and a seat. Denies all other DME uses or needs. HHC/SNF: Denies history or needs. Pt?s goal: Home Plan: 6 Click is 19, no additional therapy ordered at this time. Pt states he wants to get DC home and get on dialysis. Pt currently has a peritoneal dialysis catheter but has not started dialysis yet. Pt went into [facility] yesterday to start dialysis and the PD cath was not working appropriately. The pt is planned to get a tunneled catheter today. [facility] at this time and they state the pt is already in their system and will not need a new referral sent. CM to follow. Donato Boateng RN, CM
[2023-06-28] MEDS: 0.9% Normal Saline (500mL Bag) 500 ML 15 ML IV (11:32)
[2023-06-28] MEDS: Bupiv/Epi 0.25% 30 ML Vial (12:10)
[2023-06-28] MEDS: Lidocaine 1% (20 ml mdv) 20 ML Vial (12:10)
[2023-06-28] MEDS: Heparin 10,000 UNITS/10 ML Vial 10000 UNITS (12:25)
--- NOTE | 2023-06-28 12:31 | PCM.OPRPT ---
Report of Operation Date of Procedure: 06/28/23 Pre-Operative Diagnosis: chronic kidney disease, need for dialysis access Post-Operative Diagnosis: same Surgery/Procedure Performed:: Insertion of right IJ tunneled dialysis catheter Use of fluoroscopy Use of ultrasound Surgeon: Sandra Malloy Type of Anesthesia: Local MAC Anesthesiologist: Beck Pal Special Medications: Ancef 2 g IV x 1 Specimen's removed: None Estimated Blood Loss (mL): < 10 cc Description of Procedure: After informed consent was given, the patient was brought to the operating room and placed in the supine position. Appropriate time out protocol was followed. He was then given IV conscious sedation for anesthesia. The patient's right upper chest and neck were then prepped with a surgical skin preparation and sterile surgical drapes were placed. After proper landmarks were ascertained, the skin at the upper right chest area was then infiltrated with 1:1 mixture of 1% lidocaine with epinephrine and 0.5% maricaine. A needle trocar was then inserted into the right internal jugular vein with ultrasound guidance-multiple vessels were viewed with u/s and the right IJ was chosen-- and there was good aspiration of venous blood. A wire was then threaded into the needle trocar and this was visualized under fluoroscopy to ensure that the wire was in the superior vena cava. Once this was done, then the needle trocar was removed. A small incision was made with an 11 blade knife at the wire entrance site. The dilator x2 with the introducer sheath attached was then placed over the wire into the right internal jugular vein via the Seldinger technique and this was visualized under fluoroscopy. Next the introducer and sheath were in proper position as visualized by fluoroscopy. The location of the cuffed was estimated on the skin, an incision was made with a 15 blade scalpel. The 14.5 Fr x 19 cm Palindrome dual lumen (Lot [id number] reference [id number]) was tunneled from the chest incision to the right neck incision. The sheath was removed. The catheter was placed through the introducer and was positioned with its tip at the junction of the superior vena cava and the right atrium as visualized under fluoroscopy. The cuff of the catheter was in the subcutaneous tissue. The catheter flushed and cathy well with saline. Catheter was also flushed with 1.6 cc of 1-10,000 of heparin. Hemostasis was assured. Silver dressing was placed at the catheter exit site. Catheter was sutured with 3-0 nylon sutures. The neck incision was sutured with interrupted 3-0 Vicryl interrupted sutures x2 and Steri-Strips were placed. A large OpSite was placed over the catheter site and a small OpSite over the neck incision. Additional pressure dressing with gauze and tape was also placed at the right IJ to the patient being on Plavix. The patient tolerated the procedure well. Grafts/Implants Used: 14.5 Fr x 19 cm Palindrome dual lumen (Lot [id number] reference [id number] Complications none
--- NOTE | 2023-06-28 12:50 | RAD_ITS ---
STUDY: X-RAY CHEST REASON FOR EXAM: Male, 73 years old. Dialysis catheter TECHNIQUE: Single AP portable view of the chest. COMPARISON: None. FINDINGS: A right-sided dialysis catheter has been place with the tip at the junction of the superior vena cava and right atrium. Increased markings at the lung bases suggestive of bibasilar atelectasis. Blunting of the right costophrenic angle. Sternal cerclage wires and vascular clips are present from a prior sternotomy and coronary artery bypass graft procedure (CABG). Normal mediastinum and emery. Normal visualized pulmonary arteries. Normal visualized aortic arch and descending thoracic aorta. There are diffuse degenerative changes of the visualized thoracic spine. Surgical anchor seen in the left humeral head suggestive of prior rotator cuff surgery. There is no demonstrated abnormality of the visualized soft tissue structures of the upper abdomen. RAD/Chest 1 View (Portable) IMPRESSION: The tip of the right dialysis catheter is at the junction of the superior vena cava and right atrium. Increased markings at both lung bases suggestive of bibasilar atelectasis with blunting of the right costophrenic angle. Electronically Signed: Noel Cornejo MD at 13:10 EST ,
[2023-06-28] MEDS: PureFlow B 2K Dialysis Soln 1 BAG 6 BAG PF (13:49)
[2023-06-28] MEDS: 0.9% Saline Lock 10 ML Syringe IV ×3 (13:49→23:23)
[2023-06-28] MEDS: 0.9% Normal Saline 1,000 ML IV.SOLN. 1000 ML OPERA.SITE (13:49)
--- NOTE | 2023-06-28 14:28 | PCM.PN.HOSP ---
Reason for Visit Reason for Visit: Diagnoses Diverticulitis of intestine, part unspecified, without perforation or abscess without bleeding (06/27/23) Chronic kidney disease, unspecified (06/27/23) Dependence on renal dialysis (06/27/23) Objective Data Objective Data Vital Signs: Vital Signs Temp Pulse Resp BP Pulse Ox O2 Del Method O2 Flow Rate 98.6 F 108 H 15 117/69 94 Nasal Cannula 2 06/28/23 13:22 06/28/23 14:18 06/28/23 14:18 06/28/23 14:18 06/28/23 13:22 06/28/23 14:18 06/28/23 14:18 Oxygen Flow Rate (L/min) 2 Oxygen Delivery Method Nasal Cannula Weight: 177 lb 11.081 oz Body Mass Index (BMI) 26.9 Intake & Output: Intake and Output for Last 24 Hours 06/26/23 06/27/23 06/28/23 23:59 23:59 23:59 Intake Total 950 / 950 80 / 80 Output Total 1000 / 1000 500 / 500 Balance -50 / -50 -420 / -420 Lab / Micro Data 06/28/23 07:00 06/28/23 07:00 Labs: Laboratory Results - last 24 hr 06/28/23 05:05: Urine Color Yellow, Urine Clarity Clear, Urine pH 6.5, Ur Specific [place] 1.010, Urine Protein 500 H, Urine Glucose (UA) 50 H, Urine Ketones Negative, Urine Occult Blood 10 H, Urine Nitrite Negative, Urine Bilirubin Negative, Urine Urobilinogen Normal, Ur Leukocyte Esterase Negative, Urine RBC 0 SEEN, Urine WBC 0 SEEN, Ur Squamous Epith Cells 0 SEEN, Urine Bacteria 0 SEEN, Urine Mucus 0 SEEN 06/28/23 07:00: WBC 12.0 H, RBC 2.38 L, Hgb 7.6 L, Hct 23.8 L, MCV 100.0 H, MCH 31.9, MCHC 31.9 L, RDW Std Deviation 45.1 H, RDW Coeff of David 12.4, Plt Count 211, MPV 10.6, Immature Gran % (Auto) 0.400, Neut % (Auto) 83.8 H, Lymph % (Auto) 7.4 L, [place] % (Auto) 7.4, Eos % (Auto) 0.7, Baso % (Auto) 0.3, Absolute Neuts (auto) 10.0 H, Absolute Lymphs (auto) 0.89, Nucleated RBC % 0, Sodium 138, Potassium 4.4, Chloride 111 H, Carbon Dioxide 20.0 L, Anion Gap 7, BUN 70 H, Creatinine 6.04 H, Estim Creat Clear Calc 10.38, Est GFR (MDRD) Af Amer 12 L, Est GFR (MDRD) Non-Af 10 L, BUN/Creatinine Ratio 11.6, Glucose 96, Calcium 8.7 Radiography Diagnostic Testing: Radiology Impression Chest X-Ray 06/28/23 12:50 IMPRESSION: The tip of the right dialysis catheter is at the junction of the superior vena cava and right atrium. Increased markings at both lung bases suggestive of bibasilar atelectasis with blunting of the right costophrenic angle. Electronically Signed: Noel Cornejo MD at 13:10 EST , Physical Exam Narrative Seen and examined. Patient had dialysis catheter inserted about April 2023 but never used it. Yesterday tried to flush but seems not patent. Besides that he has abdominal pain which seems worse on the right side than the left. Denies subjective fever or chills but patient is febrile temp 101.2 Fahrenheit. On IV antibiotic. Complain of mild burning micturition for last 2 to 3 days. Physical exam General: Alert, Oriented x3, Cooperative, overweight BMI 27.0 kg/m? HEENT: Atraumatic, PERRLA, EOMI, Normocephalic Oral: Oral mucosa moist. Neck:Supple, No JVD, Negative Carotid Bruits Chest wall/Lungs: Air entry diminished in bilateral lung bases. No crepitation/rhonchi Cardiovascular: Regular rate, Regular Rhythm, Normal S1, Normal S2, systolic murmur present. Abdomen: Soft, mild distention but tenderness seems more predominant over right side than left side. Right-sided dialysis catheter is tender. Bowel sounds hyperactive : Still voids urine. Positive dysuria. No renal angle tenderness. No suprapubic tenderness. Extremities: No edema, Capillary Refill Less than 3 Seconds Skin: No rashes, No breakdown Musculoskeletal: No Tenderness to Palpation of Joints or Extremities. ROM intact. Neurological: Cranial nerves II-XII grossly intact, DTR 2+/4. No acute focal neurological deficit. Psych/Mental Status: Flat affect. Assessment & Plan Assessment/Plan (1) Acute diverticulitis: PLAN: Plan 73-year-old gentleman admitted with abdominal pain that started on the day of admission, sudden onset. This started when he tried to infuse fluid to the peritoneal his catheter which seems unable to use/blocked. She had nausea but denied vomiting. Fever present. Also complained of mild dysuria. 1. Acute diverticulitis-: Patient had CT abdomen/Pelvis shows acute sigmoid diverticulitis with increased markings surrounding peritoneal fat. Tip of peritoneal catheter in left side of pelvis. Small amount of perihepatic fluid. Patient admitted on [facility] floor. Started on IV Zosyn. General surgery Dr. Strong was consulted. on a clear liquid diet #2 end-stage renal disease, due to polycystic kidney disease and associated dysuria: UA shows RBC 0, WBC 0, bacteria 0, protein 500, nitrite and LE negative therefore seems UTI unlikely. Patient may have burning micturition from other reason/noninfectious/inflammatory cystitis/urethritis but he is on antibiotic. CT shows evidence of polycystic kidney disease, stable hepatic cyst. Patient not a started on dialysis through peritoneal catheter yet. Plan for tunneled dialysis catheter, right IJ today. #3 anemia of chronic renal disease with burning micturition-kidney function being monitored #4 hypertension-on antihypertensive medication. #5 history of TIAs/PFO-patient states that he was placed on Plavix because of PFO which was closed with open heart surgery in about 1999. Plavix is held. Last echo in October 22 shows EF 70%, stage I diastolic dysfunction suggestive of chronic HFpEF. Normal left atrium, bubble contrast study negative for interatrial shunt. Reported intact atrial septum. Normal mitral valve. Mild TR, PASP 30 mmHg #6 possible dementia-patient states that he was started on Aricept 5 mg once daily by PCP. Continued Laboratory Results 06/28/23 05:05: Urine Color Yellow, Urine Clarity Clear, Urine pH 6.5, Ur Specific [place] 1.010, Urine Protein 500 H, Urine Glucose (UA) 50 H, Urine Ketones Negative, Urine Occult Blood 10 H, Urine Nitrite Negative, Urine Bilirubin Negative, Urine Urobilinogen Normal, Ur Leukocyte Esterase Negative, Urine RBC 0 SEEN, Urine WBC 0 SEEN, Ur Squamous Epith Cells 0 SEEN, Urine Bacteria 0 SEEN, Urine Mucus 0 SEEN 06/28/23 07:00: WBC 12.0 H, RBC 2.38 L, Hgb 7.6 L, Hct 23.8 L, MCV 100.0 H, MCH 31.9, MCHC 31.9 L, RDW Std Deviation 45.1 H, RDW Coeff of David 12.4, Plt Count 211, MPV 10.6, Immature Gran % (Auto) 0.400, Neut % (Auto) 83.8 H, Lymph % (Auto) 7.4 L, [place] % (Auto) 7.4, Eos % (Auto) 0.7, Baso % (Auto) 0.3, Absolute Neuts (auto) 10.0 H, Absolute Lymphs (auto) 0.89, Nucleated RBC % 0, Sodium 138, Potassium 4.4, Chloride 111 H, Carbon Dioxide 20.0 L, Anion Gap 7, BUN 70 H, Creatinine 6.04 H, Estim Creat Clear Calc 10.38, Est GFR (MDRD) Af Amer 12 L, Est GFR (MDRD) Non-Af 10 L, BUN/Creatinine Ratio 11.6, Glucose 96, Calcium 8.7 Charges/Coding Visit Charges Inpatient E&M: 74281 Subs Hosp L2
--- NOTE | 2023-06-28 14:45 | CHAPLAIN ---
Type of Pastoral Visit ___ Initial Visit ___ Follow-up Visit ___ On-call Visit ___ General Patient Visit ___ Spiritual Assessment ___ Family Conference ___ Bereavement ___ Rapid Response ___ Code Blue ___ Other (describe below) Pastoral Care Referral From ___ Patient ___ Family ___ Nurse ___ Physician ___ Complex Manager ___ Matching Machine Operator ___ Other (describe below) Sacrament/Intervention ___ Active listening ___ Anointing ___ Jain ___ Bereavement ___ Communion ___ Constance exploration ___ ___ Life review ___ Prayer ___ Reconciliation ___ Sacrament of Sick ___ Supportive presence ___ Wedding ___ Other (describe below) Pastoral Comments patient and bed are not in the room; a calling card was left
--- NOTE | 2023-06-28 15:06 | CON.PCM.RE_ITS ---
Assessment & Plan Assessment/Plan (1) ESRD (end stage renal disease): PLAN: History of CKD stage V, in the process of starting dialysis. Several issues with peritoneal dialysis catheter. Had to be readjusted. Despite this catheter has not been working. Now has severe abdominal pain, CT abdomen consistent with diverticulitis. Discussed with surgery. Will wait for abdomen to cool down with antibiotics before removing PD catheter. In the meantime start dialysis with a hemodialysis catheter. He was originally interested in doing at home dialysis. I do not think peritoneal dialysis will work out for him. Eventually may be a candidate for home hemodialysis if he can. Start hemodialysis after catheter placement. We will have PD catheter removed once he is clinically better. Discussed with hospitalist Discussed with surgery attending HPI Consult Data Date of Consult: 06/28/23 HPI Narrative Reason for Consultation: ESRD HPI Narrative: ARBEN PORTER, is a 73 M who presents To the hospital with abdominal pain. He is well-known to us. He used to see my associate Dr. Orellana. History of CKD stage V secondary to polycystic kidney disease. In anticipation of dialysis, he had a peritoneal dialysis catheter placed in April. Issues with fibrin, catheter had to be adjusted. Even after the procedure he has been having issues with using it. Yesterday he came into dialysis clinic, we tried to flush it, resulted in significant fibrin withdrawal. Developed sudden onset abdominal pain and distention hence he was referred to the ER. CT abdomen in the ER showed diverticulitis, this is a new finding compared to CT abdomen from 2 days ago.Currently being treated with IV antibiotics. To be started on hemodialysis today. Still complains of abdominal pain and discomfort. [facility] Medical History (Updated 06/28/23 @ 15:[address] Jazmin Wilson MD) Anxiety CPAP (continuous positive airway pressure) dependence Depression Dialysis patient DVT (deep venous thrombosis) Essential hypertension GI bleed Hyperlipidemia Kidney disease Malignant neoplasm of prostate Polycystic kidney disease TIA (transient ischemic attack) Valvular heart disease Home Medications amlodipine 5 mg tablet 5 mg PO BID blood pressure 06/22/15 [History Last Taken 03/30/19 04:30 5 MG] omeprazole 40 mg capsule,delayed release 40 mg PO DAILY gerd 06/22/15 [History Last Taken Unknown] [id number]-[id number] 300 mcg-K 60 mcg-lycop 600 mcg-lutein 300 mcg tablet (Centrum Silver Men) 1 tab PO DAILY multivitamin 12/06/18 [History Last Taken 06/27/23] olmesartan 40 mg tablet 40 mg PO DAILY 04/06/18 [History Last Taken 03/30/19 04:30 40 MG] duloxetine 30 mg capsule,delayed release 30 mg PO DAILY mood 03/12/19 [History Last Taken Unknown] hydralazine 50 mg tablet 50 mg PO TID blood pressure 03/12/19 [History Last Taken 06/27/23 08:18] levothyroxine 100 mcg capsule 100 mcg PO DAILY thyroid 03/12/19 [History Last Taken 06/27/23 08:19] cholecalciferol (vitamin D3) 50 mcg (2,000 unit) capsule 2,000 unit PO BID supplement 03/20/19 [History Last Taken 06/27/23 08:00] fluticasone propionate 50 mcg/actuation nasal spray,suspension 2 spray NASAL DAILY nasal congestion 03/20/19 [History Last Taken 06/26/23 22:17] pramipexole 0.25 mg tablet 0.25 mg PO DAILY restless legs 03/20/19 [History Last Taken Unknown] clopidogrel 75 mg tablet 75 mg PO DAILY blood thinner 05/04/19 [History Last Taken Unknown] donepezil 5 mg tablet 5 mg PO DAILY mood 06/21/22 [History Last Taken Unknown] furosemide 40 mg tablet 40 mg PO DAILY diuretic 06/21/22 [History Last Taken Unknown] trazodone 50 mg tablet 50 mg PO DAILY sleep 06/21/22 [History Last Taken 06/26/23] turmeric root extract 500 mg capsule 500 mg PO DAILY 06/21/22 [History Last Taken Unknown] hydrochlorothiazide 25 mg tablet 50 mg PO BID wqater pill 02/08/23 [History Last Taken Unknown] Allergy/AdvReac Type Severity Reaction Status Date / Time cashew nut Allergy Intermediate itching Verified 06/24/23 18:15 Family History Father , age 83 Cancer Surgical History History of back surgery History of carpal tunnel release of both wrists History of ear, nose, and throat (ENT) surgery History of repair of right rotator cuff History of shoulder surgery Status post patent foramen ovale closure (~1999) Status post trigger finger release Social History Smoking Status: Former smoker how long ago did patient quit smoking: back in the alcohol intake: never caffeine: No ROS ROS Narrative Negative except above Physical Exam Narrative Alert awake oriented x 3 no obvious distress no pallor no icterus no JVD s1s2 no murmurs lungs clear abdomen Diffuse tenderness no edema no cyanosis Lab / Micro Data 06/28/23 07:00 06/28/23 07:00 Labs: Laboratory Results - last 24 hr 06/28/23 05:05: Urine Color Yellow, Urine Clarity Clear, Urine pH 6.5, Ur Specific [place] 1.010, Urine Protein 500 H, Urine Glucose (UA) 50 H, Urine Ketones Negative, Urine Occult Blood 10 H, Urine Nitrite Negative, Urine Bilirubin Negative, Urine Urobilinogen Normal, Ur Leukocyte Esterase Negative, U rine RBC 0 SEEN, Urine WBC 0 SEEN, Ur Squamous Epith Cells 0 SEEN, Urine Bacteria 0 SEEN, Urine Mucus 0 SEEN 06/28/23 07:00: WBC 12.0 H, RBC 2.38 L, Hgb 7.6 L, Hct 23.8 L, MCV 100.0 H, MCH 31.9, MCHC 31.9 L, RDW Std Deviation 45.1 H, RDW Coeff of David 12.4, Plt Count 211, MPV 10.6, Immature Gran % (Auto) 0.400, Neut % (Auto) 83.8 H, Lymph % (Auto) 7.4 L, [place] % (Auto) 7.4, Eos % (Auto) 0.7, Baso % (Auto) 0.3, Absolute Neuts (auto) 10.0 H, Absolute Lymphs (auto) 0.89, Nucleated RBC % 0, Sodium 138, Potassium 4.4, Chloride 111 H, Carbon Dioxide 20.0 L, Anion Gap 7, BUN 70 H, Creatinine 6.04 H, Estim Creat Clear Calc 10.38, Est GFR (MDRD) Af Amer 12 L, Est GFR (MDRD) Non-Af 10 L, BUN/Creatinine Ratio 11.6, Glucose 96, Calcium 8.7 Imaging Radiology Impression Chest X-Ray 06/28/23 12:50 IMPRESSION: The tip of the right dialysis catheter is at the junction of the superior vena cava and right atrium. Increased markings at both lung bases suggestive of bibasilar atelectasis with blunting of the right costophrenic angle. Electronically Signed: Noel Cornejo MD at 13:10 EST ,
[2023-06-28] MEDS: Heparin 10,000 UNITS/10 ML Vial IV (15:21)
[2023-06-28] MEDS: Fluticasone 0.05% 1 SPRAY NASAL.SRY 2 SPRAY NASAL (15:43)
[2023-06-28] MEDS: Pantoprazole Sodium 40 MG Tablet PO (15:46)
[2023-06-28] MEDS: Piperacil/Tazobactam 3.375 GM in 0.9% Normal Saline (50mL MB+) 50 ML IV ×2 (17:13→20:21)
[2023-06-28] MEDS: Heparin Injection (Vial) 5,000 UNIT/ML VIAL 5000 UNIT SC (20:20)
[2023-06-28] MEDS: Acetaminophen 325 MG Tablet 650 MG PO (20:21)
[2023-06-28] MEDS: Morphine 4 MG/ML Syringe IV (23:23)
[2023-06-29] VITALS (18 sets, daily range): BP systolic 19–152; BP diastolic 75–94; PULSE 105–126; RESP 15–18; TEMP 37.1–38.1; O2SAT 3–98; BMI 26.9; BMI 26.7
[2023-06-29 06:29] LABS: Absolute Lymphocyte Count 0.79 X10^3/uL (0.83-4.51); Absolute Neutrophil Count 11.2 X10^3/uL (2.0-7.7); Basophil# 0.04 X10^3/uL; Basophil% 0.3 % (0-1); Eosinophil# 0.16 X10^3/uL; Eosinophils% 1.2 % (0-5); Hematocrit 24.1 % (40-54); Hemoglobin 7.6 g/dL (13.0-16.5); Lymphocyte # 0.79 X10^3/ul (0.83-4.51); Mean Corp Hgb Conc 31.5 g/dL (32-36); Mean Corpuscular Hgb 31.5 pg (27.0-32.0); Mean Platelet Vol. 10.4 fl (6.2-12.0); Monocyte# 0.89 X10^3/uL; Monocyte% 6.7 % (0-10); NRBC Flagged by Analyzer 0 % (0-5); Neutrophil # 11.23 X10^3/uL (2.7-7.7); Neutrophil % 85.2 % (47-70); Platelet Count 227 K/mm3 (150-450); RBC Distribution Width SD 44.3 fl (35.1-43.9); Red Blood Count 2.41 M/mm3 (4.6-6.2); White Blood Count 13.2 K/mm3 (4.4-11.0)
--- NOTE | 2023-06-29 06:51 | NURSING ---
0600 medications were not given by this nurse due to patient receiving dialysis at 0730 this am. Spoke with oncoming nurse Tovar, 0600 medications left on JUN for dayshift nurse
[2023-06-29 07:03] LABS: Anion Gap 7 (5-15); BUN 51 mg/dL (7-18); Calcium,Total 9.1 mg/dL (8.5-10.1); Chloride 110 mmol/L (98-107); Creatinine, Serum 5.11 mg/dL (0.70-1.30); EST Glomerular Filtration Rate 12 mL/min (>60); Est Glom Filt Rate - Afr Amer 14 mL/min (>60); Estimated Creatinine Clearance 12.27 ml/min; Glucose 98 mg/dL (74-106); Potassium 3.8 mmol/L (3.5-5.1); Sodium Level 138 mmol/L (136-145)
[2023-06-29] MEDS: Morphine 4 MG/ML Syringe IV (07:40)
[2023-06-29] MEDS: 0.9% Saline Lock 10 ML Syringe IV ×3 (07:40→21:54)
[2023-06-29] MEDS: PureFlow B 2K Dialysis Soln 1 BAG 6 BAG PF (08:02)
[2023-06-29] MEDS: 0.9% Normal Saline 1,000 ML IV.SOLN. 1000 ML OPERA.SITE (08:02)
[2023-06-29] MEDS: Heparin 10,000 UNITS/10 ML Vial IV (10:10)
[2023-06-29] MEDS: Fluticasone 0.05% 1 SPRAY NASAL.SRY 2 SPRAY NASAL (10:54)
[2023-06-29] MEDS: Levothyroxine 100 MCG Tablet PO (10:54)
[2023-06-29] MEDS: Pantoprazole Sodium 40 MG Tablet PO (10:54)
[2023-06-29] MEDS: Donepezil HCl 5 MG Tablet PO (10:54)
[2023-06-29] MEDS: Pramipexole Di-HCl 0.25 MG Tablet PO (10:54)
[2023-06-29] MEDS: Furosemide 40 MG Tablet PO (10:54)
[2023-06-29] MEDS: Losartan Potassium 100 MG Tablet PO (10:54)
[2023-06-29] MEDS: amLODIPine 5 MG Tablet PO ×2 (10:54→21:54)
[2023-06-29] MEDS: Heparin Injection (Vial) 5,000 UNIT/ML VIAL 5000 UNIT SC ×2 (10:57→21:55)
[2023-06-29] MEDS: Piperacil/Tazobactam 3.375 GM in 0.9% Normal Saline (50mL MB+) 50 ML IV ×2 (10:57→21:54)
--- NOTE | 2023-06-29 11:21 | PN.RENAL_ITS ---
Subjective Subjective Seen on dialysis today. Doing better than yesterday. WBC count about 13. Low- grade fevers. Abdomen pain and tenderness are better. Has not had any bowel movement since Tuesday but passing gas. No nausea. Appetite is fair. Tolerating hemodialysis okay. Objective Data Objective Data Vital Signs: Vital Signs Temp Pulse Resp BP Pulse Ox O2 Del Method O2 Flow Rate 99.4 F H 106 H 15 146/79 H 98 Nasal Cannula 3 06/29/23 10:33 06/29/23 10:33 06/29/23 10:33 06/29/23 10:33 06/29/23 10:33 06/29/23 10:33 06/29/23 10:33 Oxygen Flow Rate (L/min) 3 Oxygen Delivery Method Nasal Cannula Weight: 80 kg Body Mass Index (BMI) 26.7 Intake & Output: Intake and Output for Last 24 Hours 06/27/23 06/28/23 06/29/23 23:59 23:59 23:59 Intake Total 950 / 950 850 / 850 450 / 450 Output Total 1000 / 1000 500 / 800 1230 / 1230 Balance -50 / -50 350 / 50 -780 / -780 Lab / Micro Data 06/29/23 05:58 06/29/23 05:58 Labs: Laboratory Results - last 24 hr 06/29/23 05:58: WBC 13.2 H, RBC 2.41 L, Hgb 7.6 L, Hct 24.1 L, MCV 100.0 H, MCH 31.5, MCHC 31.5 L, RDW Std Deviation 44.3 H, RDW Coeff of David 12.0, Plt Count 227, MPV 10.4, Immature Gran % (Auto) 0.600, Neut % (Auto) 85.2 H, Lymph % (Auto) 6.0 L, [place] % (Auto) 6.7, Eos % (Auto) 1.2, Baso % (Auto) 0.3, Absolute Neuts (auto) 11.2 H, Absolute Lymphs (auto) 0.79 L, Nucleated RBC % 0, Sodium 138, Potassium 3.8, Chloride 110 H, Carbon Dioxide 21.0, Anion Gap 7, BUN 51 H, Creatinine 5.11 H, Estim Creat Clear Calc 12.27, Est GFR (MDRD) Af Amer 14 L, Est GFR (MDRD) Non-Af 12 L, BUN/Creatinine Ratio 10.0, Glucose 98, Calcium 9.1 Micro: Microbiology 06/27/23 10:49 Blood Culture (Wb) - Anticubital Right Blood Culture - Preliminary No growth in 48 hours. 06/27/23 10:49 Blood Culture (Wb) - Anticubital Left Blood Culture - Preliminary Radiography Diagnostic Testing: Radiology Impression Chest X-Ray 06/28/23 12:50 IMPRESSION: The tip of the right dialysis catheter is at the junction of the superior vena cava and right atrium. Increased markings at both lung bases suggestive of bibasilar atelectasis with blunting of the right costophrenic angle. Electronically Signed: Noel Cornejo MD at 13:10 EST , Physical Exam Narrative Alert awake oriented x 3 no obvious distress no pallor no icterus no JVD s1s2 no murmurs lungs clear abdomen Diffuse tenderness no edema no cyanosis Assessment & Plan Assessment/Plan (1) ESRD (end stage renal disease): PLAN: History of CKD stage V, in the process of starting dialysis. Several issues with peritoneal dialysis catheter. Had to be readjusted. Despite this catheter has not been working. Now has severe abdominal pain, CT abdomen consistent with diverticulitis. S/p tunneled dialysis catheter placement. Dialysis today. We will arrange for outpatient dialysis treatment. Diverticulitis. New onset. Tenderness is better today. dynamo tender overall but somewhat better than yesterday. Discussed with Surgery. Plan to leave catheter in until inflammation subsides. yuki Bryant
--- NOTE | 2023-06-29 11:59 | PCM.PN.SRG ---
Subjective Subjective Patient states abdominal pain is improved. Has only had Tylenol today did have some morphine overnight. Patient dialysis catheter is working well had dialysis yesterday and currently on dialysis. Objective Data Objective Data Vital Signs: Vital Signs Temp Pulse Resp BP Pulse Ox O2 Del Method O2 Flow Rate 99.4 F H 106 H 15 146/79 H 98 Nasal Cannula 3 06/29/23 10:33 06/29/23 10:33 06/29/23 10:33 06/29/23 10:33 06/29/23 10:33 06/29/23 10:33 06/29/23 10:33 Oxygen Flow Rate (L/min) 3 Oxygen Delivery Method Nasal Cannula Weight: 176 lb 5.917 oz Body Mass Index (BMI) 26.7 Intake & Output: Intake and Output for Last 24 Hours 06/27/23 06/28/23 06/29/23 23:59 23:59 23:59 Intake Total 950 / 950 850 / 850 450 / 450 Output Total 1000 / 1000 500 / 800 1230 / 1230 Balance -50 / -50 350 / 50 -780 / -780 Lab / Micro Data 06/29/23 05:58 06/29/23 05:58 Labs: Laboratory Results - last 24 hr 06/29/23 05:58: WBC 13.2 H, RBC 2.41 L, Hgb 7.6 L, Hct 24.1 L, MCV 100.0 H, MCH 31.5, MCHC 31.5 L, RDW Std Deviation 44.3 H, RDW Coeff of David 12.0, Plt Count 227, MPV 10.4, Immature Gran % (Auto) 0.600, Neut % (Auto) 85.2 H, Lymph % (Auto) 6.0 L, [place] % (Auto) 6.7, Eos % (Auto) 1.2, Baso % (Auto) 0.3, Absolute Neuts (auto) 11.2 H, Absolute Lymphs (auto) 0.79 L, Nucleated RBC % 0, Sodium 138, Potassium 3.8, Chloride 110 H, Carbon Dioxide 21.0, Anion Gap 7, BUN 51 H, Creatinine 5.11 H, Estim Creat Clear Calc 12.27, Est GFR (MDRD) Af Amer 14 L, Est GFR (MDRD) Non-Af 12 L, BUN/Creatinine Ratio 10.0, Glucose 98, Calcium 9.1 Micro: Microbiology 06/27/23 10:49 Blood Culture (Wb) - Anticubital Right Blood Culture - Preliminary No growth in 48 hours. 06/27/23 10:49 Blood Culture (Wb) - Anticubital Left Blood Culture - Preliminary Radiography Diagnostic Testing: Radiology Impression Chest X-Ray 06/28/23 12:50 IMPRESSION: The tip of the right dialysis catheter is at the junction of the superior vena cava and right atrium. Increased markings at both lung bases suggestive of bibasilar atelectasis with blunting of the right costophrenic angle. Electronically Signed: Noel Cornejo MD at 13:10 EST , Physical Exam Narrative Right tunneled IJ dialysis catheter in place no signs of infection Const oriented x3 and no apparent distress Resp normal respiratory effort Cardio regular rate GI soft to palpation GI Narrative: Mild tenderness bilateral lower abdomen, PD catheter in place, no guarding or rebound Inspection: Negative for abdominal distention Assessment & Plan Assessment/Plan (1) Chronic kidney disease: (2) Acute diverticulitis: (3) Status post peritoneal dialysis: PLAN: Plan Patient's right IJ tunnel dialysis catheter working well with no issues. Patient's abdominal pain is improved we will give patient full liquids. Would not plan to remove PD catheter why he is having ongoing issues with the diverticulitis we will plan to have that resolved prior to removing. Sandra Malloy M.D. Pager: [phone] [facility] [address] [place] [address], [facility], [address] [place] [address] Office: [phone] Charges/Coding Visit Charges Inpatient E&M: 53566 Subs Hosp L2
--- NOTE | 2023-06-29 12:26 | PCM.PN.HOSP ---
Reason for Visit Reason for Visit: Abdominal pain Subjective Subjective Patient is a 73-year-old white male who presented to the emergency department [facility] on 06/07/2023 complaining of abdominal pain that started on the day of presentation. Pain started abruptly. 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 The pain was reported as constant on presentation and nothing made it better or worse. He did have some mild nausea but no vomiting and denied any diarrhea, melena, hematochezia or fever or chills. His vital signs on presentation were overtly unremarkable other than his oxygen saturations were slightly low on room air at 88%. The patient states he wears 3 L at night but does not wear daytime oxygen. His CBC showed normal white count with a chronic stable anemia and no left shift however that since then he developed a white count and a left shift. His coags were overall unremarkable. His chemistry panel showed normal electrolytes with a low serum bicarb of 20 and elevated BUN and serum creatinine which are at his baseline. His lactic acid was normal at 1.5. CT of the abdomen was performed on presentation emergency department and showed evidence of polycystic kidney disease, stable hepatic cysts, acute sigmoid diverticulitis with increased markings in the surrounding peritoneal fat and the tip of dialysis catheter in the left side of the pelvis. He had minimal right pleural effusion at that time. He was admitted to the medical floor and placed on antibiotics for diverticulitis. Nephrology was consulted for his end-stage renal disease and noted that there have been several issues with his peritoneal dialysis catheter and they have elected not to utilize this any further. Tunneled dialysis catheter was placed on 06/29/2023 with the intent to using this ongoing and eventually removing his PD catheter. The plan is to remove the PD catheter once his abdominal issues are clinically improved. Patient notes that his abdominal pain is better today. Again the plan is to leave the PD catheter in until inflammation and diverticulitis subside and pull it as an outpatient. He does remain on oxygen however saturations are 98%. Tmax in the last 24 hours has been 100.8. Patient states his abdominal pain is much improved today. Patient did state he had a bowel movement 2 days ago but has not had anything since however has not eaten much. Would like to start some MiraLAX if possible. Objective Data Objective Data Vital Signs: Vital Signs Temp Pulse Resp BP Pulse Ox O2 Del Method O2 Flow Rate 99.4 F H 106 H 15 146/79 H 98 Nasal Cannula 3 06/29/23 10:33 06/29/23 10:33 06/29/23 10:33 06/29/23 10:33 06/29/23 10:33 06/29/23 10:33 06/29/23 10:33 Oxygen Flow Rate (L/min) 3 Oxygen Delivery Method Nasal Cannula Weight: 80 kg Body Mass Index (BMI) 26.7 Intake & Output: Intake and Output for Last 24 Hours 06/27/23 06/28/23 06/29/23 23:59 23:59 23:59 Intake Total 950 / 950 850 / 850 450 / 450 Output Total 1000 / 1000 500 / 800 1230 / 1230 Balance -50 / -50 350 / 50 -780 / -780 Lab / Micro Data 06/29/23 05:58 06/29/23 05:58 Labs: Laboratory Results - last 24 hr 06/29/23 05:58: WBC 13.2 H, RBC 2.41 L, Hgb 7.6 L, Hct 24.1 L, MCV 100.0 H, MCH 31.5, MCHC 31.5 L, RDW Std Deviation 44.3 H, RDW Coeff of David 12.0, Plt Count 227, MPV 10.4, Immature Gran % (Auto) 0.600, Neut % (Auto) 85.2 H, Lymph % (Auto) 6.0 L, [place] % (Auto) 6.7, Eos % (Auto) 1.2, Baso % (Auto) 0.3, Absolute Neuts (auto) 11.2 H, Absolute Lymphs (auto) 0.79 L, Nucleated RBC % 0, Sodium 138, Potassium 3.8, Chloride 110 H, Carbon Dioxide 21.0, Anion Gap 7, BUN 51 H, Creatinine 5.11 H, Estim Creat Clear Calc 12.27, Est GFR (MDRD) Af Amer 14 L, Est GFR (MDRD) Non-Af 12 L, BUN/Creatinine Ratio 10.0, Glucose 98, Calcium 9.1 Micro: Microbiology 06/27/23 10:49 Blood Culture (Wb) - Anticubital Right Blood Culture - Preliminary No growth in 48 hours. 06/27/23 10:49 Blood Culture (Wb) - Anticubital Left Blood Culture - Preliminary Radiography Diagnostic Testing: Radiology Impression Chest X-Ray 06/28/23 12:50 IMPRESSION: The tip of the right dialysis catheter is at the junction of the superior vena cava and right atrium. Increased markings at both lung bases suggestive of bibasilar atelectasis with blunting of the right costophrenic angle. Electronically Signed: Noel Cornejo MD at 13:10 EST , Physical Exam Const alert, oriented x3, no apparent distress, average body habitus and well nourished Constitutional Narrative: Older, white male, sitting up in bed, family at bedside, patient appears comfortable and nontoxic, interacts appropriately HEENT head/scalp atraumatic and moist oral mucous membranes HEENT Narrative: Dentures in place, Mallampati 2, no thrush Head and Scalp: normocephalic Resp normal respiratory effort, no retractions and no use of accessory muscles Resp Narrative: Few scattered crackles at bases bilaterally Auscultation: crackles; Negative for rhonchi or wheezes Cardio regular rate, regular rhythm, S1 normal heart sound, S2 normal heart sound, no murmurs, no rub and no clicks GI normal to inspection, nondistended, normoactive bowel sounds, soft to palpation and non-tender Extremity Extremity Narrative: Trace bilateral lower extremity edema, no cyanosis or clubbing Skin Skin Narrative: Tunneled dialysis catheter newly placed in right chest-appears clean and dry Neuro oriented x3, moves all extremities and no focal motor deficits Speech: speech normal Psych affect normal Psych Narrative: Very pleasant, interacts appropriately Assessment & Plan Assessment/Plan (1) ESRD (end stage renal disease): (2) Status post peritoneal dialysis: (3) Acute diverticulitis: PLAN: Plan Acute diverticulitis -Patient with ongoing fevers next-Tmax overnight was 100.8 -Continue Zosyn -Blood cultures are -1 of 2 at 48 hours with 1 culture being positive for gram-positive cocci however I do suspect this is contaminant as he is clinically improving -Await finalization -Repeat CBC in a.m. -Plan to send home with Augmentin End-stage renal disease secondary to polycystic kidney disease -PD catheter has been problematic and will be removed once he is clinically stable -Will have patient follow-up with general surgery after discharge -Tunneled dialysis catheter placed today -HD already done today and patient tolerated well -UA is unremarkable for infection and urine culture is negative -Nephrology is following and per discussion with them probable discharge home tomorrow as patient remains clinically stable Constipation -Patient without BM in 2 days -Start scheduled MiraLAX -Encourage mobility Hypoxia -Patient wears nocturnal oxygen at 3 L but typically does not require daytime oxygen -Current sats are 98% on 3 L -Discussed with nursing titrating down -Start incentive spirometry and highly encourage compliance -Out of bed in a chair Anemia secondary to chronic renal disease -Hemoglobin is stable Hypertension -Continue home amlodipine -Continue home Lasix -Continue home hydralazine -Continue home hydrochlorothiazide -Continue ARB History of TIA -Restart home Plavix -History of PFO which was closed with open heart surgery in 1999 Restless leg syndrome -Continue home Requip GERD -Continue home PPI Hypothyroidism -Continue home levothyroxine Depression -Continue home duloxetine Insomnia -Continue home trazodone Cognitive impairment -Patient was placed on Aricept 5 mg once daily by PCP -Will continue DVT prophylaxis -Heparin SQ twice daily CODE STATUS -Full code Charges/Coding Visit Charges Inpatient E&M: 60946 Subs Hosp L2
[2023-06-29] MEDS: Acetaminophen 325 MG Tablet 650 MG PO ×2 (13:33→21:54)
--- NOTE | 2023-06-29 13:33 | CHAPLAIN ---
Type of Pastoral Visit _x__ Initial Visit ___ Follow-up Visit ___ On-call Visit ___ General Patient Visit ___ Spiritual Assessment ___ Family Conference ___ Bereavement ___ Rapid Response ___ Code Blue ___ Other (describe below) Pastoral Care Referral From _x__ Patient ___ Family ___ Nurse ___ Physician ___ Sea Captain ___ Sample Grinder ___ Other (describe below) Sacrament/Intervention _x__ Active listening ___ Anointing ___ Mu-Ism ___ Bereavement ___ Communion ___ Constance exploration ___ ___ Life review _x__ Prayer ___ Reconciliation ___ Sacrament of Sick _x__ Supportive presence ___ Wedding ___ Other (describe below) Pastoral Comments patient is sitting up in the chair with spouse and a friend in the room visiting him; pt is welcoming and states that he is getting what he needs; others mention that patient needs to have a kidney transplant at some point and that would be a good prayer request; pt welcomes prayer support and the time for a visit
[2023-06-29] MEDS: hydrALAZINE 50 MG Tablet PO ×2 (13:34→21:55)
--- NOTE | 2023-06-29 14:55 | CASEMGMT ---
Social Work SW met with pt to discuss advance directives.? Pt confirms he has completed a living will and health care POA naming his Lilia Regan.? Pt notified that documents are not on file at [facility] and SW requested they be brought in for scanning into the EMR.? ALEXA Min
--- NOTE | 2023-06-29 15:55 | CASEMGMT ---
UBALDO CM to pt room and the pt is requesting his chair time to be moved earlier in the day. TC to Ly at [facility] and she states she is going to inquire about this and will return call to CM today or tomorrow with an answer.
[2023-06-29 18:26] LABS: Hepatitis B Surface Antigen Non-Reactive (Nonreactive)
[2023-06-29] MEDS: Temazepam 15 MG Capsule PO (21:55)
[2023-06-30] VITALS (16 sets, daily range): BP systolic 57–191; BP diastolic 71–96; PULSE 98–120; RESP 14–18; TEMP 36.7–37.7; O2SAT 93–97; BMI 26.7
[2023-06-30] MEDS: hydrALAZINE 50 MG Tablet PO ×3 (06:45→22:29)
[2023-06-30] MEDS: Levothyroxine 100 MCG Tablet PO (06:46)
[2023-06-30 07:50] LABS: Absolute Lymphocyte Count 1.05 X10^3/uL (0.83-4.51); Absolute Neutrophil Count 10.7 X10^3/uL (2.0-7.7); Basophil# 0.03 X10^3/uL; Basophil% 0.2 % (0-1); Eosinophil# 0.48 X10^3/uL; Eosinophils% 3.6 % (0-5); Hematocrit 24.9 % (40-54); Hemoglobin 8.2 g/dL (13.0-16.5); Lymphocyte # 1.05 X10^3/ul (0.83-4.51); Lymphocyte % 7.9 % (19-41); Mean Corp Hgb Conc 32.9 g/dL (32-36); Mean Corpuscular Hgb 32.8 pg (27.0-32.0); Mean Corpuscular Volume 99.6 fL (80-94); Mean Platelet Vol. 10.3 fl (6.2-12.0); Monocyte# 0.97 X10^3/uL; Monocyte% 7.3 % (0-10); NRBC Flagged by Analyzer 0 % (0-5); Neutrophil # 10.67 X10^3/uL (2.7-7.7); Neutrophil % 80.6 % (47-70); Platelet Count 236 K/mm3 (150-450); RBC Distribution Width SD 44.2 fl (35.1-43.9); White Blood Count 13.3 K/mm3 (4.4-11.0)
[2023-06-30] MEDS: 0.9% Normal Saline 1,000 ML IV.SOLN. 1000 ML OPERA.SITE (08:01)
[2023-06-30] MEDS: PureFlow B 3K Dialysis Soln 1 BAG 6 BAG PF (08:01)
[2023-06-30] MEDS: 0.9% Saline Lock 10 ML Syringe IV ×3 (08:02→16:23)
[2023-06-30 08:13] LABS: Anion Gap 6 (5-15); BUN 40 mg/dL (7-18); BUN/Creat Ratio 8.8 RATIO (10-20); Calcium,Total 9.3 mg/dL (8.5-10.1); Chloride 110 mmol/L (98-107); Creatinine, Serum 4.55 mg/dL (0.70-1.30); EST Glomerular Filtration Rate 14 mL/min (>60); Est Glom Filt Rate - Afr Amer 16 mL/min (>60); Estimated Creatinine Clearance 13.78 ml/min; Glucose 90 mg/dL (74-106); Potassium 3.3 mmol/L (3.5-5.1); Sodium Level 141 mmol/L (136-145)
--- NOTE | 2023-06-30 08:25 | PCM.PN.SRG ---
Subjective Subjective Patient is a 73 y/o M who I am following in conjunction with Dr. Malloy. He is s/p right IJ tunneled dialysis catheter placement. Patient tolerated the procedure well. Patient has completed a treatment through the catheter yesterday without any issues. He notes minimal left lower discomfort. He notes his abdominal pain is much improved since admission. He is tolerating full liquids without any concern. Objective Data Objective Data Vital Signs: Vital Signs Temp Pulse Resp BP Pulse Ox O2 Del Method O2 Flow Rate 98.1 F 112 H 16 142/81 H 96 Nasal Cannula 3 06/30/23 05:55 06/30/23 08:00 06/30/23 08:00 06/30/23 08:00 06/30/23 08:00 06/30/23 08:00 06/30/23 08:00 Oxygen Flow Rate (L/min) 3 Oxygen Delivery Method Nasal Cannula Weight: 176 lb 5.917 oz Body Mass Index (BMI) 26.7 Intake & Output: Intake and Output for Last 24 Hours 06/28/23 06/29/23 06/30/23 23:59 23:59 23:59 Intake Total 850 / 850 1300 / 1300 50 / 50 Output Total 500 / 800 1530 / 2180 650 / 650 Balance 350 / 50 -230 / -880 -600 / -600 Lab / Micro Data 06/30/23 06:55 06/30/23 06:55 Labs: Laboratory Results - last 24 hr 06/29/23 05:58: Hep Bs Antigen Non-Reactive 06/30/23 06:55: WBC 13.3 H, RBC 2.50 L, Hgb 8.2 L, Hct 24.9 L, MCV 99.6 H, MCH 32.8 H, MCHC 32.9, RDW Std Deviation 44.2 H, RDW Coeff of David 12.0, Plt Count 236, MPV 10.3, Immature Gran % (Auto) 0.400, Neut % (Auto) 80.6 H, Lymph % (Auto) 7.9 L, [place] % (Auto) 7.3, Eos % (Auto) 3.6, Baso % (Auto) 0.2, Absolute Neuts (auto) 10.7 H, Absolute Lymphs (auto) 1.05, Nucleated RBC % 0, Sodium 141, Potassium 3.3 L, Chloride 110 H, Carbon Dioxide 25.0, Anion Gap 6, BUN 40 H, Creatinine 4.55 H, Estim Creat Clear Calc 13.78, Est GFR (MDRD) Af Amer 16 L, Est GFR (MDRD) Non-Af 14 L, BUN/Creatinine Ratio 8.8 L, Glucose 90, Calcium 9.3 Micro: Microbiology 06/27/23 10:49 Blood Culture (Wb) - Anticubital Left Blood Culture - Preliminary 06/29/23 13:42 Nasal Secretion SARS-CoV-2 Antigen (Rapid) - Final 06/27/23 10:49 Blood Culture (Wb) - Anticubital Right Blood Culture - Preliminary No growth in 48 hours. Physical Exam Chest Chest Narrative: Right chest- catheter intact. No active oozing/bleeding. Op-site removed from the right neck region. GI GI Narrative: Abdomen- soft, nontender. Positive bowels sounds. Large pannus. Assessment & Plan Assessment/Plan (1) ESRD (end stage renal disease): PLAN: I am following this patient in conjunction with Dr. Malloy. She will independently evaluate this patient. Right chest catheter intact and functioning well (2) Acute diverticulitis: PLAN: Continue IV antibiotics Transition to transitional diet today If tolerates diet, plan to discharge on oral antibiotics Patient will need to follow-up with Dr. Malloy in 1-2 weeks to further discuss removal of peritoneal dialysis catheters We will continue to monitor this patient Charges/Coding Visit Charges Inpatient E&M: 11486 Subs Hosp L1 (post-op; no charge)
--- NOTE | 2023-06-30 08:55 | CT_ITS ---
STUDY: CTA CHEST REASON FOR EXAM: Male, 73 years old. Hypoxia. RADIATION DOSAGE (If Supplied By Facility): CTDIvol = ( 12.08 ) mGy, DLP = ( 524.97 ) mGycm TECHNIQUE: The examination was performed with the intravenous administration of IV 100mL Isovue-370. Post-processing of the angiographic images was performed, with multiplanar reformation and 3D reconstruction. Individualized dose optimization techniques were used for this CT. COMPARISON: Comparison is made with prior chest radiograph dated June 28, 2023. FINDINGS: Normal enhancement of the main pulmonary artery and right and left pulmonary arteries. Normal enhancement of the bilateral peripheral pulmonary arteries. There is no demonstrated pulmonary embolism. Normal thoracic aorta and visualized great vessels. There is no demonstrated aortic dissection. Sternal cerclage wires and vascular clips are present from a prior sternotomy and coronary artery bypass graft procedure (CABG). Small pericardial effusion. Coronary artery calcification. Normal mediastinum. Normal hilar regions. Normal visualized trachea and bronchi. The lungs are well expanded. Mild degree of emphysematous changes more pronounced in the upper lobes. There is evidence of a patchy infiltrate in the right lower lobe. Increased linear markings are seen in the left lower lobe. This may represent atelectasis. Normal pleura. Normal chest wall structures. There are degenerative changes of thoracic spine. Multiple bilateral renal cysts are seen in keeping with the patient''s history of polycystic kidney disease. Multiple cysts are also seen in both right and left lobes of the liver. CT/CTA Chest W/WO Contrast IMPRESSION: Right lower lobe infiltrate and findings suggestive atelectasis at the left lung base. No evidence of pneumothorax. Multiple bilateral renal cysts and hepatic cysts. Electronically Signed: Noel Cornejo MD at 12:19 EST ,
--- NOTE | 2023-06-30 09:52 | CASEMGMT ---
Addendum entered by Annmarie Pierce 06/30/23 16:22: Pt verifies he does not have home O2, only wears a PAP @ [facility]. Addendum entered by Annmarie Pierce 06/30/23 15:45: Pt agreeable to the chair time of 6:35 AM on , stating, I'll take it . Addendum entered by Annmarie Pierce 06/30/23 15:40: Marquez Munoz @ [facility], pt's chair time has been changed to //S @ 6:35 AM. Pt to arrive @ 6 AM this Tuesday for 1st visit. UBALDO GARCIA to room. Pt sitting up in chair and family in room visiting and they were made aware of same. Questions answered and they deny having any further questions/needs/concerns. Original Note: UBALDO GARCIA NOTE: Call received from Liya @ [employer], requesting documentation of line placement. Faxed to [facility] @ this time. UBALDO GARCIA spoke w/[facility] who states she is still looking into getting an earlier chair time for pt on a schedule as pt had requested this. She will call this UBALDO GARCIA back. UBALDO GARCIA did inquire if pt is discharged home today if they would have a chair time available for him today @ [facility]. She states there is no chair time available today but they do have chair time available this coming Tuesday. Connie LONG RN, CM
--- NOTE | 2023-06-30 10:39 | PN.RENAL_ITS ---
Subjective Subjective Seen and examined on dialysis. Tolerating treatment well. No overnight events. Patient was afebrile last night. Patient reports abdominal pain has improved. Objective Data Objective Data Vital Signs: Vital Signs Temp Pulse Resp BP Pulse Ox O2 Del Method O2 Flow Rate 98.1 F 112 H 16 143/84 H 94 Nasal Cannula 3 06/30/23 05:55 06/30/23 09:30 06/30/23 09:30 06/30/23 09:30 06/30/23 09:30 06/30/23 09:30 06/30/23 09:30 Oxygen Flow Rate (L/min) 3 Oxygen Delivery Method Nasal Cannula Weight: 80 kg Body Mass Index (BMI) 26.7 Intake & Output: Intake and Output for Last 24 Hours 06/28/23 06/29/23 06/30/23 23:59 23:59 23:59 Intake Total 850 / 850 1300 / 1300 50 / 50 Output Total 500 / 800 1530 / 2180 650 / 650 Balance 350 / 50 -230 / -880 -600 / -600 Lab / Micro Data 06/30/23 06:55 06/30/23 06:55 Labs: Laboratory Results - last 24 hr 06/29/23 05:58: Hep Bs Antigen Non-Reactive 06/30/23 06:55: WBC 13.3 H, RBC 2.50 L, Hgb 8.2 L, Hct 24.9 L, MCV 99.6 H, MCH 32.8 H, MCHC 32.9, RDW Std Deviation 44.2 H, RDW Coeff of David 12.0, Plt Count 236, MPV 10.3, Immature Gran % (Auto) 0.400, Neut % (Auto) 80.6 H, Lymph % (Auto) 7.9 L, [place] % (Auto) 7.3, Eos % (Auto) 3.6, Baso % (Auto) 0.2, Absolute Neuts (auto) 10.7 H, Absolute Lymphs (auto) 1.05, Nucleated RBC % 0, Sodium 141, Potassium 3.3 L, Chloride 110 H, Carbon Dioxide 25.0, Anion Gap 6, BUN 40 H, Creatinine 4.55 H, Estim Creat Clear Calc 13.78, Est GFR (MDRD) Af Amer 16 L, Est GFR (MDRD) Non-Af 14 L, BUN/Creatinine Ratio 8.8 L, Glucose 90, Calcium 9.3 Micro: Microbiology 06/27/23 10:49 Blood Culture (Wb) - Anticubital Left Blood Culture - Preliminary 06/29/23 13:42 Nasal Secretion SARS-CoV-2 Antigen (Rapid) - Final 06/27/23 10:49 Blood Culture (Wb) - Anticubital Right Blood Culture - Preliminary No growth in 48 hours. Physical Exam Narrative Alert awake oriented x 3 No obvious distress s1s2 no murmurs lungs clear abdomen mild tenderness right side. PD catheter intact. no edema Tunneled HD catheter right chest dressing clean, dry and intact Assessment & Plan Assessment/Plan (1) ESRD (end stage renal disease): PLAN: History of CKD stage V, in the process of starting dialysis. Now ESRD several issues with peritoneal dialysis catheter. Had to be readjusted. Desp ite this catheter has not been working. Now has severe abdominal pain, CT abdomen consistent with diverticulitis. S/p tunneled dialysis catheter placement. Dialysis again today with minimal UF. Outpatient hemodialysis arrangements underway at [facility], likely will be TTS schedule. Not planning for hemodialysis tomorrow unless acute need arises. Diverticulitis. New onset. Tenderness is better again today. router tender overall but somewhat better. Plan to leave catheter in until inflammation subsides. Currently on antibiotics and likely will need antibiotics at time of discharge. dw Dr Bryant. Likely not to be discharged today as patient spiked fever last night. White count today 13.3. COVID was negative. Blood cultures from 06/27 no growth. Patient to undergo CTA of chest today. He is on IV antibiotics, Zosyn
[2023-06-30] MEDS: Heparin 10,000 UNITS/10 ML Vial IV (11:02)
[2023-06-30] MEDS: Potassium Chloride Oral Tablet 20 MEQ 40 MEQ PO (12:39)
[2023-06-30] MEDS: Furosemide 40 MG Tablet PO (12:40)
[2023-06-30] MEDS: Polyethylene Glycol 3350 17 GM PACKET PO (12:40)
[2023-06-30] MEDS: Fluticasone 0.05% 1 SPRAY NASAL.SRY 2 SPRAY NASAL (12:41)
[2023-06-30] MEDS: Losartan Potassium 100 MG Tablet PO (12:41)
[2023-06-30] MEDS: Pantoprazole Sodium 40 MG Tablet PO (12:42)
[2023-06-30] MEDS: Heparin Injection (Vial) 5,000 UNIT/ML VIAL 5000 UNIT SC ×2 (12:42→22:30)
[2023-06-30] MEDS: Pramipexole Di-HCl 0.25 MG Tablet PO (12:43)
[2023-06-30] MEDS: amLODIPine 5 MG Tablet PO ×2 (12:43→22:26)
[2023-06-30] MEDS: Donepezil HCl 5 MG Tablet PO (12:44)
[2023-06-30] MEDS: Cefepime HCl 1 GM in 0.9% Normal Saline (50mL MB+) 50 ML IV (13:06)
--- NOTE | 2023-06-30 13:28 | PCM.RX.CS ---
Consult Antibiotic Management Pharmacy has been consulted to manage selected antibiotic: Vancomycin Type of Intervention Type of Consult: New start Suspected Infection Suspected Infection: Other (DIVERTICULITIS VS PD CATH INFECTION) Prior Doses of Antibiotics Prior Doses of Antibiotics Received/Current Regimen: Vancomycin 1250 mg IV x 1, cefepime 1 gram x 1 then 500 mg Q24H Labs Labs: Sodium 141 mmol/L (136-145) 06/30/23 06:55 Potassium 3.3 mmol/L (3.5-5.1) L 06/30/23 06:55 Chloride 110 mmol/L (98-107) H 06/30/23 06:55 Carbon Dioxide 25.0 mmol/L (21.0-32.0) 06/30/23 06:55 Anion Gap 6 (5-15) 06/30/23 06:55 BUN 40 mg/dL (7-18) H 06/30/23 06:55 Creatinine 4.55 mg/dL (0.70-1.30) H 06/30/23 06:55 Est GFR (MDRD) Af Amer 16 mL/min (>60) L 06/30/23 06:55 Est GFR (MDRD) Non-Af 14 mL/min (>60) L 06/30/23 06:55 BUN/Creatinine Ratio 8.8 RATIO (10-20) L 06/30/23 06:55 Glucose 90 mg/dL (74-106) 06/30/23 06:55 Microbiology Microbiology: Microbiology 06/27/23 10:49 Blood Culture (Wb) - Anticubital Left Blood Culture - Preliminary 06/29/23 13:42 Nasal Secretion SARS-CoV-2 Antigen (Rapid) - Final 06/27/23 10:49 Blood Culture (Wb) - Anticubital Right Blood Culture - Preliminary No growth in 48 hours. Dosing Weight Weight used for dosin kg Estimated Creatinine Clearance Estimated Creatinine Clearance: HD Goal Trough Goal Trough: 15-20 mcg/mL Pharmacy Plan for Drug Dosing Pharmacy Plan for Drug Dosing: Vancomycin 1250 mg IV x1, subsequently will plan for 500 mg IV after next HD session. Pharmacy Service will continue to monitor and adjust dosing as required. Follow-Up Labs Follow-Up Labs: Trough: Vancomycin Date/Time Labs Ordered Labs to be done on [date and time ordered]: pending hd schedule
[2023-06-30] MEDS: Vancomycin HCl 1,250 MG in 0.9% Normal Saline (250mL Bag) 250 ML 167 MG IV (14:10)
--- NOTE | 2023-06-30 17:20 | PN.HOSP_ITS ---
Reason for Visit Reason for Visit: Abdominal pain Subjective Subjective Patient states he is feeling well. He is tachycardic and had fevers yesterday. He reports that he feels hot and cold on and off but states that people come in the room and states that the room feels hot. He is stating he is sweating intermittently at night which she does not do at home. His white count remains elevated. He denies any coughing or congestion in his chest but he remains on oxygen. Objective Data Objective Data Vital Signs: Vital Signs Temp Pulse Resp BP Pulse Ox O2 Del Method O2 Flow Rate 99.2 F H 120 H 18 142/91 H 96 Room Air 3 06/30/23 14:04 06/30/23 14:04 06/30/23 14:04 06/30/23 14:06/30/23 14:06/30/23 14:04 06/30/23 10:46 Oxygen Flow Rate (L/min) 3 Oxygen Delivery Method Room Air Weight: 80 kg Body Mass Index (BMI) 26.7 Intake & Output: Intake and Output for Last 24 Hours 06/28/23 06/29/23 06/30/23 23:59 23:59 23:59 Intake Total 850 / 850 1300 / 1300 375 / 375 Output Total 500 / 800 1530 / 2180 890 / 890 Balance 350 / 50 -230 / -880 -515 / -515 Lab / Micro Data 06/30/23 06:55 06/30/23 06:55 Labs: Laboratory Results - last 24 hr 06/29/23 05:58: Hep Bs Antigen Non-Reactive 06/30/23 06:55: WBC 13.3 H, RBC 2.50 L, Hgb 8.2 L, Hct 24.9 L, MCV 99.6 H, MCH 32.8 H, MCHC 32.9, RDW Std Deviation 44.2 H, RDW Coeff of David 12.0, Plt Count 236, MPV 10.3, Immature Gran % (Auto) 0.400, Neut % (Auto) 80.6 H, Lymph % (Auto) 7.9 L, [place] % (Auto) 7.3, Eos % (Auto) 3.6, Baso % (Auto) 0.2, Absolute Neuts (auto) 10.7 H, Absolute Lymphs (auto) 1.05, Nucleated RBC % 0, Sodium 141, Potassium 3.3 L, Chloride 110 H, Carbon Dioxide 25.0, Anion Gap 6, BUN 40 H, Creatinine 4.55 H, Estim Creat Clear Calc 13.78, Est GFR (MDRD) Af Amer 16 L, Est GFR (MDRD) Non-Af 14 L, BUN/Creatinine Ratio 8.8 L, Glucose 90, Calcium 9.3 Micro: Microbiology 06/27/23 10:49 Blood Culture (Wb) - Anticubital Left Blood Culture - Preliminary 06/29/23 13:42 Nasal Secretion SARS-CoV-2 Antigen (Rapid) - Final 06/27/23 10:49 Blood Culture (Wb) - Anticubital Right Blood Culture - Pr eliminary No growth in 48 hours. Radiography Diagnostic Testing: Radiology Impression Chest CTA 06/30/23 08:55 IMPRESSION: Right lower lobe infiltrate and findings suggestive atelectasis at the left lung base. No evidence of pneumothorax. Multiple bilateral renal cysts and hepatic cysts. Electronically Signed: Noel Cornejo MD at 12:19 EST , Physical Exam Const alert, oriented x3, no apparent distress, average body habitus and well nourished Constitutional Narrative: Older, white male, sitting up in bed, family at bedside, patient appears comfortable and nontoxic, interacts appropriately HEENT normocephalic, head/scalp atraumatic, hearing grossly normal bilaterally and moist oral mucous membranes Neck no lymphadenopathy and supple Neck Narrative: Trachea midline, no thyroid enlargement General: trachea midline Resp normal respiratory effort, no retractions, no use of accessory muscles and clear to auscultation bilaterally Resp Narrative: Few scattered crackles at right base Auscultation: crackles; Negative for rales, rhonchi or wheezes Cardio regular rate, regular rhythm, S1 normal heart sound, S2 normal heart sound, no murmurs, no rub, no gallops and no clicks GI normal to inspection, nondistended, normoactive bowel sounds, soft to palpation and non-tender GI Narrative: Very minimal diffuse tenderness that has improved dramatically Extremity no clubbing, cyanosis or edema Skin no rashes or lesions noted Skin Narrative: Tunneled dialysis catheter newly placed in right chest-appears clean and dry Neuro oriented x3, moves all extremities and no focal motor deficits Speech: speech normal Psych affect normal Psych Narrative: Very pleasant, interacts appropriately Assessment & Plan Assessment/Plan (1) ESRD (end stage renal disease): (2) Status post peritoneal dialysis: (3) Acute diverticulitis: PLAN: Plan Acute diverticulitis -Patient with ongoing fevers next-Tmax overnight was 100.8 -Continue Zosyn -Blood cultures are -1 of 2 at 48 hours with 1 culture being positive for gram- positive cocci however I do suspect this is contaminant but finalization is pending -Await finalization -Repeat CBC in a.m. Fevers/leukocytosis -Etiology is unclear -Rapid COVID is negative -White count remains elevated with no signs of trending down despite antibiotic use -Will broaden from Zosyn to vancomycin and cefepime -CT of the chest was performed due to ongoing high p.o. oxy and shows a right- sided infiltrate however patient's not having any respiratory symptoms and not able to produce any sputum -Check sed rate CRP and if patient does not look better on paper tomorrow will repeat CT of the abdomen pelvis however his abdominal pain has improved significantly End-stage renal disease secondary to polycystic kidney disease -PD catheter has been problematic and will be removed once he is clinically stable -Will have patient follow-up with general surgery after discharge -Tunneled dialysis catheter placed on 06/29/2023 -Patient is tolerating hemodialysis well and the next planned outpatient dialysis is for Tuesday if patient is discharged -UA is unremarkable for infection and urine culture is negative -Nephrology is following and per discussion with them probable discharge home tomorrow as patient remains clinically stable Constipation -Patient did finally have a bowel movement today -Continue MiraLAX -Encourage mobility Hypoxia -Patient wears nocturnal oxygen at 3 L but typically does not require daytime oxygen -Current sats are 98% on 3 L -Discussed with nursing titrating down -Continue incentive spirometry and highly encourage compliance -Out of bed in a chair Anemia secondary to chronic renal disease -Hemoglobin is stable Hypertension -Continue home amlodipine -Continue home Lasix -Continue home hydralazine -Continue home hydrochlorothiazide -Continue ARB History of TIA -Restart home Plavix -History of PFO which was closed with open heart surgery in 1999 Restless leg syndrome -Continue home Requip GERD -Continue home PPI Hypothyroidism -Continue home levothyroxine Depression -Continue home duloxetine Insomnia -Continue home trazodone Cognitive impairment -Patient was placed on Aricept 5 mg once daily by PCP -Will continue DVT prophylaxis -Heparin SQ twice daily CODE STATUS -Full code Charges/Coding Visit Charges Inpatient E&M: 82416 Subs Hosp L3
[2023-06-30 18:08] LABS: Erythrocyte Sedimentation Rate 61 mm/hr (0-20)
--- NOTE | 2023-06-30 18:53 | CT_ITS ---
ACR Level 3 findings have been noted. An addendum which confirms receipt of the report will follow. EXAM: CT ABDOMEN AND PELVIS WITH INTRAVENOUS CONTRAST CLINICAL INDICATION: abd pain, abnormal labs -- Give p.o. and IV contrast please TECHNIQUE: Helically acquired images were obtained of the abdomen and pelvis with intravenous contrast. This CT exam was performed using one or more of the following dose reduction techniques: automated exposure control, adjustment of the mA and/or kV according to patient size, and/or use of iterative reconstruction technique. CONTRAST: Oral and amp; IV Gastrografin and amp; 100mL Isovue-370 COMPARISON: CTA chest earlier on the same date. CT abdomen and pelvis, 06/27/2023. FINDINGS: LOWER THORAX: Bibasilar predominant pulmonary opacities with minimal air bronchograms suggesting pneumonia rather than atelectasis. Coronary artery calcifications. No cardiomegaly. No significant pericardial effusion. ABDOMEN: LIVER: Multiple hepatic cysts are present for which no follow-up is indicated. GALLBLADDER AND BILE DUCTS: No significant abnormality. No calcified gallstones. No gallbladder distention or wall edema. No intra- or extrahepatic biliary ductal dilation. PANCREAS: No significant abnormality. No focal cystic or solid mass. SPLEEN: No significant abnormality. Normal size without focal cystic or solid mass. ADRENALS: No significant abnormality. No nodules. KIDNEYS AND URETERS: There are innumerable bilateral renal cysts consistent with autosomal dominant polycystic kidney disease for which no discrete follow-up is recommended. Normal renal size and position. No hydronephrosis. STOMACH AND BOWEL: Multiple colonic diverticula. Wall thickening of the sigmoid colon with surrounding inflammatory changes. No stomach or bowel distention. PELVIS: APPENDIX: No evidence of acute appendicitis. BLADDER: Urinary bladder wall thickening and hazy stranding opacity perhaps suggestive of cystitis. REPRODUCTIVE: Normal as visualized. No mass. ABDOMEN and PELVIS: INTRAPERITONEAL SPACE: Small apparently loculated free fluid within the deep pelvis measuring up to approximately 4.4 cm. No free air. BONES/JOINTS: Degenerative changes throughout the axial and appendicular skeleton. No suspicious lytic or blastic abnormality. SOFT TISSUES: No significant abnormality. No discrete abdominal or pelvic wall hernia. VASCULATURE: Atherosclerosis of the aorta and its branch vessels. Atherosclerosis. LYMPH NODES: No significant abnormality. No enlarged lymph nodes. TUBES, LINES AND DEVICES: Peritoneal dialysis catheter present. CT/Abdomen/Pelvis WITH Contrast IMPRESSION: 1. Possible deep pelvic abscess versus dialysis related pseudocyst and findings suggestive of acute sigmoid colonic diverticulitis without a discrete pericolonic abscess in the region of colonic wall thickening. 2. Urinary bladder wall thickening and hazy stranding opacity perhaps suggestive of cystitis. 3. Bibasilar predominant pulmonary opacities with minimal air bronchograms suggesting pneumonia rather than atelectasis. 4. 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 Electronically Signed: Alin Granados DO at 21:44 EST ,
--- NOTE | 2023-06-30 21:11 | NURSING ---
to CT via wheelchair at this time per new order for CT ABD. pt is awake, alert and denies c/o
[2023-06-30] MEDS: Temazepam 15 MG Capsule PO (22:26)
[2023-06-30] MEDS: Acetaminophen 325 MG Tablet 650 MG PO (22:27)
[2023-07-01] VITALS (9 sets, daily range): BP systolic 137–155; BP diastolic 81–95; PULSE 95–115; RESP 15–20; TEMP 36.8–37.2; O2SAT 93–98
[2023-07-01] MEDS: Levothyroxine 100 MCG Tablet PO (05:46)
[2023-07-01] MEDS: hydrALAZINE 50 MG Tablet PO ×3 (05:46→22:24)
[2023-07-01 06:43] LABS: Absolute Lymphocyte Count 1.23 X10^3/uL (0.83-4.51); Absolute Neutrophil Count 8.8 X10^3/uL (2.0-7.7); Basophil# 0.03 X10^3/uL; Basophil% 0.3 % (0-1); Eosinophil# 0.59 X10^3/uL; Eosinophils% 5.1 % (0-5); Hematocrit 25.1 % (40-54); Hemoglobin 8.1 g/dL (13.0-16.5); Lymphocyte # 1.23 X10^3/ul (0.83-4.51); Lymphocyte % 10.5 % (19-41); Mean Corp Hgb Conc 32.3 g/dL (32-36); Mean Corpuscular Hgb 31.3 pg (27.0-32.0); Mean Corpuscular Volume 96.9 fL (80-94); Mean Platelet Vol. 10.3 fl (6.2-12.0); Monocyte# 0.91 X10^3/uL; Monocyte% 7.8 % (0-10); NRBC Flagged by Analyzer 0 % (0-5); Neutrophil # 8.84 X10^3/uL (2.7-7.7); Neutrophil % 75.6 % (47-70); Platelet Count 282 K/mm3 (150-450); RBC Distribution Width CV 11.9 % (11.6-14.6); RBC Distribution Width SD 42.3 fl (35.1-43.9); Red Blood Count 2.59 M/mm3 (4.6-6.2); White Blood Count 11.7 K/mm3 (4.4-11.0)
[2023-07-01 07:10] LABS: ALB/GLOB Ratio 0.6 RATIO (0.9-2.4); AST(SGOT) 31 U/L (15-37); Alanine Aminotransfer ALT/SGPT 14 U/L (16-61); Albumin, Serum 2.4 g/dL (3.2-5.0); Alkaline Phosphatase 84 U/L (45-117); Anion Gap 3 (5-15); BUN 34 mg/dL (7-18); BUN/Creat Ratio 8.6 RATIO (10-20); Calcium,Total 9.2 mg/dL (8.5-10.1); Chloride 109 mmol/L (98-107); Creatinine, Serum 3.96 mg/dL (0.70-1.30); EST Glomerular Filtration Rate 16 mL/min (>60); Est Glom Filt Rate - Afr Amer 19 mL/min (>60); Estimated Creatinine Clearance 15.83 ml/min; Globulin 3.7 g/dL (2.2-4.2); Glucose 90 mg/dL (74-106); Magnesium 1.7 mg/dL (1.6-2.6); Phosphorus 3.4 mg/dL (2.5-4.9); Potassium 3.4 mmol/L (3.5-5.1); Protein, Total 6.1 g/dL (6.4-8.2); Sodium Level 138 mmol/L (136-145)
--- NOTE | 2023-07-01 08:13 | PCM.PN.SRG ---
Subjective Subjective Patient denies abdominal pain been tolerating diet and has been having diarrhea but did get MiraLAX. Patient's white blood count is 11.7 did get changed to cefepime from Zosyn. Patient had CT abdomen pelvis question possible abscess less than 4 cm?patient did have about 500 cc instilled prior to him coming in through the PD cath which was not removed. Objective Data Objective Data Vital Signs: Vital Signs Temp Pulse Resp BP Pulse Ox O2 Del Method O2 Flow Rate 98.7 F 104 H 15 151/93 H 95 Room Air 3 07/01/23 03:51 07/01/23 05:46 07/01/23 03:51 07/01/23 05:46 07/01/23 03:51 07/01/23 03:51 06/30/23 10:46 Oxygen Flow Rate (L/min) 3 Oxygen Delivery Method Room Air Weight: 176 lb 5.917 oz Body Mass Index (BMI) 26.7 Intake & Output: Intake and Output for Last 24 Hours 06/29/23 06/30/23 07/01/23 23:59 23:59 23:59 Intake Total 1300 / 1300 375 / 375 100 / 100 Output Total 1530 / 2180 890 / 890 Balance -230 / -880 -515 / -515 100 / 100 Lab / Micro Data 07/01/23 05:57 07/01/23 05:57 Labs: Laboratory Results - last 24 hr 06/30/23 06:55: Sodium 141, Potassium 3.3 L, Chloride 110 H, Carbon Dioxide 25.0, Anion Gap 6, BUN 40 H, Creatinine 4.55 H, Estim Creat Clear Calc 13.78, Est GFR (MDRD) Af Amer 16 L, Est GFR (MDRD) Non-Af 14 L, BUN/Creatinine Ratio 8.8 L, Glucose 90, Calcium 9.3 06/30/23 17:37: ESR 61 H, C-React Prot Ext Range 330.00 H 07/01/23 05:57: WBC 11.7 H, RBC 2.59 L, Hgb 8.1 L, Hct 25.1 L, MCV 96.9 H, MCH 31.3, MCHC 32.3, RDW Std Deviation 42.3, RDW Coeff of David 11.9, Plt Count 282, MPV 10.3, Immature Gran % (Auto) 0.700, Neut % (Auto) 75.6 H, Lymph % (Auto) 10.5 L, Dubois % (Auto) 7.8, Eos % (Auto) 5.1 H, Baso % (Auto) 0.3, Absolute Neuts (auto) 8.8 H, Absolute Lymphs (auto) 1.23, Nucleated RBC % 0, Sodium 138, Potassium 3.4 L, Chloride 109 H, Carbon Dioxide 26.0, Anion Gap 3 L, BUN 34 H, Creatinine 3.96 H, Estim Creat Clear Calc 15.83, Est GFR (MDRD) Af Amer 19 L, Est GFR (MDRD) Non-Af 16 L, BUN/Creatinine Ratio 8.6 L, Glucose 90, Calcium 9.2, Phosphorus 3.4, Magnesium 1.7, Total Bilirubin 0.30, AST 31, ALT 14 L, Alkaline Phosphatase 84, Total Protein 6.1 L, Albumin 2.4 L, Globulin 3.7, Albumin/Globulin Ratio 0.6 L Micro: Microbiology 06/27/23 10:49 Blood Culture (Wb) - Anticubital Left Blood Culture - Preliminary 06/29/23 13:42 Nasal Secretion SARS-CoV-2 Antigen (Rapid) - Final 06/27/23 10:49 Blood Culture (Wb) - Anticubital Right Blood Culture - Preliminary No growth in 48 hours. Radiography Diagnostic Testing: Radiology Impression Chest CTA 06/30/23 08:55 IMPRESSION: Right lower lobe infiltrate and findings suggestive atelectasis at the left lung base. No evidence of pneumothorax. Multiple bilateral renal cysts and hepatic cysts. Electronically Signed: Noel Cornejo MD at 12:19 EST , Abdomen/Pelvis CT 06/30/23 18:53 IMPRESSION: 1. Possible deep pelvic abscess versus dialysis related pseudocyst and findings suggestive of acute sigmoid colonic diverticulitis without a discrete pericolonic abscess in the region of colonic wall thickening. 2. Urinary bladder wall thickening and hazy stranding opacity perhaps suggestive of cystitis. 3. Bibasilar predominant pulmonary opacities with minimal air bronchograms suggesting pneumonia rather than atelectasis. 4. 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 Electronically Signed: Alin Granados DO at 21:44 EST , ADDENDUM: 06/30/232157 IMPRESSION: 1. Possible deep pelvic abscess versus dialysis related pseudocyst and findings suggestive of acute sigmoid colonic diverticulitis without a discrete pericolonic abscess in the region of colonic wall thickening. 2. Urinary bladder wall thickening and hazy stranding opacity perhaps suggestive of cystitis. 3. Bibasilar predominant pulmonary opacities with minimal air bronchograms suggesting pneumonia rather than atelectasis. 4. 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 N.B. : Raymundo Scott, OT, confirmed on 06/30/2023 21:51:31 (ET) that the healthcare facility has received the radiology report. Electronically Signed: Alin Granados DO at 21:44 EST , Physical Exam Const oriented x3 Resp normal respiratory effort GI soft to palpation and non-tender GI Narrative: PD catheter in place the site no erythema Inspection: Negative for abdominal distention Assessment & Plan Assessment/Plan (1) Chronic kidney disease: (2) Acute diverticulitis: (3) Status post peritoneal dialysis: PLAN: Plan Patient's right IJ tunnel dialysis catheter working well with no issues. Patient not really have any abdominal pain on exam tolerating transitional diet. Having some diarrhea but also got MiraLAX. Did review CT abdomen pelvis the area of fluid is less than 3 to 4 cm confusing factor is that he did get 500 cc instilled previous to admission through his PD cath which they were unable to get much of any of it out. Patient was changed from Zosyn to cefepime patient's white blood count is 11.7 with a decrease in his left shift as well currently. Being on Flagyl also added. ID being consulted. Sandra Malloy M.D. Pager: [phone] [facility] [address] [place] [address], [facility], [address] [place] [address] Office: [phone] Charges/Coding Visit Charges Inpatient E&M: 67178 Subs Hosp L2
[2023-07-01] MEDS: metroNIDAZOLE 500 MG/100 ML BAG 100 MG IV ×3 (08:31→22:25)
[2023-07-01] MEDS: 0.9% Saline Lock 10 ML Syringe IV (08:32)
[2023-07-01] MEDS: Potassium Chloride Oral Tablet 20 MEQ 40 MEQ PO (08:48)
[2023-07-01] MEDS: Fluticasone 0.05% 1 SPRAY NASAL.SRY 2 SPRAY NASAL (08:49)
[2023-07-01] MEDS: Heparin Injection (Vial) 5,000 UNIT/ML VIAL 5000 UNIT SC ×2 (08:49→22:25)
[2023-07-01] MEDS: Furosemide 40 MG Tablet PO (09:03)
[2023-07-01] MEDS: amLODIPine 5 MG Tablet PO ×2 (09:03→22:26)
[2023-07-01] MEDS: Donepezil HCl 5 MG Tablet PO (09:03)
[2023-07-01] MEDS: Pramipexole Di-HCl 0.25 MG Tablet PO (09:03)
[2023-07-01] MEDS: Losartan Potassium 100 MG Tablet PO (09:03)
[2023-07-01] MEDS: Pantoprazole Sodium 40 MG Tablet PO (09:03)
[2023-07-01 11:05] LABS: M R Staph aureus DNA By PCR Negative (Negative); Probe Check PASS; Specimen Processing Control PASS
--- NOTE | 2023-07-01 14:27 | CON.PCM.ID_ITS ---
Assessment & Plan Assessment/Plan (1) ESRD (end stage renal disease): (2) Status post peritoneal dialysis: (3) Acute diverticulitis: PLAN: PD cath in place, removal planned. CT showed nonspecific fluid collection and diverticulitis. Cont vanc/cefepime/flagyl for now. Bcx neg so far except for single sample with GPC, but PCR panel not done on that sample. Will follow, thank you HPI Consult Data Date of Consult: 07/01/23 HPI Narrative Reason for Consultation: diverticulitis HPI Narrative: ARBEN PORTER, is a 73 M with ESRD, presented 06/27 with sudden onset severe L sided abd pain after PD cath was flushed. No fever or chills. Had been having difficulty with catheter for a few days prior. Came to ED, given cipro/flagyl, admitted on zosyn, seen by gen surg, now on vanc/cefepime/flagyl. Pain improved. Full ROS performed and neg except as noted above. [facility], [facility] Medical History Anxiety CPAP (continuous positive airway pressure) dependence Depression Dialysis patient DVT (deep venous thrombosis) Essential hypertension GI bleed Hyperlipidemia Kidney disease Malignant neoplasm of prostate Polycystic kidney disease TIA (transient ischemic attack) Valvular heart disease Home Medications amlodipine 5 mg tablet 5 mg PO BID blood pressure 06/22/15 [History Last Taken 03/30/19 04:30 5 MG] omeprazole 40 mg capsule,delayed release 40 mg PO DAILY gerd 06/22/15 [History Last Taken Unknown] [id number] 300 mcg-K 60 mcg-lycop 600 mcg-lutein 300 mcg tablet (Centrum Silver Men) 1 tab PO DAILY multivitamin 04/06/18 [History Last Taken 06/27/23] olmesartan 40 mg tablet 40 mg PO DAILY 04/06/18 [History Last Taken 03/30/19 04:30 40 MG] duloxetine 30 mg capsule,delayed release 30 mg PO DAILY mood 03/12/19 [History Last Taken Unknown] hydralazine 50 mg tablet 50 mg PO TID blood pressure 03/12/19 [History Last Taken 06/27/23 08:18] levothyroxine 100 mcg capsule 100 mcg PO DAILY thyroid 03/12/19 [History Last Taken 06/27/23 08:19] cholecalciferol (vitamin D3) 50 mcg (2,000 unit) capsule 2,000 unit PO BID supplement 03/20/19 [History Last Taken 06/27/23 08:00] fluticasone propionate 50 mcg/actuation nasal spray,suspension 2 spray NASAL DAILY nasal congestion 03/20/19 [History Last Taken 06/26/23 22:17] pramipexole 0.25 mg tablet 0.25 mg PO DAILY restless legs 03/20/19 [History Last Taken Unknown] clopidogrel 75 mg tablet 75 mg PO DAILY blood thinner 05/04/19 [History Last Taken Unknown] donepezil 5 mg tablet 5 mg PO DAILY mood 06/21/22 [History Last Taken Unknown] furosemide 40 mg tablet 40 mg PO DAILY diuretic 06/21/22 [History Last Taken Unknown] trazodone 50 mg tablet 50 mg PO DAILY sleep 06/21/22 [History Last Taken 06/26/23] turmeric root extract 500 mg capsule 500 mg PO DAILY 06/21/22 [History Last Taken Unknown] hydrochlorothiazide 25 mg tablet 50 mg PO BID wqater pill 02/08/23 [History Last Taken Unknown] Allergy/AdvReac Type Severity Reaction Status Date / Time cashew nut Allergy Intermediate itching Verified 06/24/23 18:15 Family History Father , age 83 Cancer Surgical History History of back surgery History of carpal tunnel release of both wrists History of ear, nose, and throat (ENT) surgery History of repair of right rotator cuff History of shoulder surgery Status post patent foramen ovale closure (~1999) Status post trigger finger release Social History Smoking Status: Former smoker how long ago did patient quit smoking: back in the alcohol intake: never caffeine: No Physical Exam Const alert, oriented x3 and no apparent distress General Appearance: cooperative HEENT normocephalic and head/scalp atraumatic Eyes PERRL and EOMs intact bilaterally Neck supple and No nodes Resp normal air movement and clear to auscultation bilaterally Cardio regular rate and regular rhythm GI soft to palpation GI Narrative: mild soreness and distension Extremity General Extremity: Negative for edema Skin no rashes or lesions noted Neuro CN's II-XII intact bilaterally Lab / Micro Data Attestation: I reviewed the patient's lab results. 07/01/23 05:57 07/01/23 05:57 Labs: Laboratory Results - last 24 hr 06/30/23 17:37: ESR 61 H, C-React Prot Ext Range 330.00 H 07/01/23 05:57: WBC 11.7 H, RBC 2.59 L, Hgb 8.1 L, Hct 25.1 L, MCV 96.9 H, MCH 31.3, MCHC 32.3, RDW Std Deviation 42.3, RDW Coeff of David 11.9, Plt Count 282, MPV 10.3, Immature Gran % (Auto) 0.700, Neut % (Auto) 75.6 H, Lymph % (Auto) 10.5 L, Fleming % (Auto) 7.8, Eos % (Auto) 5.1 H, Baso % (Auto) 0.3, Absolute Neuts (auto) 8.8 H, Absolute Lymphs (auto) 1.23, Nucleated RBC % 0, Sodium 138, Potassium 3.4 L, Chloride 109 H, Carbon Dioxide 26.0, Anion Gap 3 L, BUN 34 H, Creatinine 3.96 H, Estim Creat Clear Calc 15.83, Est GFR (MDRD) Af Amer 19 L, Est GFR (MDRD) Non-Af 16 L, BUN/Creatinine Ratio 8.6 L, Glucose 90, Calcium 9.2, Phosphorus 3.4, Magnesium 1.7, Total Bilirubin 0.30, AST 31, ALT 14 L, Alkaline Phosphatase 84, Total Protein 6.1 L, Albumin 2.4 L, Globulin 3.7, Albumin/Globulin Ratio 0.6 L 07/01/23 09:00: MRSA (PCR) Negative Micro: Microbiology 06/27/23 10:49 Blood Culture (Wb) - Anticubital Left Blood Culture - Preliminary Imaging Radiology Impression Abdomen/Pelvis CT 06/30/23 18:53 IMPRESSION: 1. Possible deep pelvic abscess versus dialysis related pseudocyst and findings suggestive of acute sigmoid colonic diverticulitis without a discrete pericolonic abscess in the region of colonic wall thickening. 2. Urinary bladder wall thickening and hazy stranding opacity perhaps suggestive of cystitis. 3. Bibasilar predominant pulmonary opacities with minimal air bronchograms suggesting pneumonia rather than atelectasis. 4. 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 Electronically Signed: Alin VManjinder Granados DO at 21:44 EST , ADDENDUM: 06/30/238 IMPRESSION: 1. Possible deep pelvic abscess versus dialysis related pseudocyst and findings suggestive of acute sigmoid colonic diverticulitis without a discrete pericolonic abscess in the region of colonic wall thickening. 2. Urinary bladder wall thickening and hazy stranding opacity perhaps suggestive of cystitis. 3. Bibasilar predominant pulmonary opacities with minimal air bronchograms suggesting pneumonia rather than atelectasis. 4. 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 N.B. : Raymundo Scott OT, confirmed on 06/30/2023 21:51:31 (ET) that the healthcare facility has received the radiology report. Electronically Signed: Alin Ana Paula Granados DO at 21:44 EST ,
--- NOTE | 2023-07-01 15:55 | CASEMGMT ---
TC to Kristi, spoke with clinical manager foreign Xochitl, she is aware pt will not be dc'd today for dialysis tomorrow and that the PD cath removal will be planned for Tuesday per hospitalist.
--- NOTE | 2023-07-01 16:45 | PCM.PN.REN ---
Subjective Subjective abdomen tenderness better Objective Data Objective Data Vital Signs: Vital Signs Temp Pulse Resp BP Pulse Ox O2 Del Method O2 Flow Rate 98.7 F 95 15 151/93 H 95 Room Air 3 07/01/23 03:51 07/01/23 16:01 07/01/23 03:51 07/01/23 05:46 07/01/23 03:51 07/01/23 08:45 06/30/23 10:46 Oxygen Flow Rate (L/min) 3 Oxygen Delivery Method Room Air Weight: 80 kg Body Mass Index (BMI) 26.7 Intake & Output: Intake and Output for Last 24 Hours 06/29/23 06/30/23 07/01/23 23:59 23:59 23:59 Intake Total 1300 / 1300 375 / 375 200 / 200 Output Total 1530 / 2180 890 / 890 Balance -230 / -880 -515 / -515 200 / 200 Lab / Micro Data 07/01/23 05:57 07/01/23 05:57 Labs: Laboratory Results - last 24 hr 06/30/23 17:37: ESR 61 H, C-React Prot Ext Range 330.00 H 07/01/23 05:57: WBC 11.7 H, RBC 2.59 L, Hgb 8.1 L, Hct 25.1 L, MCV 96.9 H, MCH 31.3, MCHC 32.3, RDW Std Deviation 42.3, RDW Coeff of David 11.9, Plt Count 282, MPV 10.3, Immature Gran % (Auto) 0.700, Neut % (Auto) 75.6 H, Lymph % (Auto) 10.5 L, [place] % (Auto) 7.8, Eos % (Auto) 5.1 H, Baso % (Auto) 0.3, Absolute Neuts (auto) 8.8 H, Absolute Lymphs (auto) 1.23, Nucleated RBC % 0, Sodium 138, Potassium 3.4 L, Chloride 109 H, Carbon Dioxide 26.0, Anion Gap 3 L, BUN 34 H, Creatinine 3.96 H, Estim Creat Clear Calc 15.83, Est GFR (MDRD) Af Amer 19 L, Est GFR (MDRD) Non-Af 16 L, BUN/Creatinine Ratio 8.6 L, Glucose 90, Calcium 9.2, Phosphorus 3.4, Magnesium 1.7, Total Bilirubin 0.30, AST 31, ALT 14 L, Alkaline Phosphatase 84, Total Protein 6.1 L, Albumin 2.4 L, Globulin 3.7, Albumin/Globulin Ratio 0.6 L 07/01/23 09:00: MRSA (PCR) Negative Micro: Microbiology 06/27/23 10:49 Blood Culture (Wb) - Anticubital Left Blood Culture - Preliminary 06/29/23 13:42 Nasal Secretion SARS-CoV-2 Antigen (Rapid) - Final 06/27/23 10:49 Blood Culture (Wb) - Anticubital Right Blood Culture - Preliminary No growth in 48 hours. Radiography Diagnostic Testing: Radiology Impression Abdomen/Pelvis CT 06/30/23 18:53 IMPRESSION: 1. Possible deep pelvic abscess versus dialysis related pseudocyst and findings suggestive of acute sigmoid colonic diverticulitis without a discrete pericolonic abscess in the region of colonic wall thickening. 2. Urinary bladder wall thickening and hazy stranding opacity perhaps suggestive of cystitis. 3. Bibasilar predominant pulmonary opacities with minimal air bronchograms suggesting pneumonia rather than atelectasis. 4. 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 Electronically Signed: Alin Granados DO at 21:44 EST , ADDENDUM: 06/30/233 IMPRESSION: 1. Possible deep pelvic abscess versus dialysis related pseudocyst and findings suggestive of acute sigmoid colonic diverticulitis without a discrete pericolonic abscess in the region of colonic wall thickening. 2. Urinary bladder wall thickening and hazy stranding opacity perhaps suggestive of cystitis. 3. Bibasilar predominant pulmonary opacities with minimal air bronchograms suggesting pneumonia rather than atelectasis. 4. 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 N.B. : Raymundo Scott OT, confirmed on 06/30/2023 21:51:31 (ET) that the healthcare facility has received the radiology report. Electronically Signed: Alin Granados DO at 21:44 EST , Physical Exam Narrative Alert awake oriented x 3 No obvious distress s1s2 no murmurs lungs clear abdomen mild tenderness right side. PD catheter intact. no edema Tunneled HD catheter right chest dressing clean, dry and intact Assessment & Plan Assessment/Plan (1) ESRD (end stage renal disease): PLAN: History of CKD stage V, in the process of starting dialysis. Now ESRD several issues with peritoneal dialysis catheter. Had to be readjusted. Despite this catheter has not been working. Now has severe abdominal pain, CT abdomen consistent with diverticulitis. S/p tunneled dialysis catheter placement. HD TTS schedule Diverticulitis. New onset. Tenderness is better again today. dw Dr Bryant. CT abd reviewed. fluid collection in pelvis. PD fluid would have been absorbed by now. consider infected fluid. ID on consult. yuki surgery. PD catheter removal early next week likely. clinically better
--- NOTE | 2023-07-01 17:02 | PN.HOSP_ITS ---
Reason for Visit Reason for Visit: Abdominal pain Subjective Subjective Patient states he is feeling much better and looks good. ID consult is pending and will await read of their recommendations. Discussed case with Dr. Malloy and she stated she would get the dialysis catheter out on Tuesday if he needed to stay through the weekend per infectious disease recommendations. Objective Data Objective Data Vital Signs: Vital Signs Temp Pulse Resp BP Pulse Ox O2 Del Method O2 Flow Rate 98.7 F 95 15 151/93 H 95 Room Air 3 07/01/23 03:51 07/01/23 16:01 07/01/23 03:51 07/01/23 05:46 07/01/23 03:51 07/01/23 08:45 06/30/23 10:46 Oxygen Flow Rate (L/min) 3 Oxygen Delivery Method Room Air Weight: 80 kg Body Mass Index (BMI) 26.7 Intake & Output: Intake and Output for Last 24 Hours 06/29/23 06/30/23 07/01/23 23:59 23:59 23:59 Intake Total 1300 / 1300 375 / 375 200 / 200 Output Total 1530 / 2180 890 / 890 Balance -230 / -880 -515 / -515 200 / 200 Lab / Micro Data 07/01/23 05:57 07/01/23 05:57 Labs: Laboratory Results - last 24 hr 06/30/23 17:37: ESR 61 H, C-React Prot Ext Range 330.00 H 07/01/23 05:57: WBC 11.7 H, RBC 2.59 L, Hgb 8.1 L, Hct 25.1 L, MCV 96.9 H, MCH 31.3, MCHC 32.3, RDW Std Deviation 42.3, RDW Coeff of David 11.9, Plt Count 282, MPV 10.3, Immature Gran % (Auto) 0.700, Neut % (Auto) 75.6 H, Lymph % (Auto) 10.5 L, [place] % (Auto) 7.8, Eos % (Auto) 5.1 H, Baso % (Auto) 0.3, Absolute Neuts (auto) 8.8 H, Absolute Lymphs (auto) 1.23, Nucleated RBC % 0, Sodium 138, Potassium 3.4 L, Chloride 109 H, Carbon Dioxide 26.0, Anion Gap 3 L, BUN 34 H, Creatinine 3.96 H, Estim Creat Clear Calc 15.83, Est GFR (MDRD) Af Amer 19 L, Est GFR (MDRD) Non-Af 16 L, BUN/Creatinine Ratio 8.6 L, Glucose 90, Calcium 9.2, Phosphorus 3.4, Magnesium 1.7, Total Bilirubin 0.30, AST 31, ALT 14 L, Alkaline Phosphatase 84, Total Protein 6.1 L, Albumin 2.4 L, Globulin 3.7, Albumin/Globulin Ratio 0.6 L 07/01/23 09:00: MRSA (PCR) Negative Micro: Microbiology 06/27/23 10:49 Blood Culture (Wb) - Anticubital Left Blood Culture - Preliminary 06/29/23 13:42 Nasal Secretion SARS-CoV-2 Antigen (Rapid) - Final 06/27/23 10:49 Blood Culture (Wb) - Anticubital Right Blood Culture - Preliminary No growth in 48 hours. Radiography Diagnostic Testing: Radiology Impression Abdomen/Pelvis CT 06/30/23 18:53 IMPRESSION: 1. Possible deep pelvic abscess versus dialysis related pseudocyst and findings suggestive of acute sigmoid colonic diverticulitis without a discrete pericolonic abscess in the region of colonic wall thickening. 2. Urinary bladder wall thickening and hazy stranding opacity perhaps suggestive of cystitis. 3. Bibasilar predominant pulmonary opacities with minimal air bronchograms suggesting pneumonia rather than atelectasis. 4. 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 Electronically Signed: Alin Granados DO at 21:44 EST , ADDENDUM: 06/30/231 IMPRESSION: 1. Possible deep pelvic abscess versus dialysis related pseudocyst and findings suggestive of acute sigmoid colonic diverticulitis without a discrete pericolonic abscess in the region of colonic wall thickening. 2. Urinary bladder wall thickening and hazy stranding opacity perhaps suggestive of cystitis. 3. Bibasilar predominant pulmonary opacities with minimal air bronchograms suggesting pneumonia rather than atelectasis. 4. 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 N.B. : Raymundo Scott OT, confirmed on 06/30/2023 21:51:31 (ET) that the healthcare facility has received the radiology report. Electronically Signed: Alin Granados DO at 21:44 EST , Physical Exam Const alert, oriented x3, no apparent distress, average body habitus and well nourished Constitutional Narrative: Older, white male, sitting up in bed, family at bedside, patient appears comfortable and nontoxic, interacts appropriately HEENT normocephalic, head/scalp atraumatic, hearing grossly normal bilaterally and moist oral mucous membranes Neck no lymphadenopathy and supple Neck Narrative: Trachea midline, no thyroid enlargement General: trachea midline Resp normal respiratory effort, no retractions, no use of accessory muscles and clear to auscultation bilaterally Auscultation: Negative for crackles, rhonchi or wheezes Cardio regular rate, regular rhythm, S1 normal heart sound, S2 normal heart sound, no murmurs, no rub, no gallops and no clicks GI normal to inspection, nondistended, normoactive bowel sounds, soft to palpation and non-tender Extremity no clubbing, cyanosis or edema Neuro oriented x3, moves all extremities and no focal motor deficits Speech: speech normal Psych affect normal Psych Narrative: Very pleasant, interacts appropriately Assessment & Plan Assessment/Plan (1) ESRD (end stage renal disease): (2) Status post peritoneal dialysis: (3) Acute diverticulitis: PLAN: Plan Acute diverticulitis -Patient with ongoing fevers -Tmax overnight was 100.8 -CTmax in the last 24 hours has been 99.9tures are -1 of 2 at 48 hours with 1 culture being positive for gram-positive cocci however I do suspect this is contaminant but finalization is pending -Repeat cultures are pending -Repeat CBC in a.m. Fevers/leukocytosis -Etiology is unclear -Rapid COVID is negative -White count remains elevated with no signs of trending down despite antibiotic use -Will broaden from Zosyn to vancomycin and cefepime -CT of the chest with left-sided infiltrate however do not think that explains everything -Sed rate and CRP markedly elevated so repeat CT abdomen pelvis was performed and there is questional abscess -ID consulted and will continue vancomycin, Zosyn, Flagyl for now -Plan is for PD catheter out on Tuesday and it sounds like ID would like this done prior to discharge End-stage renal disease secondary to polycystic kidney disease -PD catheter has been problematic and will be removed once he is clinically stable -Will have patient follow-up with general surgery after discharge -Tunneled dialysis catheter placed on 06/29/2023 -Patient is tolerating hemodialysis well -UA is unremarkable for infection and urine culture is negative -Nephrology is following Constipation -Resolved Hypoxia -Resolved Anemia secondary to chronic renal disease -Hemoglobin is stable Hypertension -Continue home amlodipine -Continue home Lasix -Continue home hydralazine -Continue home hydrochlorothiazide -Continue ARB History of TIA -Restart home Plavix -History of PFO which was closed with open heart surgery in 1999 Restless leg syndrome -Continue home Requip GERD -Continue home PPI Hypothyroidism -Continue home levothyroxine Depression -Continue home duloxetine Insomnia -Continue home trazodone Cognitive impairment -Patient was placed on Aricept 5 mg once daily by PCP -Will continue DVT prophylaxis -Heparin SQ twice daily CODE STATUS -Full code Charges/Coding Visit Charges Inpatient E&M: 88480 Subs Hosp L2
[2023-07-01] MEDS: CEFEPIME IV (17:49)
[2023-07-01] MEDS: NORMAL SALINE 0.9% IV (17:49)
[2023-07-01] MEDS: Temazepam 15 MG Capsule PO (22:22)
[2023-07-01] MEDS: Acetaminophen 325 MG Tablet 650 MG PO (22:25)
[2023-07-02] VITALS (17 sets, daily range): BP systolic 1–176; BP diastolic 80–97; PULSE 102–112; RESP 14–18; TEMP 36.7–37.7; O2SAT 92–97; BMI 26.7
[2023-07-02] MEDS: 0.9% Saline Lock 10 ML Syringe IV ×2 (05:40→14:08)
[2023-07-02] MEDS: metroNIDAZOLE 500 MG/100 ML BAG 100 MG IV ×3 (05:41→20:48)
[2023-07-02] MEDS: hydrALAZINE 50 MG Tablet PO ×3 (05:41→20:49)
[2023-07-02] MEDS: Levothyroxine 100 MCG Tablet PO (05:41)
[2023-07-02] MEDS: Acetaminophen 325 MG Tablet 650 MG PO ×2 (05:45→23:28)
[2023-07-02 08:29] LABS: Absolute Lymphocyte Count 1.25 X10^3/uL (0.83-4.51); Absolute Neutrophil Count 6.9 X10^3/uL (2.0-7.7); Basophil# 0.04 X10^3/uL; Basophil% 0.4 % (0-1); Eosinophil# 0.72 X10^3/uL; Eosinophils% 7.3 % (0-5); Hematocrit 24.8 % (40-54); Hemoglobin 8.2 g/dL (13.0-16.5); Lymphocyte # 1.25 X10^3/ul (0.83-4.51); Lymphocyte % 12.7 % (19-41); Mean Corp Hgb Conc 33.1 g/dL (32-36); Mean Corpuscular Volume 96.9 fL (80-94); Mean Platelet Vol. 10.1 fl (6.2-12.0); Monocyte# 0.81 X10^3/uL; Monocyte% 8.2 % (0-10); NRBC Flagged by Analyzer 0 % (0-5); Neutrophil # 6.94 X10^3/uL (2.7-7.7); Neutrophil % 70.8 % (47-70); Platelet Count 295 K/mm3 (150-450); RBC Distribution Width SD 42.8 fl (35.1-43.9); Red Blood Count 2.56 M/mm3 (4.6-6.2); White Blood Count 9.8 K/mm3 (4.4-11.0)
[2023-07-02 08:57] LABS: Anion Gap 7 (5-15); BUN 38 mg/dL (7-18); BUN/Creat Ratio 8.6 RATIO (10-20); Chloride 111 mmol/L (98-107); Creatinine, Serum 4.42 mg/dL (0.70-1.30); EST Glomerular Filtration Rate 14 mL/min (>60); Est Glom Filt Rate - Afr Amer 17 mL/min (>60); Estimated Creatinine Clearance 14.19 ml/min; Glucose 84 mg/dL (74-106); Potassium 3.3 mmol/L (3.5-5.1); Sodium Level 138 mmol/L (136-145)
--- NOTE | 2023-07-02 10:00 | PN.SURG_ITS ---
Subjective Subjective Patient has no complaints Objective Data Objective Data Vital Signs: Vital Signs Temp Pulse Resp BP Pulse Ox O2 Del Method O2 Flow Rate 98.5 F 109 H 18 157/82 H 95 Room Air 3 07/02/23 09:55 07/02/23 09:55 07/02/23 09:55 07/02/23 09:55 07/02/23 09:55 07/02/23 09:55 06/30/23 10:46 Oxygen Flow Rate (L/min) 3 Oxygen Delivery Method Room Air Weight: 176 lb 5.917 oz Body Mass Index (BMI) 26.7 Intake & Output: Intake and Output for Last 24 Hours 06/30/23 07/01/23 07/02/23 23:59 23:59 23:59 Intake Total 375 / 375 350 / 350 1200 / 1200 Output Total 890 / 890 875 / 875 Balance -515 / -515 350 / 350 325 / 325 Lab / Micro Data 07/02/23 07:42 07/02/23 07:42 Labs: Laboratory Results - last 24 hr 07/01/23 09:00: MRSA (PCR) Negative 07/02/23 07:42: WBC 9.8, RBC 2.56 L, Hgb 8.2 L, Hct 24.8 L, MCV 96.9 H, MCH 32.0, MCHC 33.1, RDW Std Deviation 42.8, RDW Coeff of David 12.0, Plt Count 295, MPV 10.1, Immature Gran % (Auto) 0.600, Neut % (Auto) 70.8 H, Lymph % (Auto) 1 2.7 L, [place] % (Auto) 8.2, Eos % (Auto) 7.3 H, Baso % (Auto) 0.4, Absolute Neuts (auto) 6.9, Absolute Lymphs (auto) 1.25, Nucleated RBC % 0, Sodium 138, Po tassium 3.3 L, Chloride 111 H, Carbon Dioxide 20.0 L, Anion Gap 7, BUN 38 H, Creatinine 4.42 H, Estim Creat Clear Calc 14.19, Est GFR (MDRD) Af Amer 17 L, Est GFR (MDRD) Non-Af 14 L, BUN/Creatinine Ratio 8.6 L, Glucose 84, Calcium 9.0 Micro: Microbiology 06/27/23 10:49 Blood Culture (Wb) - Anticubital Left Blood Culture - Preliminary 06/29/23 13:42 Nasal Secretion SARS-CoV-2 Antigen (Rapid) - Final 06/27/23 10:49 Blood Culture (Wb) - Anticubital Right Blood Culture - Preliminary No growth in 48 hours. Physical Exam Const oriented x3 and no apparent distress Resp normal respiratory effort GI soft to palpation and non-tender Assessment & Plan Assessment/Plan (1) ESRD (end stage renal disease): PLAN: Patient is tolerating dialysis through his catheter. The site appears well and he is having no issues with that. He is not complaining of any abdominal pain and he is tolerating regular diet. Infectious disease would like his peritoneal dialysis catheter removed for discharge and Dr Malloy has him scheduled for Tuesday. Avila Hubbard MD Pager: [facility] [address] [place] [address], [address] [place] [address] Office:
[2023-07-02] MEDS: Losartan Potassium 100 MG Tablet PO (10:11)
[2023-07-02] MEDS: Fluticasone 0.05% 1 SPRAY NASAL.SRY 2 SPRAY NASAL (10:12)
[2023-07-02] MEDS: Donepezil HCl 5 MG Tablet PO (10:12)
[2023-07-02] MEDS: Heparin Injection (Vial) 5,000 UNIT/ML VIAL 5000 UNIT SC ×2 (10:12→20:49)
[2023-07-02] MEDS: Furosemide 40 MG Tablet PO (10:13)
[2023-07-02] MEDS: Pramipexole Di-HCl 0.25 MG Tablet PO (10:13)
[2023-07-02] MEDS: Pantoprazole Sodium 40 MG Tablet PO (10:13)
[2023-07-02] MEDS: amLODIPine 5 MG Tablet PO ×2 (10:14→20:49)
--- NOTE | 2023-07-02 13:31 | PN.HOSP_ITS ---
Reason for Visit Reason for Visit: Abdominal pain Subjective Subjective Patient states he is feeling well and is anxious to go home. I did discuss the plan with him per infectious disease to get his PD catheter out on Tuesday and await their recommendations for antibiotics but he should be able to go home on Tuesday after his catheter is pulled. He is currently on dialysis and tolerating it well. He has been afebrile for 24 hours his tachycardia is improving and his white count has resolved. Objective Data Objective Data Vital Signs: Vital Signs Temp Pulse Resp BP Pulse Ox O2 Del Method O2 Flow Rate 98.4 F 104 H 16 151/83 H 96 Room Air 3 07/02/23 11:30 07/02/23 13:00 07/02/23 13:00 07/02/23 13:00 07/02/23 13:00 07/02/23 13:00 06/30/23 10:46 Oxygen Flow Rate (L/min) 3 Oxygen Delivery Method Room Air Weight: 80 kg Body Mass Index (BMI) 26.7 Intake & Output: Intake and Output for Last 24 Hours 06/30/23 07/01/23 07/02/23 23:59 23:59 23:59 Intake Total 375 / 375 350 / 350 1200 / 1200 Output Total 890 / 890 875 / 875 Balance -515 / -515 350 / 350 325 / 325 Lab / Micro Data 07/02/23 07:42 07/02/23 07:42 Labs: Laboratory Results - last 24 hr 07/02/23 07:42: WBC 9.8, RBC 2.56 L, Hgb 8.2 L, Hct 24.8 L, MCV 96.9 H, MCH 32.0, MCHC 33.1, RDW Std Deviation 42.8, RDW Coeff of David 12.0, Plt Count 295, MPV 10.1, Immature Gran % (Auto) 0.600, Neut % (Auto) 70.8 H, Lymph % (Auto) 12.7 L, [place] % (Auto) 8.2, Eos % (Auto) 7.3 H, Baso % (Auto) 0.4, Absolute Neuts (auto) 6.9, Absolute Lymphs (auto) 1.25, Nucleated RBC % 0, Sodium 138, Potassium 3.3 L, Chloride 111 H, Carbon Dioxide 20.0 L, Anion Gap 7, BUN 38 H, Creatinine 4.42 H, Estim Creat Clear Calc 14.19, Est GFR (MDRD) Af Amer 17 L, Est GFR (MDRD) Non-Af 14 L, BUN/Creatinine Ratio 8.6 L, Glucose 84, Calcium 9.0 Micro: Microbiology 06/27/23 10:49 Blood Culture (Wb) - Anticubital Left Blood Culture - Preliminary 06/27/23 10:49 Blood Culture (Wb) - Anticubital Right Blood Culture - Final No growth in 5 days. 06/29/23 13:42 Nasal Secretion SARS-CoV-2 Antigen (Rapid) - Final Physical Exam Const alert, oriented x3, no apparent distress, average body habitus and well nourished Constitutional Narrative: Older, white male, sitting up in bed, currently on dialysis and dialysis nurses at the bedside, patient appears comfortable, nontoxic and interacts appropriately HEENT normocephalic, head/scalp atraumatic, hearing grossly normal bilaterally and moist oral mucous membranes Resp normal respiratory effort, no retractions, no use of accessory muscles and clear to auscultation bilaterally Auscultation: Negative for crackles, rales, rhonchi or wheezes Cardio regular rhythm, S1 normal heart sound, S2 normal heart sound, no murmurs, no rub, no gallops and no clicks Cardio Narrative: Mild tachycardia on dialysis GI normal to inspection, nondistended, normoactive bowel sounds, soft to palpation and non-tender Extremity no clubbing, cyanosis or edema Neuro oriented x3, moves all extremities and no focal motor deficits Speech: speech normal Psych affect normal Psych Narrative: Very pleasant, interacts appropriately Assessment & Plan Assessment/Plan (1) ESRD (end stage renal disease): (2) Status post peritoneal dialysis: (3) Acute diverticulitis: PLAN: Plan Acute diverticulitis/possible pelvic abscess -Patient with ongoing fevers -Tmax overnight was 100.8 -CTmax in the last 24 hours has been 99.9tures are -1 of 2 at 48 hours with 1 culture being positive for gram-positive cocci however I do suspect this is contaminant but finalization is pending -Repeat cultures are pending -Repeat CBC in a.m. Fevers/leukocytosis -Etiology is unclear but suspect related to possible pelvic abscess or infected cyst -Rapid COVID is negative -White count remains elevated with no signs of trending down despite antibiotic use -Will broaden from Zosyn to vancomycin and cefepime -CT of the chest with left-sided infiltrate however do not think that explains everything -Sed rate and CRP markedly elevated so repeat CT abdomen pelvis was performed and there is questional abscess -ID consulted and will continue vancomycin, Zosyn, Flagyl for now -Plan is for PD catheter out on Tuesday and it sounds like ID would like this done prior to discharge End-stage renal disease secondary to polycystic kidney disease -PD catheter has been problematic and will be removed once he is clinically stable -Will have patient follow-up with general surgery after discharge -Tunneled dialysis catheter placed on 06/29/2023 -Patient is tolerating hemodialysis well -UA is unremarkable for infection and urine culture is negative -Nephrology is following Constipation -Resolved Hypoxia -Resolved Anemia secondary to chronic renal disease -Hemoglobin is stable Hypertension -Continue home amlodipine -Continue home Lasix -Continue home hydralazine -Continue home hydrochlorothiazide -Continue ARB History of TIA -Restart home Plavix -History of PFO which was closed with open heart surgery in 1999 Restless leg syndrome -Continue home Requip GERD -Continue home PPI Hypothyroidism -Continue home levothyroxine Depression -Continue home duloxetine Insomnia -Continue home trazodone Cognitive impairment -Patient was placed on Aricept 5 mg once daily by PCP -Will continue DVT prophylaxis -Heparin SQ twice daily CODE STATUS -Full code Charges/Coding Visit Charges Inpatient E&M: 71878 Subs Hosp L2
[2023-07-02] MEDS: PureFlow B 3K Dialysis Soln 1 BAG 6 BAG PF (14:07)
[2023-07-02] MEDS: 0.9% Normal Saline 1,000 ML IV.SOLN. 1000 ML OPERA.SITE (14:07)
[2023-07-02] MEDS: Heparin 10,000 UNITS/10 ML Vial IV (14:08)
[2023-07-02] MEDS: Vancomycin IV 500 MG/100 ML BAG 100 MG IV (17:02)
[2023-07-02] MEDS: NORMAL SALINE 0.9% IV (18:05)
[2023-07-02] MEDS: CEFEPIME IV (18:05)
[2023-07-02] MEDS: Temazepam 15 MG Capsule PO (23:28)
--- NOTE | 2023-07-02 23:46 | CPS ---
PATIENT SET UP WITH OWN PAP UNIT FOR THE NIGHT.
[2023-07-03] VITALS (8 sets, daily range): BP systolic 126–158; BP diastolic 80–92; PULSE 100–111; RESP 18; TEMP 36.4–36.7; O2SAT 95–98
[2023-07-03] MEDS: Levothyroxine 100 MCG Tablet PO (05:06)
[2023-07-03] MEDS: metroNIDAZOLE 500 MG/100 ML BAG 100 MG IV ×3 (05:06→21:31)
[2023-07-03] MEDS: hydrALAZINE 50 MG Tablet PO ×3 (05:06→20:39)
[2023-07-03] MEDS: 0.9% Saline Lock 10 ML Syringe IV ×3 (05:06→21:33)
[2023-07-03 06:34] LABS: Absolute Lymphocyte Count 1.57 X10^3/uL (0.83-4.51); Absolute Neutrophil Count 7.2 X10^3/uL (2.0-7.7); Basophil# 0.07 X10^3/uL; Basophil% 0.7 % (0-1); Eosinophil# 0.61 X10^3/uL; Eosinophils% 5.9 % (0-5); Hematocrit 24.1 % (40-54); Lymphocyte # 1.57 X10^3/ul (0.83-4.51); Lymphocyte % 15.1 % (19-41); Mean Corp Hgb Conc 33.2 g/dL (32-36); Mean Corpuscular Hgb 31.9 pg (27.0-32.0); Mean Platelet Vol. 9.9 fl (6.2-12.0); Monocyte# 0.88 X10^3/uL; Monocyte% 8.5 % (0-10); NRBC Flagged by Analyzer 0 % (0-5); Neutrophil # 7.15 X10^3/uL (2.7-7.7); Neutrophil % 68.7 % (47-70); Platelet Count 323 K/mm3 (150-450); RBC Distribution Width SD 42.5 fl (35.1-43.9); Red Blood Count 2.51 M/mm3 (4.6-6.2); White Blood Count 10.4 K/mm3 (4.4-11.0)
--- NOTE | 2023-07-03 08:44 | PN.SURG_ITS ---
Subjective Subjective Patient is doing well with no complaints. He is tolerating a transitional diet. Objective Data Objective Data Vital Signs: Vital Signs Temp Pulse Resp BP Pulse Ox O2 Del Method O2 Flow Rate 98.1 F 111 H 18 158/88 H 95 Room Air 3 07/03/23 07:40 07/03/23 07:40 07/03/23 07:40 07/03/23 07:40 07/03/23 07:40 07/03/23 07:40 06/30/23 10:46 Oxygen Flow Rate (L/min) 3 Oxygen Delivery Method Room Air Weight: 176 lb 5.917 oz Body Mass Index (BMI) 26.7 Intake & Output: Intake and Output for Last 24 Hours 07/01/23 07/02/23 07/03/23 23:59 23:59 23:59 Intake Total 350 / 350 1550 / 1550 100 / 100 Output Total 1570 / 1570 Balance 350 / 350 -20 / -20 100 / 100 Lab / Micro Data 07/03/23 05:46 07/02/23 07:42 Labs: Laboratory Results - last 24 hr 07/02/23 07:42: Sodium 138, Potassium 3.3 L, Chloride 111 H, Carbon Dioxide 20.0 L, Anion Gap 7, BUN 38 H, Creatinine 4.42 H, Estim Creat Clear Calc 14.19, Est GFR (MDRD) Af Amer 17 L, Est GFR (MDRD) Non-Af 14 L, BUN/Creatinine Ratio 8.6 L, Glucose 84, Calcium 9.0 07/03/23 05:46: WBC 10.4, RBC 2.51 L, Hgb 8.0 L, Hct 24.1 L, MCV 96.0 H, MCH 31.9, MCHC 33.2, RDW Std Deviation 42.5, RDW Coeff of David 12.0, Plt Count 323, MPV 9.9, Immature Gran % (Auto) 1.100 H, Neut % (Auto) 68.7, Lymph % (Auto) 15.1 L, [place] % (Auto) 8.5, Eos % (Auto) 5.9 H, Baso % (Auto) 0.7, Absolute Neuts (auto) 7.2, Absolute Lymphs (auto) 1.57, Nucleated RBC % 0 Micro: Microbiology 06/27/23 10:49 Blood Culture (Wb) - Anticubital Left Blood Culture - Preliminary 06/27/23 10:49 Blood Culture (Wb) - Anticubital Right Blood Culture - Final No growth in 5 days. 06/29/23 13:42 Nasal Secretion SARS-CoV-2 Antigen (Rapid) - Final Physical Exam Const oriented x3 and no apparent distress Resp normal respiratory effort GI normal to inspection, nondistended, normoactive bowel sounds Assessment & Plan Assessment/Plan (1) ESRD (end stage renal disease): PLAN: The patient is tentatively scheduled tomorrow for peritoneal dialysis catheter removal with Dr Malloy. Patient is doing well and tolerating a diet. I will make him n.p.o. after midnight and I held his heparin for the morning. Avila Hubbard MD Pager: [facility] [address] [place] [address], [address] [place] [phone] Office:
[2023-07-03] MEDS: Potassium Chloride Oral Tablet 20 MEQ 40 MEQ PO (09:48)
[2023-07-03] MEDS: Donepezil HCl 5 MG Tablet PO (09:49)
[2023-07-03] MEDS: Losartan Potassium 100 MG Tablet PO (09:49)
[2023-07-03] MEDS: Fluticasone 0.05% 1 SPRAY NASAL.SRY 2 SPRAY NASAL (09:49)
[2023-07-03] MEDS: Heparin Injection (Vial) 5,000 UNIT/ML VIAL 5000 UNIT SC ×2 (09:50→20:41)
[2023-07-03] MEDS: Furosemide 40 MG Tablet PO (09:50)
[2023-07-03] MEDS: amLODIPine 5 MG Tablet PO ×2 (09:51→20:39)
[2023-07-03] MEDS: Pramipexole Di-HCl 0.25 MG Tablet PO (09:51)
[2023-07-03] MEDS: Pantoprazole Sodium 40 MG Tablet PO (09:51)
--- NOTE | 2023-07-03 13:50 | PCM.PN.HOSP ---
Reason for Visit Reason for Visit: Abdominal pain Subjective Subjective Patient denies any issues. He states he is feeling well. Sitting up in a chair and watching television. Objective Data Objective Data Vital Signs: Vital Signs Temp Pulse Resp BP Pulse Ox O2 Del Method O2 Flow Rate 97.9 F 101 H 18 137/91 H 96 Room Air 3 07/03/23 13:45 07/03/23 13:45 07/03/23 13:45 07/03/23 13:45 07/03/23 13:45 07/03/23 13:45 06/30/23 10:46 Oxygen Flow Rate (L/min) 3 Oxygen Delivery Method Room Air Weight: 80 kg Body Mass Index (BMI) 26.7 Intake & Output: Intake and Output for Last 24 Hours 07/01/23 07/02/23 07/03/23 23:59 23:59 23:59 Intake Total 350 / 350 1550 / 1550 100 / 100 Output Total 1570 / 1570 Balance 350 / 350 -20 / -20 100 / 100 Lab / Micro Data 07/03/23 05:46 07/02/23 07:42 Labs: Laboratory Results - last 24 hr 07/03/23 05:46: WBC 10.4, RBC 2.51 L, Hgb 8.0 L, Hct 24.1 L, MCV 96.0 H, MCH 31.9, MCHC 33.2, RDW Std Deviation 42.5, RDW Coeff of David 12.0, Plt Count 323, MPV 9.9, Immature Gran % (Auto) 1.100 H, Neut % (Auto) 68.7, Lymph % (Auto) 15.1 L, [place] % (Auto) 8.5, Eos % (Auto) 5.9 H, Baso % (Auto) 0.7, Absolute Neuts (auto) 7.2, Absolute Lymphs (auto) 1.57, Nucleated RBC % 0 Micro: Microbiology 06/30/23 20:00 Blood Culture (Wb) - Anticubital Right Blood Culture - Preliminary No growth in 48 hours. 06/30/23 20:09 Blood Culture (Wb) - Anticubital Left Blood Culture - Preliminary No growth in 48 hours. 06/27/23 10:49 Blood Culture (Wb) - Anticubital Left Blood Culture - Preliminary 06/27/23 10:49 Blood Culture (Wb) - Anticubital Right Blood Culture - Final No growth in 5 days. 06/29/23 13:42 Nasal Secretion SARS-CoV-2 Antigen (Rapid) - Final Physical Exam Const alert, oriented x3, no apparent distress, average body habitus and well nourished Constitutional Narrative: Older, white male, sitting up in bed, sitting up in a chair at the bedside, watching television, patient appears comfortable, nontoxic and interacts appropriately HEENT normocephalic, head/scalp atraumatic, hearing grossly normal bilaterally and moist oral mucous membranes HEENT Narrative: No thrush Resp normal respiratory effort, no retractions, no use of accessory muscles and clear to auscultation bilaterally Auscultation: Negative for crackles, rales, rhonchi or wheezes Cardio regular rate, regular rhythm, S1 normal heart sound, S2 normal heart sound, no murmurs, no rub, no gallops and no clicks GI normal to inspection, nondistended, normoactive bowel sounds, soft to palpation, non-tender and non-distended Extremity no clubbing, cyanosis or edema Neuro oriented x3, moves all extremities and no focal motor deficits Speech: speech normal Psych affect normal Psych Narrative: Very pleasant, interacts appropriately Assessment & Plan Assessment/Plan (1) ESRD (end stage renal disease): (2) Status post peritoneal dialysis: (3) Acute diverticulitis: PLAN: Plan Acute diverticulitis/possible pelvic abscess -Patient with ongoing fevers -Tmax overnight was 100.8 -Patient has been afebrile for the last 24 hours -Repeat cultures are no growth at 48 hours -Continue vancomycin/Zosyn/Flagyl -PD catheter removal tomorrow -Repeat CBC in a.m. -ID following and once they make recommendations for antibiotics okay for discharge Fevers/leukocytosis -Resolved End-stage renal disease secondary to polycystic kidney disease -PD catheter has been problematic and will be removed once he is clinically stable -Will have patient follow-up with general surgery after discharge -Tunneled dialysis catheter placed on 06/29/2023 -Patient is tolerating hemodialysis well -UA is unremarkable for infection and urine culture is negative -Nephrology is following Anemia secondary to chronic renal disease -Hemoglobin is stable Hypertension -Continue home amlodipine -Continue home Lasix -Continue home hydralazine -Continue home hydrochlorothiazide -Continue ARB -Add low-dose metoprolol to help with heart rate and blood pressure which are mildly elevated History of TIA -Continue home Plavix -History of PFO which was closed with open heart surgery in 1999 Restless leg syndrome -Continue home Requip GERD -Continue home PPI Hypothyroidism -Continue home levothyroxine Depression -Continue home duloxetine Insomnia -Continue home trazodone Cognitive impairment -Patient was placed on Aricept 5 mg once daily by PCP -Will continue DVT prophylaxis -Heparin SQ twice daily CODE STATUS -Full code Charges/Coding Visit Charges Inpatient E&M: 53055 Subs Hosp L2
--- NOTE | 2023-07-03 15:59 | PCM.PN.REN ---
Subjective Subjective No new complaints Objective Data Objective Data Vital Signs: Vital Signs Temp Pulse Resp BP Pulse Ox O2 Del Method O2 Flow Rate 97.9 F 101 H 18 137/91 H 96 Room Air 3 07/03/23 13:45 07/03/23 13:48 07/03/23 13:45 07/03/23 13:48 07/03/23 13:45 07/03/23 13:45 06/30/23 10:46 Oxygen Flow Rate (L/min) 3 Oxygen Delivery Method Room Air Weight: 80 kg Body Mass Index (BMI) 26.7 Intake & Output: Intake and Output for Last 24 Hours 07/01/23 07/02/23 07/03/23 23:59 23:59 23:59 Intake Total 350 / 350 1550 / 1550 1400 / 1400 Output Total 1570 / 1570 Balance 350 / 350 -20 / -20 1400 / 1400 Lab / Micro Data 07/03/23 05:46 07/02/23 07:42 Labs: Laboratory Results - last 24 hr 07/03/23 05:46: WBC 10.4, RBC 2.51 L, Hgb 8.0 L, Hct 24.1 L, MCV 96.0 H, MCH 31.9, MCHC 33.2, RDW Std Deviation 42.5, RDW Coeff of David 12.0, Plt Count 323, MPV 9.9, Immature Gran % (Auto) 1.100 H, Neut % (Auto) 68.7, Lymph % (Auto) 15.1 L, [place] % (Auto) 8.5, Eos % (Auto) 5.9 H, Baso % (Auto) 0.7, Absolute Neuts (auto) 7.2, Absolute Lymphs (auto) 1.57, Nucleated RBC % 0 Micro: Microbiology 06/27/23 10:49 Blood Culture (Wb) - Anticubital Left Blood Culture - Final Anaerococcus prevotii 06/30/23 20:00 Blood Culture (Wb) - Anticubital Right Blood Culture - Preliminary No growth in 48 hours. 06/30/23 20:09 Blood Culture (Wb) - Anticubital Left Blood Culture - Preliminary No growth in 48 hours. 06/27/23 10:49 Blood Culture (Wb) - Anticubital Right Blood Culture - Final No growth in 5 days. 06/29/23 13:42 Nasal Secretion SARS-CoV-2 Antigen (Rapid) - Final Physical Exam Narrative Alert awake oriented x 3 No obvious distress s1s2 no murmurs lungs clear abdomen mild tenderness right side. PD catheter intact. no edema Tunneled HD catheter right chest dressing clean, dry and intact Assessment & Plan Assessment/Plan (1) ESRD (end stage renal disease): PLAN: History of CKD stage V, Now ESRD several issues with peritoneal dialysis catheter. Had to be readjusted. Despite this catheter has not been working. Now has severe abdominal pain, CT abdomen consistent with diverticulitis. S/p tunneled dialysis catheter placement. HD TTS schedule Diverticulitis. New onset. Tenderness is better today. for PD catheter removal tomorrow
[2023-07-03] MEDS: CEFEPIME IV (16:25)
[2023-07-03] MEDS: NORMAL SALINE 0.9% IV (16:25)
[2023-07-03] MEDS: Metoprolol Tartrate 25 MG Tablet PO (20:38)
[2023-07-03] MEDS: Acetaminophen 325 MG Tablet 650 MG PO (20:40)
[2023-07-03] MEDS: Temazepam 15 MG Capsule PO (20:40)
[2023-07-04] VITALS (12 sets, daily range): BP systolic 122–150; BP diastolic 73–93; PULSE 68–98; RESP 16–18; TEMP 36.6–37; O2SAT 94–98; BMI 26.8
[2023-07-04 06:19] LABS: Absolute Lymphocyte Count 1.55 X10^3/uL (0.83-4.51); Absolute Neutrophil Count 8.8 X10^3/uL (2.0-7.7); Basophil# 0.08 X10^3/uL; Basophil% 0.7 % (0-1); Eosinophil# 0.57 X10^3/uL; Eosinophils% 4.7 % (0-5); Hematocrit 25.7 % (40-54); Hemoglobin 8.3 g/dL (13.0-16.5); Lymphocyte # 1.55 X10^3/ul (0.83-4.51); Lymphocyte % 12.8 % (19-41); Mean Corp Hgb Conc 32.3 g/dL (32-36); Mean Corpuscular Hgb 31.6 pg (27.0-32.0); Mean Corpuscular Volume 97.7 fL (80-94); Mean Platelet Vol. 10.1 fl (6.2-12.0); Monocyte# 0.93 X10^3/uL; Monocyte% 7.7 % (0-10); NRBC Flagged by Analyzer 0 % (0-5); Neutrophil # 8.82 X10^3/uL (2.7-7.7); Neutrophil % 72.9 % (47-70); Platelet Count 366 K/mm3 (150-450); RBC Distribution Width CV 12.2 % (11.6-14.6); RBC Distribution Width SD 43.3 fl (35.1-43.9); Red Blood Count 2.63 M/mm3 (4.6-6.2); White Blood Count 12.1 K/mm3 (4.4-11.0)
[2023-07-04] MEDS: metroNIDAZOLE 500 MG/100 ML BAG 100 MG IV ×3 (06:21→21:56)
[2023-07-04] MEDS: hydrALAZINE 50 MG Tablet PO ×2 (06:26→22:01)
[2023-07-04] MEDS: Levothyroxine 100 MCG Tablet PO (06:26)
[2023-07-04 06:37] LABS: International Normalized Ratio 1.2; Partial Thromboplast Time 33.7 Seconds (24.1-36.2); Prothrombin Time (Protime)PT. 15.1 SECONDS (11.7-14.9)
[2023-07-04 06:41] LABS: Anion Gap 7 (5-15); BUN 35 mg/dL (7-18); BUN/Creat Ratio 8.2 RATIO (10-20); Calcium,Total 8.8 mg/dL (8.5-10.1); Chloride 111 mmol/L (98-107); Creatinine, Serum 4.26 mg/dL (0.70-1.30); EST Glomerular Filtration Rate 15 mL/min (>60); Est Glom Filt Rate - Afr Amer 18 mL/min (>60); Estimated Creatinine Clearance 14.72 ml/min; Glucose 87 mg/dL (74-106); Potassium 3.7 mmol/L (3.5-5.1); Sodium Level 140 mmol/L (136-145)
--- NOTE | 2023-07-04 12:00 | PCM.PN.SRG ---
Subjective Subjective Patient denies any abdominal pain, patient is ready to go home. Patient stated he tolerated diet and had normal bowel function over the weekend. Objective Data Objective Data Vital Signs: Vital Signs Temp Pulse Resp BP Pulse Ox O2 Del Method O2 Flow Rate 98.2 F 98 18 136/85 H 95 Room Air 3 07/04/23 08:30 07/04/23 08:30 07/04/23 08:30 07/04/23 08:30 07/04/23 08:30 07/04/23 08:30 06/30/23 10:46 Oxygen Flow Rate (L/min) 3 Oxygen Delivery Method Room Air Weight: 176 lb 5.917 oz Body Mass Index (BMI) 26.7 Intake & Output: Intake and Output for Last 24 Hours 07/02/23 07/03/23 07/04/23 23:59 23:59 23:59 Intake Total 1550 / 1550 1550 / 1650 200 / 200 Output Total 1570 / 1570 Balance -20 / -20 1550 / 1650 200 / 200 Lab / Micro Data 07/04/23 05:10 07/04/23 05:10 Labs: Laboratory Results - last 24 hr 07/04/23 05:10: WBC 12.1 H, RBC 2.63 L, Hgb 8.3 L, Hct 25.7 L, MCV 97.7 H, MCH 31.6, MCHC 32.3, RDW Std Deviation 43.3, RDW Coeff of David 12.2, Plt Count 366, MPV 10.1, Immature Gran % (Auto) 1.200 H, Neut % (Auto) 72.9 H, Lymph % (Auto) 12.8 L, [place] % (Auto) 7.7, Eos % (Auto) 4.7, Baso % (Auto) 0.7, Absolute Neuts (auto) 8.8 H, Absolute Lymphs (auto) 1.55, Nucleated RBC % 0, PT 15.1 H, INR 1.2, APTT 33.7, Sodium 140, Potassium 3.7, Chloride 111 H, Carbon Dioxide 22.0, Anion Gap 7, BUN 35 H, Creatinine 4.26 H, Estim Creat Clear Calc 14.72, Est GFR (MDRD) Af Amer 18 L, Est GFR (MDRD) Non-Af 15 L, BUN/Creatinine Ratio 8.2 L, Glucose 87, Calcium 8.8 Micro: Microbiology 06/27/23 10:49 Blood Culture (Wb) - Anticubital Left Blood Culture - Final Anaerococcus prevotii 06/30/23 20:00 Blood Culture (Wb) - Anticubital Right Blood Culture - Preliminary No growth in 48 hours. 06/30/23 20:09 Blood Culture (Wb) - Anticubital Left Blood Culture - Preliminary No growth in 48 hours. 06/27/23 10:49 Blood Culture (Wb) - Anticubital Right Blood Culture - Final No growth in 5 days. 06/29/23 13:42 Nasal Secretion SARS-CoV-2 Antigen (Rapid) - Final Physical Exam Const oriented x3 and no apparent distress Resp normal respiratory effort Cardio regular rate GI soft to palpation and non-tender GI Narrative: Peritoneal dialysis catheter in place Inspection: abdominal distention Assessment & Plan Assessment/Plan (1) ESRD (end stage renal disease): PLAN: The patient is scheduled for peritoneal dialysis catheter removal, possible laparoscopic -- discussed with patient the risk and benefits including not limited to bleeding, infection, possible laparoscopy. Patient no further question this time. Did discuss with patient that he is on multiple antibiotics his white blood cells did go up to 12 today doubt he would be going home today. ID also consulted. Sandra Malloy M.D. Pager: [phone] [facility] [address] [place] [address], [address] [place] [address] Office: [phone]
[2023-07-04] MEDS: 0.9% Normal Saline (500mL Bag) 500 ML 15 ML IV (13:16)
[2023-07-04] MEDS: Metoprolol Tartrate 25 MG Tablet PO ×2 (13:33→22:01)
--- NOTE | 2023-07-04 14:22 | CASEMGMT ---
TC miky Munoz at [facility], she is aware that the patient will not be at dialysis tomorrow morning.
[2023-07-04] MEDS: Bupivacaine Mpf 0.5% 30 ML VIAL (14:32)
--- NOTE | 2023-07-04 14:49 | PCM.OPRPT ---
Report of Operation Date of Procedure: 07/04/23 Pre-Operative Diagnosis: Peritoneal dialysis catheter adjustment/removal Post-Operative Diagnosis: Same Surgery/Procedure Performed:: Removal of peritoneal dialysis catheter Surgeon: Sandra Malloy Type of Anesthesia: Local MAC Anesthesiologist: Kamari Prakash Special Medications: Patient is on cefepime, vancomycin, Flagyl on the floor due to leukocytosis Specimen's removed: Tip of the peritoneal dialysis catheter sent for culture Estimated Blood Loss (mL): < 10 c Description of Procedure: Patient is brought to operating placed myelogram table. A timeout was Slim Bare. Correct patient and procedure, site, positioning, special equipment prior to beginning procedure. MAC anesthesia was induced. Patient's arms were tucked with appropriate padding. Abdomen was prepped and draped in usual sterile fashion with Betadine. Local anesthesia of 0.5% Marcaine total of 17 cc was used throughout the case. This was infiltrated at the exit site of the peritoneal dialysis catheter and along its tract until it entered the abdomen. 15 blade scalpel was used to enlarge the exit site of the peritoneal dialysis catheter. Iris scissors used to dissect the cuff away from the surrounding subcutaneous tissue x 2. Once both cuffs were completely free of the catheter pulled easily without any difficulty. The tip of the catheter was cut and sent for culture. Hemostasis was achieved with electrocautery. 4 x 4/pressure dressing was placed over the previous exit site. Patient tolerated procedure well was taken to the PACU in stable condition. Complications none
--- NOTE | 2023-07-04 16:19 | PN.HOSP_ITS ---
Reason for Visit Reason for Visit: Diagnoses Diverticulitis of intestine, part unspecified, without perforation or abscess w ithout bleeding (06/27/23) End stage renal disease (06/27/23) Chronic kidney disease, unspecified (06/27/23) Dependence on renal dialysis (06/27/23) Objective Data Objective Data Vital Signs: Vital Signs Temp Pulse Resp BP Pulse Ox O2 Del Method O2 Flow Rate 98 F 68 18 125/84 H 96 Nasal Cannula 2 07/04/23 15:25 07/04/23 15:25 07/04/23 15:25 07/04/23 15:25 07/04/23 15:25 07/04/23 15:28 07/04/23 15:28 Oxygen Flow Rate (L/min) 2 Oxygen Delivery Method Nasal Cannula Weight: 176 lb 5.917 oz Body Mass Index (BMI) 26.8 Intake & Output: Intake and Output for Last 24 Hours 07/02/23 07/03/23 07/04/23 23:59 23:59 23:59 Intake Total 1550 / 1550 1550 / 1650 330.25 / 330.25 Output Total 1570 / 1570 Balance -20 / -20 1550 / 1650 330.25 / 330.25 Lab / Micro Data 07/04/23 05:10 07/04/23 05:10 Labs: Laboratory Results - last 24 hr 07/04/23 05:10: WBC 12.1 H, RBC 2.63 L, Hgb 8.3 L, Hct 25.7 L, MCV 97.7 H, MCH 31.6, MCHC 32.3, RDW Std Deviation 43.3, RDW Coeff of David 12.2, Plt Count 366, MPV 10.1, Immature Gran % (Auto) 1.200 H, Neut % (Auto) 72.9 H, Lymph % (Auto) 12.8 L, Kendall % (Auto) 7.7, Eos % (Auto) 4.7, Baso % (Auto) 0.7, Absolute Neuts (auto) 8.8 H, Absolute Lymphs (auto) 1.55, Nucleated RBC % 0, PT 15.1 H, INR 1.2, APTT 33.7, Sodium 140, Potassium 3.7, Chloride 111 H, Carbon Dioxide 22.0, Anion Gap 7, BUN 35 H, Creatinine 4.26 H, Estim Creat Clear Calc 14.72, Est GFR (MDRD) Af Amer 18 L, Est GFR (MDRD) Non-Af 15 L, BUN/Creatinine Ratio 8.2 L, Glucose 87, Calcium 8.8 Micro: Microbiology 06/27/23 10:49 Blood Culture (Wb) - Anticubital Left Blood Culture - Final Anaerococcus prevotii 06/30/23 20:00 Blood Culture (Wb) - Anticubital Right Blood Culture - Preliminary No growth in 48 hours. 06/30/23 20:09 Blood Culture (Wb) - Anticubital Left Blood Culture - Preliminary No growth in 48 hours. 06/27/23 10:49 Blood Culture (Wb) - Anticubital Right Blood Culture - Final No growth in 5 days. 06/29/23 13:42 Nasal Secretion SARS-CoV-2 Antigen (Rapid) - Final Physical Exam Narrative Seen and examined. In meantime patient had permacath placed on the right side. On hemodialysis. Plan for tunneled catheter removed. Prior to that, patient had dialysis catheter inserted about April 2023 but never used it. Physical exam General: Alert, Oriented x3, Cooperative, overweight BMI 27.0 kg/m? HEENT: Atraumatic, PERRLA, EOMI, Normocephalic Oral: Oral mucosa moist. Neck:Supple, No JVD, Negative Carotid Bruits Chest wall/Lungs: Air entry diminished in bilateral lung bases. No crepitation/rhonchi Cardiovascular: Regular rate, Regular Rhythm, Normal S1, Normal S2, systolic murmur present. Abdomen: Soft, no tenderness/guarding or rigidity. No tenderness around peritoneal dialysis catheter. Bowel sounds present : No dysuria. No renal angle tenderness. No suprapubic tenderness. Extremities: No edema, Capillary Refill Less than 3 Seconds Skin: No rashes, No breakdown Musculoskeletal: No Tenderness to Palpation of Joints or Extremities. ROM intact. Neurological: Cranial nerves II-XII grossly intact, DTR 2+/4. No acute focal neurological deficit. Psych/Mental Status: Flat affect. Assessment & Plan Assessment/Plan (1) ESRD (end stage renal disease): (2) Status post peritoneal dialysis: (3) Acute diverticulitis: PLAN: Plan 73-year-old gentleman admitted with abdominal pain that started on the day of admission, sudden onset. This started when he tried to infuse fluid to the peritoneal his catheter which seems unable to use/blocked. She had nausea but denied vomiting. Fever was present. Also complained of mild dysuria. 1. Acute diverticulitis-: Patient had CT abdomen/Pelvis shows acute sigmoid diverticulitis with increased markings surrounding peritoneal fat. Tip of peritoneal catheter in left side of pelvis. Small amount of perihepatic fluid. Patient admitted on [facility] floor. Started on IV Zosyn. General surgery Dr. Strong was consulted. Patient was treated with IV antibiotic. ID was consulted. For now patient is on vancomycin cefepime and Flagyl. Blood cultures is positive of single sample of GPC but PCR panel not done on that sample. Afebrile for more than 48 hours. #2 end-stage renal disease, due to polycystic kidney disease and associated dysuria: UA shows RBC 0, WBC 0, bacteria 0, protein 500, nitrite and LE negative therefore seems UTI unlikely. Patient may have burning micturition from other reason/noninfectious/inflammatory cystitis/urethritis but he is on antibiotic. CT shows evidence of polycystic kidney disease, stable hepatic cyst. Patient not a started on dialysis through peritoneal catheter yet. Plan for tunneled dialysis catheter, right IJ today. 3/4: Tunneled dialysis catheter was inserted on 06/29/2023. Patient on hemodialysis. Will need outpatient set up of hemodialysis before discharge. #3 anemia of chronic renal disease with burning micturition-kidney function being monitored #4 hypertension-on antihypertensive medication. On low-dose metoprolol. #5 history of TIAs/PFO-patient states that he was placed on Plavix because of PFO which was closed with open heart surgery in about 1999. Plavix is held. Last echo in October 22 shows EF 70%, stage I diastolic dysfunction suggestive of chronic HFpEF. Normal left atrium, bubble contrast study negative for interatrial shunt. Reported intact atrial septum. Normal mitral valve. Mild TR, PASP 30 mmHg #6 possible dementia-patient states that he was started on Aricept 5 mg once daily by PCP. Continued 7. Hypothyroidism -Continue home levothyroxine CODE STATUS full. Charges/Coding Visit Charges Inpatient E&M: 85857 Subs Hosp L2
[2023-07-04] MEDS: CEFEPIME IV (16:23)
[2023-07-04] MEDS: NORMAL SALINE 0.9% IV (16:23)
--- NOTE | 2023-07-04 16:35 | PCM.PN.ID ---
Physical Exam Narrative Feeling better, no abd pain, no fever Const alert and no apparent distress Resp normal air movement and clear to auscultation bilaterally Cardio regular rate and regular rhythm GI soft to palpation, non-tender and non-distended Skin no rashes or lesions noted ID ID: Route of nutrition/ use of supplements: [] Nutritional Intake: [] IV Site: [] Lainez Catheter: [] Assessment & Plan Assessment/Plan (1) ESRD (end stage renal disease): (2) Status post peritoneal dialysis: (3) Acute diverticulitis: PLAN: PD cath removed today. CT showed nonspecific fluid collection and diverticulitis. Ok for home with 4 more days po cipro and flagyl. Wrote rx. Will follow as needed
[2023-07-04] MEDS: traZODone 50 MG Tablet PO (22:01)
[2023-07-04] MEDS: amLODIPine 5 MG Tablet PO (22:01)
[2023-07-04] MEDS: Cholecalciferol (VIT D3) 25 MCG TABLET (1,000 UNITS) 50 MCG PO (22:02)
[2023-07-04] MEDS: Acetaminophen 325 MG Tablet 650 MG PO (22:02)
[2023-07-05] VITALS (13 sets, daily range): BP systolic 115–195; BP diastolic 81–98; PULSE 80–94; RESP 14–18; TEMP 36.7–36.8; O2SAT 94–100; BMI 26.7; BMI 26.6
[2023-07-05] MEDS: metroNIDAZOLE 500 MG/100 ML BAG 100 MG IV (05:40)
[2023-07-05] MEDS: Levothyroxine 100 MCG Tablet PO (05:40)
[2023-07-05] MEDS: hydrALAZINE 50 MG Tablet PO (05:40)
[2023-07-05 06:49] LABS: Vancomycin, Random Level 8.3 ug/mL (0.0-15.0)
--- NOTE | 2023-07-05 07:33 | PCM.RX.CS ---
Consult Antibiotic Management Pharmacy has been consulted to manage selected antibiotic: Vancomycin Type of Intervention Type of Consult: Follow-up Prior Doses of Antibiotics Prior Doses of Antibiotics Received/Current Regimen: last received vanc 500mg x1 after HD on 07/02/23 Labs Labs: Sodium 140 mmol/L (136-145) 07/04/23 05:10 Potassium 3.7 mmol/L (3.5-5.1) 07/04/23 05:10 Chloride 111 mmol/L (98-107) H 07/04/23 05:10 Carbon Dioxide 22.0 mmol/L (21.0-32.0) 07/04/23 05:10 Anion Gap 7 (5-15) 07/04/23 05:10 BUN 35 mg/dL (7-18) H 07/04/23 05:10 Creatinine 4.26 mg/dL (0.70-1.30) H 07/04/23 05:10 Est GFR (MDRD) Af Amer 18 mL/min (>60) L 07/04/23 05:10 Est GFR (MDRD) Non-Af 15 mL/min (>60) L 07/04/23 05:10 BUN/Creatinine Ratio 8.2 RATIO (10-20) L 07/04/23 05:10 Glucose 87 mg/dL (74-106) 07/04/23 05:10 Random Vancomycin 8.3 ug/mL (0.0-15.0) 07/05/23 05:52 Microbiology Microbiology: Microbiology 06/27/23 10:49 Blood Culture (Wb) - Anticubital Left Blood Culture - Final Anaerococcus prevotii 06/30/23 20:00 Blood Culture (Wb) - Anticubital Right Blood Culture - Preliminary No growth in 48 hours. 06/30/23 20:09 Blood Culture (Wb) - Anticubital Left Blood Culture - Preliminary No growth in 48 hours. 06/27/23 10:49 Blood Culture (Wb) - Anticubital Right Blood Culture - Final No growth in 5 days. 06/29/23 13:42 Nasal Secretion SARS-CoV-2 Antigen (Rapid) - Final Dosing Weight Weight used for dosin kg Estimated Creatinine Clearance Estimated Creatinine Clearance: on HD Goal Trough Goal Trough: 15-20 mcg/mL Pharmacy Plan for Drug Dosing Pharmacy Plan for Drug Dosing: The pre-dialysis random vanc level drawn at 05:52 today was [address]. Per [facility] protocol for dosing vanc in HD patients, will give a one-time dose of vanc 1000mg today after HD. Will repeat a pre-dialysis random vanc level before the next HD session on as the patient is on a // schedule for HD. Pharmacy Service will continue to monitor and adjust dosing as required. Follow-Up Labs Follow-Up Labs: Trough: Vancomycin (random pre-HD) Date/Time Labs Ordered Labs to be done on [date and time ordered]: 07/07/23 0600
--- NOTE | 2023-07-05 07:43 | PN.SURG_ITS ---
Subjective Subjective Patient denies abdominal pain currently getting ready for dialysis. Objective Data Objective Data Vital Signs: Vital Signs Temp Pulse Resp BP Pulse Ox O2 Del Method O2 Flow Rate 98.1 F 92 16 135/87 H 94 Room Air 2 07/05/23 04:00 07/05/23 05:40 07/05/23 04:00 07/05/23 05:40 07/05/23 04:00 07/05/23 04:00 07/04/23 15:28 Oxygen Flow Rate (L/min) 2 Oxygen Delivery Method Room Air Weight: 176 lb 5.917 oz Body Mass Index (BMI) 26.8 Intake & Output: Intake and Output for Last 24 Hours 07/03/23 07/04/23 07/05/23 23:59 23:59 23:59 Intake Total 1550 / 1650 480.25 / 480.25 100 / 100 Balance 1550 / 1650 480.25 / 480.25 100 / 100 Lab / Micro Data 07/04/23 05:10 07/04/23 05:10 Labs: Laboratory Results - last 24 hr 07/05/23 05:52: Random Vancomycin 8.3 Micro: Microbiology 06/27/23 10:49 Blood Culture (Wb) - Anticubital Left Blood Culture - Final Anaerococcus prevotii 06/30/23 20:00 Blood Culture (Wb) - Anticubital Right Blood Culture - Preliminary No growth in 48 hours. 06/30/23 20:09 Blood Culture (Wb) - Anticubital Left Blood Culture - Preliminary No growth in 48 hours. 06/27/23 10:49 Blood Culture (Wb) - Anticubital Right Blood Culture - Final No growth in 5 days. 06/29/23 13:42 Nasal Secretion SARS-CoV-2 Antigen (Rapid) - Final Physical Exam Const oriented x3 and no apparent distress Resp normal respiratory effort Cardio regular rate GI soft to palpation and non-tender GI Narrative: Previous PD catheter site healing well just with 4 x 4's over the top and tape. Inspection: Negative for abdominal distention Assessment & Plan Assessment/Plan (1) ESRD (end stage renal disease): PLAN: Okay to change PD catheter site daily and as needed until healed. Continue low fiber diet for about 3 weeks. Patient follow-up with me in the office in about 2 weeks. Sandra Malloy M.D. Pager: [phone] [facility] [address] [place] [address], [address] [place] [address] Office: [phone]
[2023-07-05] MEDS: 0.9% Normal Saline 1,000 ML IV.SOLN. 1000 ML OPERA.SITE (07:57)
[2023-07-05] MEDS: PureFlow B 3K Dialysis Soln 1 BAG 6 BAG PF (07:58)
[2023-07-05] MEDS: 0.9% Saline Lock 10 ML Syringe IV ×2 (07:58→10:30)
[2023-07-05] MEDS: Pramipexole Di-HCl 0.25 MG Tablet PO (08:50)
--- NOTE | 2023-07-05 08:57 | NURSING ---
pt having hemodialysis treatment currently-see thier flow sheet
[2023-07-05] MEDS: 0.9% Normal Saline 1,000 ML IV.SOLN. 200 ML IV (10:30)
[2023-07-05] MEDS: Heparin 10,000 UNITS/10 ML Vial IV (10:31)
[2023-07-05] MEDS: Fluticasone 0.05% 1 SPRAY NASAL.SRY 2 SPRAY NASAL (10:54)
[2023-07-05] MEDS: Furosemide 40 MG Tablet PO (10:56)
[2023-07-05] MEDS: Donepezil HCl 5 MG Tablet PO (10:56)
[2023-07-05] MEDS: Pantoprazole Sodium 40 MG Tablet PO (10:56)
[2023-07-05] MEDS: Losartan Potassium 100 MG Tablet PO (10:56)
[2023-07-05] MEDS: Clopidogrel Bisulfate 75 MG Tablet PO (10:57)
[2023-07-05] MEDS: Metoprolol Tartrate 25 MG Tablet PO (10:57)
[2023-07-05] MEDS: amLODIPine 5 MG Tablet PO (10:57)
--- NOTE | 2023-07-05 11:40 | CASEMGMT ---
Addendum entered by Zayra Hernandez 07/05/23 14:09: Updated Tammy at [facility] that pt dc'd today and will be at dialysis on . Original Note: RN CM into pt room, pt up in room. Pt denies any homegoing needs. Visitors present at bedside. Pt is aware of dialysis schedule and this is placed on his dc instructions.
--- NOTE | 2023-07-05 11:47 | PCM.DC ---
Discharge Instructions Diet Discharge Diet: Soft diet (Soft diet for 3 days.) Activity Discharge Activity: Return to Normal Activity Weight Bearing Status: Weight bearing as tolerated Dressing / Incision Call your doctor if you observe: Fever of 101 or Higher, Coldness, Increased Pain, Numbness or Tingling, Change in Color, Inability to urinate, Inability to have a bowel movement, Shortness of breath, Dizziness, Fainting spells, Swelling in the ankles, Chest pain, Prolonged hiccupping, Increased palpitations (irregular heartbeat) and Calf discomfort Follow Up Care When: IN 2 WEEKS Test Results: Test results from this visit will be discussed in further detail at your follow-up appointment, if applicable. Discharge Plan Admission Admit Date/Time: 06/27/23 14:25 Primary Reason for Your Visit: Acute diverticulitis. Peritoneal catheter removed. ESRD on hemodialysis Attending Provider: Sky Romero Primary Care Provider: Angie Ivan Consulting Providers: Sandra Mlaloy; Jazmin Wilson; Isaías Roman; Sky Romero; Kiran George; Key Bryant; Stone Castañeda Instructions Additional Instructions / Restrictions: Patient was on HCTZ 50 mg twice daily decreased to 25 mg twice daily which is higher than recommended. Follow with PCP. Discharge Orders/Prescriptions Prescriptions: New ciprofloxacin HCl [Cipro] 500 mg tablet 500 mg PO DAILY Qty: 4 0RF metronidazole 500 mg tablet 500 mg PO TID Qty: 12 0RF Continued pxgasomp-qjv-vritj acid 300 mcg-lycopene 600 mcg-lutein 300 mcg tablet 300-600-300 mcg tablet 1 tab PO DAILY olmesartan 40 mg tablet 40 mg PO DAILY clopidogrel 75 mg tablet 75 mg PO DAILY duloxetine 30 mg capsule,delayed release(DR/EC) 30 mg PO DAILY hydralazine 50 mg tablet 50 mg PO TID levothyroxine 100 mcg capsule 100 mcg capsule 100 mcg PO DAILY turmeric root extract 500 mg capsule 500 mg PO DAILY furosemide 40 mg tablet 40 mg PO DAILY donepezil 5 mg tablet 5 mg PO DAILY trazodone 50 mg tablet 50 mg PO DAILY amlodipine 5 MG tablet 5 mg PO BID omeprazole 40 MG capsule 40 mg PO DAILY pramipexole 0.25 MG tablet 0.25 mg PO DAILY fluticasone propionate 1 SPRAY spray,suspension 2 spray NASAL DAILY cholecalciferol (vitamin D3) 2,000 UNIT capsule 2,000 unit PO BID Changed hydrochlorothiazide 25 mg tablet 25 mg PO BID 30 Days Qty: 0 0RF Referrals / Follow Up: Angie Ivan DO [Primary Care Provider] - Jazmin Wilson MD [Med Staff - Consulting] - Within 1 Month (On hemodialysis the right IJ tunnel dialysis catheter.) Disposition Disposition (needs filled in before D/C Order can be placed): Home, Self Care
--- NOTE | 2023-07-05 11:52 | PCM.DC.SUM ---
Providers Date of Admission: 06/27/23 Date of Discharge: 07/05/23 Primary Care Physician: Dr. Angie Ivan, DO Consultations 06/27/23 15:54 Consult: General Surgery Routine Consulting Provider: Sandra Malloy Reason for Consult: need for tunneled dialysis catheter EMERGENT Consult: No MD Notified: Yes Date Notified: 06/27/23 Time Notified: 14:32 Method of Notification: Verbal Consult: Nephrology Routine Consulting Provider: Jazmin Wilson Reason for Consult: ESRD EMERGENT Consult: No MD Notified: Yes Date Notified: 06/27/23 Time Notified: 14:32 Method of Notification: Verbal 07/01/23 07:51 Consult: Infectious Disease Routine Consulting Provider: Kiran George Reason for Consult: abd abscess EMERGENT Consult: No MD Notified: Yes Date Notified: 07/01/23 Time Notified: 07:51 Method of Notification: Answering Service Reason For Visit: ACUTE DIVERTICULITIS, ABDOMINAL PAIN Diagnosis Discharge Diagnosis (1) ESRD (end stage renal disease): Status: Acute Code(s): N18.6 - End stage renal disease Plan 73-year-old gentleman admitted with abdominal pain that started on the day of admission, sudden onset. This started when he tried to infuse fluid to the peritoneal his catheter which seems unable to use/blocked. She had nausea but denied vomiting. Fever was present. Also complained of mild dysuria. 1. Acute diverticulitis-: Patient had CT abdomen/Pelvis shows acute sigmoid diverticulitis with increased markings surrounding peritoneal fat. Tip of peritoneal catheter in left side of pelvis. Small amount of perihepatic fluid. Patient admitted on [facility] floor. Started on IV Zosyn. General surgery Dr. Strong was consulted. Patient was treated with IV antibiotic. ID was consulted. For now patient is on vancomycin cefepime and Flagyl. Blood cultures is positive of single sample of GPC but PCR panel not done on that sample. Afebrile for more than 48 hours. 07/04: Patient afebrile for more than 72 hours. ID recommended and discharged on Cipro and Flagyl, prescription sent by ID. Blood cultures negative from 06/27, and . #2 end-stage renal disease, due to polycystic kidney disease and associated dysuria: UA shows RBC 0, WBC 0, bacteria 0, protein 500, nitrite and LE negative therefore seems UTI unlikely. Patient may have burning micturition from other reason/noninfectious/inflammatory cystitis/urethritis but he is on antibiotic. CT shows evidence of polycystic kidney disease, stable hepatic cyst. Patient not a started on dialysis through peritoneal catheter yet. Plan for tunneled dialysis catheter, right IJ today. 07/03: Tunneled dialysis catheter was inserted on 06/29/2023. Patient on hemodialysis. Will need outpatient set up of hemodialysis before discharge. 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 Wilson. Patient having dialysis today. #3 anemia of chronic renal disease due to ESRD/CKD. 07/04: Hemoglobin stable at 8.0 for last 3 days. #4 hypertension-on antihypertensive medication. On low-dose metoprolol. #5 history of TIAs/PFO-patient states that he was placed on Plavix because of PFO which was closed with open heart surgery in about 1999. Plavix is held. Last echo in October 22 shows EF 70%, stage I diastolic dysfunction suggestive of chronic HFpEF. Normal left atrium, bubble contrast study negative for interatrial shunt. Reported intact atrial septum. Normal mitral valve. Mild TR, PASP 30 mmHg #6 possible dementia-patient states that he was started on Aricept 5 mg once daily by PCP. Continued 7. Hypothyroidism -Continue home levothyroxine CODE STATUS full. Discharge medication reconciliation done. Discharge follow-up instructions completed. Discharge process discussed with the patient and all questions were answered to patient's satisfaction. Follow with PCP in 1 to 2 weeks Total time spent, exact 35 minutes on discharge meds reconciliation, examination, coordination of care with nurses and ancillary staff, review of imaging and blood test and discussion with the patient on follow-up instructions. Microbiology Past 72 Hours 06/27/23 10:49 Blood Culture (Wb) - Anticubital Left Blood Culture - Final Anaerococcus prevotii 06/30/23 20:00 Blood Culture (Wb) - Anticubital Right Blood Culture - Preliminary No growth in 48 hours. 06/30/23 20:09 Blood Culture (Wb) - Anticubital Left Blood Culture - Preliminary No growth in 48 hours. 06/27/23 10:49 Blood Culture (Wb) - Anticubital Right Blood Culture - Final No growth in 5 days. Laboratory Results 07/05/23 05:52: Random Vancomycin 8.3 Medications at Discharge Home Medications amlodipine 5 mg tablet 5 mg PO BID blood pressure 06/22/15 omeprazole 40 mg capsule,delayed release 40 mg PO DAILY gerd 06/22/15 hchuljgp-hg-oslgp 300 mcg-K 60 mcg-lycop 600 mcg-lutein 300 mcg tablet (Centrnabeel Haro) 1 tab PO DAILY multivitamin 04/06/18 olmesartan 40 mg tablet 40 mg PO DAILY 04/06/18 duloxetine 30 mg capsule,delayed release 30 mg PO DAILY mood 03/12/19 hydralazine 50 mg tablet 50 mg PO TID blood pressure 03/12/19 levothyroxine 100 mcg capsule 100 mcg PO DAILY thyroid 03/12/19 cholecalciferol (vitamin D3) 50 mcg (2,000 unit) capsule 2,000 unit PO BID supplement 03/20/19 fluticasone propionate 50 mcg/actuation nasal spray,suspension 2 spray NASAL DAILY nasal congestion 03/20/19 pramipexole 0.25 mg tablet 0.25 mg PO DAILY restless legs 03/20/19 clopidogrel 75 mg tablet 75 mg PO DAILY blood thinner 05/04/19 donepezil 5 mg tablet 5 mg PO DAILY mood 06/21/22 furosemide 40 mg tablet 40 mg PO DAILY diuretic 06/21/22 trazodone 50 mg tablet 50 mg PO DAILY sleep 06/21/22 turmeric root extract 500 mg capsule 500 mg PO DAILY 06/21/22 ciprofloxacin HCl 500 mg tablet (Cipro) 500 mg PO DAILY #4 tabs 07/04/23 metronidazole 500 mg tablet 500 mg PO TID #12 tabs 07/04/23 hydrochlorothiazide 25 mg tablet 25 mg PO BID wqater pill 30 days #0 tabs 07/05/23 Physical Exam Narrative Seen and examined. Patient getting hemodialysis through right IJ tunneled dialysis catheter. PD was removed yesterday. As per surgeon, PT catheter was not in pelvic cavity but on subcutaneous plane. Physical exam General: Alert, Oriented x3, Cooperative, overweight BMI 27.0 kg/m? HEENT: Atraumatic, PERRLA, EOMI, Normocephalic Oral: Oral mucosa moist. Neck:Supple, No JVD, Negative Carotid Bruits Chest wall/Lungs: Air entry diminished in bilateral lung bases. No crepitation/rhonchi Cardiovascular: Regular rate, Regular Rhythm, Normal S1, Normal S2, systolic murmur present. Abdomen: Soft, no tenderness/guarding or rigidity. Dressing is dry around peritoneal catheter site which is removed. Bowel sounds present : No dysuria. No renal angle tenderness. No suprapubic tenderness. Extremities: No edema, Capillary Refill Less than 3 Seconds Skin: No rashes, No breakdown Musculoskeletal: No Tenderness to Palpation of Joints or Extremities. ROM intact. Neurological: Cranial nerves II-XII grossly intact, DTR 2+/4. No acute focal neurological deficit. Psych/Mental Status: Flat affect. Weight / BMI Weight Weight: 175 lb 7.807 oz Body Mass Index (BMI) 26.6 ABG / Lab / Microbiology Data 07/04/23 05:10 07/04/23 05:10 Laboratory: Laboratory Results - last 24 hr 07/05/23 05:52: Random Vancomycin 8.3 Microbiology: Microbiology 06/27/23 10:49 Blood Culture (Wb) - Anticubital Left Blood Culture - Final Anaerococcus prevotii 06/30/23 20:00 Blood Culture (Wb) - Anticubital Right Blood Culture - Preliminary No growth in 48 hours. 06/30/23 20:09 Blood Culture (Wb) - Anticubital Left Blood Culture - Preliminary No growth in 48 hours. 06/27/23 10:49 Blood Culture (Wb) - Anticubital Right Blood Culture - Final No growth in 5 days. 06/29/23 13:42 Nasal Secretion SARS-CoV-2 Antigen (Rapid) - Final D/C Instructions Discharge Diet: Soft diet (Soft diet for 3 days.) Weight Bearing Status: Weight bearing as tolerated Call your doctor if you observe: Fever of 101 or Higher, Coldness, Increased Pain, Numbness or Tingling, Change in Color, Inability to urinate, Inability to have a bowel movement, Shortness of breath, Dizziness, Fainting spells, Swelling in the ankles, Chest pain, Prolonged hiccupping, Increased palpitations (irregular heartbeat) and Calf discomfort When: IN 2 WEEKS Meaningful Use Info Meaningful Use Diagnoses (Choose all that apply): None applicable Discharge Plan Admission Admit Date/Time: 06/27/23 14:25 Primary Reason for Your Visit: Acute diverticulitis. Peritoneal catheter removed. ESRD on hemodialysis Attending Provider: Sky Romero Primary Care Provider: Angie Ivan Consulting Providers: Sandra Malloy; Jazmin Wilson; Isaías Roman; Sky Romero; Kiran George; Key Bryant; Stone Castañeda Instructions Additional Instructions / Restrictions: Patient was on HCTZ 50 mg twice daily decreased to 25 mg twice daily which is higher than recommended. Follow with PCP. Discharge Orders/Prescriptions Prescriptions: New ciprofloxacin HCl [Cipro] 500 mg tablet 500 mg PO DAILY Qty: 4 0RF metronidazole 500 mg tablet 500 mg PO TID Qty: 12 0RF Continued lsxdkpgx-sld-lbyqz acid 300 mcg-lycopene 600 mcg-lutein 300 mcg tablet 300-600-300 mcg tablet 1 tab PO DAILY olmesartan 40 mg tablet 40 mg PO DAILY clopidogrel 75 mg tablet 75 mg PO DAILY duloxetine 30 mg capsule,delayed release(DR/EC) 30 mg PO DAILY hydralazine 50 mg tablet 50 mg PO TID levothyroxine 100 mcg capsule 100 mcg capsule 100 mcg PO DAILY turmeric root extract 500 mg capsule 500 mg PO DAILY furosemide 40 mg tablet 40 mg PO DAILY donepezil 5 mg tablet 5 mg PO DAILY trazodone 50 mg tablet 50 mg PO DAILY amlodipine 5 MG tablet 5 mg PO BID omeprazole 40 MG capsule 40 mg PO DAILY pramipexole 0.25 MG tablet 0.25 mg PO DAILY fluticasone propionate 1 SPRAY spray,suspension 2 spray NASAL DAILY cholecalciferol (vitamin D3) 2,000 UNIT capsule 2,000 unit PO BID Changed hydrochlorothiazide 25 mg tablet 25 mg PO BID 30 Days Qty: 0 0RF Referrals / Follow Up: Angie Ivan, [Primary Care Provider] - Jazmin Wilson MD [Med Staff - Consulting] - Within 1 Month (On hemodialysis the right IJ tunnel dialysis catheter.) Sandra Malloy MD [Med Staff - Active Staff] - Within 1 Month (Acute diverticulitis) Disposition Disposition (needs filled in before D/C Order can be placed): Home, Self Care Charges/Coding Visit Charges Inpatient E&M: 26422 Disch Hosp >30min
--- NOTE | 2023-07-05 12:25 | PCM.PN.REN ---
Subjective Subjective Seen on dialysis today. Abdominal discomfort is better. S/p removal of PD catheter yesterday. No nausea or vomiting. Possible discharge home today after dialysis. Objective Data Objective Data Vital Signs: Vital Signs Temp Pulse Resp BP Pulse Ox O2 Del Method O2 Flow Rate 98.3 F 94 18 149/98 H 97 Room Air 2 07/05/23 11:00 07/05/23 11:00 07/05/23 11:00 07/05/23 11:00 07/05/23 11:00 07/05/23 11:00 07/04/23 15:28 Oxygen Flow Rate (L/min) 2 Oxygen Delivery Method Room Air Weight: 79.6 kg Body Mass Index (BMI) 26.6 Intake & Output: Intake and Output for Last 24 Hours 07/03/23 07/04/23 07/05/23 23:59 23:59 23:59 Intake Total 1550 / 1650 480.25 / 480.25 100 / 100 Output Total 450 / 450 Balance 1550 / 1650 480.25 / 480.25 -350 / -350 Lab / Micro Data 07/04/23 05:10 07/04/23 05:10 Labs: Laboratory Results - last 24 hr 07/05/23 05:52: Random Vancomycin 8.3 Micro: Microbiology 06/27/23 10:49 Blood Culture (Wb) - Anticubital Left Blood Culture - Final Anaerococcus prevotii 06/30/23 20:00 Blood Culture (Wb) - Anticubital Right Blood Culture - Preliminary No growth in 48 hours. 06/30/23 20:09 Blood Culture (Wb) - Anticubital Left Blood Culture - Preliminary No growth in 48 hours. 06/27/23 10:49 Blood Culture (Wb) - Anticubital Right Blood Culture - Final No growth in 5 days. 06/29/23 13:42 Nasal Secretion SARS-CoV-2 Antigen (Rapid) - Final Physical Exam Narrative Alert awake oriented x 3 No obvious distress s1s2 no murmurs lungs clear abdomen mild tenderness right side. PD catheter intact. no edema Tunneled HD catheter right chest dressing clean, dry and intact Assessment & Plan Assessment/Plan (1) ESRD (end stage renal disease): PLAN: History of CKD stage V, Now ESRD several issues with peritoneal dialysis catheter. Had to be readjusted. Despite this catheter has not been working. Now has severe abdominal pain, CT abdomen consistent with diverticulitis. S/p tunneled dialysis catheter placement. HD TTS schedule. Seen on dialysis today Diverticulitis. Clinically better. PD catheter removed yesterday. We will plan for AV fistula placement as outpatient
== END 2023-07-05 13:01 | disposition home or self-care (01) | DRG 356 ==
LOC: ED 14:12 → MS3 14:23
PROVIDERS: Internal Medicine; Internal Medicine Infectious Disease; Internal Medicine Nephrology; Surgery; Admitting Provider Internal Medicine; Emergency Provider Emergency Medicine; PCP Internal Medicine; Visit Provider Internal Medicine
PROC: 0JH63XZ Insertion of Tunneled Vascular Access Device into Chest Subcutaneous Tissue and Fascia, Percutaneous Approach (ICD-10-PCS; principal; 2023-06-28 12:55)
PROC: 0WPG33Z Removal of Infusion Device from Peritoneal Cavity, Percutaneous Approach (ICD-10-PCS; CPT 49422; principal; 2023-07-04 13:50)
DX: K57.32 Diverticulitis of large intestine without perforation or abscess without bleeding (principal); N18.6 End stage renal disease; I13.2 Hypertensive heart and chronic kidney disease with heart failure and with stage 5 chronic kidney disease, or end stage renal disease; Q21.12 Patent foramen ovale; Q61.3 Polycystic kidney, unspecified; I50.32 Chronic diastolic (congestive) heart failure; D63.1 Anemia in chronic kidney disease; F03.90 Unspecified dementia, unspecified severity, without behavioral disturbance, psychotic disturbance, mood disturbance, and anxiety; Z99.2 Dependence on renal dialysis; E03.9 Hypothyroidism, unspecified; G25.81 Restless legs syndrome; K76.89 Other specified diseases of liver; K21.9 Gastro-esophageal reflux disease without esophagitis; K59.00 Constipation, unspecified; G47.00 Insomnia, unspecified; R09.02 Hypoxemia; Z79.02 Long term (current) use of antithrombotics/antiplatelets; Z79.899 Other long term (current) drug therapy; Z86.73 Personal history of transient ischemic attack (TIA), and cerebral infarction without residual deficits; Z87.891 Personal history of nicotine dependence
CPT/HCPCS: 36415; 71045; 71275; 74019; 74176; 74177; 77001; 80048; 80053; 80202; 81001; 83605; 83690; 83735; 84100; 85025; 85610; 85652; 85730; 86140; 87040; 87070; 87075; 87077; 87205; 87340; 87426; 87641; 90937; 93005; 94668; 99284; 99285; J7030; J7040; J7050; Q9967; A4216; C1750; G0257; J0744; J2405

== ENCOUNTER 2023-07-25 11:15 | Outpatient (RCR) | payer MEDICARE, OTHER, SELFPAY | END 2023-07-31 02:09 | disposition home or self-care (01) | LOC: MTLAB 11:15 | PROVIDERS: PCP Internal Medicine | DX: Z01.818 Encounter for other preprocedural examination (principal); N18.6 End stage renal disease | CPT/HCPCS: 36415 ==

== ENCOUNTER → 2023-08-05 | Outpatient (CLI) | payer MEDICARE, OTHER, SELFPAY ==
--- NOTE | 2023-08-05 12:47 | VDUE_ITS ---
Reason For Study: End stage renal disease Right Lower Arm Left Arm Proximal Radial artery diameter 3.1 x 3.6 Left Brachial artery diameter 5.6 x 5.6 mm. mm. Left Brachial artery waveform is triphasic . Proximal Radial artery waveform is Lateral Brachial vein diameter 2.8 x 3.1 mm. triphasic . Medial Brachial vein diameter 2.9 x 2.7 mm. Proximal Lateral Radial vein diameter 1.7 x Workforce Development Program Director Vein is present. 2.2 mm. Workforce Development Program Director Vein measures 2.3 mm. Proximal Medial Radial vein diameter 1.4 x Cephalic Vein at proximal upper arm measures 1.3 mm. 3.7 x 4.0 mm. Distal Radial artery diameter 3.6 x 3.5 mm. Cephalic vein at proximal upper arm depth Distal Lateral Radial vein diameter 1.7 x measures 2.7 mm. 1.9 mm. Cephalic Vein at mid upper arm measures 3.9 Distal Medial Radial vein diameter 1.2 x 1.2 x 4.2 mm. mm. Cephalic vein at mid upper arm depth Proximal Ulnar artery diameter 4.0 x 3.6 mm. measures 2.0 mm. Proximal Ulnar artery waveform is Cephalic Vein distal upper arm measures 4.0 triphasic . x 4.2 mm. Proximal Lateral Ulnar vein diameter 3.9 x Cephalic vein at distal upper arm depth 4.1 mm. measures 2.6 mm. Proximal Medial Ulnar vein diameter 3.5 x Cephalic Vein proximal forearm measures 2.4 3.8 mm. x 2.4 mm. Distal Ulnar artery diameter 1.7 x 1.9 mm. Cephalic Vein at mid forearm measures 2.1 x Distal Lateral Ulnar vein diameter 1.4 x 1.5 2.1 mm. mm. Cephalic Vein at distal forearm measures 1.7 Distal Medial Ulnar vein diameter 0.8 x 1.0 x 2 .1 mm. mm. Proximal Basilic vein measures 3.4 x 3.7 mm. Right Arm Proximal Basilic vein depth measures 6.6 mm. Right Brachial artery diameter 6.1 x 5.8 mm. Mid Basilic vein measures 1.9 x 1.8 mm. Right Brachial artery waveform is Mid Basilic vein depth measures 2.6 mm. triphasic . Distal Basilic vein measures 3.0 x 3.1 mm. Lateral Brachial vein diameter 5.1 x 4.9 mm. Distal Basilic vein depth measures 4.1 mm. Medial Brachial vein diameter 3.5 x 3.4 mm. Left Lower Arm Workforce Development Program Director Vein is present. Proximal Radial artery diameter 3.3 x 3.7 Workforce Development Program Director Vein measures 1.7 mm. mm. Cephalic Vein at proximal upper arm measures Proximal Radial artery waveform is 3.0 x 3.2 mm. triphasic . Cephalic vein at proximal upper arm depth Proximal Lateral Radial vein diameter 2.4 x measures 2.4 mm. 2.3 mm. Cephalic Vein at mid upper arm measures 3.4 Proximal Medial Radial vein diameter 1.8 x x 3.8 mm. 1.8 mm. Cephalic vein at mid upper arm depth Distal Radial artery diameter 3.3 x 3.6 mm. measures 2.8 mm. Distal Lateral Radial vein diameter 1.3 x Cephalic Vein distal upper arm measures 2.9 1.3 mm. x 3.3 mm. Distal Medial Radial vein diameter 1.1 x 1.2 Cephalic vein at distal upper arm depth mm. measures 1.8 mm. Proximal Ulnar artery diameter 4.5 x 4.7 mm. Cephalic Vein proximal forearm measures 2.3 Proximal Ulnar artery waveform is x 2.3 mm. triphasic . Cephalic Vein at mid forearm measures 2.2 x Proximal Lateral Ulnar vein diameter 3.5 x 2.3 mm. 3.5 mm. Cephalic Vein at distal forearm measures 1.8 Proximal Medial Ulnar vein diameter 1.6 x x 2.2 mm. 1.8 mm. Proximal Basilic vein measures 2.8 x 2.7 mm. Distal Ulnar artery diameter 1.6 x 1.8 mm. Proximal Basilic vein depth measures 5.9 mm. Distal Lateral Ulnar vein diameter 0.8 x 0.7 Mid Basilic vein measures 3.0 x 3.2 mm. mm. Mid Basilic vein depth measures 4.5 mm. Distal Medial Ulnar vein diameter 1.3 x 1.4 Distal Basilic vein measures 2.8 x 2.9 mm. mm. Distal Basilic vein depth measures 3.9 mm. VL/Dialysis Vein Map PRE-OP BILAT Interpretation Summary Right upper extremity arteries patent with normal waveforms and measurements ab ove. Left upper extremity arteries patent with normal waveforms and measurements abo ve. Right upper extremity veins patent with measurements above. Left upper extremity veins patent with measurements above. Ordering Physician: Jazmin Wilson Referring Physician: Angie Ivan D.O. Performed By: Anali Spring RVT ???
== END | disposition home or self-care (01) ==
LOC: CVS 12:46
PROVIDERS: PCP Internal Medicine; Referring Provider Internal Medicine Nephrology; Visit Provider Internal Medicine Nephrology
DX: Z01.818 Encounter for other preprocedural examination (principal); N18.6 End stage renal disease
CPT/HCPCS: 93985

== ENCOUNTER 2023-08-16 10:51 | Outpatient (RCR) | payer MEDICARE, OTHER, SELFPAY | END 2023-08-30 22:10 | disposition home or self-care (01) | LOC: MTLAB 10:51 | PROVIDERS: PCP Internal Medicine | DX: Z01.818 Encounter for other preprocedural examination (principal); N18.6 End stage renal disease | CPT/HCPCS: 36415 ==

== ENCOUNTER → 2023-09-01 | Outpatient (CLI) | payer MEDICARE, OTHER, SELFPAY ==
[2023-09-01 12:23] LABS: Absolute Neutrophil Count 2.7 X10^3/uL (2.0-7.7); Basophil# 0.05 X10^3/uL; Basophil% 1.1 % (0-1); Eosinophil# 0.21 X10^3/uL; Eosinophils% 4.4 % (0-5); Hematocrit 40.9 % (40-54); Hemoglobin 13.8 g/dL (13.0-16.5); Lymphocyte % 23.2 % (19-41); Mean Corp Hgb Conc 33.7 g/dL (32-36); Mean Corpuscular Hgb 32.3 pg (27.0-32.0); Mean Corpuscular Volume 95.8 fL (80-94); Mean Platelet Vol. 10.2 fl (6.2-12.0); Monocyte# 0.65 X10^3/uL; Monocyte% 13.7 % (0-10); NRBC Flagged by Analyzer 0 % (0-5); Neutrophil # 2.73 X10^3/uL (2.7-7.7); Neutrophil % 57.4 % (47-70); Platelet Count 197 K/mm3 (150-450); RBC Distribution Width CV 12.4 % (11.6-14.6); RBC Distribution Width SD 43.7 fl (35.1-43.9); Red Blood Count 4.27 M/mm3 (4.6-6.2); White Blood Count 4.8 K/mm3 (4.4-11.0)
[2023-09-01 12:42] LABS: Vitamin D,25 Hydroxy 82.8 ng/mL
[2023-09-01 12:45] LABS: ALB/GLOB Ratio 1.1 RATIO (0.9-2.4); AST(SGOT) 29 U/L (15-37); Alanine Aminotransfer ALT/SGPT 24 U/L (16-61); Albumin, Serum 3.8 g/dL (3.2-5.0); Alkaline Phosphatase 119 U/L (45-117); Anion Gap 8 (5-15); BUN 20 mg/dL (7-18); BUN/Creat Ratio 8.6 RATIO (10-20); Calcium,Total 8.5 mg/dL (8.5-10.1); Chloride 99 mmol/L (98-107); Creatinine, Serum 2.32 mg/dL (0.70-1.30); EST Glomerular Filtration Rate 29 mL/min (>60); Est Glom Filt Rate - Afr Amer 36 mL/min (>60); Globulin 3.5 g/dL (2.2-4.2); Glucose 89 mg/dL (74-106); Potassium 3.2 mmol/L (3.5-5.1); Protein, Total 7.3 g/dL (6.4-8.2); Sodium Level 137 mmol/L (136-145); Thyroid Stim Hormone (TSH) 2.41 uIU/mL (0.358-3.74)
[2023-09-01 14:39] LABS: Hemoglobin A1c 4.8 % (3.8-5.6)
== END | disposition home or self-care (01) ==
LOC: MTLAB 10:29
PROVIDERS: PCP Internal Medicine; Referring Provider Internal Medicine; Visit Provider Internal Medicine
DX: R73.01 Impaired fasting glucose (principal); E03.9 Hypothyroidism, unspecified; E55.9 Vitamin D deficiency, unspecified
CPT/HCPCS: 36415; 80053; 82306; 83036; 84443; 85025

== ENCOUNTER 2023-09-29 10:24 | Outpatient (RCR) | payer MEDICARE, OTHER, SELFPAY | END 2023-10-03 08:38 | disposition home or self-care (01) | LOC: MTLAB 10:24 | PROVIDERS: PCP Internal Medicine | DX: Z01.818 Encounter for other preprocedural examination (principal); N18.6 End stage renal disease | CPT/HCPCS: 36415 ==

== ENCOUNTER 2023-10-11 11:31 | Day surgery (SDC) | payer MEDICARE, OTHER, SELFPAY ==
[2023-10-11] VITALS (9 sets, daily range): BP systolic 108–139; BP diastolic 69–79; PULSE 66–76; RESP 16–18; TEMP 36.2–36.9; O2SAT 94–100; BMI 26.4
[2023-10-11] MEDS: 0.9% Normal Saline (500mL Bag) 500 ML 15 ML IV (11:58)
--- NOTE | 2023-10-11 14:20 | HP.PCM_ITS ---
HPI - General HPI Narrative ARBEN PORTER, is a 73 M who presents with ESRD on HD. Mapping revealed adequate left upper arm cephalic vein PFSH Medical History (Updated 09/20/23 @ 14:24 by Onelia Bernardo) Wears dentures Wears glasses Cancer Substance abuse Alcohol use Thyroid disease Arthritis History of renal disease Anemia High cholesterol Excessive bleeding Back pain Injury of head and neck History of diverticulitis Gastric reflux Former smoker Leg cramps History of echocardiogram History of stress test Cardiology follow-up encounter Depression Anxiety Kidney disease Dialysis patient GI bleed CPAP (continuous positive airway pressure) dependence DVT (deep venous thrombosis) TIA (transient ischemic attack) Valvular heart disease Polycystic kidney disease Hyperlipidemia Essential hypertension Malignant neoplasm of prostate Home Medications ?Medication ?Instructions ?Recorded ?Last Taken ?Type amlodipine 5 mg tablet 5 mg PO BID blood pressure 06/22/15 03/30/19 04:30 History 5 MG omeprazole 40 mg capsule,delayed 40 mg PO DAILY gerd 06/22/15 Unknown History release [id number] 300 mcg-K 60 1 tab PO DAILY multivitamin 04/06/18 06/27/23 History mcg-lycop 600 mcg-lutein 300 mcg tablet (Centrum Silver Men) olmesartan 40 mg tablet 40 mg PO DAILY 04/06/18 03/30/19 04:30 History 40 MG levothyroxine 100 mcg capsule 100 mcg PO DAILY thyroid 03/12/19 06/27/23 08:19 History cholecalciferol (vitamin D3) 50 2,000 unit PO BID supplement 03/20/19 06/27/23 08:00 History mcg (2,000 unit) capsule fluticasone propionate 50 1 spray NASAL QHS nasal congestion 03/20/19 06/26/23 22:17 History mcg/actuation nasal spray,suspension pramipexole 0.25 mg tablet 0.25 mg PO DAILY restless legs 03/20/19 Unknown History clopidogrel 75 mg tablet 75 mg PO DAILY blood thinner 05/04/19 10/10/23 History donepezil 5 mg tablet 5 mg PO DAILY mood 06/21/22 Unknown History furosemide 40 mg tablet 40 mg PO DAILY diuretic 06/21/22 Unknown History trazodone 50 mg tablet 100 mg PO QHS sleep 08/23/23 Unknown History Lactobacillus acidophilus 100 mg PO DAILY 09/20/23 Unknown History (Acidophilus capsule) duloxetine 60 mg capsule,delayed 60 mg PO DAILY 09/20/23 Unknown History release rosuvastatin 5 mg tablet 5 mg PO DAILY 09/20/23 Unknown History Allergy/AdvReac Type Severity Reaction Status Date / Time cashew nut Allergy Intermediate itching Verified 10/11/23 11:50 Family History (Reviewed 08/23/23 @ 15:41 by Niki Lugo NEIGHBORHOOD COORDINATOR, NEIGHBORHOOD COORDINATOR-C) Father , age 83 Cancer Surgical History (Updated 09/20/23 @ 14:24 by Onelia Bernardo) Hx of prostatectomy Hx of surgical procedure Status post trigger finger release History of repair of right rotator cuff Status post patent foramen ovale closure (~1999) History of carpal tunnel release of both wrists History of shoulder surgery History of ear, nose, and throat (ENT) surgery History of back surgery Social History (Reviewed 08/23/23 @ 15:35 by Niki Lugo NEIGHBORHOOD COORDINATOR, NEIGHBORHOOD COORDINATOR-C) Smoking Status: Former smoker how long ago did patient quit smoking: back in the alcohol intake: never caffeine: No ROS Constitutional Constitutional: Denies chills, fever(s), frequent falls, lethargy or weakness Eyes Eyes: Denies blind spots, change in vision or loss of vision ENT HEENT: Denies bleeding gums, hoarseness or sore throat Cardiovascular Cardiovascular: Denies abdominal pain, bluish discoloration of hand/feet, chest pain with activity, claudication, cold extremities, cyanosis, dyspnea on exertion, erythema on extremities, irregular heart rhythm, leg edema, leg ulcers, numbness in extremities or weakness in extremities Respiratory/Chest Respiratory/Chest: Denies cough, excessive phlegm production, shortness of breath at rest, shortness of breath with exertion or wheezing Gastrointestinal Gastrointestinal: Denies anorexia, change in stool character, constipation, diarrhea, melena or rectal bleeding Genitourinary Genitourinary: Denies dysuria or hematuria Musculoskeletal Musculoskeletal: Denies abnormal gait Integumentary Integumentary: Reports other Details: ; Denies erythema, non-healing lesions or wounds Neurologic Neurologic: Denies abnormal speech, focal weakness, headache(s), loss of vision, numbness, paresthesias or sensory deficit Hematologic/Lymphatic Hematologic/Lymphatic: Denies easy bleeding, easy bruising or lymphadenopathy Vital Signs Vital Signs Vital Signs: 10/11/23 11:51 10/11/23 11:51 Temperature 98.4 F Temperature Source Temporal Pulse Rate 67 Respiratory Rate 16 Respiratory Pattern Normal Blood Pressure 139/79 H Blood Pressure Mean 99 Blood Pressure Source Monitor Blood Pressure Position Semi-Fowlers Blood Pressure Location Right Arm Pulse Ox 98 Oxygen Delivery Method Room Air Weight Weight: 174 lb Body Mass Index (BMI) 26.4 Physical Exam Const alert, oriented x3, no apparent distress and healthy appearing General Appearance: cooperative; Negative for combative or lethargic Orientation / Consciousness: awake Exam Limitations: no limitations HEENT Head and Scalp: normocephalic and atraumatic Eyes EOMs intact bilaterally General Eye: normal appearance of both eyes Neck full ROM, no lymphadenopathy and thyroid normal General: trachea midline; Negative for lymphadenopathy or tenderness Thyroid: thyroid normal Resp normal respiratory effort and no use of accessory muscles Effort and Inspection: Negative for labored, stridor or audible wheezes Cardio regular rate and regular rhythm Back/Spine Cervical Spine: cervical ROM normal Extremity full ROM, normal capillary refill and no clubbing, cyanosis or edema Skin no rashes or lesions noted and no wounds Neuro oriented x3, CN's II-XII intact bilaterally, no focal motor deficits and no sensory deficits noted Psych thought process normal, cooperative, affect normal, speech normal and activity/motor behavior normal Assessment & Plan Assessment/Plan (1) ESRD (end stage renal disease): PLAN: -left arm fistula
[2023-10-11] MEDS: Cefazolin 2 GM in 0.9% Normal Saline (100mL Bag) 100 ML IV (14:25)
[2023-10-11] MEDS: Bupivacaine 0.25% 30 ML Vial (14:47)
[2023-10-11] MEDS: Lidocaine 1% (20 ml mdv) 20 ML Vial (14:47)
[2023-10-11] MEDS: Heparin Injection (Vial) 5,000 UNIT/ML VIAL 5000 UNIT (15:03)
--- NOTE | 2023-10-11 15:44 | EX.PCM.DISCH ---
Discharge Instructions Activity Lifting Restrictions: Do not lift > 20 lbs with left arm for 14 days Additional Activity Instructions:: Do not submerge incision for 14 days Dressing / Incision Call your doctor if your incision/area has: Sudden Increased Bleeding, Increased Pain/ Swelling and Foul Smelling Discharge Remove Dressing in: 2 days Cleanse incision/area with: Soap & Water Follow Up Care Test Results: Test results from this visit will be discussed in further detail at your follow-up appointment, if applicable. Discharge Plan Admission Attending Provider: Nacho Kenny Primary Care Provider: Angie Ivan Instructions Print Language: Liberian Discharge Orders/Prescriptions Prescriptions: New oxycodone 5 mg tablet 5 mg PO Q8H PRN (Reason: pain) 2 Days Qty: 6 0RF Continued Centrum Silver Men 300-600-300 mcg tablet 1 tab PO DAILY olmesartan 40 mg tablet 40 mg PO DAILY clopidogrel 75 mg tablet 75 mg PO DAILY levothyroxine 100 mcg capsule 100 mcg PO DAILY furosemide 40 mg tablet 40 mg PO DAILY donepezil 5 mg tablet 5 mg PO DAILY trazodone 50 mg tablet 100 mg PO QHS amlodipine 5 MG tablet 5 mg PO BID omeprazole 40 MG capsule 40 mg PO DAILY pramipexole 0.25 MG tablet 0.25 mg PO DAILY fluticasone propionate 1 SPRAY spray,suspension 1 spray NASAL QHS cholecalciferol (vitamin D3) 2,000 UNIT capsule 2,000 unit PO BID rosuvastatin 5 mg tablet 5 mg PO DAILY duloxetine 60 mg capsule,delayed release(DR/EC) 60 mg PO DAILY Acidophilus Capsule 100 mg PO DAILY Referrals / Follow Up: Angie Ivan DO [Primary Care Provider] - Disposition Disposition (needs filled in before D/C Order can be placed): Home, Self Care
--- NOTE | 2023-10-11 15:51 | PCM.OPRPT ---
Report of Operation Date of Procedure: 10/11/23 Pre-Operative Diagnosis: ESRD Post-Operative Diagnosis: same Surgery/Procedure Performed:: left brachio-cephalic fistula creation Surgeon: Nacho Kenny Type of Anesthesia: Local and MAC Estimated Blood Loss (mL): 15 Description of Procedure: HPI: Patient is a 73-year-old male with end-stage renal disease currently on dialysis via tunneled catheter. He had vein mapping which revealed a left upper arm cephalic vein which was satisfactory in nature. He presents now for fistula creation. Description of procedure: Upon obtaining form consent and verification correct patient procedure site patient taken the operating where he was positioned prepped and draped in usual sterile fashion. Deep sedation was administered by anesthesia and timeout was performed. Ultrasound used to evaluate the cephalic vein through the upper arm down to the antecubital crease where a ticket dispenser changer vein was identified connecting the cephalic vein to the deep system. This was in close proximity to the brachial artery bifurcation just distal to the antecubital crease. Skin overlying this location was then anesthetized 1% lidocaine and transverse incision made. Bovie electrocautery was then used to dissect down to subcutaneous tissue and self-retaining retractor put in position. Sharp dissection then used to dissect free the cubital branch with sidebranches ligated with silk ties and divided. The ticket dispenser changer branch down to the deep system was likewise dissected free with sharp dissection and felt to be the best option for fistula creation. Next dissection was carried down to the fascia which was then incised exposing the brachial artery. Sharp dissection then used to mobilize the brachial artery down onto the bifurcation with care taken identify protect adjacent nerve. A right angle was used to place a vessel from the proximal brachial artery as well as the radial ulnar and interosseous branches individually. Patient was in heparinized obstacle for 3 minutes. The ticket dispenser changer vein was then ligated at its confluence with the deep system and divided. The vein was then flushed with heparinized saline and dilated up to 3 and half millimeters without significant resistance. The vein was then marked to maintain orientation. The brachial artery was then occluded with Vesseloops longitudinal arteriotomy was created 11 blade extended Sanford scissors. Anastomosis was performed using a 6-0 Prolene running fashion. Practically suture line vessels were backbled and after completing suture line clamps removed and satisfactory stasis was noted. There is palpable thrill through the cephalic vein all the way up to the cephalic arch and has a palpable radial ulnar pulse in the wrist. Heparin is then reversed with protamine and the incision inspected hemostasis. Incision was then closed with 3-0 Vicryl, 4 Monocryl and Dermabond for the skin. At the inclusion of case patient was taken to the recovery room with dissipate discharge home.
== END 2023-10-11 17:15 | disposition home or self-care (01) ==
LOC: SDC 11:32 → AC 11:33
PROVIDERS: PCP Internal Medicine; Referring Provider Surgery Trauma Surgery; Visit Provider Surgery Trauma Surgery
PROC: (CPT 36818; principal; 2023-10-11 12:45)
DX: I12.0 Hypertensive chronic kidney disease with stage 5 chronic kidney disease or end stage renal disease (principal); N18.6 End stage renal disease; G47.30 Sleep apnea, unspecified; Z87.891 Personal history of nicotine dependence; Z79.01 Long term (current) use of anticoagulants; Z79.899 Other long term (current) drug therapy; Z86.73 Personal history of transient ischemic attack (TIA), and cerebral infarction without residual deficits; Z86.718 Personal history of other venous thrombosis and embolism; Z99.2 Dependence on renal dialysis
CPT/HCPCS: 36818; 01844; A4648; J7040; J2405

== ENCOUNTER → 2023-10-17 | Outpatient (CLI) | payer MEDICARE, OTHER, SELFPAY ==
--- NOTE | 2023-10-17 07:06 | ECHOD_ITS ---
Reason For Study: PRE OP Procedure This was a 2D Doppler, Color Flow transthoracic echocardiogram. Exam performed in department. Left Ventricle Normal LV size. Mild concentric left ventricular hypertrophy. Left ventricular systolic function is normal. The estimated ejection fraction is 60 %. No regional wall motion abnormalities noted. Right Ventricle Normal RV size. Normal systolic function. Atria Normal left atrium. Normal right atrium. Mitral Valve Normal mitral valve. Tricuspid Valve Normal tricuspid valve. Mild (1+) tricuspid valve insufficiency. Pulmonary artery systolic pressure is 30 mmHg. Aortic Valve Trisinus/trileaflet aortic valve. Pulmonic Valve Normal pulmonic valve. Great Vessels Normal aortic root. The pulmonary artery is normal size. Normal inferior vena cava. Pericardium/Pleural No pericardial effusion. MMode/2D Measurements & Calculations LVIDd: 4.8 cm IVSd: 1.4 cm Ao root diam: 2.9 cm LVIDs: 2.8 cm LVPWd: 1.4 cm RVDd: 4.2 cm FS: 40.4 % LAV(MOD-bp): 59.1 ml LVAd ap4: 25.6 cm2 SV(MOD-sp4): 42.1 ml LAV(MOD-bp) Indexed: 30.7 ml/m2 LVLd ap4: 8.0 cm LAV(MOD-sp2): 76.8 ml EDV(MOD-sp4): 70.8 ml LAV(MOD-sp4): 44.6 ml EDV(sp4-el): 69.6 ml LVAs ap4: 14.9 cm2 LVLs ap4: 7.1 cm ESV(MOD-sp4): 28.7 ml ESV(sp4-el): 26.5 ml EF(MOD-sp4): 59.5 % EF(sp4-el): 61.9 % SV(sp4-el): 43.1 ml LA A4 area: 18.2 cm2 LA dimension(2D): 4.1 cm RA A4 area: 16.6 cm2 TAPSE: 1.8 cm Time Measurements MV dec time: 0.25 sec Doppler Measurements & Calculations MV E max mark: 54.7 cm/sec Lat Peak E' Mark: 8.9 cm/sec Med Peak E' Mark: 5.6 cm/sec MV A max mark: 50.5 cm/sec E/E' lat: 6.2 E/E' med: 9.8 MV E/A: 1.1 MV V2 max: 61.2 cm/sec Ao V2 max: 113.1 cm/sec MV max P.5 mmHg MV dec slope: 220.6 cm/sec2 Ao max P.1 mmHg MV V2 mean: 39.2 cm/sec Ao V2 mean: 77.7 cm/sec MV mean P.69 mmHg Ao mean P.8 mmHg MV V2 VTI: 22.1 cm Ao V2 VTI: 29.5 cm AV (velocity ratio): 0.79 LV V1 max: 87.3 cm/sec PA V2 max: 84.1 cm/sec TR max mark: 256.3 cm/sec LV V1 max P.0 mmHg PA V2 mean: 54.1 cm/sec TR max P.3 mmHg LV V1 mean P.6 mmHg LV V1 mean: 59.9 cm/sec LV V1 VTI: 23.4 cm ECHO/Echo Complete Interpretation Summary Normal LV size. Left ventricular systolic function is normal. The estimated ejection fraction is 60 %. Multiple cysts noted within the liver. Mild concentric left ventricular hypertrophy. Structurally normal valves. Ordering Physician: LAVONNE WARE Referring Physician: LAVONNE BUSTOS Performed By: Hazel Clements RCS
--- NOTE | 2023-10-17 10:41 | STRESSREP_ITS ---
Stress Test Report Exercise myocardial perfusion stress test. 73-year-old man for preoperative cardiac evaluation Stress protocol: Resting EKG demonstrates normal sinus rhythm with a rate of 61 bpm resting blood pressure is 134/80 mmHg. The patient exercised according to the regular Tevin protocol for a total duration of 6 minutes and 30 seconds attaining a maximum heart rate of 115 bpm which was 78% of maximum predicted heart rate; the maximum workload was 8.5 metabolic equivalents. At rest there were no ST or T wave changes noted to suggest ischemia and at peak exercise upsloping ST changes only were noted which did not meet the criteria for ischemia. No clinical angina was noted the test was terminated due to the target heart rate being achieved /fatigue. The peak blood pressure was 184/72 mmHg. Rate-pressure product was 18,000. Myocardial perfusion protocol. 13.8 mCi of technetium 99m sestamibi was injected at rest. The patient exercised according to regular Tevin protocol for total duration of 6 minutes and 36 and at peak exercise 43.5 mCi of technetium 99m sestamibi was injected stress images were obtained stress and rest images were reconstructed in comparing the short axis vertical long and horizontal long axis. Gated images were also obtained. Perfusion SPECT analysis: Review of the stress images demonstrate normal uptake of tracer noted in all areas of the myocardium. The resting images similarly demonstrate normal uptake of tracer noted in all areas of the myocardium. No areas of reversibility are noted to suggest ischemia no previous infarct was noted. Gated SPECT analysis: The gated ejection fraction is 65%. Conclusion: Normal exercise myocardial perfusion stress test at a moderate workload Preserved ejection fraction.
== END | disposition home or self-care (01) ==
PROVIDERS: PCP Internal Medicine
DX: Z01.810 Encounter for preprocedural cardiovascular examination (principal); I12.0 Hypertensive chronic kidney disease with stage 5 chronic kidney disease or end stage renal disease; N18.6 End stage renal disease; Z99.2 Dependence on renal dialysis; Z76.82 Awaiting organ transplant status; Q61.3 Polycystic kidney, unspecified
CPT/HCPCS: 78452; 93017; 93306; A9500; A4216

== ENCOUNTER 2023-10-19 11:09 | Outpatient (RCR) | payer MEDICARE, OTHER, SELFPAY | END 2023-10-19 18:00 | disposition home or self-care (01) | LOC: MTLAB 11:09 | PROVIDERS: PCP Internal Medicine | DX: Z01.818 Encounter for other preprocedural examination (principal); N18.6 End stage renal disease | CPT/HCPCS: 36415 ==

== ENCOUNTER 2023-11-18 11:09 | Outpatient (RCR) | payer MEDICARE, OTHER, SELFPAY | END 2023-11-30 18:00 | disposition home or self-care (01) | LOC: MTLAB 11:09 | PROVIDERS: PCP Internal Medicine | DX: Z01.818 Encounter for other preprocedural examination (principal); N18.6 End stage renal disease | CPT/HCPCS: 36415 ==

== ENCOUNTER → 2023-11-21 | Outpatient (CLI) | payer MEDICARE, OTHER, SELFPAY ==
[2023-11-21 15:38] LABS: PSA,Total- Diagnostic < 0.01 ng/mL (0.0-4.0)
== END | disposition home or self-care (01) ==
PROVIDERS: PCP Internal Medicine; Referring Provider Urology; Visit Provider Urology
DX: C61 Malignant neoplasm of prostate (principal)
CPT/HCPCS: 36415; 84153

== ENCOUNTER 2023-12-19 11:13 | Outpatient (RCR) | payer MEDICARE, OTHER, SELFPAY | END 2023-12-19 18:00 | disposition home or self-care (01) | LOC: MTLAB 11:13 | PROVIDERS: PCP Internal Medicine | DX: Z00.00 Encounter for general adult medical examination without abnormal findings (principal) | CPT/HCPCS: 36415 ==

== ENCOUNTER 2024-01-25 14:56 | Outpatient (RCR) | payer MEDICARE, OTHER, SELFPAY | END 2024-01-25 18:00 | disposition home or self-care (01) | LOC: MTLAB 14:56 | PROVIDERS: PCP Internal Medicine | DX: Z01.818 Encounter for other preprocedural examination (principal); N18.6 End stage renal disease | CPT/HCPCS: 36415 ==

== ENCOUNTER → 2024-01-30 | Outpatient (CLI) | payer MEDICARE, OTHER, SELFPAY ==
--- NOTE | 2024-01-30 09:01 | AVDS_ITS ---
Reason For Study: Problem w Dialysis LEFT Inflow: 292/168 cm/s Vol Flow: 2233 mL/min Anast: 799/477 cm/s Vol Flow: 5547 mL/min Prox Graft: 551/333 cm/s Vol Flow: 2813 mL/min Mid Graft: 253/148 cm/s Vol Flow: 2070 mL/min Distal Graft: 245/151 cm/s Vol Flow: 2282 mL/min Outflow: 131/76 cm/s Vol Flow: 1450 mL/min. VL/AV Fistula/Dialysis Graft Scan Interpretation Summary Patent left brachio-cephalic fistula with no stenosis, adequate flow volume and diameter. Two small branches in mid fistula. Ordering Physician: Nacho Kenny Referring Physician: Angie Ivan Performed By: Carlita Grimes, RDCS, RVT
== END | disposition home or self-care (01) ==
LOC: CVS 08:55
PROVIDERS: PCP Internal Medicine; Referring Provider Surgery Trauma Surgery; Visit Provider Surgery Trauma Surgery
DX: T82.858A Stenosis of other vascular prosthetic devices, implants and grafts, initial encounter (principal)
CPT/HCPCS: 93990

== ENCOUNTER 2024-02-06 02:46 | Emergency (ER) | payer MEDICARE, OTHER, SELFPAY ==
[2024-02-06 02:47] VITALS: BP 143/72; PULSE 76; RESP 18; TEMP 37.9; O2SAT 100; BMI 26.9
[2024-02-06 02:49] VITALS: BP 143/72; PULSE 76; RESP 18; TEMP 37.9; O2SAT 100
--- NOTE | 2024-02-06 02:57 | EX.ED.DYSGE1 ---
HPI History of Present Illness Chief Complaint: Weakness Informant: patient Narrative Narrative: Patient states he started feeling poorly yesterday, with chills, body aches, a chronic cough that is no worse. No dyspnea. No chest pain or GI symptoms. He did a home COVID test that was positive, and states he is here to make sure I have COVID. He states he lives with his who was not feeling well yesterday but I do not know if she has it or not. States he is not feeling well but he is able to get around and perform ADLs. He did not take anything for his fever/chills prior to coming. [facility] Medical History Wears dentures Wears glasses Cancer Substance abuse Alcohol use Thyroid disease Arthritis History of renal disease Anemia High cholesterol Excessive bleeding Back pain Injury of head and neck History of diverticulitis Gastric reflux Former smoker Leg cramps History of echocardiogram History of stress test Cardiology follow-up encounter Depression Anxiety Kidney disease Dialysis patient GI bleed CPAP (continuous positive airway pressure) dependence DVT (deep venous thrombosis) TIA (transient ischemic attack) Valvular heart disease Polycystic kidney disease Hyperlipidemia Essential hypertension Malignant neoplasm of prostate Home Medications ?Medication ?Instructions ?Recorded ?Last Taken ?Type omeprazole 40 mg capsule,delayed 40 mg PO DAILY gerd 06/22/15 Unknown History release [id number] 300 mcg-K 60 1 tab PO DAILY multivitamin 04/06/18 06/27/23 History mcg-lycop 600 mcg-lutein 300 mcg tablet (Centrum Silver Men) olmesartan 40 mg tablet 40 mg PO DAILY 04/06/18 03/30/19 04:30 History 40 MG levothyroxine 100 mcg capsule 100 mcg PO DAILY thyroid 03/12/19 06/27/23 08:19 History cholecalciferol (vitamin D3) 50 2,000 unit PO BID supplement 03/20/19 06/27/23 08:00 History mcg (2,000 unit) capsule fluticasone propionate 50 1 spray NASAL QHS nasal congestion 03/20/19 06/26/23 22:17 History mcg/actuation nasal spray,suspension clopidogrel 75 mg tablet 75 mg PO DAILY blood thinner 05/04/19 10/10/23 History donepezil 5 mg tablet 5 mg PO DAILY mood 06/21/22 Unknown History furosemide 40 mg tablet 40 mg PO DAILY diuretic 06/21/22 Unknown History trazodone 50 mg tablet 100 mg PO QHS sleep 08/23/23 Unknown History Lactobacillus acidophilus 100 mg PO DAILY 09/20/23 Unknown History (Acidophilus capsule) duloxetine 60 mg capsule,delayed 60 mg PO DAILY 09/20/23 Unknown History release rosuvastatin 5 mg tablet 5 mg PO DAILY 09/20/23 Unknown History pramipexole 0.75 mg tablet 0.75 mg PO QDAY 12/14/23 Unknown History sevelamer carbonate 800 mg tablet 800 mg PO TID 12/14/23 Unknown History Allergy/AdvReac Type Severity Reaction Status Date / Time cashew nut Allergy Intermediate itching Verified 02/06/24 02:53 Family History Father , age 83 Cancer Surgical History (Reviewed 12/14/23 @ 15:39 by Jennifer Marte HYDROELECTRIC STATION OPERATOR, HYDROELECTRIC STATION OPERATOR-C) Hx of prostatectomy Hx of surgical procedure Status post trigger finger release History of repair of right rotator cuff Status post patent foramen ovale closure (~1999) History of carpal tunnel release of both wrists History of shoulder surgery History of ear, nose, and throat (ENT) surgery History of back surgery Social History Smoking Status: Former smoker how long ago did patient quit smoking: back in the alcohol intake: never caffeine: No ROS ROS ED Constitutional Constitutional ED: Reports chills and malaise Eyes Eyes: Denies change in vision or diplopia ENT ENT ED: Denies ear pain, rhinorrhea or sore throat Cardiovascular Cardiovascular: Denies chest pain or palpitations Respiratory/Chest Respiratory/Chest: Reports cough; Denies dyspnea Gastrointestinal Gastrointestinal: Denies abdominal pain, diarrhea, nausea or vomiting Genitourinary Genitourinary ED: Denies dysuria or hematuria Musculoskeletal Musculoskeletal: Denies back pain or neck pain Integumentary Denies abscess or rash Neurologic Neurologic: Denies headache(s), paresthesias or weakness EXAM Physical Exam Narrative Exam Narrative: well-appearing, nad Const Vital Signs: 02/06/24 02:47 02/06/24 02:49 02/06/24 02:50 Temperature 100.2 F H 100.2 F H Temperature Source Oral Oral Pulse Rate 76 76 Respiratory Rate 18 18 Respiratory Pattern Normal Blood Pressure 143/72 H 143/72 H Blood Pressure Mean 95 95 Pulse Ox 100 100 Oxygen Delivery Method Room Air Room Air Positive well nourished and well developed General Appearance ED: well developed and NAD HEENT Reports moist mucous membranes normocephalic and atraumatic Eyes PERRL and EOMs intact bilaterally Neck full ROM, no lymphadenopathy and supple Resp normal respiratory effort and clear to auscultation bilaterally Cardio regular rate, regular rhythm and no murmurs GI non-tender and non-distended Auscultation: normoactive bowel sounds Palpation: soft Back/Spine no CVA tenderness General Back: other FROM Extremity normal to inspection General Extremety ED: Negative for edema, pulses abnormal or tenderness General Extremity: Negative for edema or pulses abnormal Neuro oriented x3, CN's II-XII intact bilaterally and no sensory deficits noted Sensorium / Orientation: awake and alert Motor Exam: strength 5/5 throughout Psych mental status grossly normal Skin no rashes or lesions noted and no wounds MDM MDM MDM Narrative Medical decision making narrative: In addition to giving the patient some Tylenol we did a COVID swab at his request, it is negative for COVID/influenza/RSV. He had a positive antigen test at home. It is possible that the PCR is a false negative due to being tested too early. The patient has no urinary symptoms. He has no abdominal pain even with percussion, so I do not think this is bacterial peritonitis. He states he has allergy symptoms like congestion, runny nose, cough, which certainly may be a different virus other than the ones we tested for, or again may actually be COVID. However he does not currently meet criteria for treatment with antiviral since his testing here is negative. He is comfortable going home without any other additional testing right now we discussed reasons to return he is comfortable with that plan. Discharge Plan Triage Chief Complaint: Weakness ED Provider: Leonid Perez Dx/Rx/DC Orders Clinical Impression: Acute viral syndrome Instructions: ED Viral Syndrome (Adult) Prescriptions: No Action Centrum Silver Men 300-600-300 mcg tablet 1 tab PO DAILY olmesartan 40 mg tablet 40 mg PO DAILY clopidogrel 75 mg tablet 75 mg PO DAILY levothyroxine 100 mcg capsule 100 mcg PO DAILY furosemide 40 mg tablet 40 mg PO DAILY donepezil 5 mg tablet 5 mg PO DAILY trazodone 50 mg tablet 100 mg PO QHS pramipexole 0.75 mg tablet 0.75 mg PO QDAY sevelamer carbonate 800 mg tablet 800 mg PO TID omeprazole 40 MG capsule 40 mg PO DAILY fluticasone propionate 1 SPRAY spray,suspension 1 spray NASAL QHS cholecalciferol (vitamin D3) 2,000 UNIT capsule 2,000 unit PO BID rosuvastatin 5 mg tablet 5 mg PO DAILY duloxetine 60 mg capsule,delayed release(DR/EC) 60 mg PO DAILY Acidophilus Capsule 100 mg PO DAILY Primary Care Provider: Angie Ivan Referrals: Angie Ivan, [Primary Care Provider] - 3-5 Days if not improving Activity Restrictions/Additional Instructions: The COVID test that you had at home is a different method than the one we use here, it is possible that you have COVID and that our test would be positive if repeated in a day or 2. If you develop no other new symptoms such as shortness of breath we recommend you stay home through day #5 of symptoms and try to avoid contact with others. If you are feeling like you are getting more ill with symptoms such as being out of breath or having chest pain or passing out, return to the ER. Print Language: Citizen Of [place] Disposition Disposition: Home, Self Care
[2024-02-06] MEDS: Acetaminophen 500 MG Tablet 1000 MG PO (03:33)
[2024-02-06 04:44] VITALS: BP 123/73; PULSE 65; RESP 18; TEMP 36.6; O2SAT 92
== END 2024-02-06 04:45 | disposition home or self-care (01) ==
PROVIDERS: Emergency Provider Emergency Medicine; PCP Internal Medicine; Visit Provider Emergency Medicine
DX: B34.9 Viral infection, unspecified (principal); R05.3 Chronic cough; R68.83 Chills (without fever); M79.10 Myalgia, unspecified site; J34.89 Other specified disorders of nose and nasal sinuses; I10 Essential (primary) hypertension; E78.00 Pure hypercholesterolemia, unspecified; E07.9 Disorder of thyroid, unspecified; K21.9 Gastro-esophageal reflux disease without esophagitis; F32.A Depression, unspecified; Q61.3 Polycystic kidney, unspecified; M19.90 Unspecified osteoarthritis, unspecified site; Z99.2 Dependence on renal dialysis; Z87.19 Personal history of other diseases of the digestive system; Z85.46 Personal history of malignant neoplasm of prostate; Z90.79 Acquired absence of other genital organ(s); Z86.73 Personal history of transient ischemic attack (TIA), and cerebral infarction without residual deficits; Z87.891 Personal history of nicotine dependence; Z86.718 Personal history of other venous thrombosis and embolism; Z79.890 Hormone replacement therapy; Z79.899 Other long term (current) drug therapy
CPT/HCPCS: 99282; 87631

== ENCOUNTER 2024-02-07 11:29 | Inpatient (IN) | payer MEDICARE, OTHER, SELFPAY ==
[2024-02-07] VITALS (10 sets, daily range): BP systolic 102–131; BP diastolic 63–70; PULSE 97–123; RESP 16–22; TEMP 36.4–38.4; O2SAT 92–100; BMI 27.5; BMI 26.8
--- NOTE | 2024-02-07 11:42 | EKG12_ITS ---
Test Reason : Blood Pressure : / mmHG Vent. Rate : 121 BPM Atrial Rate : 121 BPM P-R Int : 156 ms QRS Dur : 090 ms QT Int : 316 ms P-R-T Axes : 024 -15 020 degrees QTc Int : 448 ms Sinus tachycardia Otherwise normal ECG Confirmed by KASEY NORMAN, ANNALEE ([id number]), telegraph editor LUPILLO BEAVER ([id number]) on 02/08/2024 9:25:49 AM Referred By: Confirmed By:ANNALEE PARKS MD
--- NOTE | 2024-02-07 11:42 | RAD_ITS ---
STUDY: X-RAY CHEST REASON FOR EXAM: Male, 74 years old. Fever TECHNIQUE: PA and lateral views of the chest. COMPARISON: Comparison is made with prior study September 06, 2023. FINDINGS: A right-sided double catheter is seen with the tip at the junction of the superior vena cava and right atrium. EKG electrodes are seen. The lungs are clear and expanded. There is no demonstrated pleural abnormality. Sternal cerclage wires and vascular clips are present from a prior sternotomy and coronary artery bypass graft procedure (CABG). Normal mediastinum and emery. Normal visualized pulmonary arteries. There is atherosclerotic calcification of the aortic arch with tortuosity. Normal visualized thoracic spine. Normal visualized ribs, clavicles, and shoulders. There is no demonstrated abnormality of the visualized soft tissue structures of the upper abdomen. RAD/Chest PA and Lateral IMPRESSION: Stable examination. No acute abnormality is seen. Electronically Signed: Noel Cornejo MD at 12:23 EDT ,
--- NOTE | 2024-02-07 11:44 | EDS_ITS ---
HPI History of Present Illness Chief Complaint: Confusion Informant: patient Onset/Context/Timing Onset: Today Current Severity: Moderate Maximum Severity: Moderate Narrative Narrative: 74-year-old male presents with mental status change, confusion and low-grade fever 100.8. He is a limited informant. Reportedly today went to dialysis. He has a history of end-stage renal disease. He was dialyzed. Drove himself home as he was driving home he had a parked car. And the area where that occurred they called a local squad who brought him in. He denies any vomiting or diarrhea. Did not know he had a fever. Denies any abdominal or chest pain. He does still make urine. Currently there is no one here with him. He does have a he lives at home with Chuy will be coming in. Prior similar symptoms: No Recent Illness/Hospitalization: No PFSH PFSH Medical History Wears dentures Wears glasses Cancer Substance abuse Alcohol use Thyroid disease Arthritis History of renal disease Anemia High cholesterol Excessive bleeding Back pain Injury of head and neck History of diverticulitis Gastric reflux Former smoker Leg cramps History of echocardiogram History of stress test Cardiology follow-up encounter Depression Anxiety Kidney disease Dialysis patient GI bleed CPAP (continuous positive airway pressure) dependence DVT (deep venous thrombosis) TIA (transient ischemic attack) Valvular heart disease Polycystic kidney disease Hyperlipidemia Essential hypertension Malignant neoplasm of prostate Home Medications ?Medication ?Instructions ?Recorded ?Last Taken ?Type omeprazole 40 mg capsule,delayed 40 mg PO DAILY gerd 06/22/15 Unknown History release [id number]-[id number] 300 mcg-K 60 1 tab PO DAILY multivitamin 04/06/18 06/27/23 History mcg-lycop 600 mcg-lutein 300 mcg tablet (Centrum Silver Men) olmesartan 40 mg tablet 40 mg PO DAILY 04/06/18 03/30/19 04:30 History 40 MG levothyroxine 100 mcg capsule 100 mcg PO DAILY thyroid 03/12/19 06/27/23 08:19 History cholecalciferol (vitamin D3) 50 2,000 unit PO BID supplement 03/20/19 06/27/23 08:00 History mcg (2,000 unit) capsule fluticasone propionate 50 1 spray NASAL QHS nasal congestion 03/20/19 06/26/23 22:17 History mcg/actuation nasal spray,suspension clopidogrel 75 mg tablet 75 mg PO DAILY blood thinner 05/04/19 10/10/23 History donepezil 5 mg tablet 10 mg PO DAILY mood 06/21/22 Unknown History furosemide 40 mg tablet 40 mg PO DAILY diuretic 06/21/22 Unknown History trazodone 50 mg tablet 100 mg PO QHS sleep 08/23/23 Unknown History Lactobacillus acidophilus 100 mg PO DAILY 09/20/23 Unknown History (Acidophilus capsule) duloxetine 60 mg capsule,delayed 60 mg PO DAILY 09/20/23 Unknown History release rosuvastatin 5 mg tablet 5 mg PO DAILY 09/20/23 Unknown History pramipexole 0.75 mg tablet 0.75 mg PO QDAY 12/14/23 Unknown History sevelamer carbonate 800 mg tablet 800 mg PO TID 12/14/23 Unknown History aspirin 81 mg tablet,delayed 81 mg PO DAILY 02/07/24 Unknown History release (Adult Low Dose Aspirin) spironolactone 25 mg tablet 25 mg PO DAILY 02/07/24 Unknown History (Aldactone) Allergy/AdvReac Type Severity Reaction Status Date / Time cashew nut Allergy Intermediate itching Verified 02/07/24 11:37 cetirizine (From Zyrtec) Allergy Mild Hives Verified 02/07/24 11:37 paroxetine (From Paxil) Allergy Mild Hives Verified 02/07/24 11:37 Family History Father , age 83 Cancer Surgical History Hx of prostatectomy Hx of surgical procedure Status post trigger finger release History of repair of right rotator cuff Status post patent foramen ovale closure (~1999) History of carpal tunnel release of both wrists History of shoulder surgery History of ear, nose, and throat (ENT) surgery History of back surgery Social History Smoking Status: Former smoker how long ago did patient quit smoking: back in the alcohol intake: never caffeine: No ROS ROS ED ROS Narrative Patient denies recent illness. He does have a low-grade fever here of 100.8. He is confused. He is a limited informant. Review of Systems ROS Unobtainable: due to mental status EXAM Physical Exam Narrative Exam Narrative: 74-year-old male sitting upright in bed. Vital signs are stable he does have a temperature of 100.8. Pulse ox 93% on room air no hypoxia. Current blood pressure is 120/69. Currently there is no family present in the room. H EENT exam pupils round reactive light. Eyes got mildly dry mucous membranes. Neck nontender. Chest wall prior sternotomy well-healed. Right-sided tunneled vas cath. No redness around it. Lungs are clear. Heart 120 no murmur. Tachycardic. Abdomen soft nontender. Moving all 4 extremities. Nontender. No edema or cellulitis. Back unremarkable. Neurologically is awake. He is alert. He is answering questions. He is confused. He thinks is 2014. He knows he is in the hospital. He knew the month when given multiple choice answers. No focal motor deficits. No slurred speech. Const Vital Signs: 02/07/24 11:30 02/07/24 11:34 02/07/24 11:45 Temperature 100.8 F H 100.8 F H Temperature Source Oral Oral Pulse Rate 123 H 122 H Respiratory Rate 20 H 22 H Blood Pressure 120/69 120/69 Blood Pressure Mean 86 86 Pulse Ox 93 93 Oxygen Delivery Method Room Air Room Air Room Air 02/07/24 12:34 02/07/24 13:00 02/07/24 13:29 Temperature 100.8 F H 100.8 F H 100 F H Temperature Source Oral Oral Oral Pulse Rate 117 H 115 H Respiratory Rate 16 20 H Blood Pressure 131/64 H 114/70 Blood Pressure Mean 86 84 Pulse Ox 93 92 Oxygen Delivery Method Room Air Room Air 02/07/24 14:00 02/07/24 14:42 02/07/24 15:00 Temperature 97.5 F L 99.4 F H 98.4 F Temperature Source Temporal Temporal Pulse Rate 105 H 100 97 Respiratory Rate 16 16 16 Blood Pressure 107/70 107/70 102/70 Blood Pressure Mean 82 82 80 Pulse Ox 93 100 93 Oxygen Delivery Method Room Air Room Air Positive well nourished and well developed; Negative for cachectic, contractures or unkempt General Appearance ED: well developed; Negative for unkempt, cachectic, contractures, cyanotic, diaphoretic or pallor Nutritional Appearance: Negative for cachectic HEENT Reports dry mucous membranes Negative for trauma or tenderness Mouth ED: Yes dry mucous membranes Mouth: dry mucous membranes Eyes PERRL and EOMs intact bilaterally General Eye ED: Negative for pale conjunctiva Neck no lymphadenopathy, supple and no JVD General: Negative for tenderness Chest Wall inspection of chest normal and palpation of chest normal Chest Narrative: Tunneled right sided Vas-Cath. Chest: Negative for other Resp normal respiratory effort Auscultation: Negative for rales, rhonchi, wheezes or diminished lung sounds Cardio regular rhythm, S1 normal heart sound, S2 normal heart sound and no murmurs; Negative for regular rate Rate: tachycardic GI normal to inspection, nondistended, normoactive bowel sounds, non-tender, non- distended and no masses Palpation: soft; Negative for tender, guarding or rebound tenderness present Back/Spine no CVA tenderness General Back: Negative for CVA tenderness Cervical Spine: Negative for cervical spine tenderness Thoracic Spine / Upper Back: Negative for thoracic spinal tenderness Extremity normal to inspection Extremity Narrative: Left upper arm bruising. Recent fistula placed. Good thrill. General Extremety ED: Negative for edema or tenderness General Extremity: Negative for edema Neuro No oriented x3 and CN's II-XII intact bilaterally Neuro Narrative: Awake. Alert. Answering questions. Following commands. No focal motor deficits. Confused. He knew the month when given multiple choice. He knows he is in the hospital. He did not know the year. Sensorium / Orientation: alert Motor Exam: strength 5/5 throughout Psych mental status grossly normal Appearance: Negative for unkempt Mood & Affect: Negative for depressed, anxious or tearful Skin no rashes or lesions noted and no wounds General Skin Exam: Negative for jaundice or pallor Rashes: No rashes noted Trauma: Negative for abrasion Wounds: Negative for wounds noted Sepsis Attestation Sepsis Alert: Yes Sepsis Attestation: Agree w/Sepsis Date exam was performed: 02/07/24 Time exam was performed: 11:51 Possible Source of Sepsis: Pulmonary, Implantable device, Genitourinary and Unknown Sepsis Organ Dysfunction Criteria Present: New/Unexplained change in mental status Supportive Findings: Currently holding on fluid resuscitation due to his stable blood pressure and his history of end-stage renal disease and dialysis. MDM MDM MDM Narrative Medical decision making narrative: 74-year-old male low-grade fever 100.8 with mental status change. Undergo a sepsis evaluation. Given Tylenol for his fever. And COVID and flu also be obtained. Repeat exam at 2:24 PM patient doing well. Vital signs are stable. Awaiting COVID test. I spoke to the hospitalist. He will admit the patient. He wanted to see the COVID results prior. Patient will be started on Rocephin for possible UTI. History & Record Review Discussion w/independent historian: Patient Additional record(s) reviewed:: Prior inpatient record, Prior outpatient record, Prior ED visit and Prior labs Lab Data Attestation: I reviewed the patient's lab results. Lab results narrative: CBC shows a white count of 13. H&H 11.2 and 30. Platelets 179. PT/INR of 15 and 1. PTT 31. Chemistries show potassium of 3.4. Gap 7. BUN of 27 and creatinine 3.9 he has a history of end-stage renal disease. Liver enzymes unremarkable. Urinalysis shows negative nitrites. 10-25 red cells. 25-50 white cells. 1+ bacteria. A culture will be sent. COVID, RSV and flu are negative. Labs: Laboratory Results - last 24 hr 02/07/24 02/07/24 11:40 12:45 WBC 13.0 H RBC 3.26 L Hgb 11.2 L Hct 33.7 L MCV 103.4 H MCH 34.4 H MCHC 33.2 RDW Std Deviation 47.3 H RDW Coeff of David 12.5 Plt Count 179 MPV 9.9 Immature Gran % (Auto) 0.700 Neut % (Auto) 82.6 H Lymph % (Auto) 6.5 L Sawyer % (Auto) 9.8 Eos % (Auto) 0.1 Baso % (Auto) 0.3 Absolute Neuts (auto) 10.8 H Absolute Lymphs (auto) 0.84 Nucleated RBC % 0 PT 15.6 H INR 1.2 APTT 31.5 Sodium 136 Potassium 3.4 L Chloride 96 L Carbon Dioxide 33.0 H Anion Gap 7 BUN 27 H Creatinine 3.92 H Estim Creat Clear Calc 17.02 Est GFR (MDRD) Af Amer 19 L Est GFR (MDRD) Non-Af 16 L BUN/Creatinine Ratio 6.9 L Glucose 104 Lactic Acid 1.5 Calcium 9.0 Total Bilirubin 0.40 AST 17 ALT 16 Alkaline Phosphatase 74 Total Protein 7.3 Albumin 3.4 Globulin 3.9 Albumin/Globulin Ratio 0.9 Urine Color Yellow Urine Clarity Sl. Cloudy Urine pH 8.0 Ur Specific [place] 1.010 Urine Protein 500 H Urine Glucose (UA) 100 H Urine Ketones Negative Urine Occult Blood 250 H Urine Nitrite Negative Urine Bilirubin Negative Urine Urobilinogen Normal Ur Leukocyte Esterase 500 H Urine RBC 10-25 SEEN Urine WBC 25-50 SEEN Ur Squamous Epith Cells 0-5 SEEN Urine Bacteria 1+ Urine Mucus 0 SEEN Radiography Chest X-Ray - ED: 2 View, Read by ED Physician, Heart, Lungs, Mediastinum, Bony Structures, No Acute Disease and Chronic Changes Diagnostic Testing: Clinical Impression(s) from Imaging Studies Chest X-Ray 02/07/24 11:42 IMPRESSION: Stable examination. No acute abnormality is seen. Electronically Signed: Noel Cornejo MD at 12:23 EDT , Brain CT 02/07/24 11:56 IMPRESSION: Chronic involutional changes of the brain. Electronically Signed: Noel Cornejo MD at 12:20 EDT , Chest x-ray, 2 views, AP and lateral, interpreted by myself shows prior sternotomy with sternal wires. Normal cardiac silhouette. Normal lung toure. No pneumonia. Rhythm Strip Rhythm Strip: Sinus Tach Rate: 121 Ectopy: None EKG Initial EKG: Attestation: I personally reviewed and interpreted this EKG as follows: Interpretation: No Acute Injury Pattern and Sinus Tachycardia Comments: Sinus tachycardia rate of 121 no acute signs of TX or ischemia. Critical Care Time Critical Care Time: Yes Critical care time (excluding procedures): 30-74 minutes, Including time spent:, Discussing w/Patient &/or Family/Equity Holder, Discussing w/Consultants, Arranging Admission or Transfer, Performing Direct Patient Care at Bedside and - (35 minutes.) Discharge Plan Dx/Rx/DC Orders Clinical Impression: Fever, Chronic kidney disease, Altered level of consciousness, Acute UTI, Dialysis patient Disposition Disposition: Acute Care Hospital [facility]
[2024-02-07] MEDS: Acetaminophen 500 MG Tablet 1000 MG PO (11:52)
--- NOTE | 2024-02-07 11:56 | CT_ITS ---
STUDY: CT BRAIN WITHOUT CONTRAST REASON FOR EXAM: Male, 74 years old. ms change RADIATION DOSAGE (If Supplied By Facility): CTDIvol = ( 44.99 ) mGy, DLP = ( 846.43 ) mGycm TECHNIQUE: Transaxial CT imaging of the brain was performed without administration of intravenous contrast material. Individualized dose optimization techniques were used for this CT. COMPARISON: Comparison is made with prior study December 08, 2021. FINDINGS: Normal soft tissue structures. Normal calvarium. There is mild cerebral atrophy with widening of the extra-axial spaces and ventricular dilatation. Normal white matter tracts of the cerebral hemispheres. Normal basal ganglia and thalami. Normal brainstem. There is mild cerebellar atrophy. There is no intracranial hemorrhage. There are no findings of an acute ischemic infarction. Atherosclerotic calcification of the cavernous portions of the internal carotid arteries bilaterally. Mild degree of mucosal thickening of the ethmoid sinuses bilaterally. CT/Brain/Head without Contrast IMPRESSION: Chronic involutional changes of the brain. Electronically Signed: Noel Cornejo MD at 12:20 EDT ,
[2024-02-07 11:59] LABS: Absolute Lymphocyte Count 0.84 X10^3/uL (0.83-4.51); Absolute Neutrophil Count 10.8 X10^3/uL (2.0-7.7); Basophil# 0.04 X10^3/uL; Basophil% 0.3 % (0-1); Eosinophil# 0.01 X10^3/uL; Eosinophils% 0.1 % (0-5); Hematocrit 33.7 % (40-54); Hemoglobin 11.2 g/dL (13.0-16.5); Lymphocyte # 0.84 X10^3/ul (0.83-4.51); Lymphocyte % 6.5 % (19-41); Mean Corp Hgb Conc 33.2 g/dL (32-36); Mean Corpuscular Hgb 34.4 pg (27.0-32.0); Mean Corpuscular Volume 103.4 fL (80-94); Mean Platelet Vol. 9.9 fl (6.2-12.0); Monocyte# 1.27 X10^3/uL; Monocyte% 9.8 % (0-10); NRBC Flagged by Analyzer 0 % (0-5); Neutrophil # 10.76 X10^3/uL (2.7-7.7); Neutrophil % 82.6 % (47-70); Platelet Count 179 K/mm3 (150-450); RBC Distribution Width CV 12.5 % (11.6-14.6); RBC Distribution Width SD 47.3 fl (35.1-43.9); Red Blood Count 3.26 M/mm3 (4.6-6.2)
[2024-02-07 12:18] LABS: International Normalized Ratio 1.2; Prothrombin Time (Protime)PT. 15.6 SECONDS (11.7-14.9)
[2024-02-07 12:20] LABS: Partial Thromboplast Time 31.5 Seconds (24.1-36.2)
[2024-02-07 12:52] LABS: Mucous, Urine 0 SEEN /hpf (<or=2+)
[2024-02-07 12:53] LABS: Lactic Acid 1.5 mmol/L (0.4-1.9)
[2024-02-07 12:55] LABS: ALB/GLOB Ratio 0.9 RATIO (0.9-2.4); AST(SGOT) 17 U/L (15-37); Alanine Aminotransfer ALT/SGPT 16 U/L (16-61); Albumin, Serum 3.4 g/dL (3.2-5.0); Alkaline Phosphatase 74 U/L (45-117); Anion Gap 7 (5-15); BUN 27 mg/dL (7-18); BUN/Creat Ratio 6.9 RATIO (10-20); Chloride 96 mmol/L (98-107); Creatinine, Serum 3.92 mg/dL (0.70-1.30); EST Glomerular Filtration Rate 16 mL/min (>60); Est Glom Filt Rate - Afr Amer 19 mL/min (>60); Estimated Creatinine Clearance 17.02 ml/min; Globulin 3.9 g/dL (2.2-4.2); Glucose 104 mg/dL (74-106); Potassium 3.4 mmol/L (3.5-5.1); Protein, Total 7.3 g/dL (6.4-8.2); Sodium Level 136 mmol/L (136-145)
[2024-02-07 13:03] LABS: Color, Urine Yellow (Yellow); Glucose, Dipstick 100 mg/dl (Normal); Ketone-Dipstick Negative (Negative); Leukocyte Esterase-Dipstick 500 /ul (Negative); Nitrite-Dipstick Negative (Negative); Occult Blood-Urine 250 /ul (Negative); Protein-Dipstick 500 mg/dl (Negative); Urine Bilirubin Dipstick Negative (Negative); Urine Clarity Sl. Cloudy (Clear); Urine Urobilinogen Normal (Normal)
[2024-02-07 13:24] LABS: White Blood Cells 25-50 SEEN /hpf (0-5)
[2024-02-07 13:25] LABS: Bacteria 1+ /hpf (None Seen); Red Blood Cells-Urine 10-25 SEEN /hpf (0-5); Squamous Epithelial Cells - UA 0-5 SEEN /hpf (0-5)
--- NOTE | 2024-02-07 14:07 | PCM.HP.STD ---
HPI - General General Date of Admission: 02/07/24 Date of Service: 02/07/24 Chief Complaint: Confusion HPI Narrative ARBEN PORTER, is a 74 M with a significant history of end-stage renal disease on dialysis who presents emergency department with confusion. Reportedly patient's symptoms started the day before presentation. At Dialysis because she was confused paramedics were called and patient was brought to the emergency department with leaving his car at the car park. [facility] Medical History Alcohol abuse Wears dentures Wears glasses Cancer Substance abuse Alcohol use Thyroid disease Arthritis History of renal disease Anemia High cholesterol Excessive bleeding Back pain Injury of head and neck History of diverticulitis Gastric reflux Former smoker Leg cramps History of echocardiogram History of stress test Cardiology follow-up encounter Depression Anxiety Kidney disease Dialysis patient GI bleed CPAP (continuous positive airway pressure) dependence DVT (deep venous thrombosis) TIA (transient ischemic attack) Valvular heart disease Polycystic kidney disease Hyperlipidemia Essential hypertension Malignant neoplasm of prostate Home Medications ?Medication ?Instructions ?Recorded ?Last Taken ?Type omeprazole 40 mg capsule,delayed 40 mg PO DAILY gerd 06/22/15 Unknown History release [id number] 300 mcg-K 60 1 tab PO DAILY multivitamin 04/06/18 06/27/23 History mcg-lycop 600 mcg-lutein 300 mcg tablet (Centrum Silver Men) olmesartan 40 mg tablet 40 mg PO DAILY 04/06/18 03/30/19 04:30 History 40 MG levothyroxine 100 mcg capsule 100 mcg PO DAILY thyroid 03/12/19 06/27/23 08:19 History cholecalciferol (vitamin D3) 50 2,000 unit PO BID supplement 03/20/19 06/27/23 08:00 History mcg (2,000 unit) capsule fluticasone propionate 50 1 spray NASAL QHS nasal congestion 03/20/19 06/26/23 22:17 History mcg/actuation nasal spray,suspension clopidogrel 75 mg tablet 75 mg PO DAILY blood thinner 05/04/19 10/10/23 History donepezil 5 mg tablet 5 mg PO QHS mood 06/21/22 Unknown History furosemide 40 mg tablet 40 mg PO DAILY diuretic 06/21/22 Unknown History trazodone 50 mg tablet 100 mg PO QHS sleep 08/23/23 Unknown History Lactobacillus acidophilus 100 mg PO DAILY 09/20/23 Unknown History (Acidophilus capsule) duloxetine 60 mg capsule,delayed 60 mg PO DAILY 09/20/23 Unknown History release rosuvastatin 5 mg tablet 5 mg PO DAILY 09/20/23 Unknown History pramipexole 0.75 mg tablet 0.75 mg PO QDAY 12/14/23 Unknown History sevelamer carbonate 800 mg tablet 800 mg PO TID 12/14/23 Unknown History aspirin 81 mg tablet,delayed 81 mg PO DAILY 02/07/24 Unknown History release (Adult Low Dose Aspirin) spironolactone 25 mg tablet 25 mg PO DAILY 02/07/24 Unknown History (Aldactone) Allergy/AdvReac Type Severity Reaction Status Date / Time cashew nut Allergy Intermediate itching Verified 02/07/24 11:37 cetirizine (From Zyrtec) Allergy Mild Hives Verified 02/07/24 11:37 paroxetine (From Paxil) Allergy Mild Hives Verified 02/07/24 11:37 Family History Father , age 83 Cancer Surgical History Hx of CABG Hx of prostatectomy Hx of surgical procedure Status post trigger finger release History of repair of right rotator cuff Status post patent foramen ovale closure (~1999) History of carpal tunnel release of both wrists History of shoulder surgery History of ear, nose, and throat (ENT) surgery History of back surgery Social History Smoking Status: Former smoker how long ago did patient quit smoking: back in the alcohol intake: never caffeine: No ROS ROS Narrative Pertinent positives and pertinent negatives as noted in HPI. All other systems were reviewed and are negative Vital Signs Vital Signs Vital Signs: 02/07/24 11:30 02/07/24 11:34 02/07/24 11:45 Temperature 100.8 F H 100.8 F H Temperature Source Oral Oral Pulse Rate 123 H 122 H Respiratory Rate 20 H 22 H Blood Pressure 120/69 120/69 Blood Pressure Mean 86 86 Pulse Ox 93 93 Oxygen Delivery Method Room Air Room Air Room Air 02/07/24 12:34 02/07/24 13:00 02/07/24 13:29 Temperature 100.8 F H 100.8 F H 100 F H Temperature Source Oral Oral Oral Pulse Rate 117 H 115 H Respiratory Rate 16 20 H Blood Pressure 131/64 H 114/70 Blood Pressure Mean 86 84 Pulse Ox 93 92 Oxygen Delivery Method Room Air Room Air Weight Weight: 82.2 kg Body Mass Index (BMI) 27.5 Physical Exam Narrative Physical exam: General: Well-nourished, well-developed. Head: Normocephalic, atraumatic, no tenderness Eyes: Vision is grossly intact. EOMI ENT, no trauma, moist mucous membranes, no rhinorrhea Neck: Nontender, No thyromegaly. CVS: Regular rate and rhythm. S1-S2 present. No murmur, gallop or rub. Respiratory : clear to auscultation bilaterally, chest wall nontender Abdomen: Soft, nontender, nondistended, normal bowel sounds, no masses : Deferred Back: Nontender, no CVA tenderness, no midline spinal tenderness, deformities, step-offs Extremities: Nontender full range of motion, no trauma Skin: Normal color, no trauma, abrasions Neuro: Alert, oriented. Of note patient knows that he is at [facility]. He knows the month. He knows the year. Cranial nerves II through XII grossly intact. Psychiatry: Normal mood. Normal affect. Not depressed. Not anxious. Results Lab / Micro Data 02/07/24 11:40 02/07/24 11:40 Labs: Laboratory Results - last 24 hr 02/07/24 11:40: WBC 13.0 H, RBC 3.26 L, Hgb 11.2 L, Hct 33.7 L, MCV 103.4 H, MCH 34.4 H, MCHC 33.2, RDW Std Deviation 47.3 H, RDW Coeff of David 12.5, Plt Count 179, MPV 9.9, Immature Gran % (Auto) 0.700, Neut % (Auto) 82.6 H, Lymph % (Auto) 6.5 L, [place] % (Auto) 9.8, Eos % (Auto) 0.1, Baso % (Auto) 0.3, Absolute Neuts (auto) 10.8 H, Absolute Lymphs (auto) 0.84, Nucleated RBC % 0, PT 15.6 H, INR 1.2, APTT 31.5, Sodium 136, Potassium 3.4 L, Chloride 96 L, Carbon Dioxide 33.0 H, Anion Gap 7, BUN 27 H, Creatinine 3.92 H, Estim Creat Clear Calc 17.02, Est GFR (MDRD) Af Amer 19 L, Est GFR (MDRD) Non-Af 16 L, BUN/Creatinine Ratio 6.9 L, Glucose 104, Lactic Acid 1.5, Calcium 9.0, Total Bilirubin 0.40, AST 17, ALT 16, Alkaline Phosphatase 74, Total Protein 7.3, Albumin 3.4, Globulin 3.9, Albumin/Globulin Ratio 0.9 02/07/24 12:45: Urine Color Yellow, Urine Clarity Sl. Cloudy, Urine pH 8.0, Ur Specific [place] 1.010, Urine Protein 500 H, Urine Glucose (UA) 100 H, Urine Ketones Negative, Urine Occult Blood 250 H, Urine Nitrite Negative, Urine Bilirubin Negative, Urine Urobilinogen Normal, Ur Leukocyte Esterase 500 H, Urine RBC 10-25 SEEN, Urine WBC 25-50 SEEN, Ur Squamous Epith Cells 0-5 SEEN, Urine Bacteria 1+, Urine Mucus 0 SEEN Rhythm Strip Rhythm Strip: Sinus Tach Rate: 121 Ectopy: None Imaging Radiology Impression Chest X-Ray 02/07/24 11:42 IMPRESSION: Stable examination. No acute abnormality is seen. Electronically Signed: Noel Cornejo MD at 12:23 EDT , Brain CT 02/07/24 11:56 IMPRESSION: Chronic involutional changes of the brain. Electronically Signed: Noel Cornejo MD at 12:20 EDT , Assessment & Plan Assessment/Plan (1) Dialysis patient: (2) Acute UTI: (3) Acute metabolic encephalopathy: PLAN: Plan Acute metabolic encephalopathy?present on admission. Resolved. Monitor. Labs and imaging reviewed. Brain CT was independently interpreted. Results showed no acute pathology. Agrees with radiology interpretation. acute metabolic encephalopathy Resolved. Monitor Urinalysis at the emergency department reviewed, abnormal. Started on ceftriaxone the emergency department and continued. Renal diet. Nephrology consult DVT prophylaxis: Subcutaneous heparin ordered. Advance care planning: Discussed with patient and family advanced directives as well as CODE STATUS. Explained various CODE STATUS: FULL CODE, DNR CCA, DNR CCA with no intubation, and DNR CC- and what each meant. Patient elected to be a full code with CPR and intubation if warranted. Order was placed. Time spent on discussion 16 minutes. Time spent in the patient's overall evaluation,decision-making process, review of diagnostic data, adjustment of management, discussion with other providers, nursing and ancillary staff involved in patient's care documentation, 75 minutes. Charges/Coding Visit Charges Inpatient E&M: 97630 Init Hosp L3 Procedures Hospitalists Procedures: 28884 Advncd Care Plan 30 Min
[2024-02-07] MEDS: Ceftriaxone 1 GM/50 ML BAG IV (14:41)
[2024-02-07] MEDS: SEVELAMER CARBONATE 800 MG TABLET PO (17:41)
[2024-02-07] MEDS: Fluticasone 0.05% 1 SPRAY NASAL.SRY NASAL (21:41)
[2024-02-07] MEDS: traZODone 100 MG Tablet PO (21:42)
[2024-02-07] MEDS: Heparin Injection (Vial) 5,000 UNIT/ML VIAL 5000 UNIT SC (21:42)
[2024-02-07] MEDS: Cholecalciferol (VIT D3) 25 MCG TABLET (1,000 UNITS) 50 MCG PO (21:42)
[2024-02-07] MEDS: Acetaminophen 325 MG Tablet 650 MG PO (21:57)
[2024-02-07] MEDS: Donepezil HCl 10 MG Tablet PO (22:05)
[2024-02-08 00:32] VITALS: TEMP 38
[2024-02-08] MEDS: MELATONIN 10 MG TABLET PO ×2 (01:13→21:21)
[2024-02-08 04:28] VITALS: BMI 26.6
[2024-02-08] MEDS: metroNIDAZOLE 500 MG/100 ML BAG 100 MG IV (05:26)
[2024-02-08] MEDS: Acetaminophen 325 MG Tablet 650 MG PO (05:27)
[2024-02-08] MEDS: Levothyroxine 100 MCG Tablet PO (05:27)
[2024-02-08 05:49] VITALS: BP 122/71; PULSE 93; RESP 16; TEMP 37; O2SAT 97
[2024-02-08 07:03] LABS: Absolute Lymphocyte Count 1.08 X10^3/uL (0.83-4.51); Absolute Neutrophil Count 8.2 X10^3/uL (2.0-7.7); Basophil# 0.03 X10^3/uL; Basophil% 0.3 % (0-1); Eosinophil# 0.13 X10^3/uL; Eosinophils% 1.2 % (0-5); Hematocrit 32.9 % (40-54); Hemoglobin 10.8 g/dL (13.0-16.5); Lymphocyte # 1.08 X10^3/ul (0.83-4.51); Mean Corp Hgb Conc 32.8 g/dL (32-36); Mean Corpuscular Hgb 34.6 pg (27.0-32.0); Mean Corpuscular Volume 105.4 fL (80-94); Mean Platelet Vol. 10.1 fl (6.2-12.0); Monocyte# 1.34 X10^3/uL; Monocyte% 12.4 % (0-10); NRBC Flagged by Analyzer 0 % (0-5); Neutrophil # 8.17 X10^3/uL (2.7-7.7); Neutrophil % 75.5 % (47-70); Platelet Count 173 K/mm3 (150-450); RBC Distribution Width CV 12.3 % (11.6-14.6); RBC Distribution Width SD 47.9 fl (35.1-43.9); Red Blood Count 3.12 M/mm3 (4.6-6.2); White Blood Count 10.8 K/mm3 (4.4-11.0)
[2024-02-08 07:18] LABS: Anion Gap 8 (5-15); BUN 46 mg/dL (7-18); BUN/Creat Ratio 8.2 RATIO (10-20); Calcium,Total 9.3 mg/dL (8.5-10.1); Chloride 98 mmol/L (98-107); Creatinine, Serum 5.61 mg/dL (0.70-1.30); EST Glomerular Filtration Rate 11 mL/min (>60); Est Glom Filt Rate - Afr Amer 13 mL/min (>60); Estimated Creatinine Clearance 10.64 ml/min; Glucose 97 mg/dL (74-106); Potassium 3.3 mmol/L (3.5-5.1); Sodium Level 138 mmol/L (136-145)
[2024-02-08 09:13] VITALS: BP 115/74; PULSE 98; RESP 18; TEMP 36.7; O2SAT 93
[2024-02-08] MEDS: Pantoprazole Sodium 40 MG Tablet PO (09:17)
[2024-02-08] MEDS: Spironolactone 25 MG Tablet PO (09:17)
[2024-02-08] MEDS: Furosemide 40 MG Tablet PO (09:17)
[2024-02-08] MEDS: Heparin Injection (Vial) 5,000 UNIT/ML VIAL 5000 UNIT SC ×2 (09:17→21:22)
[2024-02-08] MEDS: Losartan Potassium 100 MG Tablet PO (09:17)
[2024-02-08] MEDS: Aspirin E.C. 81 MG Tablet PO (09:17)
[2024-02-08] MEDS: Cholecalciferol (VIT D3) 25 MCG TABLET (1,000 UNITS) 50 MCG PO ×2 (09:17→21:21)
[2024-02-08] MEDS: Lactobacillis Acidophilus 1 CAP PO (09:17)
[2024-02-08] MEDS: SEVELAMER CARBONATE 800 MG TABLET PO ×3 (09:17→16:47)
[2024-02-08] MEDS: Multivitamins,Ther W-Minerals Tablet 1 TABLET PO (09:17)
[2024-02-08] MEDS: Atorvastatin Calcium 10 MG Tablet PO (09:17)
[2024-02-08] MEDS: Clopidogrel Bisulfate 75 MG Tablet PO (09:17)
[2024-02-08] MEDS: DULoxetine Hcl 60 MG Capsule PO (09:17)
[2024-02-08] MEDS: Pramipexole Di-HCl 0.25 MG Tablet 0.75 MG PO (09:27)
[2024-02-08] MEDS: Potassium Chloride Oral Tablet 20 MEQ PO (09:27)
--- NOTE | 2024-02-08 09:40 | CASEMGMT ---
RN CM Face to Face with patient for initial transition planning/care coordination assessment. RN CM introduced self and role at [facility]. Patient lying in bed, alert and oriented. Patient willing to participate in assessment and is able to answer all questions appropriately. Care providers, pharmacy, and demographics verified. Strata: 3 PCP: [facility] Specialists: Katie food service cashier; ashley Kenny Pharmacy: [facility] Insurance: [facility], [facility] Prescription Benefit: yes Living Will/HPOA: yes, Lilia Regan LNOK: , son Living Arrangements: Patient lives in a single story home with 2 steps. Patient is independent at home Transportation: self, son, friend DME/HHC: Patient has shower, raised toilet, cane, walker, grab bars, and cpap at home. No previous HHC or SNF. Patient attend HD at [facility] on TTS 0545 Patient wishes to discharge home, denies need for home health at this time. Patient states he has no further needs or concerns at this time. CM to follow for discharge planning needs that may arise. Disposition Plan: Patient to discharge home with family support and follow-up plans in place. Anali LONG, RN, CM
[2024-02-08] MEDS: Piperacil/Tazobactam 3.375 GM in 0.9% Normal Saline (50mL MB+) 50 ML IV ×2 (10:15→21:21)
--- NOTE | 2024-02-08 12:04 | CT_ITS ---
STUDY: CT ABDOMEN AND PELVIS WITH CONTRAST REASON FOR EXAM: Male, 74 years old. Pyelonephritis, history of polycystic kidney RADIATION DOSAGE (If Supplied By Facility): CTDIvol = ( 12.46 ) mGy, DLP = ( 809.91 ) mGycm TECHNIQUE: Transaxial images were obtained from the dome of the diaphragm to the symphysis pubis without oral contrast. IV 75mL Isovue-300 was administered. Sagittal and coronal images were reconstructed. Individualized dose optimization techniques were used for this CT. COMPARISON: None. FINDINGS: Minimal increased linear markings at the lung bases suggesting scarring. Coronary calcification. Once again, there is evidence of multiple cysts seen throughout the liver in the right and left lobes. Normal gallbladder and extrahepatic biliary system. Normal spleen. Normal pancreas. Normal bilateral adrenal glands. Markedly enlarged bilateral kidneys with multiple inoperable cysts seen in keeping with the history of polycystic renal disease. Tiny calcification is seen in the left kidney. Normal visualized stomach. Normal small intestine. There are multiple colonic diverticula consistent with diverticulosis. The appendix is visualized and appears normal. There is diffuse atherosclerotic calcification of the abdominal aorta, without a demonstrated aneurysm. Normal inferior vena cava. Normal retroperitoneum. Normal urinary bladder. Normal abdominal wall. There are mild degenerative changes of the visualized lumbar spine. CT/Abdomen/Pelvis WITH Contrast IMPRESSION: Polycystic kidney disease with marked enlargement of the kidneys. Minimal residual renal parenchymal tissue is seen. No evidence of abscess. Sigmoid diverticulosis. Multiple hepatic cysts. Electronically Signed: Noel Cornejo MD at 13:29 EDT ,
--- NOTE | 2024-02-08 12:06 | PCM.CONS.R ---
Assessment & Plan Assessment/Plan (1) ESRD (end stage renal disease): PLAN: On hemodialysis Tuesday, , Tuesday schedule. Last dialysis yesterday, uneventful. Will plan for dialysis tomorrow as per schedule. UTI, bacteremia. Urine culture is growing E. coli. Blood culture is growing gram-negative rods. Currently on Zosyn. On examination he does have some tenderness over his left kidney. In general he has been kidneys related to polycystic kidney disease. Due to tenderness over the left kidney, cyst infection probably needs to be ruled out. I will order a CT scan of the abdomen with contrast. Currently has a right IJ tunneled dialysis catheter. Left arm AV fistula is relatively new, which he started using it. Currently looks okay on exam. Will try to access the fistula tomorrow. Catheter may be able to be removed if successful. will dw hospitalist HPI Consult Data Date of Consult: 02/08/24 HPI Narrative Reason for Consultation: esrd HPI Narrative: ARBEN PORTER, is a 74 M who presents To the hospital with confusion after dialysis. Nephrology on consultation in view of ESRD. On hemodialysis Tuesday, , Tuesday schedule. Last dialysis was yesterday. Had some confusion after. Found to have UTI, bacteremia. He has a right IJ tunneled dialysis catheter. Left arm AV fistula relatively new, recently being used. Complains of some abdominal pain over the left kidney. Denies any hematuria. Possible dysuria. No flank pain. No previous history of UTI/kidney stones. [facility] Medical History Alcohol abuse Wears dentures Wears glasses Cancer Substance abuse Alcohol use Thyroid disease Arthritis History of renal disease Anemia High cholesterol Excessive bleeding Back pain Injury of head and neck History of diverticulitis Gastric reflux Former smoker Leg cramps History of echocardiogram History of stress test Cardiology follow-up encounter Depression Anxiety Kidney disease Dialysis patient GI bleed CPAP (continuous positive airway pressure) dependence DVT (deep venous thrombosis) TIA (transient ischemic attack) Valvular heart disease Polycystic kidney disease Hyperlipidemia Essential hypertension Malignant neoplasm of prostate Home Medications ?Medication ?Instructions ?Recorded ?Last Taken ?Type omeprazole 40 mg capsule,delayed 40 mg PO DAILY gerd 06/22/15 Unknown History release [id number]-[id number] 300 mcg-K 60 1 tab PO DAILY multivitamin 04/06/18 06/27/23 History mcg-lycop 600 mcg-lutein 300 mcg tablet (Centrnabeel Mora Men) olmesartan 40 mg tablet 40 mg PO DAILY 04/06/18 03/30/19 04:30 History 40 MG levothyroxine 100 mcg capsule 100 mcg PO DAILY thyroid 03/12/19 06/27/23 08:19 History cholecalciferol (vitamin D3) 50 2,000 unit PO BID supplement 03/20/19 06/27/23 08:00 History mcg (2,000 unit) capsule fluticasone propionate 50 1 spray NASAL QHS nasal congestion 03/20/19 06/26/23 22:17 History mcg/actuation nasal spray,suspension clopidogrel 75 mg tablet 75 mg PO DAILY blood thinner 05/04/19 10/10/23 History donepezil 5 mg tablet 5 mg PO QHS mood 06/21/22 Unknown History furosemide 40 mg tablet 40 mg PO DAILY diuretic 06/21/22 Unknown History trazodone 50 mg tablet 100 mg PO QHS sleep 08/23/23 Unknown History Lactobacillus acidophilus 100 mg PO DAILY 09/20/23 Unknown History (Acidophilus capsule) duloxetine 60 mg capsule,delayed 60 mg PO DAILY 09/20/23 Unknown History release rosuvastatin 5 mg tablet 5 mg PO DAILY 09/20/23 Unknown History pramipexole 0.75 mg tablet 0.75 mg PO QDAY 12/14/23 Unknown History sevelamer carbonate 800 mg tablet 800 mg PO TID 12/14/23 Unknown History aspirin 81 mg tablet,delayed 81 mg PO DAILY 02/07/24 Unknown History release (Adult Low Dose Aspirin) spironolactone 25 mg tablet 25 mg PO DAILY 02/07/24 Unknown History (Aldactone) melatonin 10 mg tablet 10 mg PO QHS PRN sleep 02/08/24 Unknown History trazodone 100 mg tablet 150 mg PO QHS SLEEP 02/08/24 Unknown History Allergy/AdvReac Type Severity Reaction Status Date / Time cashew nut Allergy Intermediate itching Verified 02/07/24 11:37 cetirizine (From Zyrtec) Allergy Mild Hives Verified 02/07/24 11:37 paroxetine (From Paxil) Allergy Mild Hives Verified 02/07/24 11:37 Family History Father , age 83 Cancer Surgical History Hx of CABG Hx of prostatectomy Hx of surgical procedure Status post trigger finger release History of repair of right rotator cuff Status post patent foramen ovale closure (~1999) History of carpal tunnel release of both wrists History of shoulder surgery History of ear, nose, and throat (ENT) surgery History of back surgery Social History Smoking Status: Former smoker how long ago did patient quit smoking: back in the alcohol intake: never caffeine: No Physical Exam Narrative Alert awake oriented x 3 no obvious distress no pallor no icterus no JVD s1s2 no murmurs lungs clear abdomen tenderness over left kidney no edema no cyanosis Lab / Micro Data 02/08/24 06:26 02/08/24 06:26 Labs: Laboratory Results - last 24 hr 02/07/24 11:40: PT 15.6 H, INR 1.2, APTT 31.5, Sodium 136, Potassium 3.4 L, Chloride 96 L, Carbon Dioxide 33.0 H, Anion Gap 7, BUN 27 H, Creatinine 3.92 H, Estim Creat Clear Calc 17.02, Est GFR (MDRD) Af Amer 19 L, Est GFR (MDRD) Non-Af 16 L, BUN/Creatinine Ratio 6.9 L, Glucose 104, Lactic Acid 1.5, Calcium 9.0, Total Bilirubin 0.40, AST 17, ALT 16, Alkaline Phosphatase 74, Total Protein 7.3, Albumin 3.4, Globulin 3.9, Albumin/Globulin Ratio 0.9 02/07/24 12:45: Urine Color Yellow, Urine Clarity Sl. Cloudy, Urine pH 8.0, Ur Specific [place] 1.010, Urine Protein 500 H, Urine Glucose (UA) 100 H, Urine Ketones Negative, Urine Occult Blood 250 H, Urine Nitrite Negative, Urine Bilirubin Negative, Urine Urobilinogen Normal, Ur Leukocyte Esterase 500 H, Urine RBC 10-25 SEEN, Urine WBC 25-50 SEEN, Ur Squamous Epith Cells 0-5 SEEN, Urine Bacteria 1+, Urine Mucus 0 SEEN 02/08/24 06:26: WBC 10.8, RBC 3.12 L, Hgb 10.8 L, Hct 32.9 L, MCV 105.4 H, MCH 34.6 H, MCHC 32.8, RDW Std Deviation 47.9 H, RDW Coeff of David 12.3, Plt Count 173, MPV 10.1, Immature Gran % (Auto) 0.600, Neut % (Auto) 75.5 H, Lymph % (Auto) 10.0 L, [place] % (Auto) 12.4 H, Eos % (Auto) 1.2, Baso % (Auto) 0.3, Absolute Neuts (auto) 8.2 H, Absolute Lymphs (auto) 1.08, Nucleated RBC % 0, Sodium 138, Potassium 3.3 L, Chloride 98, Carbon Dioxide 31.0, Anion Gap 8, BUN 46 H, Creatinine 5.61 H, Estim Creat Clear Calc 10.64, Est GFR (MDRD) Af Amer 13 L, Est GFR (MDRD) Non-Af 11 L, BUN/Creatinine Ratio 8.2 L, Glucose 97, Calcium 9.3 Micro: Microbiology 02/07/24 12:45 Urine, Clean Catch Urine Culture - Preliminary Presumptive E. coli 02/07/24 11:40 Blood Culture (Wb) - Anticubital Right Blood Culture - Preliminary GNR lactose billing and insurance coordinator 02/07/24 11:40 Mucosa - Nose SARS-CoV-2, Influenza & RSV (PCR) - Final Rhythm Strip Rhythm Strip: Sinus Tach Rate: 121 Ectopy: None Imaging Radiology Impression Chest X-Ray 02/07/24 11:42 IMPRESSION: Stable examination. No acute abnormality is seen. Electronically Signed: Noel Cornejo MD at 12:23 EDT , Brain CT 02/07/24 11:56 IMPRESSION: Chronic involutional changes of the brain. Electronically Signed: Noel Cornejo MD at 12:20 EDT ,
--- NOTE | 2024-02-08 12:23 | CASEMGMT ---
UBALDO GARCIA NOTE: Per Dr Fortune, pt may be medically ready to discharge tomorrow. Call placed to [facility] to inquire if they have a later chair time available tomorrow. Per Jennifer, pt would need to arrive by 10:45 AM tomorrow/ for 11:10 treatment, and states this would be the latest chair time available. Dr Fortune made aware and states pt will not be ready for discharge early enough tomorrow AM to be able to make that arrival time. Pt to receive HD while an In-patient @ [facility] tomorrow. Connie HUTCHINSN RN CM
[2024-02-08 15:00] VITALS: BP 107/72; PULSE 101; RESP 18; TEMP 36.7; O2SAT 94
--- NOTE | 2024-02-08 18:58 | PN.HOSP_ITS ---
Reason for Visit Reason for Visit: Diagnoses Metabolic encephalopathy (02/07/24) End stage renal disease (02/07/24) Urinary tract infection, site not specified (02/07/24) Dependence on renal dialysis (02/07/24) Subjective Subjective Pt feeling much better today. Having some left lower quandrant pain today which is new. No diarrhea, does report some burning on urination prior to coming to the hospital Objective Data Objective Data Vital Signs: Vital Signs Temp Pulse Resp BP Pulse Ox O2 Del Method O2 Flow Rate 98.0 F 101 H 18 107/72 94 Room Air 2 02/08/24 15:00 02/08/24 15:00 02/08/24 15:00 02/08/24 15:00 02/08/24 15:00 02/08/24 15:00 02/08/24 08:22 Oxygen Flow Rate (L/min) 2 Oxygen Delivery Method Room Air Weight: 77.2 kg Body Mass Index (BMI) 26.6 Intake & Output: Intake and Output for Last 24 Hours 02/06/24 02/07/24 02/08/24 23:59 23:59 23:59 Intake Total 50 / 50 930 / 930 Balance 50 / 50 930 / 930 Lab / Micro Data 02/08/24 06:26 02/08/24 06:26 Labs: Laboratory Results - last 24 hr 02/08/24 06:26: WBC 10.8, RBC 3.12 L, Hgb 10.8 L, Hct 32.9 L, MCV 105.4 H, MCH 34.6 H, MCHC 32.8, RDW Std Deviation 47.9 H, RDW Coeff of David 12.3, Plt Count 173, MPV 10.1, Immature Gran % (Auto) 0.600, Neut % (Auto) 75.5 H, Lymph % (Auto) 10.0 L, [place] % (Auto) 12.4 H, Eos % (Auto) 1.2, Baso % (Auto) 0.3, A bsolute Neuts (auto) 8.2 H, Absolute Lymphs (auto) 1.08, Nucleated RBC % 0, Sodium 138, Potassium 3.3 L, Chloride 98, Carbon Dioxide 31.0, Anion Gap 8, BUN 46 H, Creatinine 5.61 H, Estim Creat Clear Calc 10.64, Est GFR (MDRD) Af Amer 13 L, Est GFR (MDRD) Non-Af 11 L, BUN/Creatinine Ratio 8.2 L, Glucose 97, Calcium 9.3 Micro: Microbiology 02/07/24 12:45 Urine, Clean Catch Urine Culture - Preliminary Presumptive E. coli 02/07/24 11:40 Blood Culture (Wb) - Anticubital Right Blood Culture - Preliminary GNR lactose service liaison representative 02/07/24 11:40 Mucosa - Nose SARS-CoV-2, Influenza & RSV (PCR) - Final Radiography Diagnostic Testing: Radiology Impression Abdomen/Pelvis CT 02/08/24 12:04 IMPRESSION: Polycystic kidney disease with marked enlargement of the kidneys. Minimal residual renal parenchymal tissue is seen. No evidence of abscess. Sigmoid diverticulosis. Multiple hepatic cysts. Electronically Signed: Noel Cornejo MD at 13:29 EDT , Rhythm Strip Rhythm Strip: Sinus Tach Rate: 121 Ectopy: None Physical Exam Narrative General: Alert, oriented, no apparent distress HEENT: Atraumatic, normocephalic Eyes: Anicteric, normal conjunctiva, extraocular movements grossly intact Neck: Supple Respiratory: Clear to auscultation bilaterally, normal respiratory effort Cardiovascular: Regular rate and rhythm GI: Soft, nondistended, little bit tender in left lower quadrant without rebound, guarding, rigidity Extremities: No edema Musculoskeletal: Moving all extremities Neuro: No overt focal neurological deficits Skin: No rashes appreciated, no tenderness over right port site Psych: Cooperative Assessment & Plan Assessment/Plan (1) Acute UTI: PLAN: Plan # Acute metabolic encephalopathy suspect due to UTI/gram-negative johann bacteremia -Patient on presentation had leuk esterase, white blood cells, occult blood, and bacteria in his urine and was febrile and had mildly elevated white blood cell count. Additionally he was febrile with a Tmax 101.1 -UA suspicious for UTI -Urine culture growing presumptive E. coli -Blood culture growing gram-negative johann -Vitally stable -Responding well to Zosyn and has not been documented as febrile since antibiotics were broadened to Zosyn -Due to history of polycystic kidney disease and left-sided abdominal pain discussed with nephrology and CT abdomen/pelvis obtained to verify no kidney abscess, PCKD noted with marked enlargement of kidneys without evidence of abscess -Mental status significantly improved since Zosyn has been initiated #ESRD on HD -Dr. Wilson following, next dialysis due 02/08 -Renal diet -Left arm fistula is what is presently used for dialysis but patient still has right sided chest port has dialysis fistula has not been optimized per patient -Patient on Lasix #Hypothyroidism -Continue Synthroid #GERD -Continue PPI # Hypertension -Well-controlled, patient's home diuretics and losartan were continued #DVT ppx: Heparin subcu Sangeeta Fortune MD Time spent in the patient's overall evaluation,decision-making process, review of diagnostic data, adjustment of management, discussion with other providers, nursing nursing and ancillary staff involved in patient's care documentation, 36 minutes Charges/Coding Visit Charges Inpatient E&M: 21261 Subs Hosp L2
[2024-02-08 21:15] VITALS: BP 132/75; PULSE 101; RESP 18; TEMP 37.1; O2SAT 92
[2024-02-08] MEDS: Fluticasone 0.05% 1 SPRAY NASAL.SRY NASAL (21:22)
[2024-02-08] MEDS: traZODone 100 MG Tablet PO (21:23)
[2024-02-08] MEDS: Donepezil HCl 5 MG Tablet PO (21:23)
[2024-02-08] MEDS: 0.9% Saline Lock 10 ML Syringe IV (21:25)
[2024-02-09] VITALS (11 sets, daily range): BP systolic 123–258; BP diastolic 73–88; PULSE 87–110; RESP 12–18; TEMP 36.2–37.4; O2SAT 92–99; BMI 27.0; BMI 26.6
[2024-02-09] MEDS: Levothyroxine 100 MCG Tablet PO (05:54)
[2024-02-09 06:40] LABS: Absolute Lymphocyte Count 1.07 X10^3/uL (0.83-4.51); Absolute Neutrophil Count 7.8 X10^3/uL (2.0-7.7); Basophil# 0.04 X10^3/uL; Basophil% 0.4 % (0-1); Eosinophil# 0.24 X10^3/uL; Eosinophils% 2.3 % (0-5); Hematocrit 31.9 % (40-54); Hemoglobin 10.6 g/dL (13.0-16.5); Lymphocyte # 1.07 X10^3/ul (0.83-4.51); Lymphocyte % 10.1 % (19-41); Mean Corp Hgb Conc 33.2 g/dL (32-36); Mean Corpuscular Hgb 34.3 pg (27.0-32.0); Mean Corpuscular Volume 103.2 fL (80-94); Mean Platelet Vol. 10.3 fl (6.2-12.0); Monocyte# 1.36 X10^3/uL; Monocyte% 12.9 % (0-10); NRBC Flagged by Analyzer 0 % (0-5); Neutrophil # 7.81 X10^3/uL (2.7-7.7); Neutrophil % 73.9 % (47-70); Platelet Count 191 K/mm3 (150-450); RBC Distribution Width CV 12.3 % (11.6-14.6); RBC Distribution Width SD 46.7 fl (35.1-43.9); Red Blood Count 3.09 M/mm3 (4.6-6.2); White Blood Count 10.6 K/mm3 (4.4-11.0)
[2024-02-09 07:08] LABS: Anion Gap 9 (5-15); BUN 59 mg/dL (7-18); BUN/Creat Ratio 8.8 RATIO (10-20); Calcium,Total 9.5 mg/dL (8.5-10.1); Chloride 99 mmol/L (98-107); EST Glomerular Filtration Rate 9 mL/min (>60); Est Glom Filt Rate - Afr Amer 10 mL/min (>60); Estimated Creatinine Clearance 8.91 ml/min; Glucose 76 mg/dL (74-106); Potassium 3.8 mmol/L (3.5-5.1); Sodium Level 134 mmol/L (136-145)
--- NOTE | 2024-02-09 09:07 | PN.HOSP_ITS ---
Reason for Visit Reason for Visit: Diagnoses Metabolic encephalopathy (02/07/24) End stage renal disease (02/07/24) Urinary tract infection, site not specified (02/07/24) Dependence on renal dialysis (02/07/24) Subjective Subjective Feels well. No new events. Objective Data Objective Data Vital Signs: Vital Signs Temp Pulse Resp BP Pulse Ox O2 Del Method O2 Flow Rate 36.2 C L 95 16 131/77 H 95 Room Air 2 02/09/24 08:40 02/09/24 08:40 02/09/24 08:40 02/09/24 08:40 02/09/24 08:40 02/09/24 08:40 02/08/24 08:22 Oxygen Flow Rate (L/min) 2 Oxygen Delivery Method Room Air Weight: 78.2 kg Body Mass Index (BMI) 27.0 Intake & Output: Intake and Output for Last 24 Hours 02/07/24 02/08/24 02/09/24 23:59 23:59 23:59 Intake Total 50 / 50 930 / 930 50 / 50 Balance 50 / 50 930 / 930 50 / 50 Lab / Micro Data 02/09/24 05:57 02/09/24 05:57 Labs: Laboratory Results - last 24 hr 02/09/24 05:57: WBC 10.6, RBC 3.09 L, Hgb 10.6 L, Hct 31.9 L, MCV 103.2 H, MCH 34.3 H, MCHC 33.2, RDW Std Deviation 46.7 H, RDW Coeff of David 12.3, Plt Count 191, MPV 10.3, Immature Gran % (Auto) 0.400, Neut % (Auto) 73.9 H, Lymph % (Auto) 10.1 L, Warren % (Auto) 12.9 H, Eos % (Auto) 2.3, Baso % (Auto) 0.4, A bsolute Neuts (auto) 7.8 H, Absolute Lymphs (auto) 1.07, Nucleated RBC % 0, S odium 134 L, Potassium 3.8, Chloride 99, Carbon Dioxide 26.0, Anion Gap 9, BUN 59 H, Creatinine 6.70 H, Estim Creat Clear Calc 8.91, Est GFR (MDRD) Af Amer 10 L, Est GFR (MDRD) Non-Af 9 L, BUN/Creatinine Ratio 8.8 L, Glucose 76, Calcium 9.5 Micro: Microbiology 02/07/24 11:40 Blood Culture (Wb) - Anticubital Right Blood Culture - Final Escherichia coli 02/07/24 12:45 Urine, Clean Catch Urine Culture - Preliminary Presumptive E. coli 02/07/24 11:40 Mucosa - Nose SARS-CoV-2, Influenza & RSV (PCR) - Final Radiography Diagnostic Testing: Radiology Impression Abdomen/Pelvis CT 02/08/24 12:04 IMPRESSION: Polycystic kidney disease with marked enlargement of the kidneys. Minimal residual renal parenchymal tissue is seen. No evidence of abscess. Sigmoid diverticulosis. Multiple hepatic cysts. Electronically Signed: Noel Cornejo MD at 13:29 EDT , Rhythm Strip Rhythm Strip: Sinus Tach Rate: 121 Ectopy: None Physical Exam Const alert and no apparent distress HEENT head/scalp atraumatic and moist oral mucous membranes Resp normal respiratory effort, no retractions, no use of accessory muscles and clear to auscultation bilaterally Cardio regular rate, regular rhythm, S1 normal heart sound and S2 normal heart sound GI normal to inspection, nondistended, normoactive bowel sounds, soft to palpation, non-tender and non-distended Assessment & Plan Assessment/Plan (1) Acute UTI: PLAN: Plan Acute metabolic encephalopathy * suspect due to UTI/gram-negative johann bacteremia * imrpoved with abx * DC with Augmentin. UTI with bacteremia * 2/2 mcnulty-sensitive E. coli * dc pip/tazo. Start CTX. Change to Augmentin to complete 7-day course of abx. * CT a/p: PCK with marked enlargement. No abscess. ESRD on HD * nephrology following. Next HD for today. * neprhology following Chronic conditions: * Hypothyroidism-Continue Synthroid * GERD-Continue PPI * Abrfdfdvntck-Jixb-bhbeitgpag, patient's home diuretics and losartan were continued DVT ppx: Heparin subcu DC home.
[2024-02-09] MEDS: PureFlow B 2K Dialysis Soln 1 BAG 6 BAG PF (10:28)
[2024-02-09] MEDS: 0.9% Normal Saline 1,000 ML IV.SOLN. 1000 ML OPERA.SITE (10:28)
[2024-02-09] MEDS: 0.9% Saline Lock 10 ML Syringe IV (12:02)
[2024-02-09] MEDS: Heparin 10,000 UNITS/10 ML Vial IV (12:02)
[2024-02-09] MEDS: Losartan Potassium 100 MG Tablet PO (12:46)
[2024-02-09] MEDS: Pantoprazole Sodium 40 MG Tablet PO (12:46)
[2024-02-09] MEDS: Lactobacillis Acidophilus 1 CAP PO (12:46)
[2024-02-09] MEDS: SEVELAMER CARBONATE 800 MG TABLET PO (12:46)
[2024-02-09] MEDS: DULoxetine Hcl 60 MG Capsule PO (12:46)
[2024-02-09] MEDS: Cholecalciferol (VIT D3) 25 MCG TABLET (1,000 UNITS) 50 MCG PO (12:46)
[2024-02-09] MEDS: Pramipexole Di-HCl 0.25 MG Tablet 0.75 MG PO (12:46)
[2024-02-09] MEDS: Spironolactone 25 MG Tablet PO (12:46)
[2024-02-09] MEDS: Clopidogrel Bisulfate 75 MG Tablet PO (12:46)
[2024-02-09] MEDS: Atorvastatin Calcium 10 MG Tablet PO (12:46)
[2024-02-09] MEDS: Heparin Injection (Vial) 5,000 UNIT/ML VIAL 5000 UNIT SC (12:47)
[2024-02-09] MEDS: Multivitamins,Ther W-Minerals Tablet 1 TABLET PO (12:47)
[2024-02-09] MEDS: Aspirin E.C. 81 MG Tablet PO (12:47)
[2024-02-09] MEDS: Ceftriaxone 1 GM/50 ML BAG IV (12:54)
[2024-02-09] MEDS: Furosemide 40 MG Tablet PO (14:21)
--- NOTE | 2024-02-09 14:25 | DS.PCM_ITS ---
Providers Date of Admission: 02/07/24 Primary Care Physician: Dr. Anige Ivan, DO Consultations 02/07/24 15:34 Consult: Nephrology Routine Consulting Provider: Jazmin Wilson Reason for Consult: esrd EMERGENT Consult: No MD Notified: Yes Date Notified: 02/07/24 Time Notified: 16:47 Method of Notification: Text Reason For Visit: ACUTE METABOLIC ENCEPHALOPATHY Diagnosis Discharge Diagnosis (1) Acute UTI: Status: Acute Code(s): N39.0 - Urinary tract infection, site not specified Plan Acute metabolic encephalopathy * suspect due to UTI/gram-negative johann bacteremia * imrpoved with abx * DC with Augmentin. UTI with bacteremia * 2/2 mcnulty-sensitive E. coli * dc pip/tazo. Start CTX. Change to Augmentin to complete 7-day course of abx. * CT a/p: PCK with marked enlargement. No abscess. ESRD on HD * nephrology following. Next HD for today. * neprhology following Chronic conditions: * Hypothyroidism-Continue Synthroid * GERD-Continue PPI * Uiujsnhuhhek-Mxjd-qkdvzedhzr, patient's home diuretics and losartan were continued DVT ppx: Heparin subcu DC home. Medications at Discharge Home Medications omeprazole 40 mg capsule,delayed release 40 mg PO DAILY gerd 06/22/15 ipixeeef-en-euioh 300 mcg-K 60 mcg-lycop 600 mcg-lutein 300 mcg tablet (Centrum Silver Men) 1 tab PO DAILY multivitamin 04/06/18 olmesartan 40 mg tablet 40 mg PO DAILY 04/06/18 levothyroxine 100 mcg capsule 100 mcg PO DAILY thyroid 03/12/19 cholecalciferol (vitamin D3) 50 mcg (2,000 unit) capsule 2,000 unit PO BID supplement 03/20/19 fluticasone propionate 50 mcg/actuation nasal spray,suspension 1 spray NASAL QHS nasal congestion 03/20/19 clopidogrel 75 mg tablet 75 mg PO DAILY blood thinner 05/04/19 donepezil 5 mg tablet 5 mg PO QHS mood 06/21/22 furosemide 40 mg tablet 40 mg PO DAILY diuretic 06/21/22 Lactobacillus acidophilus (Acidophilus capsule) 100 mg PO DAILY 09/20/23 duloxetine 60 mg capsule,delayed release 60 mg PO DAILY 09/20/23 rosuvastatin 5 mg tablet 5 mg PO DAILY 09/20/23 pramipexole 0.75 mg tablet 0.75 mg PO QDAY 12/14/23 sevelamer carbonate 800 mg tablet 800 mg PO TID 12/14/23 aspirin 81 mg tablet,delayed release (Adult Low Dose Aspirin) 81 mg PO DAILY 02/07/24 spironolactone 25 mg tablet (Aldactone) 25 mg PO DAILY 02/07/24 melatonin 10 mg tablet 10 mg PO QHS PRN sleep 02/08/24 trazodone 100 mg tablet 150 mg PO QHS SLEEP 02/08/24 amoxicillin 875 mg-potassium clavulanate 125 mg tablet 1 tab PO BID #10 tabs 02/09/24 Hospital Course Operations None Procedures Dialysis Summary of Care Provided Minutes Spent on Discharge: 32 Hospital Course: This is a 74-year-old male who presents with confusion. Patient was at dialysis and then was brought to the hospital because of his confusion. Patient was sent to found to have a urinary tract infection as well as bacteremia secondary to E. coli. Patient did undergo a CT given his polycystic kidney disease to look for any abscesses. No abscesses were identified other than just enlarged kidneys from his polycystic kidney disease. His E. coli was pansensitive and patient will be discharged to complete a 7-day course of antibiotics with Augmentin. Patient did receive pip-tazo as well as ceftriaxone in the hospital. Weight / BMI Weight Weight: 77.3 kg Body Mass Index (BMI) 26.6 ABG / Lab / Microbiology Data 02/09/24 05:57 02/09/24 05:57 Laboratory: Laboratory Results - last 24 hr 02/09/24 05:57: WBC 10.6, RBC 3.09 L, Hgb 10.6 L, Hct 31.9 L, MCV 103.2 H, MCH 34.3 H, MCHC 33.2, RDW Std Deviation 46.7 H, RDW Coeff of David 12.3, Plt Count 191, MPV 10.3, Immature Gran % (Auto) 0.400, Neut % (Auto) 73.9 H, Lymph % (Auto) 10.1 L, [place] % (Auto) 12.9 H, Eos % (Auto) 2.3, Baso % (Auto) 0.4, A bsolute Neuts (auto) 7.8 H, Absolute Lymphs (auto) 1.07, Nucleated RBC % 0, S odium 134 L, Potassium 3.8, Chloride 99, Carbon Dioxide 26.0, Anion Gap 9, BUN 59 H, Creatinine 6.70 H, Estim Creat Clear Calc 8.91, Est GFR (MDRD) Af Amer 10 L, Est GFR (MDRD) Non-Af 9 L, BUN/Creatinine Ratio 8.8 L, Glucose 76, Calcium 9.5 Microbiology: Microbiology 02/07/24 12:45 Urine, Clean Catch Urine Culture - Final Presumptive E. coli 02/07/24 11:40 Blood Culture (Wb) - Anticubital Right Blood Culture - Final Escherichia coli 02/07/24 11:40 Mucosa - Nose SARS-CoV-2, Influenza & RSV (PCR) - Final D/C Instructions Discharge Diet: Renal Diet Meaningful Use Info Meaningful Use Meaningful Use Diagnoses (Choose all that apply): None applicable Ischemic Stroke Statin Dosing Therapy Reference: STATIN DOSE THERAPY REFERENCE: * Patients > 75 years receive moderate or high dose statin therapy. * Patients 75 years or YOUNGER should receive HIGH intensity statin dose unless contraindicated. You will be required to document reason for non-treatment if statin daily dose does not meet guidelines. HIGH DOSE STATIN THERAPY DAILY Atorvastatin > than or = to 40 mg Rosuvastatin > than or = to 20 mg Amlodipine + Atorvastatin > than or = to 2.5/40 mg Ezetimibe + Simvastatin 10/80 mg Simvastatin 80mg Discharge Plan Admission Admit Date/Time: 02/07/24 15:27 Primary Reason for Your Visit: Urinary tract infection and bacteremia Attending Provider: Nacho Pastor Primary Care Provider: Angie Ivan Consulting Providers: Jazmin Wilson; Hieu Saenz; Sangeeta Fortune Instructions Additional Instructions / Restrictions: You had a severe urinary tract infection that led to bloodstream infection. You responded well with the antibiotics and you will need to complete your antibiotics. Follow-up with dialysis per your normal routine. Discharge Orders/Prescriptions Prescriptions: New amoxicillin-pot clavulanate 875-125 mg tablet 1 tab PO BID Qty: 10 0RF Continued Centrum Silver Men 300-600-300 mcg tablet 1 tab PO DAILY olmesartan 40 mg tablet 40 mg PO DAILY clopidogrel 75 mg tablet 75 mg PO DAILY levothyroxine 100 mcg capsule 100 mcg PO DAILY furosemide 40 mg tablet 40 mg PO DAILY donepezil 5 mg tablet 5 mg PO QHS pramipexole 0.75 mg tablet 0.75 mg PO QDAY sevelamer carbonate 800 mg tablet 800 mg PO TID omeprazole 40 MG capsule 40 mg PO DAILY fluticasone propionate 1 SPRAY spray,suspension 1 spray NASAL QHS cholecalciferol (vitamin D3) 2,000 UNIT capsule 2,000 unit PO BID spironolactone [Aldactone] 25 mg tablet 25 mg PO DAILY aspirin [Adult Low Dose Aspirin] 81 mg tablet,delayed release (DR/EC) 81 mg PO DAILY trazodone 100 mg tablet 150 mg PO QHS melatonin 10 mg tablet 10 mg PO QHS PRN (Reason: sleep) rosuvastatin 5 mg tablet 5 mg PO DAILY duloxetine 60 mg capsule,delayed release(DR/EC) 60 mg PO DAILY Acidophilus Capsule 100 mg PO DAILY Discontinued trazodone 50 mg tablet 100 mg PO QHS Referrals / Follow Up: Angie Ivan DO [Primary Care Provider] - Within 2 Weeks Disposition Disposition (needs filled in before D/C Order can be placed): Home, Self Care Charges/Coding Visit Charges Inpatient E&M: 54557 Disch Hosp >30min
--- NOTE | 2024-02-09 15:06 | CHAPLAIN ---
Type of Pastoral Visit _x__ Initial Visit ___ Follow-up Visit ___ On-call Visit ___ General Patient Visit ___ Spiritual Assessment ___ Family Conference ___ Bereavement ___ Rapid Response ___ Code Blue ___ Other (describe below) Pastoral Care Referral From _x__ Patient ___ Family ___ Nurse ___ Physician ___ Currency Counter ___ Ammunition And Explosives Handler ___ Other (describe below) Sacrament/Intervention _x__ Active listening ___ Anointing ___ Tenriism ___ Bereavement ___ Communion ___ Constance exploration ___ ___ Life review _x__ Prayer ___ Reconciliation ___ Sacrament of Sick ___ Supportive presence ___ Wedding ___ Other (describe below) Pastoral Comments patient states that he is improved and somewhat embarrassed by his UTI; pt believes that he is doing much better and that he should be able to go home; pt had dialysis earlier in the day and when asked he reveals that a bigger need for him is to receive a new kidney; this topic became a matter of supportive conversation and of prayer
--- NOTE | 2024-02-09 17:57 | PN.RENAL_ITS ---
Subjective Subjective seen on HD today Objective Data Objective Data Vital Signs: Vital Signs Temp Pulse Resp BP Pulse Ox O2 Del Method O2 Flow Rate 97.6 F L 110 H 16 124/75 H 96 Room Air 2 02/09/24 14:19 02/09/24 14:19 02/09/24 14:19 02/09/24 14:19 02/09/24 14:19 02/09/24 14:19 02/08/24 08:22 Oxygen Flow Rate (L/min) 2 Oxygen Delivery Method Room Air Weight: 77.3 kg Body Mass Index (BMI) 26.6 Intake & Output: Intake and Output for Last 24 Hours 02/07/24 02/08/24 02/09/24 23:59 23:59 23:59 Intake Total 50 50 930 / 930 100 / 100 Output Total 2180 / 2180 Balance 50 50 930 / 930 -2080 / -2080 Lab / Micro Data 02/09/24 05:57 02/09/24 05:57 Labs: Laboratory Results - last 24 hr 02/09/24 05:57: WBC 10.6, RBC 3.09 L, Hgb 10.6 L, Hct 31.9 L, MCV 103.2 H, MCH 34.3 H, MCHC 33.2, RDW Std Deviation 46.7 H, RDW Coeff of David 12.3, Plt Count 191, MPV 10.3, Immature Gran % (Auto) 0.400, Neut % (Auto) 73.9 H, Lymph % (Auto) 10.1 L, [place] % (Auto) 12.9 H, Eos % (Auto) 2.3, Baso % (Auto) 0.4, A bsolute Neuts (auto) 7.8 H, Absolute Lymphs (auto) 1.07, Nucleated RBC % 0, S odium 134 L, Potassium 3.8, Chloride 99, Carbon Dioxide 26.0, Anion Gap 9, BUN 59 H, Creatinine 6.70 H, Estim Creat Clear Calc 8.91, Est GFR (MDRD) Af Amer 10 L, Est GFR (MDRD) Non-Af 9 L, BUN/Creatinine Ratio 8.8 L, Glucose 76, Calcium 9.5 Micro: Microbiology 02/07/24 12:45 Urine, Clean Catch Urine Culture - Final Presumptive E. coli 02/07/24 11:40 Blood Culture (Wb) - Anticubital Right Blood Culture - Final Escherichia coli 02/07/24 11:40 Mucosa - Nose SARS-CoV-2, Influenza & RSV (PCR) - Final Rhythm Strip Rhythm Strip: Sinus Tach Rate: 121 Ectopy: None Physical Exam Narrative Alert awake oriented x 3 no obvious distress no pallor no icterus no JVD s1s2 no murmurs lungs clear abdomen tenderness over left kidney no edema no cyanosis Assessment & Plan Assessment/Plan (1) ESRD (end stage renal disease): PLAN: On hemodialysis Tuesday, , Tuesday schedule. HD today. seen on HD. see orders. UTI, bacteremia. Urine culture is growing E. coli. Blood culture is growing gram-negative rods. CT abd without any abscess. Currently has a right IJ tunneled dialysis catheter. Left arm AV fistula is relatively new, which he started using it. Currently looks okay on exam. accessed catheter today. possible dc today
== END 2024-02-09 15:19 | disposition home or self-care (01) | DRG 871 ==
LOC: ED 14:30 → PCU 16:16
PROVIDERS: Internal Medicine; Admitting Provider Hospitalist; Emergency Provider Emergency Medicine; PCP Internal Medicine
DX: A41.51 Sepsis due to Escherichia coli [E. coli] (principal); G93.41 Metabolic encephalopathy; N18.6 End stage renal disease; I12.0 Hypertensive chronic kidney disease with stage 5 chronic kidney disease or end stage renal disease; N39.0 Urinary tract infection, site not specified; Q61.3 Polycystic kidney, unspecified; E03.9 Hypothyroidism, unspecified; E78.00 Pure hypercholesterolemia, unspecified; Z99.2 Dependence on renal dialysis; K21.9 Gastro-esophageal reflux disease without esophagitis; Z79.02 Long term (current) use of antithrombotics/antiplatelets; Z79.82 Long term (current) use of aspirin; Z79.890 Hormone replacement therapy; Z79.899 Other long term (current) drug therapy; Z87.891 Personal history of nicotine dependence
CPT/HCPCS: 36415; 70450; 71046; 74177; 80048; 80053; 81001; 83605; 85025; 85610; 85730; 87040; 87077; 87086; 87088; 87186; 87631; 90937; 93005; 99282; 99285; J7030; Q9967; A4216; G0257

== ENCOUNTER → 2024-02-16 | Outpatient (CLI) | payer MEDICARE, OTHER, SELFPAY ==
--- NOTE | 2024-02-16 16:30 | CT_ITS ---
EXAM: CT ABDOMEN AND PELVIS WITH INTRAVENOUS CONTRAST CLINICAL INDICATION: PELVIC PAIN/ELEVATED WHITE COUNT/RECENT SEPSIS TECHNIQUE: Helically acquired images were obtained of the abdomen and pelvis with intravenous contrast. This CT exam was performed using one or more of the following dose reduction techniques: automated exposure control, adjustment of the mA and/or kV according to patient size, and/or use of iterative reconstruction technique. CONTRAST: IV 75mL [id number]-300 COMPARISON: 02/08/2024 FINDINGS: LOWER THORAX: Coronary artery calcifications. Lung bases are clear. No cardiomegaly. No significant pericardial effusion. ABDOMEN: LIVER: Multiple cysts are present throughout the liver for which no follow-up is indicated. GALLBLADDER AND BILE DUCTS: No significant abnormality. No calcified gallstones. No gallbladder distention or wall edema. No intra- or extrahepatic biliary ductal dilation. PANCREAS: No significant abnormality. No focal cystic or solid mass. SPLEEN: No significant abnormality. Normal size without focal cystic or solid mass. ADRENALS: No significant abnormality. No nodules. KIDNEYS AND URETERS: There are innumerable simple cysts throughout the bilateral kidneys for which no follow-up is indicated. Normal renal size and position. No hydronephrosis. STOMACH AND BOWEL: Colonic diverticulosis. Similar appearance of strandy opacities adjacent to the sigmoid colon without pericolonic abscess or discrete evidence of perforation. No stomach or bowel distention. PELVIS: APPENDIX: No evidence of acute appendicitis. BLADDER: No significant abnormality. REPRODUCTIVE: Normal as visualized. No mass. ABDOMEN and PELVIS: INTRAPERITONEAL SPACE: Mild inflammatory stranding in the sigmoid mesentery. No free air or free fluid. BONES/JOINTS: Degenerative changes in the axial and appendicular skeletal structures. No suspicious lytic or blastic abnormality. SOFT TISSUES: No significant abnormality. No discrete abdominal or pelvic wall hernia. VASCULATURE: Atherosclerosis of the aorta and its branch vessels. LYMPH NODES: No significant abnormality. No enlarged lymph nodes. CT/Abdomen/Pelvis WITH Contrast IMPRESSION: 1. Uncomplicated sigmoid diverticulitis. 2. 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 Electronically Signed: Alin Granados DO at 20:15 EDT ,
== END | disposition home or self-care (01) ==
LOC: CT 14:07
PROVIDERS: PCP Internal Medicine; Referring Provider Internal Medicine; Visit Provider Internal Medicine
DX: R10.2 Pelvic and perineal pain (principal)
CPT/HCPCS: 74177; Q9967; A4216

== ENCOUNTER 2024-02-20 14:37 | Outpatient (RCR) | payer MEDICARE, OTHER, SELFPAY | END 2024-02-20 18:00 | disposition home or self-care (01) | LOC: MTLAB 14:37 | PROVIDERS: PCP Internal Medicine | DX: Z20.9 Contact with and (suspected) exposure to unspecified communicable disease (principal) | CPT/HCPCS: 36415 ==

== ENCOUNTER 2024-03-13 14:31 | Outpatient (RCR) | payer MEDICARE, OTHER, SELFPAY | END 2024-03-31 18:00 | disposition home or self-care (01) | LOC: MTLAB 14:31 | PROVIDERS: PCP Internal Medicine | DX: Z01.818 Encounter for other preprocedural examination (principal); N18.6 End stage renal disease | CPT/HCPCS: 36415 ==

== ENCOUNTER 2024-04-23 10:56 | Outpatient (RCR) | payer MEDICARE, OTHER, SELFPAY | END 2024-04-23 18:00 | disposition home or self-care (01) | LOC: MTLAB 10:56 | PROVIDERS: PCP Internal Medicine | DX: Z01.818 Encounter for other preprocedural examination (principal); N18.6 End stage renal disease ==

== ENCOUNTER 2024-05-30 12:36 | Outpatient (RCR) | payer MEDICARE, OTHER, SELFPAY | END 2024-05-30 18:00 | disposition home or self-care (01) | LOC: MTLAB 12:36 | PROVIDERS: PCP Internal Medicine | DX: Z01.818 Encounter for other preprocedural examination (principal); N18.6 End stage renal disease ==

== ENCOUNTER → 2024-06-04 | Outpatient (CLI) | payer MEDICARE, OTHER, SELFPAY ==
[2024-06-04 06:44] LABS: Absolute Lymphocyte Count 1.54 X10^3/uL (0.83-4.51); Absolute Neutrophil Count 3.6 X10^3/uL (2.0-7.7); Basophil# 0.03 X10^3/uL; Basophil% 0.5 % (0-1); Eosinophil# 0.24 X10^3/uL; Hematocrit 34.1 % (40-54); Hemoglobin 11.5 g/dL (13.0-16.5); Lymphocyte # 1.54 X10^3/ul (0.83-4.51); Lymphocyte % 25.4 % (19-41); Mean Corp Hgb Conc 33.7 g/dL (32-36); Mean Corpuscular Hgb 34.2 pg (27.0-32.0); Mean Corpuscular Volume 101.5 fL (80-94); Mean Platelet Vol. 9.3 fl (6.2-12.0); Monocyte# 0.62 X10^3/uL; Monocyte% 10.2 % (0-10); NRBC Flagged by Analyzer 0 % (0-5); Neutrophil # 3.63 X10^3/uL (2.7-7.7); Neutrophil % 59.7 % (47-70); Platelet Count 184 K/mm3 (150-450); RBC Distribution Width CV 11.9 % (11.6-14.6); RBC Distribution Width SD 44.4 fl (35.1-43.9); Red Blood Count 3.36 M/mm3 (4.6-6.2); White Blood Count 6.1 K/mm3 (4.4-11.0)
[2024-06-04 07:22] LABS: PSA,Total- Diagnostic 0.02 ng/mL (0.0-4.0)
[2024-06-04 08:02] LABS: AST(SGOT) 12 U/L (15-37); Alanine Aminotransfer ALT/SGPT 18 U/L (16-61); Albumin, Serum 3.7 g/dL (3.2-5.0); Alkaline Phosphatase 112 U/L (45-117); Anion Gap 12 (5-15); BUN 60 mg/dL (7-18); Calcium,Total 9.4 mg/dL (8.5-10.1); Chloride 95 mmol/L (98-107); Cholesterol 146 mg/dL (200); Creatinine, Serum 6.03 mg/dL (0.70-1.30); EST Glomerular Filtration Rate 10 mL/min (>60); Est Glom Filt Rate - Afr Amer 12 mL/min (>60); Globulin 3.6 g/dL (2.2-4.2); Glucose 95 mg/dL (74-106); High Density Lipoprotein 36 mg/dL; Potassium 4.3 mmol/L (3.5-5.1); Protein, Total 7.3 g/dL (6.4-8.2); Sodium Level 135 mmol/L (136-145); Triglycerides 173 mg/dL; Very Low Density Lipoprotein 35 mg/dL (5-40)
[2024-06-04 10:19] LABS: Vitamin D,25 Hydroxy 83.8 ng/mL
[2024-06-04 14:53] LABS: Hemoglobin A1c 5.4 % (3.8-5.6)
== END | disposition home or self-care (01) ==
LOC: LAB 06:19
PROVIDERS: Urology; PCP Internal Medicine; Referring Provider Internal Medicine; Visit Provider Internal Medicine
DX: C61 Malignant neoplasm of prostate (principal); I11.9 Hypertensive heart disease without heart failure; R73.01 Impaired fasting glucose; E78.00 Pure hypercholesterolemia, unspecified; E03.9 Hypothyroidism, unspecified; E55.9 Vitamin D deficiency, unspecified
CPT/HCPCS: 36415; 80053; 80061; 82306; 83036; 84153; 84443; 85025

== ENCOUNTER → 2024-06-05 | Outpatient (CLI) | payer MEDICARE, OTHER, SELFPAY ==
[2024-06-05 17:28] LABS: Color, Urine Yellow (Yellow); Glucose, Dipstick 50 mg/dl (Normal); Ketone-Dipstick Negative (Negative); Leukocyte Esterase-Dipstick 25 /ul (Negative); Nitrite-Dipstick Negative (Negative); Occult Blood-Urine Negative /ul (Negative); Protein-Dipstick 500 mg/dl (Negative); Specific Gravity, Urine 1.015 (1.002-1.030); Urine Bilirubin Dipstick Negative (Negative); Urine Clarity Clear (Clear); Urine Urobilinogen Normal (Normal)
== END | disposition home or self-care (01) ==
LOC: MTLAB 16:19
PROVIDERS: PCP Internal Medicine; Referring Provider Internal Medicine; Visit Provider Internal Medicine
DX: R82.998 Other abnormal findings in urine (principal)
CPT/HCPCS: 81002; 87086

== ENCOUNTER → 2024-06-21 | Outpatient (CLI) | payer MEDICARE, OTHER, SELFPAY | END | disposition home or self-care (01) | LOC: MTLAB 10:10 | PROVIDERS: PCP Internal Medicine; Referring Provider Nurse Practitioner; Visit Provider Nurse Practitioner | DX: Z01.818 Encounter for other preprocedural examination (principal); Z76.82 Awaiting organ transplant status | CPT/HCPCS: 36415 ==

== ENCOUNTER 2024-07-24 10:54 | Outpatient (RCR) | payer MEDICARE, OTHER, SELFPAY | END 2024-07-24 18:00 | disposition home or self-care (01) | LOC: MTLAB 10:54 | PROVIDERS: PCP Internal Medicine | DX: N18.6 End stage renal disease | CPT/HCPCS: 36415 ==

== ENCOUNTER 2024-08-17 12:32 | Outpatient (RCR) | payer MEDICARE, OTHER, SELFPAY | END 2024-08-29 18:00 | disposition home or self-care (01) | LOC: MTLAB 12:32 | PROVIDERS: PCP Internal Medicine | DX: N18.6 End stage renal disease (principal) | CPT/HCPCS: 36415 ==

== ENCOUNTER → 2024-09-03 | Outpatient (CLI) | payer MEDICARE, OTHER, SELFPAY ==
[2024-09-03 17:45] LABS: Absolute Lymphocyte Count 1.34 X10^3/uL (0.83-4.51); Absolute Neutrophil Count 3.5 X10^3/uL (2.0-7.7); Basophil# 0.03 X10^3/uL; Basophil% 0.5 % (0-1); Eosinophil# 0.27 X10^3/uL; Eosinophils% 4.7 % (0-5); Hematocrit 29.4 % (40-54); Hemoglobin 10.1 g/dL (13.0-16.5); Lymphocyte # 1.34 X10^3/ul (0.83-4.51); Lymphocyte % 23.6 % (19-41); Mean Corp Hgb Conc 34.4 g/dL (32-36); Mean Corpuscular Hgb 34.9 pg (27.0-32.0); Mean Corpuscular Volume 101.7 fL (80-94); Mean Platelet Vol. 9.5 fl (6.2-12.0); Monocyte# 0.55 X10^3/uL; Monocyte% 9.7 % (0-10); NRBC Flagged by Analyzer 0 % (0-5); Neutrophil # 3.49 X10^3/uL (2.7-7.7); Neutrophil % 61.3 % (47-70); Platelet Count 160 K/mm3 (150-450); Red Blood Count 2.89 M/mm3 (4.6-6.2); White Blood Count 5.7 K/mm3 (4.4-11.0)
[2024-09-03 18:01] LABS: Hemoglobin A1c 5.3 % (<=5.6)
[2024-09-03 18:21] LABS: ALB/GLOB Ratio 1.8 RATIO (0.9-2.4); AST(SGOT) 17 U/L (<=37); Alanine Aminotransfer ALT/SGPT 12 U/L (<=46); Albumin, Serum 4.1 g/dL (3.4-4.8); Alkaline Phosphatase 90 U/L (40-129); Anion Gap 13 (5-15); BUN 64 mg/dL (4-19); Calcium,Total 9.3 mg/dL (7.6-11.0); Chloride 98 mmol/L (98-108); Cholesterol 142 mg/dL (<=200); Creatinine, Serum 6.38 mg/dL (0.70-1.20); EST Glomerular Filtration Rate 8 (>60); Globulin 2.2 g/dL (2.2-4.2); Glucose 120 mg/dL (70-99); High Density Lipoprotein 29 mg/dL; Low Density Lipoprotein Calc. 70 mg/dL; Potassium 4.3 mmol/L (3.3-5.1); Protein, Total 6.3 g/dL (5.9-8.4); Sodium Level 135 mmol/L (133-145); Total Bilirubin 0.24 mg/dL (0.00-1.30); Triglycerides 213 mg/dL; Very Low Density Lipoprotein 43 mg/dL (5-40); Vitamin D,25 Hydroxy 68.9 ng/mL (30-100); cholesterol:hdl ratio screen 4.85
== END | disposition home or self-care (01) ==
LOC: MTLAB 16:43
PROVIDERS: PCP Internal Medicine; Referring Provider Internal Medicine; Visit Provider Internal Medicine
DX: N18.6 End stage renal disease (principal); R73.01 Impaired fasting glucose; D64.9 Anemia, unspecified; E78.00 Pure hypercholesterolemia, unspecified; E03.9 Hypothyroidism, unspecified; E55.9 Vitamin D deficiency, unspecified
CPT/HCPCS: 36415; 80053; 80061; 82043; 82306; 82570; 83036; 84443; 85025

== ENCOUNTER 2024-09-12 15:54 | Outpatient (RCR) | payer MEDICARE, OTHER, SELFPAY | END 2024-09-12 18:00 | disposition home or self-care (01) | LOC: MTLAB 15:54 | PROVIDERS: PCP Internal Medicine | DX: N18.6 End stage renal disease (principal) ==

== ENCOUNTER → 2024-09-28 | Outpatient (CLI) | payer MEDICARE, OTHER, SELFPAY | END | disposition home or self-care (01) | LOC: MTLAB 10:32 | PROVIDERS: PCP Internal Medicine; Referring Provider Internal Medicine; Visit Provider Internal Medicine | DX: E03.9 Hypothyroidism, unspecified (principal) | CPT/HCPCS: 36415; 84443 ==

== ENCOUNTER 2024-10-26 13:31 | Outpatient (RCR) | payer MEDICARE, OTHER, SELFPAY | END 2024-10-26 18:00 | disposition home or self-care (01) | LOC: MTLAB 13:31 | PROVIDERS: PCP Internal Medicine | DX: Z76.82 Awaiting organ transplant status (principal) ==

== ENCOUNTER → 2024-11-16 | Outpatient (CLI) | payer MEDICARE, OTHER, SELFPAY ==
--- NOTE | 2024-11-16 13:04 | RAD_ITS ---
PROCEDURE: L/S SPINE MIN 4 VIEWS 11/16/2024 REASON FOR EXAM: LOW BACK PAIN TECHNIQUE: Five views of the lumbosacral spine were obtained. COMPARISON: None FINDINGS: Five views of the lumbosacral spine were obtained and demonstrate diffuse osteopenia of the osseous structures. There is a significant levoscoliosis of the lumbar spine. The vertebral body heights are within normal limits. No spondylolysis is noted. There is 2 mm of retrolisthesis of L3 in relationship to L4. Degenerative changes of the lumbar spine are noted. There is disc space narrowing involving all of the lumbar disc spaces. This is most pronounced at the L4-L5 and L5-S1 levels. There is bony encroachment on the neural foramina at all levels. There are no fractures of the sacrum. Mild degenerative changes of both hips are noted. Extensive arteriosclerotic vascular disease of the abdominal aorta and iliac vessels is noted. RAD/L/S Spine Min 4 Views IMPRESSION: Degenerative changes and degenerative disc changes involving the lumbar spine. MRI may be of value for further evaluation of the disc spaces and nerve roots in this patient who has abnormal plain film finding s and low back pain, if clinically warranted. Reading Location: [id number]
== END | disposition home or self-care (01) ==
LOC: MTRAD 12:58
PROVIDERS: PCP Internal Medicine; Referring Provider Internal Medicine; Visit Provider Internal Medicine
DX: M54.50 Low back pain, unspecified (principal)
CPT/HCPCS: 72110

== ENCOUNTER 2024-11-20 10:58 | Outpatient (RCR) | payer MEDICARE, OTHER, SELFPAY | END 2024-11-29 18:00 | disposition home or self-care (01) | LOC: MTLAB 10:58 | PROVIDERS: PCP Internal Medicine | DX: Z76.82 Awaiting organ transplant status (principal) | CPT/HCPCS: 36415 ==

== ENCOUNTER 2024-12-18 10:45 | Outpatient (RCR) | payer MEDICARE, OTHER, SELFPAY ==
[2024-12-18 12:32] LABS: Hematocrit 37.0 % (40-54); Hemoglobin 12.8 g/dL (13.0-16.5); Immature Granulocytes Count 0.020 X10^3/uL (0.0-0.0); Mean Corp Hgb Conc 34.6 g/dL (32-36); Mean Corpuscular Volume 100.0 fL (80-94); Mean Platelet Vol. 9.6 fl (6.2-12.0); NRBC Flagged by Analyzer 0 % (0-5); Platelet Count 182 K/mm3 (150-450); RBC Distribution Width CV 11.7 % (11.6-14.6); RBC Distribution Width SD 43.2 fl (35.1-43.9); Red Blood Count 3.70 M/mm3 (4.6-6.2); White Blood Count 6.1 K/mm3 (4.4-11.0)
[2024-12-18 13:08] LABS: AST(SGOT) 24 U/L (<=37); Alanine Aminotransfer ALT/SGPT 15 U/L (<=46); Albumin, Serum 4.6 g/dL (3.4-4.8); Alkaline Phosphatase 95 U/L (40-129); Anion Gap 13 (5-15); BUN 21 mg/dL (4-19); BUN/Creat Ratio 6.5 RATIO (10-20); Calcium,Total 8.8 mg/dL (7.6-11.0); Carbon Dioxide 29.6 mmol/L (21.0-32.0); Chloride 95 mmol/L (98-108); Cholesterol 185 mg/dL (<=200); Globulin 2.5 g/dL (2.2-4.2); Glucose 79 mg/dL (70-99); Low Density Lipoprotein Calc. 98 mg/dL; Potassium 3.7 mmol/L (3.3-5.1); Triglycerides 239 mg/dL; Very Low Density Lipoprotein 48 mg/dL (5-40); Vitamin D,25 Hydroxy 89.4 ng/mL (30-100); cholesterol:hdl ratio screen 4.66
== END 2024-12-18 18:00 | disposition home or self-care (01) ==
LOC: MTLAB 10:45
PROVIDERS: PCP Internal Medicine
DX: R73.01 Impaired fasting glucose (principal); E78.00 Pure hypercholesterolemia, unspecified; E03.9 Hypothyroidism, unspecified; E55.9 Vitamin D deficiency, unspecified
CPT/HCPCS: 36415; 80053; 80061; 82306; 83036; 84443; 85025

== ENCOUNTER → 2025-01-08 | Outpatient (CLI) | payer MEDICARE, OTHER, SELFPAY ==
--- NOTE | 2025-01-08 06:31 | ECHOD_ITS ---
Reason For Study Reason For Study: Pre Transplant ESRD Procedure This was a 2D Doppler, Color Flow transthoracic echocardiogram. Exam performed in department. Left Ventricle Normal LV size. Mild concentric left ventricular hypertrophy. Left ventricular systolic function is normal. The left ventricular ejection fraction is 60 %. Stage 1 diastolic dysfunction. Right Ventricle Normal RV size. Normal systolic function. Atria There is mild biatrial dilatation. Mitral Valve The mitral valve is structurally normal. No prolapse or stenosis seen. Trivial mitral valve insufficiency. Tricuspid Valve Normal tricuspid valve. Mild (1+) tricuspid valve insufficiency. Normal pulmonary artery pressure. Aortic Valve Trisinus/trileaflet aortic valve. Pulmonic Valve The pulmonic valve is not well visualized. Great Vessels Normal sized aortic root. Pericardium/Pleural No pericardial effusion. MMode/2D Measurements & Calculations LVIDd: 5.0 cm IVSd: 0.98 cm Ao root diam: 3.3 cm LVIDs: 3.1 cm LVPWd: 1.3 cm RVDd: 4.1 cm FS: 38.6 % LAV(MOD-bp): 67.8 ml LVAd ap4: 30.4 cm2 SV(MOD-sp4): 56.1 ml LAV(MOD-bp) Indexed: 34.7 ml/m2 LVLd ap4: 8.5 cm SI(MOD-sp4): 28.7 ml/m2 LAV(MOD-sp2): 72.4 ml EDV(MOD-sp4): 90.1 ml LAV(MOD-sp4): 63.5 ml EDV(sp4-el): 92.0 ml LVAs ap4: 16.1 cm2 LVLs ap4: 6.9 cm ESV(MOD-sp4): 34.0 ml ESV(sp4-el): 32.2 ml EF(MOD-sp4): 62.3 % EF(sp4-el): 65.0 % SV(sp4-el): 59.8 ml LA A4 area: 21.4 cm2 LA dimension(2D): 4.5 cm RA A4 area: 16.3 cm2 TAPSE: 1.5 cm Time Measurements MV dec time: 0.24 sec Doppler Measurements & Calculations MV E max mark: 67.0 cm/sec Lat Peak E' Mark: 9.2 cm/sec Med Peak E' Mrak: 7.4 cm/sec MV A max mark: 69.8 cm/sec E/E' lat: 7.3 E/E' med: 9.0 MV E/A: 0.96 MV V2 max: 87.4 cm/sec MV P1/2t max mark: 88.3 cm/sec Ao V2 max: 102.8 cm/sec MV max P.1 mmHg MV P1/2t: 85.6 msec Ao max P.2 mmHg MV V2 mean: 49.4 cm/sec Ao V2 mean: 70.8 cm/sec MV mean P.2 mmHg MV dec slope: 302.1 cm/sec2 Ao mean P.3 mmHg MV V2 VTI: 26.1 cm MVA(P1/2t): 2.6 cm2 Ao V2 VTI: 26.5 cm AV (velocity ratio): 0.83 LV V1 max: 85.1 cm/sec PA V2 max: 101.1 cm/sec TR max mark: 228.4 cm/sec LV V1 max P.9 mmHg PA V2 mean: 70.5 cm/sec TR max P.9 mmHg LV V1 mean P.3 mmHg LV V1 mean: 53.0 cm/sec LV V1 VTI: 21.9 cm ECHO/Echo Complete Interpretation Summary The left ventricular ejection fraction is 60 %. Mild concentric left ventricula r hypertrophy. Stage 1 diastolic dysfunction. There is mild biatrial dilatation. Mild (1+) tricuspid valve insufficiency. Hepatic cysts noted. Consider ultrasound liver for further evaluation. Ordering Physician: Rae Gifford Referring Physician: Rae Gifford Performed By: Harinder Young RCS
--- NOTE | 2025-01-08 12:25 | STRESSREP ---
Stress Test Report Date: 01/08/2025 Procedure: Exercise tolerance test/imaging study Indications: Pretransplant evaluation Consent: Per the patient Procedure: The patient exercised on a Tevin protocol for 6 minutes achieving a peak heart rate of 123 bpm (85% predicted maximal heart rate) with a peak blood pressure 204/94 mmHg and a peak MET capacity of 7.0 METs. The baseline ECG demonstrated sinus rhythm. The peak exercise ECG showed sinus tachycardia with no ischemic changes. No significant cardiac dysrhythmias noted. The functional capacity was considered very good for age. There was no complaint of chest discomfort during exercise or recovery. The examination was discontinued secondary to target heart rate being achieved. The patient was injected with 11.5 mCi of technetium 99m Cardiolite and subsequently rest SPECT Cardiolite nuclear imaging was obtained in the horizontal long, vertical long, and short axis views. Post-exercise, the patient was injected with 34.1 mCi of technetium 99m Cardiolite and subsequently stress SPECT Cardiolite nuclear imaging was obtained in the horizontal long, vertical long, and short axis views. A gated Cardiolite study at peak stress was obtained. Rest and stress SPECT Cardiolite nuclear imaging status post realignment, normalization, and attenuation correction, demonstrates the appearance of relative uniform tracer uptake and myocardial perfusion appearing within normal limits. There is end systolic thickening and brightening. The gated Cardiolite study demonstrates myocardial thickening and inward wall motion. The reported LVEF is 67%. Impression: 1. Technically adequate (percent predicted maximal heart rate greater than 85%) exercise tolerance test 2. Peak exercise ECG with no ischemic changes. Hypertensive response to exercise. 3. No significant cardiac dysrhythmias noted 4. Rest and stress SPECT Cardiolite nuclear imaging demonstrate relative uniform tracer uptake and myocardial perfusion appearing within normal limits. 5. The gated Cardiolite study reports an LVEF of 67%. This note was generated with [employer] software. It may contain incorrect words, spelling, and punctuation that were not noted in checking the note before signing.
== END | disposition home or self-care (01) ==
LOC: CVS 06:28
PROVIDERS: PCP Internal Medicine; Referring Provider Nurse Practitioner; Visit Provider Nurse Practitioner
DX: Z01.810 Encounter for preprocedural cardiovascular examination (principal); N18.6 End stage renal disease; I12.0 Hypertensive chronic kidney disease with stage 5 chronic kidney disease or end stage renal disease; Z76.82 Awaiting organ transplant status; Z99.2 Dependence on renal dialysis
CPT/HCPCS: 78452; 93017; 93306; A9500

== ENCOUNTER 2025-01-24 10:59 | Outpatient (RCR) | payer MEDICARE, OTHER, SELFPAY ==
[2025-01-24 12:26] LABS: Hematocrit 37.4 % (40-54); Hemoglobin 12.9 g/dL (13.0-16.5); Immature Granulocytes Count 0.030 X10^3/uL (0.0-0.0); Mean Corp Hgb Conc 34.5 g/dL (32-36); Mean Corpuscular Volume 99.5 fL (80-94); Mean Platelet Vol. 9.8 fl (6.2-12.0); NRBC Flagged by Analyzer 0 % (0-5); Platelet Count 190 K/mm3 (150-450); RBC Distribution Width CV 12.0 % (11.6-14.6); RBC Distribution Width SD 43.8 fl (35.1-43.9); Red Blood Count 3.76 M/mm3 (4.6-6.2); White Blood Count 7.2 K/mm3 (4.4-11.0)
[2025-01-24 15:53] LABS: Cholesterol 189 mg/dL (<=200); Low Density Lipoprotein Calc. 101 mg/dL; Triglycerides 285 mg/dL; Very Low Density Lipoprotein 57 mg/dL (5-40); Vitamin D,25 Hydroxy 85.4 ng/mL (30-100); cholesterol:hdl ratio screen 6.10
[2025-01-24 16:09] LABS: AST(SGOT) 23 U/L (<=37); Alanine Aminotransfer ALT/SGPT 19 U/L (<=46); Albumin, Serum 4.7 g/dL (3.4-4.8); Alkaline Phosphatase 98 U/L (40-129); Anion Gap 15 (5-15); BUN 6 mg/dL (4-19); BUN/Creat Ratio 1.8 RATIO (10-20); Calcium,Total 7.4 mg/dL (7.6-11.0); Carbon Dioxide 26.6 mmol/L (21.0-32.0); Chloride 96 mmol/L (98-108); Globulin -2.4 g/dL (2.2-4.2); Glucose 89 mg/dL (70-99); Potassium 3.8 mmol/L (3.3-5.1)
== END 2025-01-29 18:00 | disposition home or self-care (01) ==
LOC: MTLAB 10:59
PROVIDERS: PCP Internal Medicine
DX: R73.01 Impaired fasting glucose (principal); E03.9 Hypothyroidism, unspecified; E55.9 Vitamin D deficiency, unspecified
CPT/HCPCS: 36415; 80053; 80061; 82306; 83036; 84443; 85025

== ENCOUNTER 2025-01-30 15:30 | Outpatient (RCR) | payer MEDICARE, OTHER, SELFPAY ==
--- NOTE | 2024-12-26 15:57 | HP.PTEVAL ---
Patient's Visit Information Visit Information Visit Information: ARBEN PORTER is a 74 year old M referred to Physical Therapy by Dr. Angie Ivan DO with a diagnosis of LOW BACK PAIN. Date of Evaluation: 12/26/24 Physical Therapist: Arben Coffey PT, Cert MDT, OCS Visit Plan Frequency: 2x /Week Duration: 4 Weeks Plan: PT INTERVENTIONS DLS , POSTURAL EX'S ,LUMBAR FLEXION ,ACTIVITY MODIFICATION AND MODALITIES PRN Subjective Subjective: This 74 y/o male presents to physical therapy with low back pain. Patient has h/o lumbar surgery discectomy ~ 20 years ago. Patient had pain recently developed 6 months ago with symptoms progressively worse. Recommended pain management but needs PT . Patient had x-rays There is a significant levoscoliosis of the lumbar spine. The vertebral body heights are within normal limits. No spondylolysis is noted.There is 2 mm of retrolisthesis of L3 in relationship to L4. Degenerative changes of the lumbar spine are noted. There is disc space narrowing involving all of the lumbar disc spaces. This is most pronounced at the L4-L5 and L5-S1 levels. There is bony encroachment on the neural foramina at all levels. Patient also has kidney failure and us on dialysis. Patient pain symmetrical lumbar and no leg symptom but noticed some weakness left leg gives way occasional. Described as ache. Aggravating factors walking/standing ,lifting extended sitting .Alleviating bending. Pain affects sleeping. Bowel/bowel -. Coughing/sneezing+. denies paresthesia/tingling-. Patient condition affects QOL and function. Patient goals nom apin SOCAIL: VOCATION: retired Pain Bilateral Back: Pain Intensity (Out of 10): 3 Pain Intensity Range: 8 Objective Objective: POSTURE: mild forward posture ,scoliosis GAIT: reciprocal pattern mild forward slow gio PALAPTION: unremarkable NEURO: denies paresthesia/tingling, reflexes L3-4 ,L4-5 ,L5-S1 1/3 FLEXABILITY: hamstrings min tight LUMBAR ROM : flexion mod loss ,extension severe loss ,side glides mod loss MMT: quads/hams 4/5 ,hip flexion right 17.2 ,left 19 .1 ,hip abduction right 12.9 .13.2 left Special Tests L/S Slump test left side: Negative L/S Slump test right side: Negative L/S Left Straight Leg Raise: Negative L/S Right Straight Leg Raise: Negative Lumbar Standing: Flexion - Mechanical Response: No effect Lumbar Standing: Flexion - Symptoms During Testing: Decreases Lumbar Standing: Flexion - Symptoms After Testing: Better Lumbar Standing: Extension - Mechanical Response: No effect Lumbar Standing: Extension - Symptoms During Testing: Increases Lumbar Standing: Extension - Symptoms After Testing: Worse Lumbar Standing: Right Side Glides - Mechanical Response: No effect Lumbar Standing: Right Side [place] - Symptoms During Testing: No effect Lumbar Standing: Right Side [place] - Symptoms After Testing: No effect Lumbar Standing: Left Side [place] - Mechanical Response: No effect Lumbar Standing: Left Side [place] - Symptoms During Testing: No effect Lumbar Standing: Left Side [place] - Symptoms After Testing: No effect Lumbar Lying: Flexion - Mechanical Response: No effect Lumbar Lying: Flexion - Symptoms During Testing: Decreases Lumbar Lying: Flexion - Symptoms After Testing: Better Balance/Special Test Scores Oswestry Low Back Score: 29 Goals Goal 1:: Patient to be I with HEP for back Goal Time Frame: 4-6 Weeks Goal 2:: Patient to improve hip strength by 5-10# to improve gait Goal Time Frame: 4-6 Weeks Goal 3:: Patient to lumbar ROM for function of recovery for ADLS Goal Time Frame: 4-6 Weeks Goal 4:: Patient improve back oswestry by 5 points to improve QOL and function Goal Time Frame: 4-6 Weeks Rehabilitation Potential Physical Therapy Diagnosis: This patient has lumbar pain with h/o discectomy 20 years ago with current impression DDD with stenosis along with scoliosis ,weakness hips ,decrease ROM worse with walking/standing thus benefit from skilled PT Rehabilitation Potential: Good Anticipated Interventions Patient/Client Instruction: Educate patient on: Condition and Plan of Care For the Purpose of:: To decrease pain, To increase ROM, To improve muscle performance and motor function, To improve ability to perform ADL's, To increase tolerance to activity/condition/position, To improve ability of physical actions for home/community/work/leisure, To improve health of tissue, To decrease soft tissue restriction, To increase flexibility/ROM, To reduce risk of recurrence, To improve self management and To improve tolerance to ADL's Therapeutic Exercise to Include: Strength training, Postural training, Flexibilty training and Dynamic Lumbar Stabilization Comment: HIP For the Purpose of:: To decrease pain, To increase ROM, To improve muscle performance and motor function, To improve ability to perform ADL's, To increase tolerance to activity/condition/position, To improve ability of physical actions for home/community/work/leisure, To improve health of tissue, To decrease soft tissue restriction, To increase flexibility/ROM and To improve tolerance to ADL's TENS: Yes IF ES: Yes Cryotherapy (ice pack, ice massage): Yes Thermo therapy (hot pack): Yes Ultrasound (thermal/non thermal): Yes For the Purpose of:: To decrease pain, To increase ROM, To improve nutrient delivery to tissue, To increase oxygenation perfusion, To improve health of tissue and To decrease soft tissue restriction Text: Thank you for the opportunity to evaluate your patient. For Medicare and Medicare HMO plans, please review the plan of care and approve it. It will need to be FAXED BACK to us at [phone] for Medicare purposes. For Medicare only, by signing this I certify the plan of care. Please let me know if there are questions or concerns regarding this plan of care. Physician Signature: Date:
--- NOTE | 2025-01-25 15:31 | HP.PTREVAL_ITS ---
Re-Evaluation Intro: Dr. Angie Ivan, DO, It has been my pleasure to treat ARBEN PORTER over the last 8 visits for LOW BACK PAIN. Please see the progress note below for an update on the physical therapy plan of care! Subjective Subjective: -Balance is bad but no falls -Legs are weak but improving -Im able to walk further Objective Objective/Function: POSTURE: mild forward posture ,scoliosis GAIT: reciprocal pattern mild forward slow gio PALAPTION: unremarkable NEURO: denies paresthesia/tingling, reflexes L3-4 ,L4-5 ,L5-S1 1/3 FLEXABILITY: hamstrings min tight LUMBAR ROM : flexion min loss ,extension mod loss ,side glides mod loss MMT: quads/hams 4/5 ,hip flexion right 34. ,left 33.2 ,hip abduction right [id number] left Plan Plan Plan: PT INTERVENTIONS DLS , POSTURAL EX'S ,LUMBAR FLEXION ,ACTIVITY MODIFICATION AND MODALITIES PRN Balance/Gait/Functional tests Balance/Special Test Scores Oswestry Low Back Score: 26 30 Second Chair Rise Test Seconds: 12 Goals Goals Goal 1:: Patient to be I with HEP for back Goal Time Frame: 4-6 Weeks Goal Progress: Progressing Goal 2:: Patient to improve hip strength by 5-10# to improve gait( new goal) Goal Time Frame: 4-6 Weeks Goal 3:: Patient to lumbar ROM for function of recovery for ADLS Goal Time Frame: 4-6 Weeks Goal Progress: Progressing Goal 4:: Patient improve back oswestry by 5 points to improve QOL and function Goal Time Frame: 4-6 Weeks Goal Progress: Progressing Goal 5:: Patient to demonstrated 70% improvement with less pain and improved function with walking and ADL ( NEW GOAL) Goal Progress: Progressing Anticipated Interventions Anticipated Interventions Patient/Client Instruction: Educate patient on: Condition and Plan of Care For the Purpose of:: To decrease pain, To increase ROM, To improve muscle performance and motor function, To improve ability to perform ADL's, To increase tolerance to activity/condition/position, To improve ability of physical actions for home/community/work/leisure, To improve health of tissue, To decrease soft tissue restriction, To increase flexibility/ROM, To reduce risk of recurrence, To improve self management and To improve tolerance to ADL's Therapeutic Exercise to Include: Strength training, Postural training, Flexibilty training and Dynamic Lumbar Stabilization Comment: HIP For the Purpose of:: To decrease pain, To increase ROM, To improve muscle performance and motor function, To improve ability to perform ADL's, To increase tolerance to activity/condition/position, To improve ability of physical actions for home/community/work/leisure, To improve health of tissue, To decrease soft tissue restriction, To increase flexibility/ROM and To improve tolerance to A DL's TENS: Yes IF ES: Yes Cryotherapy (ice pack, ice massage): Yes Thermo therapy (hot pack): Yes Ultrasound (thermal/non thermal): Yes For the Purpose of:: To decrease pain, To increase ROM, To improve nutrient delivery to tissue, To increase oxygenation perfusion, To improve health of tissue and To decrease soft tissue restriction Re-Evaluation Ending Re-evaluation ending: Please do not hesitate to contact me at [phone] by phone or if you have questions or concerns regarding this new plan of care! Sincerely, Arben Coffey, PT, Cert MDT, OCS
== END 2025-01-30 19:00 | disposition home or self-care (01) ==
LOC: PT 15:30
PROVIDERS: PCP Internal Medicine; Referring Provider Internal Medicine; Visit Provider Internal Medicine
DX: M54.50 Low back pain, unspecified (principal)
CPT/HCPCS: 97110; 97162; 97530

== ENCOUNTER 2025-02-21 10:03 | Outpatient (RCR) | payer MEDICARE, OTHER, SELFPAY ==
[2025-02-21 12:39] LABS: PSA,Total- Diagnostic < 0.02 ng/mL (0.00-4.00)
== END 2025-02-21 18:00 | disposition home or self-care (01) ==
LOC: MTLAB 10:03
PROVIDERS: PCP Internal Medicine
DX: R97.20 Elevated prostate specific antigen [PSA] (principal)
CPT/HCPCS: 36415; 84153

== ENCOUNTER 2025-03-25 10:53 | Outpatient (RCR) | payer MEDICARE, OTHER, SELFPAY ==
[2025-03-25 13:00] LABS: PSA,Total- Diagnostic < 0.02 ng/mL (0.00-4.00)
== END 2025-03-30 18:00 | disposition home or self-care (01) ==
LOC: MTLAB 10:53
PROVIDERS: Urology; PCP Internal Medicine
DX: R97.20 Elevated prostate specific antigen [PSA] (principal)
CPT/HCPCS: 36415; 84153